=== PATIENT | male | born 1965 | race Caucasian/White ===

== ENCOUNTER 2016-09-07 20:01 | Emergency (ER) | payer MEDICARE, MEDICAID ==
[2016-09-07 22:06] LABS: BASO # 0.1 K/mm3 (0.0-0.2); BASO % 0.6 % (0.0-1.0); EOS # 0.2 K/mm3 (0.0-0.50); LARGE UNSTAINED CELL # 0.2 K/mm3 (0.0-0.4); LARGE UNSTAINED CELL % 1.3 % (0.0-4.0); LYMPH # 2.4 K/mm3 (1.5-4.5); LYMPH % 12.5 % (24.0-44.0); MEAN CORPUSCULAR HEMOGLOBIN 34.2 pg (27.0-33.0); MEAN CORPUSCULAR HGB CONC 33.5 g/dl (32.0-36.5); MONO # 1.3 K/mm3 (0.0-0.8); MONO % 7.6 % (0.0-5.0); NEUTROPHILS # 13.3 K/mm3 (1.8-7.7); PLATELET COUNT, AUTOMATED 325 k/mm3 (150-450); WHITE BLOOD COUNT 17.2 K/mm3 (4.0-10.0)
[2016-09-07 22:21] LABS: VENOUS BASE EXCESS 2.2 (-2.0-2.0); VENOUS O2 SATURATION 94.9 % (60.0-80.0); VENOUS PARTIAL PRESSURE CO2 43.3 mmHg (38.0-50.0); VENOUS PARTIAL PRESSURE O2 74.8 mmHg (30.0-50.0); VENOUS STANDARD HCO3 26.4 MEQ/L; VENOUS TOTAL CO2 28.5 MEQ/L (24.0-28.0)
[2016-09-07 22:30] LABS: ALBUMIN 3.3 GM/DL (3.2-5.2); ALBUMIN/GLOBULIN RATIO 0.75 (1.00-1.93); ALKALINE PHOSPHATASE 89 U/L (45-117); ALT/SGPT 22 U/L (12-78); AMYLASE 52 U/L (25-115); ANION GAP 9 MEQ/L (8-16); AST/SGOT 35 U/L (15-37); BILIRUBIN,DIRECT < 0.1 MG/DL (0.0-0.2); BILIRUBIN,TOTAL 0.5 MG/DL (0.2-1.0); BLOOD UREA NITROGEN 13 MG/DL (7-18); CALCIUM LEVEL 9.4 MG/DL (8.5-10.1); CARBON DIOXIDE LEVEL 30 MEQ/L (21-32); CHLORIDE LEVEL 100 MEQ/L (98-107); GLOMERULAR FILTRATION RATE 27.8 (>56); GLUCOSE, FASTING 272 MG/DL (70-105); POTASSIUM SERUM 3.5 MEQ/L (3.5-5.1); SODIUM LEVEL 139 MEQ/L (136-145); TOTAL PROTEIN 7.7 GM/DL (6.4-8.2)
--- NOTE | 2016-09-07 23:51 | REP ---
Clinical: Acute cough. Technique: PA and lateral. Comparison: None. Findings: Calcified nodule in the right upper lung zone. Thoracic stimulator in the epidural space. Mediastinum and cardiac silhouette without obvious acute process or cardiomegaly. Increased and coarsened interstitial markings emanating from the perihilar region. Differential diagnosis includes, but is not limited to chronic changes and acute bronchitis along with scattered basilar atelectasis. No effusion. No pneumothorax. Skeletal structures appear intact. Impression: Diffuse increased and coarsened interstitial changes. Differential diagnosis includes but is not limited to chronic changes as well as bronchitis with scattered basilar atelectasis. Signed by Refugio Faustin MD 09/07/2016 11:42 P
[2016-09-08 01:53] LABS: AMPHETAMINES LEVEL URINE NEGATIVE (NEGATIVE); BENZODIAZEPINES URINE NEGATIVE (NEGATIVE); COCAINE METABOLITE URINE NEGATIVE (NEGATIVE); CONTROL LINE INT CTR LINE PRESENT; METHADONE URINE NEGATIVE (NEGATIVE); OPIATES URINE NEGATIVE (NEGATIVE); TRICYCLIC ANTIDEPRESS URINE NEGATIVE (NEGATIVE)
--- NOTE | 2016-09-08 02:50 | REPUSA ---
CLINICAL HISTORY: Renal colic. TECHNIQUE: Multiple axial, sagittal and coronal CT images were obtained through the abdomen and pelvi s without administration of oral or IV contrast material. COMMENTS: The liver is of uniform attenuation without mass or defect. There is no intra or extrahepatic biliary ductal dilatation. The spleen is normal. The gallbladder is within normal limits. The pancreas is of normal contour and attenuation characteristics. There is no evidence of adrenal mass. The kidneys are normal in size, shape and configuration. No renal or ureteral calculi are identified. There is no hydroureter or hydronephrosis. There is no evidence for appendicitis. There is no bowel wall thickening. No evidence for small or la rge bowel obstruction. There is no evidence of abdominal ascites or lymphadenopathy. There is no evidence of intrinsic or extrinsic bladder mass. There is no pelvic ascites or lymphadeno augustina. Diffuse thickening of the wall of the bladder. Small sliding hiatal hernia. Images of the lung bases show no evidence of pleural or parenchymal mass. There are no pleural effusi ons. The bony structures are free of lytic or blastic lesions. Multilevel degenerative changes are seen in volving the thoracolumbar spine. Scattered calcifications are seen involving the aorta and major branches compatible with atherosclero sis. IMPRESSION: Diffuse thickening of the tanner the bladder. Underdistention versus mild cystitis. Uncomplicated colonic diverticulosis. Thank you for your kind referral of this patient.
[2016-09-08] MEDS ORDERED: LevoFLOXacin 250 MG TABLET As Ordered ONE (03:35)
--- NOTE | 2016-09-08 03:47 | EDDOCDS ---
Nurse's Notes [facility] Name: Colton Jolley Age: 50 yrs Sex: Male : 1965 Arrival Date: 09/07/2016 Time: 20:01 Bed 4 Private MD: Indio Payne Diagnosis: Cystitis, unspecified with hematuria Presentation: 09/07 20:05 Presenting complaint: EMS states: Per EMS pt hasn't felt well today before or after tm5 dialysis, sent here from Dialysis with complaints of general illness, aches & pains every where, BG FS before dialysis was 62 was given Dextrose & BG fingerstick per EMS is 177. Adult Sepsis Screening: The patient does not have new or worsening altered mentation. Patient's respiratory rate is less than 22. Systolic blood pressure is greater than 100. Patient has a qSOFA score of 0- Negative Sepsis Screen. Suicide/Homicide risk assessment- the patient denies having any suicidal and/or homicidal ideations and does not present with any other emotional, behavioral or mental health complaints. 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 Transition of care: patient was not received from another setting of care. Care prior to arrival: See EMS report. BG FS 177. 20:05 Acuity: JENNY Level 3 tm5 20:05 Method Of Arrival: Ambulance tm5 Triage Assessment: 20:18 General: Appears in no apparent distress, Behavior is appropriate for age, cooperative. tm5 Pain: Location: chronic all over pain per pt Pain currently is 9 out of 10 on a pain scale. Pt Declines HIV testing. The patient is triaged at the bedside. See Assessment in Nurses Notes section of ED record. Neurological: Level of Consciousness is awake, alert, Oriented to person, place, time. Cardiovascular: Rhythm is regular. Respiratory: Airway is patent Respiratory effort is even, unlabored, Respiratory pattern is regular, symmetrical, Breath sounds are clear bilaterally. GI: Abdomen is flat, non- distended Bowel sounds present X 4 quads. Abd is soft and non tender X 4 quads. : No deficits noted. Derm: Skin is pink, warm & dry. normal. Musculoskeletal: No deficits noted. Historical: - Allergies: EMLA; Erythromycin; - Home Meds: 1. Dexilant 60 mg oral CpDB 1 cap once daily 2. duloxetine 30 mg Oral cpDR 1 cap once daily 3. escitalopram oxalate 20 mg oral tab 1 tab once daily 4. gemfibrozil 600 mg Oral tab 1 tab 2 times per day 5. hydralazine 25 mg Oral tab 1 tab 2 times per day 6. Lantus 19 units nightly Sub-Q soln nightly 7. levetiracetam 500 mg oral tab 1 tab 2 times per day 8. Lipitor 40 mg Oral tab 1 tab once daily 9. pregabalin 300 mg Oral cap nightly 10. metoprolol succinate 50 mg Tb24 1 tab once daily 11. multivitamin Oral tab 12. Novolin 70/30 InnoLet per sliding scale Sub-Q inpn 13. tizanidine 12 mg nightly oral cap - PMHx: Hypertension; end stage renal disease; Diabetes - IDDM: controlled; Dialysis; COPD; chronic pain; - PSHx: spleenectomy; right leg fracture; - Social history: Smoking status: Patient states former smoker of tobacco. No barriers to communication noted, The patient speaks fluent Mexican. - Family history: Not pertinent. - : The pt / caregiver states he / she is not on anticoagulants. Home medication list is obtained from a discharge med list. - Exposure Risk Screening:: None identified. Screenin:20 Screening information is obtained from the patient. Fall risk: No risks identified. tm5 Assistance ADL's: requires no assistance with activities of daily living. Abuse/DV Screen: The patient / caregiver reports he/she is: not in a situation that causes fear, pain or injury. Nutritional screening: No deficits noted. Advance Directives: There is no active DNR order. home support is adequate. Assessment: 20:20 General: see triage assessment . tm5 20:57 Reassessment: Patient appears in no apparent distress at this time. Patient states tm5 symptoms have not improved. pt still awaiting MD for evaluation . 09/08 00:07 Reassessment: Patient appears in no apparent distress at this time. Patient states tm5 symptoms have not improved. pt refuses to be straight cath'd, pt has urinal at bedside since arrival & has been aware that Urine sample is needed, pt states " I'll urinate when I can", MD aware . 01:08 Reassessment: Patient appears in no apparent distress at this time. Patient states tm5 symptoms have not improved. pt asking why his pain hasn't been addressed by the MD, told pt MD is aware of his pain & this RN hasn't received any orders at this time for pain complaints, pt appears to be upset with this . General: pt standing up at bedside attempting to void in urinal at this time. 01:14 General: pt voided in urinal without any difficulties voiced . tm5 03:43 Reassessment: Patient appears in no apparent distress at this time. Patient states tm5 symptoms have improved. pt awakened for discharge home. Vital Signs: 09/07 20:14 BP 129 / 66; Pulse 83; Resp 20; Temp 96(TE); Pulse Ox 96% on R/A; Weight 90.72 kg (R); mello Height 5 ft. 7 in. (170.18 cm) (R); Pain 9/10; 20:27 BP 133 / 72 (auto/); tm5 20:27 Pulse 82 MON; Pulse Ox 94% ; tm5 20:42 BP 145 / 76 (auto/); tm5 20:42 Pulse 82 MON; Pulse Ox 95% ; tm5 20:57 BP 154 / 76 (auto/); tm5 20:57 Pulse 82 MON; Pulse Ox 91% ; tm5 21:12 BP 153 / 70 (auto/); tm5 21:12 Pulse 82 MON; Pulse Ox 90% on R/A; tm5 21:27 BP 151 / 79 (auto/); tm5 21:27 Pulse 78 MON; Pulse Ox 96% on R/A; tm5 09/08 00:06 BP 128 / 74; Pulse 87; Resp 18; Temp 98.0(O); Pulse Ox 98% on R/A; Pain 9/10; tm5 01:14 BP 117 / 79; Pulse 79; Resp 18; Pulse Ox 96% on R/A; Pain 9/10; tm5 03:43 BP 133 / 58; Pulse 74; Resp 18; Temp 97.9(O); Pulse Ox 100% on R/A; Pain 6/10; tm5 09/07 20:14 Body Mass Index 31.32 (90.72 kg, 170.18 cm) mello Vitals: 09/07 20:18 Log In Time N/A - ambulance arrival. tm5 ED Course: 20:02 Patient visited by Mary Alice, Heidy-Rima, Cattle Inspector. ml3 20:02 Patient moved to Waiting ml3 20:04 Indio Payne is Private Physician. ml3 20:05 Patient visited by Yarelis Hansen RN. tm5 20:05 Patient moved to 4 ml3 20:07 Triage Initiated tm5 20:11 Patient visited by Bruce Sullivan, SHELLEY. kb5 20:15 Patient visited by Shawnee Almanza PCA. mello 20:15 Pt greeted and oriented to ED. Patient advised of names of staff involved in care, mello location of call parekh, wait times and NPO status. Patient has correct armband on for positive identification. Placed in gown. Bed in low position. Call light in reach. Side rails up X2. stripping shovel oiler on. Pulse ox on. NIBP on. 20:16 Patient visited by Yarelis Hansen RN. tm5 20:20 Awaiting ED physician evaluation. tm5 20:20 The patient / caregiver is instructed regarding the plan of care and ED course. tm5 20:57 Yarelis Hansen RN is Primary Nurse. tm5 20:57 Patient visited by Yarelis Hansen RN. tm5 20:57 Awaiting ED physician evaluation. tm5 21:09 Patient visited by Yarelis Hansen RN. tm5 21:18 Harish Hameed DO is Attending Physician. mm11 21:18 Patient visited by Harish Hameed DO. mm11 21:24 Patient visited by Yarelis Hansen RN. tm5 21:24 ED physician to see patient. tm5 21:27 Patient visited by Harish Hameed DO. mm11 21:45 Inserted saline lock: 20 gauge in right forearm and blood collected. The patient tm5 tolerated the procedure well. 21:45 Labs/Blood culture drawn. tm5 21:47 Lactic Acid (Hairston tube on ice) Sent. tm5 21:47 Venous Blood Gas (large pea green tube on ice) Sent. tm5 21:47 -Blood Culture Sent. tm5 21:47 Amylase Sent. tm5 21:47 Basic Metabolic Profile Sent. tm5 21:47 CBC with Diff Sent. tm5 21:47 Cardiac Injury Profile Sent. tm5 21:47 Liver Profile Sent. tm5 21:47 Troponin Sent. tm5 21:50 Lipase Sent. tm5 21:51 Patient visited by Yarelis Hansen RN. tm5 22:10 Patient visited by Yarelis Hansen RN. tm5 23:20 Patient moved to Radiology bisi 23:26 Patient name changed from Colton\\S\\\\S\\Jolley\\S\\ to Colton\\S\\ \\S\\Jolley. EDMS 23:30 [facility] Payment Agreement was scanned into [employer] and attached to record. gjb 23:36 Patient moved to 4 bisi 23:39 Patient visited by Shawnee Almanza PCA. mello 09/08 00:03 Chest, 2 View (pa\\E\\lat) Returned. EDMS 00:06 -Influenza A&B Rapid Antigen - Nose Sent. tm5 00:14 Patient visited by Yarelis Hansen RN. tm5 00:49 Patient visited by Harish Hameed DO. mm11 00:51 Patient visited by Yarelis Hansen RN. tm5 00:51 ED physician to see patient. tm5 01:08 Patient visited by Yarelis Hansen RN. tm5 01:14 Patient visited by Yarelis Hansen RN. tm5 01:15 Urinalysis Sent. tm5 01:15 Urine Culture Sent. tm5 01:16 Patient visited by Yarelis Hansen RN. tm5 01:23 Drug Eval Toxicology ED Only Sent. tm5 01:51 Patient visited by Harish Hameed DO. mm11 01:54 Patient visited by Yarelis Hansen RN. tm5 01:54 Notified attending ED physician of BG FS 209, per MD no need for hourly fingersticks tm5 anymore at this time . 02:05 Patient visited by Yarelis Hansen RN. tm5 02:[address] tm5 03:01 CT ABD & PELVIS: No Contrast Returned. EDMS 03:04 Patient visited by Yarelis Hansen RN. tm5 03:27 Indio Payne is Referral Physician. mm11 03:34 Fingerstick Blood Sugar Sent. tm5 03:43 Discontinued lock intact, bleeding controlled, pressure dressing applied, No tm5 redness/swelling at site. No procedures done that require assistance. Administered Medications: 03:42 Drug: levofloxacin 250 mg [levofloxacin 250 mg tablet (1 tabs)] Route: PO; tm5 03:42 Follow up: Response: Pt left department before re-evaluation is appropriate tm5 Point of Care Testing: Blood Glucose: 09/07 21:43 Blood Glucose: 254 mg/dL; mlc 09/08 00:06 Blood Glucose: 227 mg/dL; tm5 01:54 Blood Glucose: 209 mg/dL; tm5 Ranges: Output: 01:14 Urine: 500.00ml (Voided); Total: 500.00ml. tm5 Order Results: Lab Order: Amylase; SPEC'M 09/07/16 21:43 Test: AMYLASE; Value: 52; Range: 25-115; Units: U/L; Status: F Lab Order: Basic Metabolic Profile; SPEC'M 09/07/16 21:43 Test: GLUCOSE, FASTING; Value: 272; Range: 70-105; Abnormal: Above high normal; Units: MG/DL; Status: F Test: BLOOD UREA NITROGEN; Value: 13; Range: 7-18; Units: MG/DL; Status: F Test: CREATININE FOR GFR; Value: 2.60; Range: 0.70-1.30; Abnormal: Above high normal; Units: MG/DL; Status: F Test: GLOMERULAR FILTRATION RATE; Value: 27.8; Range: >56; Abnormal: Below low normal; Status: F Test: SODIUM LEVEL; Value: 139; Range: 136-145; Units: MEQ/L; Status: F Test: POTASSIUM SERUM; Value: 3.5; Range: 3.5-5.1; Units: MEQ/L; Status: F Test: CHLORIDE LEVEL; Value: 100; Range: 98-107; Units: MEQ/L; Status: F Test: CARBON DIOXIDE LEVEL; Value: 30; Range: 21-32; Units: MEQ/L; Status: F Test: ANION GAP; Value: 9; Range: 8-16; Units: MEQ/L; Status: F Test: CALCIUM LEVEL; Value: 9.4; Range: 8.5-10.1; Units: MG/DL; Status: F Test Note: ; Units are mL/min/1.73 m2 Chronic Kidney Disease Staging per NKF: Stage I & II GFR >=60 Normal to Mildly Decreased Stage III GFR 30-59 Moderately Decreased Stage IV GFR 15-29 Severely Decreased Stage V GFR <15 Very Little GFR Left ESRD GFR <15 on FLOOR CARE TECHNICIAN Lab Order: CBC with Diff; SPEC'M 09/07/16 21:43 Test: WHITE BLOOD COUNT; Value: 17.2; Range: 4.0-10.0; Abnormal: Above high normal; Units: K/mm3; Status: F Test: RED BLOOD COUNT; Value: 4.04; Range: 4.30-6.10; Abnormal: Below low normal; Units: M/mm3; Status: F Test: HEMOGLOBIN; Value: 13.8; Range: 14.0-18.0; Abnormal: Below low normal; Units: g/dl; Status: F Test: HEMATOCRIT; Value: 41.2; Range: 42.0-52.0; Abnormal: Below low normal; Units: %; Status: F Test: MEAN CORPUSCULAR VOLUME; Value: 102.0; Range: 80.0-96.0; Abnormal: Above high normal; Units: fl; Status: F Test: MEAN CORPUSCULAR HEMOGLOBIN; Value: 34.2; Range: 27.0-33.0; Abnormal: Above high normal; Units: pg; Status: F Test: MEAN CORPUSCULAR HGB CONC; Value: 33.5; Range: 32.0-36.5; Units: g/dl; Status: F Test: RED CELL DISTRIBUTION WIDTH; Value: 15.0; Range: 11.5-14.5; Abnormal: Above high normal; Units: %; Status: F Test: PLATELET COUNT, AUTOMATED; Value: 325; Range: 150-450; Units: k/mm3; Status: F Test: NEUTROPHILS %; Value: 77.0; Range: 36.0-66.0; Abnormal: Above high normal; Units: %; Status: F Test: LYMPH %; Value: 12.5; Range: 24.0-44.0; Abnormal: Below low normal; Units: %; Status: F Test: MONO %; Value: 7.6; Range: 0.0-5.0; Abnormal: Above high normal; Units: %; Status: F Test: EOS %; Value: 1.0; Range: 0.0-3.0; Units: %; Status: F Test: BASO %; Value: 0.6; Range: 0.0-1.0; Units: %; Status: F Test: LARGE UNSTAINED CELL %; Value: 1.3; Range: 0.0-4.0; Units: %; Status: F Test: NEUTROPHILS #; Value: 13.3; Range: 1.8-7.7; Abnormal: Above high normal; Units: K/mm3; Status: F Test: LYMPH #; Value: 2.4; Range: 1.5-4.5; Units: K/mm3; Status: F Test: MONO #; Value: 1.3; Range: 0.0-0.8; Abnormal: Above high normal; Units: K/mm3; Status: F Test: EOS #; Value: 0.2; Range: 0.0-0.50; Units: K/mm3; Status: F Test: BASO #; Value: 0.1; Range: 0.0-0.2; Units: K/mm3; Status: F Test: LARGE UNSTAINED CELL #; Value: 0.2; Range: 0.0-0.4; Units: K/mm3; Status: F Lab Order: Cardiac Injury Profile; [facility]' 09/07/16 21:43 Test: CPK CREATINE PHOSPHOKINASE; Value: 123; Range: 39-308; Units: U/L; Status: F Test: CK-MB VALUE MASS; Value: 1.3; Range: 0.0-3.6; Units: NG/ML; Status: F Test: MB/CK RELATIVE INDEX; Value: 1.05; Range: < OR =4; Status: F Test Note: ; DIAGNOSIS CRITERIA MMB ng/ml Relative Index (RI) NON-AMI < or = 5 N/A HAIRSTON ZONE > 5 < or = 4 AMI > 5 > 4 Lab Order: Lipase; [facility] 09/07/16 21:43 Test: LIPASE; Value: 77; Range: 73-393; Units: U/L; Status: F Lab Order: Liver Profile; [facility] 09/07/16 21:43 Test: AST/SGOT; Value: 35; Range: 15-37; Units: U/L; Status: F Test: ALT/SGPT; Value: 22; Range: 12-78; Units: U/L; Status: F Test: ALKALINE PHOSPHATASE; Value: 89; Range: 45-117; Units: U/L; Status: F Test: BILIRUBIN,TOTAL; Value: 0.5; Range: 0.2-1.0; Units: MG/DL; Status: F Test: BILIRUBIN,DIRECT; Value: < 0.1; Range: 0.0-0.2; Units: MG/DL; Status: F Test: TOTAL PROTEIN; Value: 7.7; Range: 6.4-8.2; Units: GM/DL; Status: F Test: ALBUMIN; Value: 3.3; Range: 3.2-5.2; Units: GM/DL; Status: F Test: ALBUMIN/GLOBULIN RATIO; Value: 0.75; Range: 1.00-1.93; Abnormal: Below low normal; Status: F Lab Order: Troponin; SPEC'M 09/07/16 21:43 Test: TROPONIN I; Value: < 0.02; Range: < 0.10; Units: NG/ML; Status: F Test Note: ; Troponin I Reference Interval for [place] LOCI: 99th Percentile= 0.00-0.045 ng/ml Risk Stratification: <= 0.10 ng/ml Decreased Risk for Adverse Clinical Events. 0.10-1.50 ng/ml Increased Risk for Adverse Clinical Events. Evaluation of additional criterion and/or repeat testing in 2-6 hours is suggested to rule out myocardial damage. >= 1.50 ng/ml Indicative of Myocardial Injury. Lab Order: Urinalysis; SPEC'M 09/07/16 01:15 Test: APPEARANCE, URINE; Value: CLEAR; Range: CLEAR; Status: F Test: COLOR, URINE; Value: YELLOW; Range: YELLOW; Status: F Test: PH,URINE; Value: 5.0; Range: 5.0-9.0; Units: UNITS; Status: F Test: SPECIFIC GRAVITY URINE AUTO; Value: 1.010; Range: 1.002-1.035; Status: F Test: PROTEIN, URINE AUTO; Value: 2+; Range: NEGATIVE; Abnormal: Above high normal; Units: mg/dL; Status: F Test: GLUCOSE, URINE (UA) AUTO; Value: 1+; Range: NEGATIVE; Abnormal: Above high normal; Units: mg/dL; Status: F Test: KETONE, URINE AUTO; Value: NEGATIVE; Range: NEGATIVE; Units: mg/dL; Status: F Test: UROBILINOGEN, URINE AUTO; Value: 0.2; Range: 0.0-2.0; Units: mg/dL; Status: F Test: BILIRUBIN, URINE AUTO; Value: NEGATIVE; Range: NEGATIVE; Status: F Test: NITRITE, URINE AUTO; Value: NEGATIVE; Range: NEGATIVE; Status: F Test: LEUKOCYTE ESTERASE, URINE AUTO; Value: NEGATIVE; Range: NEGATIVE; Status: F Test: BLOOD, URINE BLOOD; Value: NEGATIVE; Range: NEGATIVE; Status: F Test: WBC, URINE AUTO; Value: 2; Range: 0-3; Units: /HPF; Status: F Test: RBC, URINE AUTO; Value: 27; Range: 0-3; Abnormal: Above high normal; Units: /HPF; Status: F Test: BACTERIA, URINE AUTO; Value: NEGATIVE; Range: NEGATIVE; Status: F Test: SQUAMOUS EPITHELIAL CELL UR AU; Value: 0; Range: 0-6; Units: /HPF; Status: F Test: HYALINE CAST, URINE AUTO; Value: 0; Range: 0-1; Units: /LPF; Status: F Lab Order: Venous Blood Gas (large pea green tube on ice); SPEC'M 09/07/16 21:43 Test: VENOUS PH; Value: 7.415; Range: 7.330-7.430; Units: UNITS; Status: F Test: VENOUS PARTIAL PRESSURE CO2; Value: 43.3; Range: 38.0-50.0; Units: mmHg; Status: F Test: VENOUS PARTIAL PRESSURE O2; Value: 74.8; Range: 30.0-50.0; Abnormal: Above high normal; Units: mmHg; Status: F Test: VENOUS TOTAL CO2; Value: 28.5; Range: 24.0-28.0; Abnormal: Above high normal; Units: MEQ/L; Status: F Test: VENOUS HCO3; Value: 27.1; Range: 23.0-27.0; Abnormal: Above high normal; Units: MEQ/L; Status: F Test: VENOUS BASE EXCESS; Value: 2.2; Range: -2.0-2.0; Abnormal: Above high normal; Status: F Test: VENOUS STANDARD HCO3; Value: 26.4; Units: MEQ/L; Status: F Test: VENOUS O2 SATURATION; Value: 94.9; Range: 60.0-80.0; Abnormal: Above high normal; Units: %; Status: F Lab Order: Lactic Acid (Hairston tube on ice); SPEC'M 09/07/16 21:43 Test: LACTIC ACID LEVEL, LACTATE; Value: 0.9; Range: 0.4-2.0; Units: MMOL/L; Status: F Lab Order: Fingerstick Blood Sugar; SPEC'M 09/07/16 21:42 Test: BEDSIDE GLUCOSE; Value: 254; Range: 70-105; Abnormal: Above high normal; Units: MG/DL; Status: F Test Note: ; RN Notified Dr Order not to Draw Lab Order: -Influenza A&B Rapid Antigen - Nose; SPEC'M 09/08/16 00:03 Test: INFLUENZA A RAPID SCR by ICA; Value: INFLUENZA A RESULTS NEGATIVE; Status: F Test: INFLUENZA A RAPID SCR by ICA; Value: Comments:; Status: F Test: INFLUENZA B RAPID SCR by ICA; Value: INFLUENZA B RESULTS NEGATIVE; Status: F Test Note: ; The Influenza test is a direct rapid immunoassay for the qualitative detection of Influenza viral antigen. Cell culture (Viral Culture) testing should be considered to confirm NEGATIVE results and to assist in detecting other viruses that can provide similar clinical symptoms. Please contact the lab within 24 hours ([phone]) if confirmatory testing is desired. Lab Order: Fingerstick Blood Sugar; SPEC'M 09/08/16 00:05 Test: BEDSIDE GLUCOSE; Value: 227; Range: 70-105; Abnormal: Above high normal; Units: MG/DL; Status: F Test Note: ; Doctor Notified Lab Order: Drug Eval Toxicology ED Only; SPEC'M 09/08/16 01:24 Test: AMPHETAMINES LEVEL URINE; Value: NEGATIVE; Range: NEGATIVE; Status: F Test: BARBITURATES URINE; Value: NEGATIVE; Range: NEGATIVE; Status: F Test: BENZODIAZEPINES URINE; Value: NEGATIVE; Range: NEGATIVE; Status: F Test: CANNABINOIDS URINE; Value: NEGATIVE; Range: NEGATIVE; Status: F Test: COCAINE METABOLITE URINE; Value: NEGATIVE; Range: NEGATIVE; Status: F Test: METHADONE URINE; Value: NEGATIVE; Range: NEGATIVE; Status: F Test: OPIATES URINE; Value: NEGATIVE; Range: NEGATIVE; Status: F Test: TRICYCLIC ANTIDEPRESS URINE; Value: NEGATIVE; Range: NEGATIVE; Status: F Test Note: ; ALL PRESUMPTIVE POSITIVE FINDINGS ARE UNCONFIRMED NORMAL VALUES THRESHOLD IN NG/ML AMPHETAMINES 1000 METHAMPHETAMINES 1000 BARBITURATES 300 BENZODIAZEPINES 300 CANNABINOIDS (THC) 50 COCAINE METABOLITE 300 METHADONE 300 OPIATES 300 PHENCYCLIDINE 25 TRICYCLIC ANTIDEPRESSANTS 1000 RESULTS ARE FOR MEDICAL PURPOSES ONLY. ALL URINE SPECIMENS WILL BE SAVED FOR 3 DAYS. IF CONFIRMATION OF A PRESUMPTIVE POSTIVE SCREEN RESULT IS DESIRED, CALL CHEMISTRY ([phone]) AND REQUEST URINE TO BE SENT TO REFERENCE LAB. FOR A LIST OF CLOSELY RELATED COMPOUNDS PLEASE CALL THE LAB. Radiology Order: Chest, 2 View (pa\\E\\lat) Test: Chest, 2 View (pa\\E\\lat) REASON FOR EXAMINATION: Cough; Clinical: Acute cough.; ; Technique: PA and lateral.; ; Comparison: None.; ; Findings:; Calcified nodule in the right upper lung zone. Thoracic stimulator in the; epidural space. Mediastinum and cardiac silhouette without obvious acute process; or cardiomegaly. Increased and coarsened interstitial markings emanating from; the perihilar region. Differential diagnosis includes, but is not limited to; chronic changes and acute bronchitis along with scattered basilar atelectasis.; No effusion. No pneumothorax. Skeletal structures appear intact.; ; Impression:; Diffuse increased and coarsened interstitial changes. Differential diagnosis; includes but is not limited to chronic changes as well as bronchitis with; scattered basilar atelectasis.; ; ; Signed by; Refugio Faustin MD 09/07/2016 11:42 P; Radiology Order: CT ABD & PELVIS: No Contrast Test: CT ABD & PELVIS: No Contrast REASON FOR EXAMINATION: Renal colic; ; CLINICAL HISTORY: Renal colic.; TECHNIQUE: Multiple axial, sagittal and coronal CT images were obtained through the abdomen and pelvi; s without administration of oral or IV contrast material.; COMMENTS:; The liver is of uniform attenuation without mass or defect. There is no intra or extrahepatic biliary; ductal dilatation. The spleen is normal. The gallbladder is within normal limits. The pancreas is of; normal contour and attenuation characteristics. There is no evidence of adrenal mass.; The kidneys are normal in size, shape and configuration. No renal or ureteral calculi are identified.; There is no hydroureter or hydronephrosis.; There is no evidence for appendicitis. There is no bowel wall thickening. No evidence for small or la; rge bowel obstruction. There is no evidence of abdominal ascites or lymphadenopathy.; There is no evidence of intrinsic or extrinsic bladder mass. There is no pelvic ascites or lymphadeno; augustina.; Diffuse thickening of the wall of the bladder. Small sliding hiatal hernia.; Images of the lung bases show no evidence of pleural or parenchymal mass. There are no pleural effusi; ons.; The bony structures are free of lytic or blastic lesions. Multilevel degenerative changes are seen in; volving the thoracolumbar spine.; Scattered calcifications are seen involving the aorta and major branches compatible with atherosclero; sis.; IMPRESSION:; Diffuse thickening of the tanner the bladder.; Underdistention versus mild cystitis.; Uncomplicated colonic diverticulosis.; Thank you for your kind referral of this patient.; ; Outcome: 03:27 Discharge ordered by Provider. mm11 03:43 Discharge Assessment: Patient awake, alert and oriented x 3. No cognitive and/or tm5 functional deficits noted. Patient verbalized understanding of disposition instructions. patient administered narcotics - no. The following High Risk Discharge criteria are identified: None. Discharged to home ambulatory. Condition: good Condition: stable. Discharge instructions given to patient, Instructed on discharge instructions, follow up and referral plans. medication usage, Demonstrated understanding of instructions, medications, Pt was receptive of discharge instructions/ teaching. Prescriptions given X 1. CT Study completed. Property :Personal belongings accompany Pt. 03:46 Patient left the ED. tm5 Signatures: Dispatcher [employer] EDMS Edmar Kruse Mary-Elizabeth, Cattle Inspector Unit ml3 Bruce Sullivan, DATA ENTRY TECHNICIAN DATA ENTRY TECHNICIAN kb5 Harish Hameed DO DO mm11 Shawnee Almanza, DATA ENTRY TECHNICIAN DATA ENTRY TECHNICIAN Marsha Jimenez,DONATO RN Yolanda Ramos Tonya, RN RN tm5 MTDD
--- NOTE | 2016-09-08 03:47 | EDDOCDS ---
Physician Documentation [facility] Name: Colton Jolley Age: 50 yrs Sex: Male : 1965 Arrival Date: 09/07/2016 Time: 20:01 Bed 4 Private MD: Indio Payne Disposition: 09/08/16 03:27 Discharged to Home/Self Care. Impression: Cystitis, unspecified with hematuria. - Condition is Stable. - Discharge Instructions: Urinary Tract Infection, Urinary Tract Infection, [id number]. - Prescriptions for Levaquin 250 mg Oral Tablet - take 1 tablet by ORAL route once daily for 10 days; 10 tablet. - Medication Reconciliation, Local Pharmacy Hours form. - Follow up: Indio Payne; When: 2 - 3 days; Reason: Continuance of care. - Problem is an acute exacerbation. - Symptoms have improved. Historical: - Allergies: EMLA; Erythromycin; - Home Meds: 1. Dexilant 60 mg oral CpDB 1 cap once daily 2. duloxetine 30 mg Oral cpDR 1 cap once daily 3. escitalopram oxalate 20 mg oral tab 1 tab once daily 4. gemfibrozil 600 mg Oral tab 1 tab 2 times per day 5. hydralazine 25 mg Oral tab 1 tab 2 times per day 6. Lantus 19 units nightly Sub-Q soln nightly 7. levetiracetam 500 mg oral tab 1 tab 2 times per day 8. Lipitor 40 mg Oral tab 1 tab once daily 9. pregabalin 300 mg Oral cap nightly 10. metoprolol succinate 50 mg Tb24 1 tab once daily 11. multivitamin Oral tab 12. Novolin 70/30 InnoLet per sliding scale Sub-Q inpn 13. tizanidine 12 mg nightly oral cap - PMHx: Hypertension; end stage renal disease; Diabetes - IDDM: controlled; Dialysis; COPD; chronic pain; - PSHx: spleenectomy; right leg fracture; - Social history: Smoking status: Patient states former smoker of tobacco. No barriers to communication noted, The patient speaks fluent Yoruba. - Family history: Not pertinent. - : The pt / caregiver states he / she is not on anticoagulants. Home medication list is obtained from a discharge med list. - Exposure Risk Screening:: None identified. Vital Signs: 01/16 20:14 BP 129 / 66; Pulse 83; Resp 20; Temp 96(TE); Pulse Ox 96% on R/A; Weight 90.72 kg / 200 mello lbs (R); Height 5 ft. 7 in. (170.18 cm) (R); Pain 9/10; 20:27 BP 133 / 72 (auto/); tm5 20:27 Pulse 82 MON; Pulse Ox 94% ; tm5 20:42 BP 145 / 76 (auto/); tm5 20:42 Pulse 82 MON; Pulse Ox 95% ; tm5 20:57 BP 154 / 76 (auto/); tm5 20:57 Pulse 82 MON; Pulse Ox 91% ; tm5 21:12 BP 153 / 70 (auto/); tm5 21:12 Pulse 82 MON; Pulse Ox 90% on R/A; tm5 21:27 BP 151 / 79 (auto/); tm5 21:27 Pulse 78 MON; Pulse Ox 96% on R/A; tm5 09/08 00:06 BP 128 / 74; Pulse 87; Resp 18; Temp 98.0(O); Pulse Ox 98% on R/A; Pain 9/10; tm5 01:14 BP 117 / 79; Pulse 79; Resp 18; Pulse Ox 96% on R/A; Pain 9/10; tm5 03:43 BP 133 / 58; Pulse 74; Resp 18; Temp 97.9(O); Pulse Ox 100% on R/A; Pain 6/10; tm5 09/07 20:14 Body Mass Index 31.32 (90.72 kg, 170.18 cm) mello MDM: 09/07 21:28 -Blood Culture (Adults Only), peripheral from different site, or from device/port/PICC mm11 etc. if present ordered. 21:28 IV Saline Lock ordered. mm11 21:28 Undress patient appropriately for examination ordered. mm11 21:28 Accucheck hourly ordered. mm11 21:29 Amylase Ordered. EDMS 21:29 Basic Metabolic Profile Ordered. EDMS 21:29 CBC with Diff Ordered. EDMS 21:29 Cardiac Injury Profile Ordered. EDMS 21:29 Lipase Ordered. EDMS 21:29 Liver Profile Ordered. EDMS 21:29 Troponin Ordered. EDMS 21:29 Urinalysis Ordered. EDMS 21:29 Venous Blood Gas (large pea green tube on ice) Ordered. EDMS 21:29 Lactic Acid ([place] tube on ice) Ordered. EDMS 21:29 -Blood Culture Ordered. EDMS 21:29 Urine Culture Ordered. EDMS 21:29 NOTHING BY MOUTH+DIET ordered. EDMS 21:48 -Blood Culture (Adults Only), peripheral from different site, or from device/port/PICC tm5 etc. if present complete. 22:31 Financial registration complete. gjb 22:33 Fingerstick Blood Sugar Ordered. EDMS 22:56 Basic Metabolic Profile Reviewed. mm11 22:56 CBC with Diff Reviewed. mm11 22:56 Liver Profile Reviewed. mm11 22:56 Venous Blood Gas (large pea green tube on ice) Reviewed. mm11 22:56 Fingerstick Blood Sugar Reviewed. mm11 22:56 Amylase Reviewed. mm11 22:56 Cardiac Injury Profile Reviewed. mm11 22:56 Lipase Reviewed. mm11 22:56 Troponin Reviewed. mm11 22:56 Lactic Acid ([place] tube on ice) Reviewed. mm11 23:00 Chest, 2 View (pa\E\lat) Ordered. EDMS 23:00 -Influenza A&B Rapid Antigen - Nose Ordered. EDMS 23:30 [facility] Payment Agreement was scanned into [employer] and attached to record. gjb 09/08 00:05 Chest, 2 View (pa\E\lat) Reviewed. mm11 00:13 Fingerstick Blood Sugar Ordered. EDMS 00:23 Fingerstick Blood Sugar Reviewed. mm11 00:35 -Influenza A&B Rapid Antigen - Nose Reviewed. mm11 01:21 Drug Eval Toxicology ED Only Ordered. EDMS 01:34 Urinalysis Reviewed. mm11 01:52 CT ABD & PELVIS: No Contrast Ordered. EDMS 01:55 Drug Eval Toxicology ED Only Reviewed. mm11 02:12 Fingerstick Blood Sugar Ordered. EDMS 03:23 CT ABD & PELVIS: No Contrast Reviewed. mm11 03:26 levofloxacin 250 mg PO once ordered. mm11 Point of Care Testing: Blood Glucose: 09/07 21:43 Blood Glucose: 254 mg/dL; mlc 09/08 00:06 Blood Glucose: 227 mg/dL; tm5 01:54 Blood Glucose: 209 mg/dL; tm5 Ranges: Administered Medications: 03:42 Drug: levofloxacin 250 mg [levofloxacin 250 mg tablet (1 tabs)] Route: PO; tm5 03:42 Follow up: Response: Pt left department before re-evaluation is appropriate tm5 Signatures: Dispatcher [employer] Harish Mondragon, DO mm11 Yolanda Castillo Tonya, RN RN tm5 The chart was reviewed and I authenticate all verbal orders and agree with the evaluation and treatment provided.Corrections: (The following items were deleted from the chart) 00:06 09/07 22:57 Straight cath ordered. mm11 tm5 Attachments: 23:30 [facility] Payment Agreement stephanie MTDD
--- NOTE | 2016-09-10 04:47 | EDDOCDS ---
Physician Documentation [facility] Name: Colton Jolley Age: 50 yrs Sex: Male : 1965 Arrival Date: 09/07/2016 Time: 20:01 Bed 4 Private MD: Indio Payne Disposition: 09/08/16 03:27 Discharged to Home/Self Care. Impression: Cystitis, unspecified with hematuria. - Condition is Stable. - Discharge Instructions: Urinary Tract Infection, Urinary Tract Infection, [id number]. - Prescriptions for Levaquin 250 mg Oral Tablet - take 1 tablet by ORAL route once daily for 10 days; 10 tablet. - Medication Reconciliation, Local Pharmacy Hours form. - Follow up: Indio Payne; When: 2 - 3 days; Reason: Continuance of care. - Problem is an acute exacerbation. - Symptoms have improved. Historical: - Allergies: EMLA; Erythromycin; - Home Meds: 1. Dexilant 60 mg oral CpDB 1 cap once daily 2. duloxetine 30 mg Oral cpDR 1 cap once daily 3. escitalopram oxalate 20 mg oral tab 1 tab once daily 4. gemfibrozil 600 mg Oral tab 1 tab 2 times per day 5. hydralazine 25 mg Oral tab 1 tab 2 times per day 6. Lantus 19 units nightly Sub-Q soln nightly 7. levetiracetam 500 mg oral tab 1 tab 2 times per day 8. Lipitor 40 mg Oral tab 1 tab once daily 9. pregabalin 300 mg Oral cap nightly 10. metoprolol succinate 50 mg Tb24 1 tab once daily 11. multivitamin Oral tab 12. Novolin 70/30 InnoLet per sliding scale Sub-Q inpn 13. tizanidine 12 mg nightly oral cap - PMHx: Hypertension; end stage renal disease; Diabetes - IDDM: controlled; Dialysis; COPD; chronic pain; - PSHx: spleenectomy; right leg fracture; - Social history: Smoking status: Patient states former smoker of tobacco. No barriers to communication noted, The patient speaks fluent Hungarian. - Family history: Not pertinent. - : The pt / caregiver states he / she is not on anticoagulants. Home medication list is obtained from a discharge med list. - Exposure Risk Screening:: None identified. Vital Signs: 01/16 20:14 BP 129 / 66; Pulse 83; Resp 20; Temp 96(TE); Pulse Ox 96% on R/A; Weight 90.72 kg / 200 mello lbs (R); Height 5 ft. 7 in. (170.18 cm) (R); Pain 9/10; 20:27 BP 133 / 72 (auto/); tm5 20:27 Pulse 82 MON; Pulse Ox 94% ; tm5 20:42 BP 145 / 76 (auto/); tm5 20:42 Pulse 82 MON; Pulse Ox 95% ; tm5 20:57 BP 154 / 76 (auto/); tm5 20:57 Pulse 82 MON; Pulse Ox 91% ; tm5 21:12 BP 153 / 70 (auto/); tm5 21:12 Pulse 82 MON; Pulse Ox 90% on R/A; tm5 21:27 BP 151 / 79 (auto/); tm5 21:27 Pulse 78 MON; Pulse Ox 96% on R/A; tm5 09/08 00:06 BP 128 / 74; Pulse 87; Resp 18; Temp 98.0(O); Pulse Ox 98% on R/A; Pain 9/10; tm5 01:14 BP 117 / 79; Pulse 79; Resp 18; Pulse Ox 96% on R/A; Pain 9/10; tm5 03:43 BP 133 / 58; Pulse 74; Resp 18; Temp 97.9(O); Pulse Ox 100% on R/A; Pain 6/10; tm5 09/07 20:14 Body Mass Index 31.32 (90.72 kg, 170.18 cm) mello MDM: 09/07 21:28 -Blood Culture (Adults Only), peripheral from different site, or from device/port/PICC mm11 etc. if present ordered. 21:28 IV Saline Lock ordered. mm11 21:28 Undress patient appropriately for examination ordered. mm11 21:28 Accucheck hourly ordered. mm11 21:29 Amylase Ordered. EDMS 21:29 Basic Metabolic Profile Ordered. EDMS 21:29 CBC with Diff Ordered. EDMS 21:29 Cardiac Injury Profile Ordered. EDMS 21:29 Lipase Ordered. EDMS 21:29 Liver Profile Ordered. EDMS 21:29 Troponin Ordered. EDMS 21:29 Urinalysis Ordered. EDMS 21:29 Venous Blood Gas (large pea green tube on ice) Ordered. EDMS 21:29 Lactic Acid ([place] tube on ice) Ordered. EDMS 21:29 -Blood Culture Ordered. EDMS 21:29 Urine Culture Ordered. EDMS 21:29 NOTHING BY MOUTH+DIET ordered. EDMS 21:48 -Blood Culture (Adults Only), peripheral from different site, or from device/port/PICC tm5 etc. if present complete. 22:31 Financial registration complete. gjb 22:33 Fingerstick Blood Sugar Ordered. EDMS 22:56 Basic Metabolic Profile Reviewed. mm11 22:56 CBC with Diff Reviewed. mm11 22:56 Liver Profile Reviewed. mm11 22:56 Venous Blood Gas (large pea green tube on ice) Reviewed. mm11 22:56 Fingerstick Blood Sugar Reviewed. mm11 22:56 Amylase Reviewed. mm11 22:56 Cardiac Injury Profile Reviewed. mm11 22:56 Lipase Reviewed. mm11 22:56 Troponin Reviewed. mm11 22:56 Lactic Acid ([place] tube on ice) Reviewed. mm11 23:00 Chest, 2 View (pa\E\lat) Ordered. EDMS 23:00 -Influenza A&B Rapid Antigen - Nose Ordered. EDMS 23:30 [facility] Payment Agreement was scanned into [employer] and attached to record. gjb 09/08 00:05 Chest, 2 View (pa\E\lat) Reviewed. mm11 00:13 Fingerstick Blood Sugar Ordered. EDMS 00:23 Fingerstick Blood Sugar Reviewed. mm11 00:35 -Influenza A&B Rapid Antigen - Nose Reviewed. mm11 01:21 Drug Eval Toxicology ED Only Ordered. EDMS 01:34 Urinalysis Reviewed. mm11 01:52 CT ABD & PELVIS: No Contrast Ordered. EDMS 01:55 Drug Eval Toxicology ED Only Reviewed. mm11 02:12 Fingerstick Blood Sugar Ordered. EDMS 03:23 CT ABD & PELVIS: No Contrast Reviewed. mm11 03:26 levofloxacin 250 mg PO once ordered. mm11 11:11 T-Sheet-- Draft Copy was scanned into [employer] and attached to record. gb 11:11 Other: DRUG UTILIZATION REPORT was scanned into [employer] and attached to record. gb 11:11 Radiology Report was scanned into [employer] and attached to record. gb Point of Care Testing: Blood Glucose: 09/07 21:43 Blood Glucose: 254 mg/dL; mlc 09/08 00:06 Blood Glucose: 227 mg/dL; tm5 01:54 Blood Glucose: 209 mg/dL; tm5 Ranges: Administered Medications: 03:42 Drug: levofloxacin 250 mg [levofloxacin 250 mg tablet (1 tabs)] Route: PO; tm5 03:42 Follow up: Response: Pt left department before re-evaluation is appropriate tm5 Signatures: Dispatcher [employer] EDKaycee Rivas, Reg Reg Harish Willis DO DO mm11 Yolanda Castillo b Yarelis Hansen RN RN tm5 The chart was reviewed and I authenticate all verbal orders and agree with the evaluation and treatment provided.Corrections: (The following items were deleted from the chart) 00:06 09/07 22:57 Straight cath ordered. mm11 tm5 Attachments: 23:30 [facility] Payment Agreement gjb 09/08 11:11 T-Sheet-- Draft Copy gb Chart Complete MTDD
--- NOTE | 2016-09-10 04:47 | EDDOCDS ---
Nurse's Notes [facility] Name: Colton Jolley Age: 50 yrs Sex: Male : 1965 Arrival Date: 09/07/2016 Time: 20:01 Bed 4 Private MD: Indio Payne Diagnosis: Cystitis, unspecified with hematuria Presentation: 09/07 20:05 Presenting complaint: EMS states: Per EMS pt hasn't felt well today before or after tm5 dialysis, sent here from Dialysis with complaints of general illness, aches & pains every where, BG FS before dialysis was 62 was given Dextrose & BG fingerstick per EMS is 177. Adult Sepsis Screening: The patient does not have new or worsening altered mentation. Patient's respiratory rate is less than 22. Systolic blood pressure is greater than 100. Patient has a qSOFA score of 0- Negative Sepsis Screen. Suicide/Homicide risk assessment- the patient denies having any suicidal and/or homicidal ideations and does not present with any other emotional, behavioral or mental health complaints. Status: Patient is not a human service worker or dependent. Transition of care: patient was not received from another setting of care. Care prior to arrival: See EMS report. BG FS 177. 20:05 Acuity: JENNY Level 3 tm5 20:05 Method Of Arrival: Ambulance tm5 Triage Assessment: 20:18 General: Appears in no apparent distress, Behavior is appropriate for age, cooperative. tm5 Pain: Location: chronic all over pain per pt Pain currently is 9 out of 10 on a pain scale. Pt Declines HIV testing. The patient is triaged at the bedside. See Assessment in Nurses Notes section of ED record. Neurological: Level of Consciousness is awake, alert, Oriented to person, place, time. Cardiovascular: Rhythm is regular. Respiratory: Airway is patent Respiratory effort is even, unlabored, Respiratory pattern is regular, symmetrical, Breath sounds are clear bilaterally. GI: Abdomen is flat, non- distended Bowel sounds present X 4 quads. Abd is soft and non tender X 4 quads. : No deficits noted. Derm: Skin is pink, warm & dry. normal. Musculoskeletal: No deficits noted. Historical: - Allergies: EMLA; Erythromycin; - Home Meds: 1. Dexilant 60 mg oral CpDB 1 cap once daily 2. duloxetine 30 mg Oral cpDR 1 cap once daily 3. escitalopram oxalate 20 mg oral tab 1 tab once daily 4. gemfibrozil 600 mg Oral tab 1 tab 2 times per day 5. hydralazine 25 mg Oral tab 1 tab 2 times per day 6. Lantus 19 units nightly Sub-Q soln nightly 7. levetiracetam 500 mg oral tab 1 tab 2 times per day 8. Lipitor 40 mg Oral tab 1 tab once daily 9. pregabalin 300 mg Oral cap nightly 10. metoprolol succinate 50 mg Tb24 1 tab once daily 11. multivitamin Oral tab 12. Novolin 70/30 InnoLet per sliding scale Sub-Q inpn 13. tizanidine 12 mg nightly oral cap - PMHx: Hypertension; end stage renal disease; Diabetes - IDDM: controlled; Dialysis; COPD; chronic pain; - PSHx: spleenectomy; right leg fracture; - Social history: Smoking status: Patient states former smoker of tobacco. No barriers to communication noted, The patient speaks fluent Sammarinese. - Family history: Not pertinent. - : The pt / caregiver states he / she is not on anticoagulants. Home medication list is obtained from a discharge med list. - Exposure Risk Screening:: None identified. Screenin:20 Screening information is obtained from the patient. Fall risk: No risks identified. tm5 Assistance ADL's: requires no assistance with activities of daily living. Abuse/DV Screen: The patient / caregiver reports he/she is: not in a situation that causes fear, pain or injury. Nutritional screening: No deficits noted. Advance Directives: There is no active DNR order. home support is adequate. Assessment: 20:20 General: see triage assessment . tm5 20:57 Reassessment: Patient appears in no apparent distress at this time. Patient states tm5 symptoms have not improved. pt still awaiting MD for evaluation . 09/08 00:07 Reassessment: Patient appears in no apparent distress at this time. Patient states tm5 symptoms have not improved. pt refuses to be straight cath'd, pt has urinal at bedside since arrival & has been aware that Urine sample is needed, pt states " I'll urinate when I can", MD aware . 01:08 Reassessment: Patient appears in no apparent distress at this time. Patient states tm5 symptoms have not improved. pt asking why his pain hasn't been addressed by the MD, told pt MD is aware of his pain & this RN hasn't received any orders at this time for pain complaints, pt appears to be upset with this . General: pt standing up at bedside attempting to void in urinal at this time. 01:14 General: pt voided in urinal without any difficulties voiced . tm5 03:43 Reassessment: Patient appears in no apparent distress at this time. Patient states tm5 symptoms have improved. pt awakened for discharge home. Vital Signs: 09/07 20:14 BP 129 / 66; Pulse 83; Resp 20; Temp 96(TE); Pulse Ox 96% on R/A; Weight 90.72 kg (R); mello Height 5 ft. 7 in. (170.18 cm) (R); Pain 9/10; 20:27 BP 133 / 72 (auto/); tm5 20:27 Pulse 82 MON; Pulse Ox 94% ; tm5 20:42 BP 145 / 76 (auto/); tm5 20:42 Pulse 82 MON; Pulse Ox 95% ; tm5 20:57 BP 154 / 76 (auto/); tm5 20:57 Pulse 82 MON; Pulse Ox 91% ; tm5 21:12 BP 153 / 70 (auto/); tm5 21:12 Pulse 82 MON; Pulse Ox 90% on R/A; tm5 21:27 BP 151 / 79 (auto/); tm5 21:27 Pulse 78 MON; Pulse Ox 96% on R/A; tm5 09/08 00:06 BP 128 / 74; Pulse 87; Resp 18; Temp 98.0(O); Pulse Ox 98% on R/A; Pain 9/10; tm5 01:14 BP 117 / 79; Pulse 79; Resp 18; Pulse Ox 96% on R/A; Pain 9/10; tm5 03:43 BP 133 / 58; Pulse 74; Resp 18; Temp 97.9(O); Pulse Ox 100% on R/A; Pain 6/10; tm5 09/07 20:14 Body Mass Index 31.32 (90.72 kg, 170.18 cm) mello Vitals: 09/07 20:18 Log In Time N/A - ambulance arrival. tm5 ED Course: 20:02 Patient visited by Mary Alice, Heidy-Rima, Marketing Communication Manager. ml3 20:02 Patient moved to Waiting ml3 20:04 Indio Payne is Private Physician. ml3 20:05 Patient visited by Yarelis Hansen RN. tm5 20:05 Patient moved to 4 ml3 20:07 Triage Initiated tm5 20:11 Patient visited by Bruce Sullivan, SHELLEY. kb5 20:15 Patient visited by Shawnee Almanza PCA. mello 20:15 Pt greeted and oriented to ED. Patient advised of names of staff involved in care, mello location of call parekh, wait times and NPO status. Patient has correct armband on for positive identification. Placed in gown. Bed in low position. Call light in reach. Side rails up X2. school bus monitor on. Pulse ox on. NIBP on. 20:16 Patient visited by Yarelis Hansen RN. tm5 20:20 Awaiting ED physician evaluation. tm5 20:20 The patient / caregiver is instructed regarding the plan of care and ED course. tm5 20:57 Yarelis Hansen RN is Primary Nurse. tm5 20:57 Patient visited by Yarelis Hansen RN. tm5 20:57 Awaiting ED physician evaluation. tm5 21:09 Patient visited by Yarelis Hansen RN. tm5 21:18 Harish Hameed DO is Attending Physician. mm11 21:18 Patient visited by Harish Hameed DO. mm11 21:24 Patient visited by Yarelis Hansen RN. tm5 21:24 ED physician to see patient. tm5 21:27 Patient visited by Harish Hameed DO. mm11 21:45 Inserted saline lock: 20 gauge in right forearm and blood collected. The patient tm5 tolerated the procedure well. 21:45 Labs/Blood culture drawn. tm5 21:47 Lactic Acid (Hairston tube on ice) Sent. tm5 21:47 Venous Blood Gas (large pea green tube on ice) Sent. tm5 21:47 -Blood Culture Sent. tm5 21:47 Amylase Sent. tm5 21:47 Basic Metabolic Profile Sent. tm5 21:47 CBC with Diff Sent. tm5 21:47 Cardiac Injury Profile Sent. tm5 21:47 Liver Profile Sent. tm5 21:47 Troponin Sent. tm5 21:50 Lipase Sent. tm5 21:51 Patient visited by Yarelis Hansen RN. tm5 22:10 Patient visited by Yarelis Hansen RN. tm5 23:20 Patient moved to Radiology bisi 23:26 Patient name changed from Colton\\S\\\\S\\Jolley\\S\\ to Colton\\S\\ \\S\\Jolley. EDMS 23:30 [facility] [place] was [place] into [employer] and attached to record. gjb 23:36 Patient moved to 4 bisi 23:39 Patient visited by Shawnee Almanza PCA. mello 09/08 00:03 Chest, 2 View (pa\\E\\lat) Returned. EDMS 00:06 -Influenza A&B Rapid Antigen - Nose Sent. tm5 00:14 Patient visited by Yarelis Hansen RN. tm5 00:49 Patient visited by Harish Hameed DO. mm11 00:51 Patient visited by Yarelis Hansen RN. tm5 00:51 ED physician to see patient. tm5 01:08 Patient visited by Yarelis Hansen RN. tm5 01:14 Patient visited by Yarelis Hansen RN. tm5 01:15 Urinalysis Sent. tm5 01:15 Urine Culture Sent. tm5 01:16 Patient visited by Yarelis Hansen RN. tm5 01:23 Drug Eval Toxicology ED Only Sent. tm5 01:51 Patient visited by Harish Hameed DO. mm11 01:54 Patient visited by Yarelis Hansen RN. tm5 01:54 Notified attending ED physician of BG FS 209, per MD no need for hourly fingersticks tm5 anymore at this time . 02:05 Patient visited by Yarelis Hansen RN. tm5 02:[address] tm5 03:01 CT ABD & PELVIS: No Contrast Returned. EDMS 03:04 Patient visited by Yarelis Hansen RN. tm5 03:27 Indio Payne is Referral Physician. mm11 03:34 Fingerstick Blood Sugar Sent. tm5 03:43 Discontinued lock intact, bleeding controlled, pressure dressing applied, No tm5 redness/swelling at site. No procedures done that require assistance. 06:57 Primary Nurse role handed off by Yarelis Hansen RN tm5 11:11 T-Sheet-- Draft Copy was scanned into [employer] and attached to record. gb 11:11 Other: DRUG UTILIZATION REPORT was scanned into [employer] and attached to record. gb 11:11 Radiology Report was scanned into [employer] and attached to record. gb Administered Medications: 03:42 Drug: levofloxacin 250 mg [levofloxacin 250 mg tablet (1 tabs)] Route: PO; tm5 03:42 Follow up: Response: Pt left department before re-evaluation is appropriate tm5 Point of Care Testing: Blood Glucose: 09/07 21:43 Blood Glucose: 254 mg/dL; mlc 09/08 00:06 Blood Glucose: 227 mg/dL; tm5 01:54 Blood Glucose: 209 mg/dL; tm5 Ranges: Output: 01:14 Urine: 500.00ml (Voided); Total: 500.00ml. tm5 Order Results: Lab Order: -Blood Culture; SPEC'M 09/07/16 21:43 Test: BLOOD CULTURE; Value: No growth after 24 hours . All specimens observed; Status: F Test: BLOOD CULTURE; Value: for 5 days. Results final at that time.; Status: F Test: BLOOD CULTURE; Value: No Growth after 48 hours. All Specimens observed; Status: F Test: BLOOD CULTURE; Value: for 7 days. Results final at that time.; Status: F Lab Order: Amylase; SPEC'M 09/07/16 21:43 Test: AMYLASE; Value: 52; Range: 25-115; Units: U/L; Status: F Lab Order: Basic Metabolic Profile; SPEC'M 09/07/16 21:43 Test: GLUCOSE, FASTING; Value: 272; Range: 70-105; Abnormal: Above high normal; Units: MG/DL; Status: F Test: BLOOD UREA NITROGEN; Value: 13; Range: 7-18; Units: MG/DL; Status: F Test: CREATININE FOR GFR; Value: 2.60; Range: 0.70-1.30; Abnormal: Above high normal; Units: MG/DL; Status: F Test: GLOMERULAR FILTRATION RATE; Value: 27.8; Range: >56; Abnormal: Below low normal; Status: F Test: SODIUM LEVEL; Value: 139; Range: 136-145; Units: MEQ/L; Status: F Test: POTASSIUM SERUM; Value: 3.5; Range: 3.5-5.1; Units: MEQ/L; Status: F Test: CHLORIDE LEVEL; Value: 100; Range: 98-107; Units: MEQ/L; Status: F Test: CARBON DIOXIDE LEVEL; Value: 30; Range: 21-32; Units: MEQ/L; Status: F Test: ANION GAP; Value: 9; Range: 8-16; Units: MEQ/L; Status: F Test: CALCIUM LEVEL; Value: 9.4; Range: 8.5-10.1; Units: MG/DL; Status: F Test Note: ; Units are mL/min/1.73 m2 Chronic Kidney Disease Staging per NKF: Stage I & II GFR >=60 Normal to Mildly Decreased Stage III GFR 30-59 Moderately Decreased Stage IV GFR 15-29 Severely Decreased Stage V GFR <15 Very Little GFR Left ESRD GFR <15 on COLLISION WORKER Lab Order: CBC with Diff; SPEC'M 09/07/16 21:43 Test: WHITE BLOOD COUNT; Value: 17.2; Range: 4.0-10.0; Abnormal: Above high normal; Units: K/mm3; Status: F Test: RED BLOOD COUNT; Value: 4.04; Range: 4.30-6.10; Abnormal: Below low normal; Units: M/mm3; Status: F Test: HEMOGLOBIN; Value: 13.8; Range: 14.0-18.0; Abnormal: Below low normal; Units: g/dl; Status: F Test: HEMATOCRIT; Value: 41.2; Range: 42.0-52.0; Abnormal: Below low normal; Units: %; Status: F Test: MEAN CORPUSCULAR VOLUME; Value: 102.0; Range: 80.0-96.0; Abnormal: Above high normal; Units: fl; Status: F Test: MEAN CORPUSCULAR HEMOGLOBIN; Value: 34.2; Range: 27.0-33.0; Abnormal: Above high normal; Units: pg; Status: F Test: MEAN CORPUSCULAR HGB CONC; Value: 33.5; Range: 32.0-36.5; Units: g/dl; Status: F Test: RED CELL DISTRIBUTION WIDTH; Value: 15.0; Range: 11.5-14.5; Abnormal: Above high normal; Units: %; Status: F Test: PLATELET COUNT, AUTOMATED; Value: 325; Range: 150-450; Units: k/mm3; Status: F Test: NEUTROPHILS %; Value: 77.0; Range: 36.0-66.0; Abnormal: Above high normal; Units: %; Status: F Test: LYMPH %; Value: 12.5; Range: 24.0-44.0; Abnormal: Below low normal; Units: %; Status: F Test: MONO %; Value: 7.6; Range: 0.0-5.0; Abnormal: Above high normal; Units: %; Status: F Test: EOS %; Value: 1.0; Range: 0.0-3.0; Units: %; Status: F Test: BASO %; Value: 0.6; Range: 0.0-1.0; Units: %; Status: F Test: LARGE UNSTAINED CELL %; Value: 1.3; Range: 0.0-4.0; Units: %; Status: F Test: NEUTROPHILS #; Value: 13.3; Range: 1.8-7.7; Abnormal: Above high normal; Units: K/mm3; Status: F Test: LYMPH #; Value: 2.4; Range: 1.5-4.5; Units: K/mm3; Status: F Test: MONO #; Value: 1.3; Range: 0.0-0.8; Abnormal: Above high normal; Units: K/mm3; Status: F Test: EOS #; Value: 0.2; Range: 0.0-0.50; Units: K/mm3; Status: F Test: BASO #; Value: 0.1; Range: 0.0-0.2; Units: K/mm3; Status: F Test: LARGE UNSTAINED CELL #; Value: 0.2; Range: 0.0-0.4; Units: K/mm3; Status: F Lab Order: Cardiac Injury Profile; SPEC'M 09/07/16 21:43 Test: CPK CREATINE PHOSPHOKINASE; Value: 123; Range: 39-308; Units: U/L; Status: F Test: CK-MB VALUE MASS; Value: 1.3; Range: 0.0-3.6; Units: NG/ML; Status: F Test: MB/CK RELATIVE INDEX; Value: 1.05; Range: < OR =4; Status: F Test Note: ; DIAGNOSIS CRITERIA MMB ng/ml Relative Index (RI) NON-AMI < or = 5 N/A HAIRSTON ZONE > 5 < or = 4 AMI > 5 > 4 Lab Order: Lipase; [facility] 09/07/16 21:43 Test: LIPASE; Value: 77; Range: 73-393; Units: U/L; Status: F Lab Order: Liver Profile; [facility] 09/07/16 21:43 Test: AST/SGOT; Value: 35; Range: 15-37; Units: U/L; Status: F Test: ALT/SGPT; Value: 22; Range: 12-78; Units: U/L; Status: F Test: ALKALINE PHOSPHATASE; Value: 89; Range: 45-117; Units: U/L; Status: F Test: BILIRUBIN,TOTAL; Value: 0.5; Range: 0.2-1.0; Units: MG/DL; Status: F Test: BILIRUBIN,DIRECT; Value: < 0.1; Range: 0.0-0.2; Units: MG/DL; Status: F Test: TOTAL PROTEIN; Value: 7.7; Range: 6.4-8.2; Units: GM/DL; Status: F Test: ALBUMIN; Value: 3.3; Range: 3.2-5.2; Units: GM/DL; Status: F Test: ALBUMIN/GLOBULIN RATIO; Value: 0.75; Range: 1.00-1.93; Abnormal: Below low normal; Status: F Lab Order: Troponin; [facility] 09/07/16 21:43 Test: TROPONIN I; Value: < 0.02; Range: < 0.10; Units: NG/ML; Status: F Test Note: ; Troponin I Reference Interval for [employer]ens [employer]lete[employer] LOCI: 99th Percentile= 0.00-0.045 ng/ml Risk Stratification: <= 0.10 ng/ml Decreased Risk for Adverse Clinical Events. 0.10-1.50 ng/ml Increased Risk for Adverse Clinical Events. Evaluation of additional criterion and/or repeat testing in 2-6 hours is suggested to rule out myocardial damage. >= 1.50 ng/ml Indicative of Myocardial Injury. Lab Order: Urinalysis; [facility] 09/07/16 01:15 Test: APPEARANCE, URINE; Value: CLEAR; Range: CLEAR; Status: F Test: COLOR, URINE; Value: YELLOW; Range: YELLOW; Status: F Test: PH,URINE; Value: 5.0; Range: 5.0-9.0; Units: UNITS; Status: F Test: SPECIFIC GRAVITY URINE AUTO; Value: 1.010; Range: 1.002-1.035; Status: F Test: PROTEIN, URINE AUTO; Value: 2+; Range: NEGATIVE; Abnormal: Above high normal; Units: mg/dL; Status: F Test: GLUCOSE, URINE (UA) AUTO; Value: 1+; Range: NEGATIVE; Abnormal: Above high normal; Units: mg/dL; Status: F Test: KETONE, URINE AUTO; Value: NEGATIVE; Range: NEGATIVE; Units: mg/dL; Status: F Test: UROBILINOGEN, URINE AUTO; Value: 0.2; Range: 0.0-2.0; Units: mg/dL; Status: F Test: BILIRUBIN, URINE AUTO; Value: NEGATIVE; Range: NEGATIVE; Status: F Test: NITRITE, URINE AUTO; Value: NEGATIVE; Range: NEGATIVE; Status: F Test: LEUKOCYTE ESTERASE, URINE AUTO; Value: NEGATIVE; Range: NEGATIVE; Status: F Test: BLOOD, URINE BLOOD; Value: NEGATIVE; Range: NEGATIVE; Status: F Test: WBC, URINE AUTO; Value: 2; Range: 0-3; Units: /HPF; Status: F Test: RBC, URINE AUTO; Value: 27; Range: 0-3; Abnormal: Above high normal; Units: /HPF; Status: F Test: BACTERIA, URINE AUTO; Value: NEGATIVE; Range: NEGATIVE; Status: F Test: SQUAMOUS EPITHELIAL CELL UR AU; Value: 0; Range: 0-6; Units: /HPF; Status: F Test: HYALINE CAST, URINE AUTO; Value: 0; Range: 0-1; Units: /LPF; Status: F Lab Order: Urine Culture; SPEC'M 09/07/16 01:15 Test: URINE CULTURE; Value: URINE CULTURE RESULT NO GROWTH; Status: F Lab Order: Venous Blood Gas (large pea green tube on ice); SPEC'M 09/07/16 21:43 Test: VENOUS PH; Value: 7.415; Range: 7.330-7.430; Units: UNITS; Status: F Test: VENOUS PARTIAL PRESSURE CO2; Value: 43.3; Range: 38.0-50.0; Units: mmHg; Status: F Test: VENOUS PARTIAL PRESSURE O2; Value: 74.8; Range: 30.0-50.0; Abnormal: Above high normal; Units: mmHg; Status: F Test: VENOUS TOTAL CO2; Value: 28.5; Range: 24.0-28.0; Abnormal: Above high normal; Units: MEQ/L; Status: F Test: VENOUS HCO3; Value: 27.1; Range: 23.0-27.0; Abnormal: Above high normal; Units: MEQ/L; Status: F Test: VENOUS BASE EXCESS; Value: 2.2; Range: -2.0-2.0; Abnormal: Above high normal; Status: F Test: VENOUS STANDARD HCO3; Value: 26.4; Units: MEQ/L; Status: F Test: VENOUS O2 SATURATION; Value: 94.9; Range: 60.0-80.0; Abnormal: Above high normal; Units: %; Status: F Lab Order: Lactic Acid (Hairston tube on ice); SPEC'M 09/07/16 21:43 Test: LACTIC ACID LEVEL, LACTATE; Value: 0.9; Range: 0.4-2.0; Units: MMOL/L; Status: F Lab Order: Fingerstick Blood Sugar; SPEC'M 09/07/16 21:42 Test: BEDSIDE GLUCOSE; Value: 254; Range: 70-105; Abnormal: Above high normal; Units: MG/DL; Status: F Test Note: ; RN Notified Dr Order not to Draw Lab Order: -Influenza A&B Rapid Antigen - Nose; SPEC'M 09/08/16 00:03 Test: INFLUENZA A RAPID SCR by ICA; Value: INFLUENZA A RESULTS NEGATIVE; Status: F Test: INFLUENZA A RAPID SCR by ICA; Value: Comments:; Status: F Test: INFLUENZA B RAPID SCR by ICA; Value: INFLUENZA B RESULTS NEGATIVE; Status: F Test Note: ; The Influenza test is a direct rapid immunoassay for the qualitative detection of Influenza viral antigen. Cell culture (Viral Culture) testing should be considered to confirm NEGATIVE results and to assist in detecting other viruses that can provide similar clinical symptoms. Please contact the lab within 24 hours ([phone]) if confirmatory testing is desired. Lab Order: Fingerstick Blood Sugar; SPEC'M 09/08/16 00:05 Test: BEDSIDE GLUCOSE; Value: 227; Range: 70-105; Abnormal: Above high normal; Units: MG/DL; Status: F Test Note: ; Doctor Notified Lab Order: Drug Eval Toxicology ED Only; SPEC'M 09/08/16 01:24 Test: AMPHETAMINES LEVEL URINE; Value: NEGATIVE; Range: NEGATIVE; Status: F Test: BARBITURATES URINE; Value: NEGATIVE; Range: NEGATIVE; Status: F Test: BENZODIAZEPINES URINE; Value: NEGATIVE; Range: NEGATIVE; Status: F Test: CANNABINOIDS URINE; Value: NEGATIVE; Range: NEGATIVE; Status: F Test: COCAINE METABOLITE URINE; Value: NEGATIVE; Range: NEGATIVE; Status: F Test: METHADONE URINE; Value: NEGATIVE; Range: NEGATIVE; Status: F Test: OPIATES URINE; Value: NEGATIVE; Range: NEGATIVE; Status: F Test: TRICYCLIC ANTIDEPRESS URINE; Value: NEGATIVE; Range: NEGATIVE; Status: F Test Note: ; ALL PRESUMPTIVE POSITIVE FINDINGS ARE UNCONFIRMED NORMAL VALUES THRESHOLD IN NG/ML AMPHETAMINES 1000 METHAMPHETAMINES 1000 BARBITURATES 300 BENZODIAZEPINES 300 CANNABINOIDS (THC) 50 COCAINE METABOLITE 300 METHADONE 300 OPIATES 300 PHENCYCLIDINE 25 TRICYCLIC ANTIDEPRESSANTS 1000 RESULTS ARE FOR MEDICAL PURPOSES ONLY. ALL URINE SPECIMENS WILL BE SAVED FOR 3 DAYS. IF CONFIRMATION OF A PRESUMPTIVE POSTIVE SCREEN RESULT IS DESIRED, CALL CHEMISTRY ([phone]) AND REQUEST URINE TO BE SENT TO REFERENCE LAB. FOR A LIST OF CLOSELY RELATED COMPOUNDS PLEASE CALL THE LAB. Radiology Order: Chest, 2 View (pa\\E\\lat) Test: Chest, 2 View (pa\\E\\lat) REASON FOR EXAMINATION: Cough; Clinical: Acute cough.; ; Technique: PA and lateral.; ; Comparison: None.; ; Findings:; Calcified nodule in the right upper lung zone. Thoracic stimulator in the; epidural space. Mediastinum and cardiac silhouette without obvious acute process; or cardiomegaly. Increased and coarsened interstitial markings emanating from; the perihilar region. Differential diagnosis includes, but is not limited to; chronic changes and acute bronchitis along with scattered basilar atelectasis.; No effusion. No pneumothorax. Skeletal structures appear intact.; ; Impression:; Diffuse increased and coarsened interstitial changes. Differential diagnosis; includes but is not limited to chronic changes as well as bronchitis with; scattered basilar atelectasis.; ; ; Signed by; Refugio Faustin MD 09/07/2016 11:42 P; Radiology Order: CT ABD & PELVIS: No Contrast Test: CT ABD & PELVIS: No Contrast REASON FOR EXAMINATION: Renal colic; ; CLINICAL HISTORY: Renal colic.; TECHNIQUE: Multiple axial, sagittal and coronal CT images were obtained through the abdomen and pelvi; s without administration of oral or IV contrast material.; COMMENTS:; The liver is of uniform attenuation without mass or defect. There is no intra or extrahepatic biliary; ductal dilatation. The spleen is normal. The gallbladder is within normal limits. The pancreas is of; normal contour and attenuation characteristics. There is no evidence of adrenal mass.; The kidneys are normal in size, shape and configuration. No renal or ureteral calculi are identified.; There is no hydroureter or hydronephrosis.; There is no evidence for appendicitis. There is no bowel wall thickening. No evidence for small or la; rge bowel obstruction. There is no evidence of abdominal ascites or lymphadenopathy.; There is no evidence of intrinsic or extrinsic bladder mass. There is no pelvic ascites or lymphadeno; augustina.; Diffuse thickening of the wall of the bladder. Small sliding hiatal hernia.; Images of the lung bases show no evidence of pleural or parenchymal mass. There are no pleural effusi; ons.; The bony structures are free of lytic or blastic lesions. Multilevel degenerative changes are seen in; volving the thoracolumbar spine.; Scattered calcifications are seen involving the aorta and major branches compatible with atherosclero; sis.; IMPRESSION:; Diffuse thickening of the tanner the bladder.; Underdistention versus mild cystitis.; Uncomplicated colonic diverticulosis.; Thank you for your kind referral of this patient.; ; Outcome: 03:27 Discharge ordered by Provider. mm11 03:43 Discharge Assessment: Patient awake, alert and oriented x 3. No cognitive and/or tm5 functional deficits noted. Patient verbalized understanding of disposition instructions. patient administered narcotics - no. The following High Risk Discharge criteria are identified: None. Discharged to home ambulatory. Condition: good Condition: stable. Discharge instructions given to patient, Instructed on discharge instructions, follow up and referral plans. medication usage, Demonstrated understanding of instructions, medications, Pt was receptive of discharge instructions/ teaching. Prescriptions given X 1. CT Study completed. Property :Personal belongings accompany Pt. 03:46 Patient left the ED. tm5 Signatures: Dispatcher [employer] EDMS Edmar Kruse bisi Kaycee Burleson, Reg Reg gb Mary Alice, Rama, Marketing Communication Manager Unit ml3 Bruce Sullivan, ARMORED SERVICE TECHNICIAN ARMORED SERVICE TECHNICIAN kb5 Harish Hameed, DO mm11 Shawnee Almanza, ARMORED SERVICE TECHNICIAN ARMORED SERVICE TECHNICIAN mello Marsha Candelaria,RN RN Yolanda Ramos Tonya,RN RN tm5 Chart Complete MULU
--- NOTE | 2016-09-10 04:47 | EDDOCDS ---
Physician Documentation [facility] Name: Colton Jolley Age: 50 yrs Sex: Male : 1965 Arrival Date: 09/07/2016 Time: 20:01 Bed 4 Private MD: Indio Payne Disposition: 09/08/16 03:27 Discharged to Home/Self Care. Impression: Cystitis, unspecified with hematuria. - Condition is Stable. - Discharge Instructions: Urinary Tract Infection, Urinary Tract Infection, Dzyi-hk-[id number]. - Prescriptions for Levaquin 250 mg Oral Tablet - take 1 tablet by ORAL route once daily for 10 days; 10 tablet. - Medication Reconciliation, Local Pharmacy Hours form. - Follow up: Indio Payne; When: 2 - 3 days; Reason: Continuance of care. - Problem is an acute exacerbation. - Symptoms have improved. Historical: - Allergies: EMLA; Erythromycin; - Home Meds: 1. Dexilant 60 mg oral CpDB 1 cap once daily 2. duloxetine 30 mg Oral cpDR 1 cap once daily 3. escitalopram oxalate 20 mg oral tab 1 tab once daily 4. gemfibrozil 600 mg Oral tab 1 tab 2 times per day 5. hydralazine 25 mg Oral tab 1 tab 2 times per day 6. Lantus 19 units nightly Sub-Q soln nightly 7. levetiracetam 500 mg oral tab 1 tab 2 times per day 8. Lipitor 40 mg Oral tab 1 tab once daily 9. pregabalin 300 mg Oral cap nightly 10. metoprolol succinate 50 mg Tb24 1 tab once daily 11. multivitamin Oral tab 12. Novolin 70/30 InnoLet per sliding scale Sub-Q inpn 13. tizanidine 12 mg nightly oral cap - PMHx: Hypertension; end stage renal disease; Diabetes - IDDM: controlled; Dialysis; COPD; chronic pain; - PSHx: spleenectomy; right leg fracture; - Social history: Smoking status: Patient states former smoker of tobacco. No barriers to communication noted, The patient speaks fluent Occitan. - Family history: Not pertinent. - : The pt / caregiver states he / she is not on anticoagulants. Home medication list is obtained from a discharge med list. - Exposure Risk Screening:: None identified. Vital Signs: 01/16 20:14 BP 129 / 66; Pulse 83; Resp 20; Temp 96(TE); Pulse Ox 96% on R/A; Weight 90.72 kg / 200 mello lbs (R); Height 5 ft. 7 in. (170.18 cm) (R); Pain 9/10; 20:27 BP 133 / 72 (auto/); tm5 20:27 Pulse 82 MON; Pulse Ox 94% ; tm5 20:42 BP 145 / 76 (auto/); tm5 20:42 Pulse 82 MON; Pulse Ox 95% ; tm5 20:57 BP 154 / 76 (auto/); tm5 20:57 Pulse 82 MON; Pulse Ox 91% ; tm5 21:12 BP 153 / 70 (auto/); tm5 21:12 Pulse 82 MON; Pulse Ox 90% on R/A; tm5 21:27 BP 151 / 79 (auto/); tm5 21:27 Pulse 78 MON; Pulse Ox 96% on R/A; tm5 09/08 00:06 BP 128 / 74; Pulse 87; Resp 18; Temp 98.0(O); Pulse Ox 98% on R/A; Pain 9/10; tm5 01:14 BP 117 / 79; Pulse 79; Resp 18; Pulse Ox 96% on R/A; Pain 9/10; tm5 03:43 BP 133 / 58; Pulse 74; Resp 18; Temp 97.9(O); Pulse Ox 100% on R/A; Pain 6/10; tm5 09/07 20:14 Body Mass Index 31.32 (90.72 kg, 170.18 cm) mello MDM: 09/07 21:28 -Blood Culture (Adults Only), peripheral from different site, or from device/port/PICC mm11 etc. if present ordered. 21:28 IV Saline Lock ordered. mm11 21:28 Undress patient appropriately for examination ordered. mm11 21:28 Accucheck hourly ordered. mm11 21:29 Amylase Ordered. EDMS 21:29 Basic Metabolic Profile Ordered. EDMS 21:29 CBC with Diff Ordered. EDMS 21:29 Cardiac Injury Profile Ordered. EDMS 21:29 Lipase Ordered. EDMS 21:29 Liver Profile Ordered. EDMS 21:29 Troponin Ordered. EDMS 21:29 Urinalysis Ordered. EDMS 21:29 Venous Blood Gas (large pea green tube on ice) Ordered. EDMS 21:29 Lactic Acid (Hairston tube on ice) Ordered. EDMS 21:29 -Blood Culture Ordered. EDMS 21:29 Urine Culture Ordered. EDMS 21:29 NOTHING BY MOUTH+DIET ordered. EDMS 21:48 -Blood Culture (Adults Only), peripheral from different site, or from device/port/PICC tm5 etc. if present complete. 22:31 Financial registration complete. gjb 22:33 Fingerstick Blood Sugar Ordered. EDMS 22:56 Basic Metabolic Profile Reviewed. mm11 22:56 CBC with Diff Reviewed. mm11 22:56 Liver Profile Reviewed. mm11 22:56 Venous Blood Gas (large pea green tube on ice) Reviewed. mm11 22:56 Fingerstick Blood Sugar Reviewed. mm11 22:56 Amylase Reviewed. mm11 22:56 Cardiac Injury Profile Reviewed. mm11 22:56 Lipase Reviewed. mm11 22:56 Troponin Reviewed. mm11 22:56 Lactic Acid (Hairston tube on ice) Reviewed. mm11 23:00 Chest, 2 View (pa\E\lat) Ordered. EDMS 23:00 -Influenza A&B Rapid Antigen - Nose Ordered. EDMS 23:30 [facility] Payment Agreement was scanned into [employer] and attached to record. gjb 09/08 00:05 Chest, 2 View (pa\E\lat) Reviewed. mm11 00:13 Fingerstick Blood Sugar Ordered. EDMS 00:23 Fingerstick Blood Sugar Reviewed. mm11 00:35 -Influenza A&B Rapid Antigen - Nose Reviewed. mm11 01:21 Drug Eval Toxicology ED Only Ordered. EDMS 01:34 Urinalysis Reviewed. mm11 01:52 CT ABD & PELVIS: No Contrast Ordered. EDMS 01:55 Drug Eval Toxicology ED Only Reviewed. mm11 02:12 Fingerstick Blood Sugar Ordered. EDMS 03:23 CT ABD & PELVIS: No Contrast Reviewed. mm11 03:26 levofloxacin 250 mg PO once ordered. mm11 11:11 T-Sheet-- Draft Copy was scanned into [employer] and attached to record. gb 11:11 Other: DRUG UTILIZATION REPORT was scanned into [employer] and attached to record. gb 11:11 Radiology Report was scanned into [employer] and attached to record. gb Point of Care Testing: Blood Glucose: 09/07 21:43 Blood Glucose: 254 mg/dL; mlc 09/08 00:06 Blood Glucose: 227 mg/dL; tm5 01:54 Blood Glucose: 209 mg/dL; tm5 Ranges: Administered Medications: 03:42 Drug: levofloxacin 250 mg [levofloxacin 250 mg tablet (1 tabs)] Route: PO; tm5 03:42 Follow up: Response: Pt left department before re-evaluation is appropriate tm5 Signatures: Dispatcher [employer] EDKaycee Rivas, Reg Reg Harish Willis DO DO mm11 Yolanda Castillo b Yarelis Hansen RN RN tm5 The chart was reviewed and I authenticate all verbal orders and agree with the evaluation and treatment provided.Corrections: (The following items were deleted from the chart) 00:06 09/07 22:57 Straight cath ordered. mm11 tm5 Attachments: 23:30 [facility] Payment Agreement gjb 09/08 11:11 T-Sheet-- Draft Copy gb Chart Complete MTDD
== END 2016-09-08 03:46 | disposition home or self-care (01) ==
LOC: M ED 20:01
DX: N30.01 Acute cystitis with hematuria (principal); N18.6 End stage renal disease; I12.0 Hypertensive chronic kidney disease with stage 5 chronic kidney disease or end stage renal disease; E10.22 Type 1 diabetes mellitus with diabetic chronic kidney disease; J44.9 Chronic obstructive pulmonary disease, unspecified; G89.29 Other chronic pain; Z99.2 Dependence on renal dialysis; Z90.89 Acquired absence of other organs; Z87.891 Personal history of nicotine dependence; Z79.4 Long term (current) use of insulin; Z79.899 Other long term (current) drug therapy; Z88.1 Allergy status to other antibiotic agents; Z88.8 Allergy status to other drugs, medicaments and biological substances

== ENCOUNTER → 2016-10-05 | Outpatient (CLI) | payer MEDICARE ==
--- NOTE | 2016-10-15 00:54 | ECWPNPC ---
PATIENT NAME: JUAREZ MURPHY : 1965 GENDER: MALE MRN: VISIT DATE: 10/05/2016 DISCHARGE DATE: 10/05/16 1251 VISIT LOCKED DATE TIME: PHYSICIAN: SHIV VELEZ RESOURCE: SHIV VELEZ REASON FOR APPOINTMENT 1. CHRONIC PAIN HISTORY OF PRESENT ILLNESS NEW PATIENT CONSULT: WHEN DID YOUR PAIN FIRST START? . BRIEFLY DESCRIBE HOW YOUR PAIN STARTED? . HOW DOES YOUR PAIN CHANGE WITH TIME? . DOES YOUR PAIN AWAKEN YOU FROM SLEEP? . HOW MANY HOURS OF SLEEP DO YOU NORMALLY GET? . ANY DIAGNOSTIC TESTING? . FACILITY WHERE TESTS WERE DONE? ____. PAIN TREATMENT TREATMENT YES CANCER HAVE YOU EVER HAD ANY TYPE OF CANCER?NO NO. PAIN SCREENING: PATIENT HAS A COMPLAINT OF ACUTE OR CHRONIC PAIN YES FALL RISK SCREENING: SCREENING :NO FALLS IN THE PAST YEAR MURPHY INVENTORY: QUESTIONNAIRE ASSESSEDYES SCORE VALUE CALCULATED YES SCORE: 7/63 DENIES HOMICIDAL OR SUICIDAL IDEATION. TODAY'S VISIT: NOTES: REFERRED BY NEW PROVIDER, ENEIDA SANTANA POT FILLER FOR CHRONIC LOW BACK PAIN. HAS IMPLANT IN BACK WITH A MID THORACIC PADDLE LEAD. IS ON LYRICA AND TIZANDINE - LYRICA IS HELPFUL BUT NOT SURE ABOUT TIZANIDINE. RATES PAIN LEVEL TODAY 7/10. REPORTS THAT HIS DORSAL COLUMN STIMULATOR IS CURRENTLY TURNED OFF HE NEVER FOUND ANY GOOD RELIEF WITH IT. HE NOTES THAT HIS PAIN IS CENTERED ACROSS THE LOW BACK RADIATES TO THE HIPS. NOTE PAIN IN THE KNEES BILATERALLY. OBVIOUSLY FOLLOWED [facility] FOR HIS PAIN MANAGEMENT. DESCRIBES HIS PAIN CONSTANT AND ACHING. REPORTS HE HAS HAD ALL TYPES OF INJECTIONS MANY MEDICATIONS AND HAS BEEN TO PHYSICAL THERAPY ON MULTIPLE OCCASIONS.. CURRENT MEDICATIONS TAKING ATORVASTATIN CALCIUM 40 MG TABLET 1 TABLET ORALLY ONCE A DAY TAKING DEXILANT 60 MG CAPSULE DELAYED RELEASE 1 CAPSULE ORALLY ONCE A DAY TAKING DULOXETINE HCL 30 MG CAPSULE DELAYED RELEASE PARTICLES 1 CAPSULE ORALLY TWICE A DAY TAKING ESCITALOPRAM OXALATE 20 MG TABLET 0.5 TABLET ORALLY ONCE A DAY TAKING GEMFIBROZIL 600 MG TABLET 1 TABLET ORALLY TWICE A DAY TAKING HYDRALAZINE HCL 25 MG TABLET 1 TABLET ORALLY TWICE A DAY TAKING LEVETIRACETAM 500 MG TABLET ORALLY TAKING LYRICA 300 MG CAPSULE 1 CAPSULE ORALLY TWICE A DAY TAKING METOPROLOL SUCCINATE ER 25 MG TABLET EXTENDED RELEASE 24 HOUR 1 TABLET ORALLY ONCE A DAY TAKING TIZANIDINE HCL 4 MG TABLET 1 TABLET NEEDED ORALLY THREE TIMES A DAY TAKING MULTIVITAMIN ADULT - TABLET ORALLY TAKING NOVOLOG FLEXPEN 100 UNIT/ML SOLUTION PEN-INJECTOR SUBCUTANEOUS TAKING LANTUS SOLOSTAR 100 UNIT/ML SOLUTION PEN-INJECTOR 17 UNITS SUBCUTANEOUS BEFORE BEDTIME MEDICATION LIST REVIEWED AND RECONCILED WITH THE PATIENT PAST MEDICAL HISTORY DIABETES DIABETIC NEUROPATHY END STAGE RENAL DISEASE, ON DIALYSIS LUMBAGO HYPERCHOLESTEROLEMIA PT IS LEGALLY BLIND ALLERGIES ERYTHROMYCIN: UNKNOWN: ALLERGY IV DYE: KIDNEY FAILURE: CONTRAINDICATION SURGICAL HISTORY SPLENECTOMY 1989 TONSILECTOMY, ONE TONSIL 2014 LEFT LEG FRACTURE 2014 LEFT ARM FISTULA FOR DIALYSIS 2013 DORSAL COLUMN STIMULATOR 2016 FAMILY HISTORY FATHER: ALIVE MOTHER: , DIAGNOSED WITH CANCER 2 BROTHER(S) , 2 SISTER(S) . 1 SON(S) , 3 DAUGHTER(S) - HEALTHY. ONE BROTHER , HEART ATTACK. SOCIAL HISTORY GENERAL: PAIN CLINIC PFS, CLERGY, PUBLIC HEALTH REFERRALS PFS REFERRAL NEEDED?NO CLERGY REFERRAL NEEDED?NO PUBLIC HEALTH REFERRAL NEEDED?NO WAS THE PROVIDER NOTIFIED OF ANY PERTINENT INFO?YES PSYCHOLOGICAL HX TREATMENTYES HOW OFTEN AND HOW MUCH? DEPRESSION, 2014 TREATED INPATIENT AT [facility] 3 DAYS ALCOHOL OR DRUG TREATMENTNO PATIENT: ____. ADVANCED DIRECTIVES HEALTH CARE PROXY?YES NAME OF HCP SISTER WINTER CONTACT # FOR HCP [phone] IF YES, DO YOU HAVE A COPY WITH YOU?NO POWER OF FIRST BEATER?NO SCREENING/ASSESSMENT TOOL NUTRITION ASSESSEDYES ARE YOU ON ANY SPECIAL DIET?NO ANY SIGNIFICANT CHANGES RELATED TO EATING, WEIGHT GAIN/LOSS, OR BOWEL HABITS?NO IF YES, IS YOUR PRIMARY CARE PROVIDER AWARE OF THIS?NO SPECIAL NEEDS LEVEL OF CARE? SELF , GLASSES: NO , CONTACTS: NO , HEARING AIDS: NO , DENTURES: NO , WALKER: NO , CANE: NO , WHEELCHAIR: NO , REFERRALS NEEDED: NO . TOBACCO USE ARE YOU A:FORMER SMOKER 2 1/2 PPD X 25 YEARS, QUIT 1012 HOW LONG HAS IT BEEN SINCE YOU LAST SMOKED?1-5 YEARS CAFFEINE CAFFEINE USE?YES HOW OFTEN AND HOW MUCH? TEA 2/DAY RECREATIONAL DRUG USE DRUG USE?NO HOSPITALIZATION/MAJOR DIAGNOSTIC PROCEDURE PNEUMONIA 2017 REVIEW OF SYSTEMS CONSTITUTIONAL: ANY CHANGE IN YOUR MEDICAL CONDITION? NO . CHILLS NO . FEVER NO . INFECTION: DO YOU HAVE NEW INFECTIONS? NO . DO YOU HAVE HISTORY OF MRSA? NO . MUSCULOSKELETAL: ANY NEW PATTERNS OF PAIN OR NUMBNESS? YES PT REPORTS PAIN/NUMBNESS ELBOWS-HANDS WHICH IS NEW OVER LAST 6 MONTHS. . SYTEMIC LUPUS NO . GASTROENTEROLOGY: ANY NEW CHANGE IN BOWEL CONTROL? NO . BARRETTS ESOPHAGUS NO . CIRRHOSIS NO . HEPATITIS NO . LIVER FAILURE NO . ACID REFLUX NO - CONTROLLED WTH MEDS . UNEXPLAINED WEIGHT LOSS NO . GENITOURINARY: ANY NEW CHANGE IN BLADDER CONTROL? NO . IS THERE A CHANCE YOU COULD BE ? NO . HEMATOLOGY/LYMPH: DO YOU TAKE ANY BLOOD THINNERS? (FOR EXAMPLE- COUMADIN, PLAVIX, AGGRENOX, PLATEL, PRADAXA, OR XARELTO) NO . WHEN WAS YOUR LAST DOSE? DATE: TIME: . LOW PLATELET COUNT NO . SICKLE CELL DISEASE NO . VON WILLIEBRANDS NO . FACTOR V LEIDEN NO . THALLASEMIA NO . ANEMIA NO . EASY BRUISING NO . NEUROLOGY: HAVE YOU FALLEN IN THE PAST 6 MONTHS? NO . ANY NEW EXTREMITY NUMBNESS OR WEAKNESS? NO . HEAD INJURY NO . DEMENTIA NO . CEREBRAL PALSY NO . MULTIPLE SCLEROSIS NO . DIZZINESS NO . HEADACHE NO . STROKES WAS TOLD AT [facility] AFTER EP OF LOC - HIT HEAD, WAS TOLD HE'D HAD A STROKE.&NBSP;. VERTIGO &NBSP;&NBSP; NO&NBSP;. CARDIOLOGY: DO YOU HAVE A PACEMAKER OR DEFIBRILLATOR? NO . ANGINA NO . HEART ATTACK NO . HEART SURGERY NO . CONGESTIVE HEART FAILURE/FLUID OVERLOAD NO . CHEST PAIN NO . HIGH BLOOD PRESSURE NO . IRREGULAR HEART BEAT NO . RESPIRATORY: HAVE YOU BEEN SICK IN THE PAST WEEK? NO . FEVER NO . FLU LIKE SYMPTOMS? NO . CPAP NO - HAS BEEN TESTED BUT NO SLEEP APNEA FOUND . BYPAP NO . ASTHMA NO . EMPHYSEMA NO . CHRONIC LUNG DISEASES NO . SHORTNESS OF BREATH ON EXERTION NO . DO YOU USE ANY TYPE OF TOBACCO (SMOKE, SMOKELESS, CHEW)? NO . COUGH NO . SNORING NO . INTEGUMENTARY: DO YOU HAVE ANY RASHES OR OPEN SORES? NO . ALLERGIC/IMMUNO: ARE YOU ALLERGIC TO SHELLFISH OR IV DYE? YES IV DYE CONTRAINDICATED R/T KIDNEY FAILURE . ANY NEW ALLERGIES? NO . PSYCHIATRIC: DO YOU HAVE THOUGHTS OF HURTING YOURSELF OR SOMEONE ELSE? NO . ARE YOU ABUSED, NEGLECTED, OR IN AN UNSAFE ENVIRONMENT? NO . ENDOCRINOLOGY: ARE YOU DIABETIC? YES . THYROID DISORDER NO . OTHER: DO YOU NEED ANY PRESCRIPTIONS? NO . IF YES, PLEASE LIST: ____ . ANY NEW PROBLEMS WITH YOUR MEDICATIONS? NO . WHEN DID YOU LAST EAT? ____ . WHEN DID YOU LAST DRINK? ____ . WHAT DID YOU LAST DRINK? ____ . NAME OF PERSON DRIVING YOU HOME? ____ . DO YOU HAVE ANY OTHER QUESTIONS OR CONCERNS NO . PSYCHOLOGY: SLEEP DISTURBANCES VERY FATIGUED - SLEEPS ALL THE TIME, CAN'T STAY ASLEEP. TIRED ALL THE TIME. . UROLOGY: DIFFICULTY URINATING IN FREQUENT URINATION WITH RENAL FAILURE. NOT ON TRANSPLANT LIST. . REVIEWED BY: PROVIDER: . VITAL SIGNS WT 215.4 LBS, HT 67 IN, BMI 33.73 INDEX, BP 165/80 MM HG, HR 62 /MIN, RR 16 /MIN, TEMP 95.7 F, OXYGEN SAT % 99%, SAFE IN ENV? (Y/N) YES, NA INITIALS NH 11:22, REVIEWED BY: DAYNE. EXAMINATION GENERAL EXAMINATION: GENERAL APPEARANCE:COLOR PALE, BRONZED. PSYCHALERT , ORIENTED X 3 , AFFECT FLAT, FAIR EYE CONTACT. GOOD HISTORIAN. HEENT:NORMOCEPHALIC, NO LYMPHADENOPATHY NO THYROMEGALY.. LUNGS:CLEAR TO AUSCULTATION BILATERALLY, NO WHEEZES RALES OR RHONCHI.. HEART:NORMAL S1S2, NO MURMURS, CLICK OR RUBS, HEART RATE REGULAR, NO.CAROTID BRUIT. PALPABLE FISTULA BRUIT NOTED LEFT UPPER EXTREMITY.. MUSCULOSKELETAL:SLOW TO STAND. POINT TENDERNESS OVER LUMBAR PARAVERTEBRAL MUSCLES AND ACROSS THE SACRUM. TRIGGER POINTS:, ELICITED WITH PALPATION OVER CERVICAL SPINOUS PROCESSES AND ACROSS THE TRAPEZIUS MUSCLES BILATERALLY. RESTRICTION OF ROM IS NOTED. POINT TENDERNESS NOTED BILATERALLY OVER THE ACROMIOCLAVICULAR JOINTS. MUSCLE STRENGTH 5 MINUS OVER 5 IN THE BILATERAL UPPER AND LOWER EXTREMITIES. NO PAIN WITH STRAIGHT LEG RAISE NOTED. ABLE TO FLEX TO 30 IS UNABLE TO EXTEND THE SPINE.. NEUROLOGIC EXAM:STOCKING GLOVE SENSORY DEFICEIT FROM TOES TO MID THIGH, AND FINGERS TO FOREARM BILATERALLY. DTR'S 2+ BUE, LLE, 3+ RLE. TENDER OVER ALL JOINTS. GAIT IS STEPPING. POSITIVE ROMBERG.. ASSESSMENTS DIABETIC PERIPHERAL NEUROPATHY - E11.42 (PRIMARY) LUMBAGO WITH SCIATICA, LEFT SIDE - M54.42 OTHER CHRONIC PAIN - G89.29 TREATMENT DIABETIC PERIPHERAL NEUROPATHY LAB: ERYTHROCYTE SEDIMENTATION RATE LAB: LUPUS TYPE ANTICOAGULANT SCREE LAB: LYME DISEASE SCRN WITH CONFIRM LAB: URIC ACID LAB: ANDRES TITER & PATTERN LUMBAR FACET THERAPEUTICWALKERSHIV 10/05/2016 12:33:10 PM > BILATERAL WALKERSHIV 10/05/2016 12:33:10 PM > BILATERAL WALKERSHIV 10/05/2016 12:33:22 PM > THERAPEUTIC NOTES: MIRIAM REPORTS THAT HIS DORSAL COLUMN STIMULATOR HAS NOT BEEN EFFECTIVE AND HE WAS NOT ABLE TO GET GOOD PROGRAMMING. IT IS CURRENTLY TURNED OFF. I DID DISCUSS WITH HIM THAT I WOULD BE THE [place] [employer] REFRACTORY TECHNICIAN PARTICULARLY TRACY VELAZCO TO AT LEAST LET THEM BE AWARE OF THE SITUATION AND TO SEE IF THERE IS ANYTHING THAT WE COULD DO TO IMPROVE THIS LEVEL OF BACK PAIN. PATIENT CURRENTLY NOTES THAT HIS LYRICA IS QUITE EFFECTIVE. [facility] I STOP WAS REVIEWED. HE IS DUE FOR REFILL OF THIS MEDICATION IN ABOUT 1 WEEK. I DO NOTE THE DR. VAZQUEZ HIS ALSO ON CONTINUED IT. DOES HAVE SIGNIFICANT JOINT PAIN AND WE WILL LOOK TO EXPLORE THIS A LITTLE BIT FURTHER. , FALLS CARE PLAN: 1. RECOMMEND REMOVING ALL THROW RUGS. 2. RECOMMEND NIGHT LIGHTS 3. RECOMMEND WEARING RUBBER SOLED SHOES AND TO NOT GO BAREFOOT. 4.. ADVISED TO CHANGE POSITION SLOWLY FROM SUPINE TO STANDING TO AVOID DIZZINESS. 5. ADVISED TO USE ASSISTIVE DEVICE SUCH CANE OR WALKER 6. USE [employer] OR KEEP PORTABLE PHONE READILY AVAILABLE. PREVENTIVE MEDICINE PAIN CLINIC TEACHING: PROCEDURE TEACHING FACET INJECTION PRINTED HANDOUTS REVIEWED WITH PATIENT. PROCEDURE CODES FA211 ESTABILISHED PATIENT [facility] CHARGE D8288 BP SCR PRFRM RCMDD DEFIND SCR INTVL G8730 PAIN ASSESS POS TOOL F/U PLAN DOC 3016F PT SCRND UNHLTHY OH USE 1124F ACP DISCUSS-NO DSCNMKR DOCD 1036F TOBACCO NON-USER 0518F FALL PLAN OF CARE DOCD G8427 DOC MEDS VERIFIED W/PT OR RE G8420 BMI<30 AND >=22 CALC & DOCU 3288F FALL RISK ASSESSMENT DOCD DISPOSITION & COMMUNICATION FOLLOW UP WILL CALL TO SCHEDULE INJECTIONS (REASON: NEED VALENTÍN - ANY IMAGING STUDIES OF SPINE FROM ALVERTO ROMERO, REPORTS FROM DR KAEL MAURICE) ELECTRONICALLY SIGNED BY VIVEK CALDERON ON 10/14/2016 AT 04:55 PM EST DISCLAIMER : THIS IS A VISIT SUMMARY EXTRACTED FROM THE [employer] FUTURE VISION II CHART. IT IS NOT A COPY OF THE [employer] FUTURE VISION II PROGRESS NOTE. NANCIED
== END ==
LOC: M PAIN 11:20
PROVIDERS: ATTEND Nurse Practitioner Family
DX: G89.29 Other chronic pain (principal); M54.42 Lumbago with sciatica, left side; E11.42 Type 2 diabetes mellitus with diabetic polyneuropathy; N18.6 End stage renal disease; E78.00 Pure hypercholesterolemia, unspecified; H54.8 Legal blindness, as defined in USA; Z88.1 Allergy status to other antibiotic agents; F32.9 Major depressive disorder, single episode, unspecified; Z91.041 Radiographic dye allergy status; Z79.4 Long term (current) use of insulin; Z79.899 Other long term (current) drug therapy; Z87.891 Personal history of nicotine dependence; Z96.9 Presence of functional implant, unspecified

== ENCOUNTER → 2016-11-25 | Outpatient (CLI) | payer MEDICARE, MEDICAID ==
[~2016-11-25] MED LIST: BUPIVACAINE HCL 0.25% 30 ML VIAL As Ordered ONE; ISOVUE-M 300 61% 15ML VIAL (Q9967) As Ordered ONE; LIDOCAINE 1% SDV INJ 30 ML VIAL As Ordered ONE; TRIAMCINOLONE ACETONIDE SUSP 40 MG/ML VIAL (J3301) As Ordered ONE
--- NOTE | 2016-11-25 10:52 | REP ---
PARTIAL LUMBAR SPINE SERIES: Two views. HISTORY: Bilateral lumbar facet block for pain. 37 seconds of fluoroscopy time is reported. FINDINGS: A sequence of two fluoroscopically obtained last image hold spot images of the lumbar spine document various needle positions for lumbar facet injection procedure. Signed by Ron Baptiste MD 11/25/2016 08:56 P
--- NOTE | 2016-11-29 23:53 | ECWPNPC ---
PATIENT NAME: JUAREZ MURPHY : 1965 GENDER: MALE VISIT DATE: 11/25/2016 DISCHARGE DATE: 11/25/16 1028 VISIT LOCKED DATE TIME: PHYSICIAN: ABAD SKELTON RESOURCE: ABAD SKELTON REASON FOR APPOINTMENT 1. LUMBAR FACET THERAPEUTIC HISTORY OF PRESENT ILLNESS HISTORY OF PRESENT ILLNESS: PAIN THE PATIENT DESCRIBES THE PAIN... FALL RISK SCREENING: SCREENING :NO FALLS IN THE PAST YEAR CURRENT MEDICATIONS TAKING ATORVASTATIN CALCIUM 40 MG TABLET 1 TABLET ORALLY ONCE A DAY, NOTES: 11/25/16 TAKING DEXILANT 60 MG CAPSULE DELAYED RELEASE 1 CAPSULE ORALLY ONCE A DAY, NOTES: 11/25/16 TAKING DULOXETINE HCL 30 MG CAPSULE DELAYED RELEASE PARTICLES 1 CAPSULE ORALLY TWICE A DAY, NOTES: 11/25/16 TAKING ESCITALOPRAM OXALATE 20 MG TABLET 0.5 TABLET ORALLY ONCE A DAY, NOTES: 11/25/16 TAKING GEMFIBROZIL 600 MG TABLET 1 TABLET ORALLY TWICE A DAY, NOTES: 11/25/16 TAKING LEVETIRACETAM 500 MG TABLET ORALLY , NOTES: 10/25/16 TAKING LYRICA 300 MG CAPSULE 1 CAPSULE ORALLY TWICE A DAY, NOTES: 10/24/16 TAKING METOPROLOL SUCCINATE ER 25 MG TABLET EXTENDED RELEASE 24 HOUR 1 TABLET ORALLY ONCE A DAY, NOTES: 11/25/16 TAKING TIZANIDINE HCL 4 MG TABLET 1 TABLET NEEDED ORALLY THREE TIMES A DAY, NOTES: 11/24/16 TAKING MULTIVITAMIN ADULT - TABLET ORALLY , STOP DATE 11/24/2016, NOTES: 11/25/16 TAKING NOVOLOG FLEXPEN 100 UNIT/ML SOLUTION PEN-INJECTOR SUBCUTANEOUS , NOTES: 11/24/16@1699 TAKING LANTUS SOLOSTAR 100 UNIT/ML SOLUTION PEN-INJECTOR 17 UNITS SUBCUTANEOUS BEFORE BEDTIME, NOTES: 11/24/16 TAKING RENVELA 800 MG TABLET 1 TABLET WITH MEALS ORALLY THREE TIMES A DAY, NOTES: 11/24/16@1699 TAKING ASPIR-81 81 MG TABLET DELAYED RELEASE 1 TABLET ORALLY ONCE A DAY, NOTES: 11/25/16 DISCONTINUED HYDRALAZINE HCL 25 MG TABLET 1 TABLET ORALLY TWICE A DAY MEDICATION LIST REVIEWED AND RECONCILED WITH THE PATIENT PAST MEDICAL HISTORY DIABETES DIABETIC NEUROPATHY END STAGE RENAL DISEASE, ON DIALYSIS LUMBAGO HYPERCHOLESTEROLEMIA PT IS LEGALLY BLIND ALLERGIES ERYTHROMYCIN: UNKNOWN: ALLERGY IV DYE: KIDNEY FAILURE: CONTRAINDICATION SOCIAL HISTORY GENERAL: PAIN CLINIC PFS, CLERGY, PUBLIC HEALTH REFERRALS CLERGY REFERRAL NEEDED?NO WAS THE PROVIDER NOTIFIED OF ANY PERTINENT INFO?NO PFS REFERRAL NEEDED?NO PUBLIC HEALTH REFERRAL NEEDED?NO PATIENT: ____. REVIEW OF SYSTEMS CONSTITUTIONAL: ANY CHANGE IN YOUR MEDICAL CONDITION? NO . CHILLS NO . FEVER NO . INFECTION: DO YOU HAVE NEW INFECTIONS? NO . DO YOU HAVE HISTORY OF MRSA? NO . MUSCULOSKELETAL: ANY NEW PATTERNS OF PAIN OR NUMBNESS? NO . GASTROENTEROLOGY: ANY NEW CHANGE IN BOWEL CONTROL? NO . GENITOURINARY: ANY NEW CHANGE IN BLADDER CONTROL? NO . IS THERE A CHANCE YOU COULD BE ? NO . HEMATOLOGY/LYMPH: DO YOU TAKE ANY BLOOD THINNERS? (FOR EXAMPLE- COUMADIN, PLAVIX, AGGRENOX, PLATEL, PRADAXA, OR XARELTO) NO . WHEN WAS YOUR LAST DOSE? DATE: TIME: . NEUROLOGY: HAVE YOU FALLEN IN THE PAST 6 MONTHS? NO . ANY NEW EXTREMITY NUMBNESS OR WEAKNESS? NO . CARDIOLOGY: DO YOU HAVE A PACEMAKER OR DEFIBRILLATOR? NO . RESPIRATORY: HAVE YOU BEEN SICK IN THE PAST WEEK? NO . FEVER NO . FLU LIKE SYMPTOMS? NO . COUGH NO . INTEGUMENTARY: DO YOU HAVE ANY RASHES OR OPEN SORES? NO . ALLERGIC/IMMUNO: ARE YOU ALLERGIC TO SHELLFISH OR IV DYE? NO . ANY NEW ALLERGIES? NO . PSYCHIATRIC: DO YOU HAVE THOUGHTS OF HURTING YOURSELF OR SOMEONE ELSE? NO . ARE YOU ABUSED, NEGLECTED, OR IN AN UNSAFE ENVIRONMENT? NO . ENDOCRINOLOGY: ARE YOU DIABETIC? YES . OTHER: DO YOU NEED ANY PRESCRIPTIONS? NO . IF YES, PLEASE LIST: ____ . ANY NEW PROBLEMS WITH YOUR MEDICATIONS? NO . WHEN DID YOU LAST EAT? _11/25/16@0700 . WHEN DID YOU LAST DRINK? TEA, NEPRO . NAME OF PERSON DRIVING YOU HOME? ____TAXI . DO YOU HAVE ANY OTHER QUESTIONS OR CONCERNS NO . REVIEWED BY: PROVIDER: . VITAL SIGNS WT 210 LBS, HT 67 IN, BMI 32.89 INDEX, BP 147/65 MM HG, HR 64 /MIN, RR 16 /MIN, TEMP 97.4 F, OXYGEN SAT % 97%, NA INITIALS SC08:[id number], REVIEWED BY: VD. ASSESSMENTS SPONDYLOSIS WITHOUT MYELOPATHY OR RADICULOPATHY, LUMBAR REGION - M47.816 (PRIMARY) SPONDYLOSIS WITHOUT MYELOPATHY OR RADICULOPATHY, LUMBOSACRAL REGION - M47.817 PROCEDURES PN LUMBAR FACET BLOCK THERAPEUTIC PRE PROCEDURE DIAGNOSIS : LUMBAR SPONDYLOSIS, LUMBOSACRAL SPONDYLOSIS POST PROCEDURE DIAGNOSIS : LUMBAR SPONDYLOSIS, LUMBOSACRAL SPONDYLOSIS PROCEDURE BILATERAL L4-L5 AND BILATERAL L5-S1 FACET THERAPEUTIC BLOCK SURGEON DR. ABAD SKELTON MANAGER APPLE NONE ANESTHESIA LOCAL PRE PROCEDURE NOTE THE PATIENT HAS A HISTORY OF CHRONIC LOW BACK PAIN. I EVALUATE THE PATIENT AND REVIEWED THE CHART, PATIENT HAS HISTORY OF RENAL FAILURE AND IS CURRENTLY ON DIALYSIS, DISCUSSED WITH THE PATIENT THAT PROCEDURE WILL BE DONE WITHOUT DYE. I WENT OVER THE RISKS, ALTERNATIVES, AND BENEFITS ASSOCIATED WITH THIS PROCEDURE. THE PATIENT WOULD LIKE TO PROCEED AND GIVE CONSENT TO PERFORMED THE PROCEDURE WITHOUT DYE. THE PATIENT DENIES UNEXPLAINABLE WEIGHT LOSS, FEVER, CHILLS, OR NEW CHANGES IN URINARY OR BOWEL CONTROL DESCRIPTION OF PROCEDURE THE PATIENT WAS BROUGHT TO THE PROCEDURE ROOM AND PLACED IN THE PRONE POSITION. THE LUMBOSACRAL AREA WAS CLEANED WITH CHLORAPREP SOLUTION AND DRAPED ASEPTICALLY. THE PROCEDURE WAS DONE UNDER STERILE CONDITIONS. I CHECKED LATERALITY AND THE LEVEL WHERE THE PROCEDURE WAS GOING TO BE PERFORMED WITH THE PATIENT AND THE SUPPORTING STAFF AT THE MOMENT OF THE TIME OUT IN THE PROCEDURE ROOM. UNDER FLUOROSCOPIC GUIDANCE, THE TARGET POINT WAS SELECTED AT THE RIGHT AND LEFT L4-L5 AND RIGHT AND LEFT L5-S1 FACET JOINT. TARGET POINT WAS SELECTED AFTER LATERAL ROTATION AND TILT OF THE MAGNIFIER OF THE C-ARM. LIDOCAINE 0.5% WAS USED TO NUMB THE SKIN AND THE SUBCUTANEOUS TISSUE BELOW IT. SPINAL NEEDLES, 22-GAUGE, WERE ADVANCED UNDER FLUOROSCOPIC GUIDANCE AND FOLLOWING PATIENT FEEDBACK UNTIL THE TARGETS WERE TOUCHED. THE POSITION OF THE NEEDLES WAS VERIFIED WITH AP AND LATERAL VIEWS. A SOLUTION OF 1.9 ML OF BUPIVACAINE 0.125% OF KENALOG 10 MG WAS INJECTED AT EACH SITE. THERE WAS NO EVIDENCE OF BLOOD, PARESTHESIA OR CEREBROSPINAL FLUID DURING THE PROCEDURE. THE PATIENT WAS SENT TO THE RECOVERY ROOM. THE PATIENT WAS MOVING THE EXTREMITIES AND DOING WELL. THERE WAS NO COMPLICATION DURING THE PROCEDURE. FLUOROSCOPY TIME WAS 37 SECONDS POST PROCEDURE NOTE THE PATIENT WILL BE SEEN IN A FOLLOW UP IN THE NEXT FEW WEEKS. INSTRUCTIONS WERE GIVEN, QUESTIONS WERE ANSWERED, AND THE PATIENT EXPRESSED UNDERSTANDING AND AGREES WITH THE PLAN. I, OPHELIA HENSLEY, DOCUMENTED THE ABOVE INFORMATION ACTING A SCRIBE FOR DR. SKELTON. I HAVE REVIEWED THE ABOVE DOCUMENT, WRITTEN BY OPHELIA HENSLEY SCRIBE AND I VERIFY THAT IT IS ACCURATE. DIAGNOSTIC IMAGING [facility] FACET BLOCK (PAIN)[id number] PROCEDURE CODES 05831 INJ PARAVERT F JNT L/S 1 LEV 59268 INJ PARAVERT F JNT L/S 2 LEV 6045F RADXPS IN END [id number] PXD DISPOSITION & COMMUNICATION FOLLOW UP 3 WEEKS ELECTRONICALLY SIGNED BY ABAD SKELTON MD ON 11/29/2016 AT 08:47 PM EDT DISCLAIMER : THIS IS A VISIT SUMMARY EXTRACTED FROM THE [facility] CHART. IT IS NOT A COPY OF THE [facility] PROGRESS NOTE. MTDD
== END ==
LOC: M PAIN 09:00
PROVIDERS: ATTEND Anesthesiology
DX: G89.29 Other chronic pain (principal); M47.816 Spondylosis without myelopathy or radiculopathy, lumbar region; M47.817 Spondylosis without myelopathy or radiculopathy, lumbosacral region; E11.9 Type 2 diabetes mellitus without complications; N18.9 Chronic kidney disease, unspecified; E78.00 Pure hypercholesterolemia, unspecified; H54.8 Legal blindness, as defined in USA; Z88.1 Allergy status to other antibiotic agents; Z91.041 Radiographic dye allergy status; Z79.4 Long term (current) use of insulin; Z79.82 Long term (current) use of aspirin; Z79.899 Other long term (current) drug therapy; Z99.2 Dependence on renal dialysis
CPT/HCPCS: 64493; 64494; J3301; Q9967

== ENCOUNTER 2016-12-18 11:07 | Emergency (ER) | payer MEDICARE, MEDICAID ==
[~2016-12-18] VITALS: Ht 170.2 cm; Wt 95.3 kg
[2016-12-18] MEDS ORDERED: LYRI300C PO (11:15)
[2016-12-18] MEDS ORDERED: METO-207 PO (11:22)
[2016-12-18] MEDS ORDERED: DULO30CA PO (11:22)
[2016-12-18] MEDS ORDERED: LANTINJ4 SC ×2 (11:22)
[2016-12-18] MEDS ORDERED: DAILTAB65 PO (11:22)
[2016-12-18] MEDS ORDERED: DEXI60CA PO (11:22)
[2016-12-18] MEDS ORDERED: LIPI80TA PO (11:22)
[2016-12-18] MEDS ORDERED: INSUH10VL SC (11:22)
[2016-12-18] MEDS ORDERED: TIZA4CAP3 PO (11:22)
[2016-12-18] MEDS ORDERED: KEPP500T6 PO (11:22)
[2016-12-18] MEDS ORDERED: HYDR25TA PO (11:22)
[2016-12-18] MEDS ORDERED: LEXA1TAB2 PO (11:22)
[2016-12-18] MEDS ORDERED: NS 500 ML IV ONE (12:00)
[2016-12-18 12:13] LABS: ALBUMIN 3.5 GM/DL (3.2-5.2); ALBUMIN/GLOBULIN RATIO 0.74 (1.00-1.93); BILIRUBIN,DIRECT 0.1 MG/DL (0.0-0.2); BILIRUBIN,TOTAL 0.5 MG/DL (0.2-1.0); CALCIUM LEVEL 10.2 MG/DL (8.5-10.1); CREATININE FOR GFR 6.65 MG/DL (0.70-1.30); GLOMERULAR FILTRATION RATE 9.4 (>56); POTASSIUM SERUM 4.1 MEQ/L (3.5-5.1); TOTAL PROTEIN 8.2 GM/DL (6.4-8.2)
[2016-12-18 12:14] LABS: BASO % 0.5 % (0.0-1.0); EOS # 0.2 K/mm3 (0.0-0.50); EOS % 1.4 % (0.0-3.0); LARGE UNSTAINED CELL # 0.3 K/mm3 (0.0-0.4); LYMPH # 2.5 K/mm3 (1.5-4.5); MEAN CORPUSCULAR HEMOGLOBIN 34.7 pg (27.0-33.0); MEAN CORPUSCULAR HGB CONC 33.8 g/dl (32.0-36.5); MEAN CORPUSCULAR VOLUME 102.5 fl (80.0-96.0); MONO # 0.7 K/mm3 (0.0-0.8); MONO % 6.7 % (0.0-5.0); NEUTROPHILS # 7.1 K/mm3 (1.8-7.7); NEUTROPHILS % 65.4 % (36.0-66.0); PLATELET COUNT, AUTOMATED 376 k/mm3 (150-450); RED CELL DISTRIBUTION WIDTH 14.2 % (11.5-14.5); WHITE BLOOD COUNT 10.8 K/mm3 (4.0-10.0)
[2016-12-18] MEDS ORDERED: MORPHINE 4 MG/ML 1ML SYRINGE IV ONE (12:15)
[2016-12-18] MEDS ORDERED: ONDANSETRON 4MG/2ML VIAL (J2405) IV ONE (12:15)
[2016-12-18] MEDS ORDERED: GASTROGRAFIN SOLUTION 30ML (Q9963) PO ONE ×2 (12:20→12:50)
--- NOTE | 2016-12-18 12:54 | REP ---
CHEST, TWO VIEWS: HISTORY: Chest pain. COMPARISON: 09/07/2016 An increase in interstitial markings is present in the lungs, consistent with chronic interstitial fibrosis, unchanged compared to the previous study. A calcified granuloma is present in the right upper lobe. The heart is normal in size. The pulmonary vasculature is normal in appearance. A dorsal column stimulator is present in the mid thoracic spine. IMPRESSION: Chronic interstitial fibrosis. Signed by Alfredo Anderson MD 12/18/2016 01:09 P
--- NOTE | 2016-12-18 15:53 | REP ---
CT ABDOMEN AND PELVIS WITHOUT CONTRAST: CT abdomen and pelvis performed with oral contrast, but without IV contrast administration. Comparison 09/08/2016. Dependent atelectatic changes are seen in the lung bases bilaterally. Liver, gallbladder, adrenals, pancreas, and kidneys are grossly unremarkable. There are vascular calcifications in both renal flower. No spleen is seen. There are moderate atherosclerotic calcifications of the abdominal aorta without aneurysm. There is no adenopathy. There is no free air or free fluid. There is no bowel wall thickening. There is no evidence of appendicitis. I see no pelvic mass. The urinary bladder is mildly distended and grossly unremarkable. IMPRESSION: No acute abnormalities detected. Signed by Misael Hairston MD 12/18/2016 04:44 P
[2016-12-18 16:33] VITALS: BP 174/78
--- NOTE | 2016-12-19 08:44 | ECGEPIP ---
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
== END 2016-12-18 16:35 | disposition home or self-care (01) ==
LOC: M ED 12:37
DX: R19.7 Diarrhea, unspecified (principal); E11.9 Type 2 diabetes mellitus without complications; G89.29 Other chronic pain; N18.6 End stage renal disease; Z99.2 Dependence on renal dialysis
CPT/HCPCS: 36415; 71020; 74176; 80048; 80076; 82550; 82553; 83605; 83690; 84484; 85025; 93005; 93041; 96374; 96375; 99284; J2405; Q9963

== ENCOUNTER → 2017-03-17 | Outpatient (CLI) | payer MEDICARE, MEDICAID ==
[~2017-03-17] MED LIST changes: +ASPI1TAB PO; -BUPIVACAINE HCL 0.25% 30 ML VIAL As Ordered ONE; +DAILTAB65 PO; +DEXI60CA2 PO; +DULO30CA PO; +GEMF600T PO; +HEPARIN 1,000 UNITS/ML 10ML VIAL (FOR RADIOLOGY& DIALYSIS ONLY) As Ordered ONE; +HYDR25TA PO; +INSUH10VL SC; +INSULANT SC; +ISOVUE-300 61% 50ML VIAL (Q9967) As Ordered ONE; -ISOVUE-M 300 61% 15ML VIAL (Q9967) As Ordered ONE; +KEPP1TAB PO; +LANTINJ4 SC; +LEXA1TAB2 PO; -LIDOCAINE 1% SDV INJ 30 ML VIAL As Ordered ONE; +LIPI80TA PO; +LYRI300C PO; +METO1TAB7 PO; +MIDAZOLAM INJ 2 MG/2 ML VIAL (J2250) As Ordered ONE; +MULT1TAB10 PO; +RENV2TAB PO; +SENE8.6T3 PO; +TIZA4CAP3 PO; -TRIAMCINOLONE ACETONIDE SUSP 40 MG/ML VIAL (J3301) As Ordered ONE; +fentaNYL 100 MCG/2 ML INJECTION (J3010) As Ordered ONE
--- NOTE | 2017-03-18 09:31 | REP ---
IMAGES OF RIGHT UPPER EXTREMITY DURING FISTULOGRAM: Multiple images are performed during fistulogram of the right upper extremity. Vascular structures are seen in the region of the right elbow and upper arm. 1.2 minutes fluoroscopy time utilized for the procedure. Signed by Misael Hairston MD 03/18/2017 05:54 P
--- NOTE | 2017-04-02 10:59 | REPKIM ---
DATE OF PROCEDURE: 03/17/2017 PREOPERATIVE DIAGNOSES: End-stage renal disease. Dysfunction left brachiocephalic arteriovenous fistula, left hand pain and swelling. POSTOPERATIVE DIAGNOSES: End-stage renal disease. Dysfunction left brachiocephalic arteriovenous fistula, left hand pain and swelling. PROCEDURE: Left brachiocephalic arteriovenous fistulogram, selective left brachial artery catheter placement angiogram and runoff. ATTENDING SURGEON: Nancy Velásquez MD HAND MICA PLATE LAYER: ANESTHESIA: Local with 1 mL of 2% lidocaine. FLUORO TIME: 1.2 minutes. CONTRAST: 15 mL HEPARIN: None. COMPLICATIONS: None. DRAINS: None. SPECIMENS: None. IMPLANTS: None. INDICATION: Patient is a 51-year-old male with end-stage renal disease who dialyzes through a left brachiocephalic arteriovenous fistula. The patient has had pain and swelling in his left hand and will undergo a fistulogram with brachial artery angiogram to rule out steal. Risks, benefits, and alternative treatment options were discussed with the patient. Alternative treatment options included, but were not limited to, no intervention. Risks included, but were not limited to, infection, bleeding, loss of arteriovenous access, possible need for open surgical intervention, cerebrovascular accident, myocardial infarction, pulmonary embolus, deep venous thrombosis (DVT), loss of limb, loss of life, and poor outcome. Patient understands, accepts these risks, and consents to proceed. DESCRIPTION OF PROCEDURE: Patient was taken to the angiography suite, placed supine on the angiography room table and the left upper extremity was prepped and draped in the standard surgical fashion. The arteriovenous fistula was cannulated directed toward the arteriovenous anastomosis with a micropuncture needle after anesthetizing the overlying skin with 1% lidocaine. The micropuncture wire was advanced through the micropuncture needle, which was upsized to a micropuncture sheath. A ReferMeson wire was advanced through the micropuncture sheath which was used to up size to a Audie catheter which was advanced into the brachial artery in a retrograde fashion. A selective brachial artery angiogram with runoff was then performed. This showed dual outflow of the fistula through both the cephalic vein and into the deeper venous system of the upper arm as well as multiple collaterals draining into the forearm and deeper venous system of the forearm. Catheter was removed and manual compression applied to deep puncture site for hemostasis. Dressings were then applied. The patient tolerated the procedure well. All instruments, sponge and needle counts were correct at the end of the case. There were no complications. Dr. Velásquez was present for and directed the entire case. Patient was transferred to the holding area and subsequently discharged in stable condition. RADIOLOGIC SUPERVISION INTERPRETATION: The brachial artery was widely patent to the anastomosis of the cephalic vein and there was dual outflow in the upper arm through the cephalic and basilic veins into the central venous system which was widely patent. There was also a large amount of filling of the collaterals in the forearm which were coursing into the deeper venous system of the forearm. CONCLUSION: The patient underwent a fistulogram showing a large amount of outflow through a dual system in the upper arm as well as collaterals into the forearm creating venous hypertension resulting in swelling and pain in the left hand. The fistula was widely patent with no central venous stenosis noted.
== END | disposition home or self-care (01) ==
LOC: M RADPRO 12:59 → M IRPRO 12:59
PROVIDERS: ATTEND Surgery Vascular Surgery
DX: T82.898A Other specified complication of vascular prosthetic devices, implants and grafts, initial encounter (principal); T82.848A Pain due to vascular prosthetic devices, implants and grafts, initial encounter; N18.6 End stage renal disease
CPT/HCPCS: 36901; C1769; C1887; C1894; Q9967

== ENCOUNTER 2017-07-05 21:59 | Emergency (ER) | payer MEDICARE, MEDICAID ==
[~2017-07-05] VITALS: Ht 170.2 cm; Wt 95.5 kg
[~2017-07-05 21:59] MED LIST changes: -HEPARIN 1,000 UNITS/ML 10ML VIAL (FOR RADIOLOGY& DIALYSIS ONLY) As Ordered ONE; -ISOVUE-300 61% 50ML VIAL (Q9967) As Ordered ONE; -MIDAZOLAM INJ 2 MG/2 ML VIAL (J2250) As Ordered ONE; -fentaNYL 100 MCG/2 ML INJECTION (J3010) As Ordered ONE
[2017-07-05 23:04] LABS: MEAN CORPUSCULAR HGB CONC 33.4 g/dl (32.0-36.5); MEAN CORPUSCULAR VOLUME 107.6 fl (80.0-96.0); PLATELET COUNT, AUTOMATED 450 10^3/uL (150-450); WHITE BLOOD COUNT 6.9 10^3/uL (4.0-10.0)
[2017-07-05 23:29] LABS: ALBUMIN 3.4 GM/DL (3.2-5.2); ALBUMIN/GLOBULIN RATIO 0.89 (1.00-1.93); ALKALINE PHOSPHATASE 137 U/L (45-117); ALT/SGPT 25 U/L (12-78); ANION GAP 8 MEQ/L (8-16); AST/SGOT 27 U/L (7-37); BILIRUBIN,DIRECT < 0.1 MG/DL (0.0-0.2); BILIRUBIN,TOTAL 0.3 MG/DL (0.2-1.0); BLOOD UREA NITROGEN 40 MG/DL (7-18); CALCIUM LEVEL 8.8 MG/DL (8.5-10.1); CARBON DIOXIDE LEVEL 25 MEQ/L (21-32); CHLORIDE LEVEL 105 MEQ/L (98-107); GLOMERULAR FILTRATION RATE 5.7 (>56); GLUCOSE, FASTING 99 MG/DL (70-105); POTASSIUM SERUM 4.9 MEQ/L (3.5-5.1); SODIUM LEVEL 138 MEQ/L (136-145); TOTAL PROTEIN 7.2 GM/DL (6.4-8.2)
[2017-07-06] VITALS: BP 189/85
--- NOTE | 2017-07-06 09:56 | REP ---
Clinical: Epigastric and abdominal pain. Technique: Supine view of the chest with supine and cross-table lateral views of the abdomen and pelvis. Findings: Frontal view of the chest demonstrates no acute cardiopulmonary process or obvious free air to suspect pneumoperitoneum. Stable cardiomegaly is again appreciated. Stimulator device overlies the mid thoracic vertebral bodies. Supine and cross-table lateral views of the abdomen and pelvis demonstrate nonspecific bowel gas pattern without obstruction or perforation. No organomegaly. No abnormal calcifications. Skeletal structures normal for age. Impression: Nonspecific bowel gas pattern. Signed by Refugio Faustin MD 07/06/2017 09:48 A
== END 2017-07-06 00:01 | disposition home or self-care (01) ==
LOC: M ED 21:59 → EDBD 21:59 → M ED 07-06 00:01
DX: R53.81 Other malaise (principal); E11.9 Type 2 diabetes mellitus without complications; I10 Essential (primary) hypertension

== ENCOUNTER 2017-07-08 06:49 | Inpatient (IN) | payer MEDICARE, MEDICAID ==
[~2017-07-08] VITALS: Ht 170.2 cm; Wt 97.4 kg
[2017-07-08 07:51] LABS: BASO # 0.1 10^3/uL (0.0-0.2); BASO % 1.6 % (0.0-1.0); EOS # 0.3 10^3/uL (0.0-0.50); EOS % 3.4 % (0.0-3.0); IMMATURE GRANULOCYTE % 0.1 % (0-0); LYMPH # 3.2 10^3/uL (1.5-4.5); MEAN CORPUSCULAR HEMOGLOBIN 35.5 pg (27.0-33.0); MEAN CORPUSCULAR HGB CONC 32.9 g/dl (32.0-36.5); MEAN CORPUSCULAR VOLUME 107.7 fl (80.0-96.0); MONO # 0.9 10^3/uL (0.0-0.8); MONO % 12.5 % (0.0-5.0); NEUTROPHILS % 40.4 % (36.0-66.0); PLATELET COUNT, AUTOMATED 497 10^3/uL (150-450); RED CELL DISTRIBUTION WIDTH 14.5 % (11.5-14.5); WHITE BLOOD COUNT 7.5 10^3/uL (4.0-10.0)
[2017-07-08 08:19] LABS: INR 0.89
[2017-07-08] MEDS ORDERED: METO1TAB32 PO (08:19)
[2017-07-08] MEDS ORDERED: NOVO70VL SC (08:19)
[2017-07-08] MEDS ORDERED: VITMTA PO (08:19)
[2017-07-08 08:25] LABS: ALBUMIN 3.6 GM/DL (3.2-5.2); ALBUMIN/GLOBULIN RATIO 0.82 (1.00-1.93); ALKALINE PHOSPHATASE 126 U/L (45-117); ALT/SGPT 23 U/L (12-78); AMYLASE 73 U/L (25-115); ANION GAP 11 MEQ/L (8-16); AST/SGOT 35 U/L (7-37); BILIRUBIN,DIRECT < 0.1 MG/DL (0.0-0.2); BILIRUBIN,TOTAL 0.3 MG/DL (0.2-1.0); BLOOD UREA NITROGEN 28 MG/DL (7-18); CALCIUM LEVEL 9.4 MG/DL (8.5-10.1); CARBON DIOXIDE LEVEL 26 MEQ/L (21-32); CHLORIDE LEVEL 102 MEQ/L (98-107); CREATININE FOR GFR 9.17 MG/DL (0.70-1.30); GLOMERULAR FILTRATION RATE 6.5 (>56); GLUCOSE, FASTING 60 MG/DL (70-105); POTASSIUM SERUM 4.2 MEQ/L (3.5-5.1); SODIUM LEVEL 139 MEQ/L (136-145)
[2017-07-08] MEDS ORDERED: levETIRAcetam 250MG TABLET (KEPPRA) PO ONE (09:00)
[2017-07-08] MEDS: PREGABALIN 100 MG CAP (LYRICA) PO SCH (09:00)
[2017-07-08] MEDS: (RENVELA) SEVELAMER **CARBONate** 800 MG TAB PO SCH (09:00)
[2017-07-08] MEDS: METOPROLOL SUCC *XL* 25MG TAB (TopROL *XL*) PO SCH (09:00)
[2017-07-08] MEDS ORDERED: METOPROLOL SUCC *XL* 25MG TAB (TopROL *XL*) PO ONE (09:00)
[2017-07-08] MEDS ORDERED: ISOVUE-370 76% 100ML VIAL (Q9967) As Ordered ONE (09:10)
[2017-07-08] MEDS ORDERED: PREGABALIN 100 MG CAP (LYRICA) PO ONE (09:15)
--- NOTE | 2017-07-08 10:35 | REP ---
CT ABDOMEN AND PELVIS WITH IV CONTRAST: TECHNIQUE: Axial contrast enhanced images from the lung bases to the pubic symphysis using 100 mL Isovue 370 intravenous contrast material with multiplanar reformations. Comparison CT without contrast 12/18/2016. Visualized lung bases demonstrate minor fibroatelectatic change. Liver demonstrates no abnormality. Gallbladder is contracted. Spleen is not visualized. Adrenals, pancreas, and kidneys are unremarkable. There is no hydronephrosis. There is no abdominal aortic aneurysm with moderate atherosclerotic calcification of the abdominal aorta. No adenopathy, free air or free fluid is seen. No bowel wall thickening is seen. There is no evidence of appendicitis. No pelvic mass is seen. Urinary bladder is not well distended and not well evaluated. IMPRESSION: No acute abnormalities as discussed in detail above. Signed by Misael Hairston MD 07/08/2017 04:53 P
[2017-07-08] MEDS ORDERED: PERCOCET 5MG/325MG TAB PO PRN (11:00)
[2017-07-08] MEDS ORDERED: ACETAMINOPHEN TAB 650MG DOSE (2X325MG) PO PRN (11:00)
[2017-07-08] MEDS ORDERED: ONDANSETRON 4MG/2ML VIAL (J2405) IV PRN (11:00)
[2017-07-08] MEDS ORDERED: MORPHINE 2 MG/ML 1ML SYRINGE IV PRN (11:00)
[2017-07-08 11:45] LABS: BASO # 0.1 10^3/uL (0.0-0.2); BASO % 1.2 % (0.0-1.0); EOS # 0.2 10^3/uL (0.0-0.50); EOS % 2.8 % (0.0-3.0); IMMATURE GRANULOCYTE % 0.1 % (0-0); LYMPH # 2.7 10^3/uL (1.5-4.5); LYMPH % 39.3 % (24.0-44.0); MEAN CORPUSCULAR HEMOGLOBIN 36.2 pg (27.0-33.0); MEAN CORPUSCULAR HGB CONC 33.6 g/dl (32.0-36.5); MEAN CORPUSCULAR VOLUME 107.7 fl (80.0-96.0); MONO # 0.7 10^3/uL (0.0-0.8); MONO % 10.6 % (0.0-5.0); NEUTROPHILS # 3.1 10^3/uL (1.8-7.7); PLATELET COUNT, AUTOMATED 430 10^3/uL (150-450); RED CELL DISTRIBUTION WIDTH 14.2 % (11.5-14.5); WHITE BLOOD COUNT 6.8 10^3/uL (4.0-10.0)
[2017-07-08 12:00] VITALS: BP 162/70
[2017-07-08] MEDS ORDERED: SENNA 8.6 MG TAB (SENOKOT) PO PRN (12:00)
[2017-07-08 12:30] LABS: ALBUMIN 3.1 GM/DL (3.2-5.2); ALBUMIN/GLOBULIN RATIO 0.86 (1.00-1.93); BILIRUBIN,TOTAL 0.4 MG/DL (0.2-1.0); CALCIUM LEVEL 8.5 MG/DL (8.5-10.1); CREATININE FOR GFR 9.34 MG/DL (0.70-1.30); GLOMERULAR FILTRATION RATE 6.3 (>56); MAGNESIUM LEVEL 2.7 MG/DL (1.8-2.4); POTASSIUM SERUM 4.9 MEQ/L (3.5-5.1); TOTAL PROTEIN 6.7 GM/DL (6.4-8.2)
[2017-07-08] MEDS ORDERED: LOPERAMIDE 2 MG CAP PO ONE (12:30)
[2017-07-08] MEDS ORDERED: LOPERAMIDE 2 MG CAP PO PRN (12:30)
[2017-07-08] MEDS: ESCITALOPRAM OXALATE 10 MG TAB (LEXAPRO) PO SCH (12:36)
[2017-07-08] MEDS: MULTIVITAMINS/MINERALS THERAP 1 TAB PO SCH (12:36)
[2017-07-08] MEDS: ATORVASTATIN 20 MG TAB PO SCH (12:36)
[2017-07-08] MEDS: ASPIRIN 81 MG ENTERIC TAB PO SCH (12:36)
[2017-07-08] MEDS: DULoxetine 30 MG CAP (CYMBALTA) PO SCH (12:36)
[2017-07-08] MEDS ORDERED: BUDESONIDE EC 3 MG CAP (ENTOCORT EC) PO ONE (13:00)
[2017-07-08 13:18] LABS: VITAMIN B12 LEVEL 543 PG/ML (247-911)
[2017-07-08 14:00] VITALS: BP 167/76
[2017-07-08] MEDS: HEPARIN SOD (PORCINE) 5000 UNITS/ML VIAL SC SCH ×2 (14:00→22:00)
--- NOTE | 2017-07-08 14:01 | HPE ---
DATE OF ADMISSION: 07/08/2017 HARVEST SUPERVISOR: Indio Payne MD MANGLE TENDER: Ian Garcia MD CHIEF COMPLAINT: Diarrhea. HISTORY OF PRESENT ILLNESS: This is a 51-year-old male with a history of end stage renal disease on maintenance hemodialysis, hypertension, diabetes, reflux disease, chronic constipation, gastritis, anxiety, diabetic retinopathy and gastroparesis, had a recent colonoscopy June 2017 with diverticulosis, internal hemorrhoids, pathology 06/23/2017 showing tubular adenoma, status post polypectomy, who presented to the emergency room with a two year history of chronic diarrhea worsened in the past two weeks with no fever, chills, abdominal pain, occurs when the patient is moving his bowels. He describes the diarrhea only after he eats. He describes the diarrhea as watery, nonbloody, non-mucusy. He denies any nausea or vomiting. Denies any constipation. He has not taken any medications to slow down the diarrhea at home. He has not been compliant with the high fiber diet at home. He has had no weight loss. Appetite has been normal. Patient has not been on any antibiotics recently. Gastrointestinal (GI) panel in the emergency room was negative for C. Difficile. The hospitalist service was called to admit due to complaints of lightheadedness and dizziness. Patient denies any chest pain, pressure, tightness, or shortness of breath. He also complains of difficulty findings words, but no upper or lower extremity weakness, paresthesias, facial asymmetry, dysarthria, changes in vision. PAST MEDICAL HISTORY: End stage renal disease on maintenance hemodialysis. Constipation. Reflux. Hypertension. Hypercholesterolemia. Chronic obstructive pulmonary disease (COPD). Neurologic disorder. Gastritis. Anxiety. Type 2 diabetes for 40 years. PAST SURGICAL HISTORY: Left brachiocephalic arteriovenous (AV) fistula. Colonoscopy 06/2017, Dr. Garcia. Tonsillectomy with adenoidectomy. Splenectomy. TENS unit implant mid back. FAMILY HISTORY: Brother with hypertension. Currently disabled. Awaiting kidney, pancreatic transplant. ALLERGIES: 1. ERYTHROMYCIN. HOME MEDICATIONS: - Dexilant 60 mg daily - metoprolol 25 mg daily - duloxetine 30 mg daily - atorvastatin 80 mg daily - escitalopram oxylate 20 mg daily - gemfibrozil 600 mg twice a day - tizanidine 4 mg at bedtime - Lyrica 300 mg daily - levetiracetam 500 mg twice a day - Renvela 800 mg daily - aspirin 81 mg daily - NovoLog sliding scale - Senexon SOCIAL HISTORY: Denies any tobacco, alcohol, or recreational drug use. Currently disabled. REVIEW OF SYSTEMS: As per history of present illness. 12 point system otherwise negative. PHYSICAL EXAMINATION: VITAL SIGNS: Temperature 96.7, pulse 64, respiratory rate 18, blood pressure 161/70, 99% on room air. Generally awake, alert and oriented times three, answering questions appropriately. Patient is slow to speak but appropriate. No respiratory distress. No cyanosis. No icterus or jaundice. No jugular venous distention (JVD) or thyromegaly. Moist mucous membranes. Lungs are clear to auscultation. No wheezing, rales or rhonchi. Heart S1, S2. Sinus rhythm. No murmurs, rubs or gallops. Abdomen is obese, soft, slightly tender epigastric area. No rebound or guarding. Positive bowel sounds times four quadrants. Extremities patient has left AV arm fistula scarring, bruit noted. Extremities positive edema, trace. White count 6.8, hemoglobin 9.8, hematocrit 29, platelet count 430, sodium 138, potassium 4.9, chloride 100, bicarb 12, BUN 29, creatinine 9.34, glucose of 127. Microbiology: GI panel 06/[address] abdomen and pelvis normal. No acute abnormalities. ASSESSMENT/PLAN: This is a 51-year-old male with a history of end stage renal disease on maintenance hemodialysis with left AV fistula, diabetes, hypertension, hyperlipidemia, obesity, body mass index (BMI) of 33.6, neurologic disorder, gastritis, anxiety, reflux, hypertension, hypercholesterolemia, type 2 diabetes, and chronic obstructive pulmonary disease (COPD) with gastroparesis and diabetic retinopathy who presents to the emergency room with a two year history of on and off diarrhea worsening in the past two weeks with complaints of lightheadedness and dizziness, more than 10 bowel movements at home. Current issues are: 1. Diarrhea. Check orthostatic vital signs. If positive, gentle hydration. C. difficile is negative. CT abdomen and pelvis is negative. Rule out celiac sprue and microscopic colitis. GI consult with Dr. Garcia. Check celiac panel. No empiric steroids for now. Await recommendations from knife edger. 2. End stage renal disease on maintenance hemodialysis with left AV arm fistula. Defer to nephrology for hemodialysis needs. 3. Type 2 diabetes. Consistent carbohydrate diet may be resumed. Insulin sliding scale with coverage. Check hemoglobin A1c. Patient still complains of nausea or vomiting despite history of gastroparesis. Monitor patient's glucose and check hemoglobin A1c. Continue Levemir 10 units subcu twice a day with holding parameters. 4. Reflux disease. No current complaints. 5. Hypertension. Resume home medications. Metoprolol 25 mg daily. 6. Hyperlipidemia. Continue Lipitor 80 mg daily. Continue on lipid and Lipitor. 7. Chronic back pain. Continue on Lyrica. 8. Depression. Continue on Lexapro. 9. Deep vein thrombosis (DVT) prophylaxis with subcu heparin.
--- NOTE | 2017-07-08 15:33 | ECGEPIP ---
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
[2017-07-08] MEDS: HumaLOG INSULIN (NovoLOG) PER UNIT SC SCH ×2 (17:30→20:55)
[2017-07-08] MEDS ORDERED: GLUCAGON FOR INJ 1 MG VIAL (J1610) SC PRN (18:30)
[2017-07-08] MEDS ORDERED: DEXTROSE 50% 50 ML SYRINGE IV PRN (18:30)
[2017-07-08] MEDS ORDERED: GLUCOSE 4 GM CHEW TABLET PO PRN (18:30)
[2017-07-08] MEDS: GEMFIBROZIL 600 MG TAB PO SCH (20:53)
[2017-07-08] MEDS: tiZANidine 4 MG TAB PO SCH (20:54)
[2017-07-08] MEDS: levETIRAcetam 250MG TABLET (KEPPRA) PO SCH (20:54)
[2017-07-08] MEDS: LEVEMIR (INSULIN DETEMIR) 1 UNITS/0.01ML SC SCH (20:54)
[2017-07-08 22:00] VITALS: BP 118/58
[2017-07-08 22:30] VITALS: BP 121/60
[2017-07-08 22:35] VITALS: BP 125/60
[2017-07-08 22:40] VITALS: BP 133/7
[2017-07-09] VITALS (8 sets, daily range): BP systolic 109–156; BP diastolic 54–79
[2017-07-09] MEDS: HEPARIN SOD (PORCINE) 5000 UNITS/ML VIAL SC SCH ×3 (06:00→21:39)
[2017-07-09 06:45] LABS: ALBUMIN 2.9 GM/DL (3.2-5.2); ALBUMIN/GLOBULIN RATIO 0.71 (1.00-1.93); ALKALINE PHOSPHATASE 111 U/L (45-117); ALT/SGPT 19 U/L (12-78); AMYLASE 59 U/L (25-115); ANION GAP 11 MEQ/L (8-16); AST/SGOT 21 U/L (7-37); BILIRUBIN,DIRECT < 0.1 MG/DL (0.0-0.2); BILIRUBIN,TOTAL 0.3 MG/DL (0.2-1.0); BLOOD UREA NITROGEN 23 MG/DL (7-18); CARBON DIOXIDE LEVEL 26 MEQ/L (21-32); CHLORIDE LEVEL 100 MEQ/L (98-107); CREATININE FOR GFR 6.56 MG/DL (0.70-1.30); GLOMERULAR FILTRATION RATE 9.5 (>56); GLUCOSE, FASTING 241 MG/DL (70-105); POTASSIUM SERUM 4.4 MEQ/L (3.5-5.1); SODIUM LEVEL 137 MEQ/L (136-145)
--- NOTE | 2017-07-09 07:24 | CR ---
DATE OF CONSULTATION: 07/08/2017 REQUESTING PHYSICIAN: Dr. Queta Matt. REASON FOR CONSULTATION: Management of end-stage renal disease on hemodialysis. CHIEF COMPLAINT: Lightheadedness and dizziness associated with worsening of the patient's chronic diarrhea. HISTORY OF PRESENT ILLNESS: Mr. Colton Jolley is a 51-year-old male with a past medical history of end-stage renal disease on hemodialysis, history of longstanding type 2 diabetes with diabetic retinopathy causing legal blindness, also history of hypertension, diabetic gastroparesis, gastritis, reflux, chronic obstructive pulmonary disease (COPD), and anxiety. The patient notes a two to three-year history of recurrent watery diarrhea with several bowel movements a day which are typically brought on after he eats anything. The patient states he has become used to having watery diarrhea and can usually manage it. However, in the past two weeks, he complains of progressive onset of lightheadedness and dizziness and presyncopal symptoms after he eats something. This is followed shortly thereafter by recurrent watery bowel movements. He denies any accompanying abdominal pain, fevers or chills. He denies any episodes of nausea or vomiting. Despite his recurrent frequent diarrhea, he denies weight loss. In fact, on dialysis he was noted to gain weight. He has not seen his primary care physician in more than a year and has not seen a tooling supervisor in about two years. He denies any prior history of Clostridium (C.) difficile and denies any recent antibiotic use. REVIEW OF SYSTEMS: CONSTITUTIONAL: The patient complains of lightheadedness, dizziness and presyncopal symptoms after he eats something, but he denies syncope or loss of consciousness. EYES: The patient states he is legally blind from diabetic retinopathy. EARS, NOSE AND THROAT: The patient denies any hearing loss or sore throat. CARDIOVASCULAR: The patient denies any chest pain or palpitations. RESPIRATORY: The patient denies shortness of breath or cough. GASTROINTESTINAL: Recurrent watery diarrhea, chronic for the past two years with recent exacerbation as per history of present illness (HPI). He denies any nausea or vomiting. GENITOURINARY: He is oligoanuric. SKIN: He denies any rashes. NEUROLOGIC: He complains of lightheadedness, dizziness. He denies seizures or syncope. PSYCHIATRIC: He notes anxiety. Remainder of review of systems is negative. PAST MEDICAL HISTORY: 1. End-stage renal disease on maintenance hemodialysis via left upper extremity fistula, Wednesday, , and Wednesday maintenance schedule. 2. Diabetic gastroparesis. 3. Diabetic retinopathy. 4. Diabetic nephropathy causing end-stage renal disease. 5. Hypertension. 6. Dyslipidemia. 7. COPD. 8. Anxiety. 9. Neuropathy. PAST SURGICAL HISTORY: 1. Left upper extremity fistula. 2. Colonoscopy done within the past two weeks with diverticulosis, internal hemorrhoids, and polypectomy with tubular adenoma. 3. History of splenectomy. 4. Tonsillectomy with adenoidectomy. FAMILY HISTORY: The patient denies end-stage renal disease in family members. SOCIAL HISTORY: The patient lives at home with his 16-year-old daughter. Currently disabled. Denies any current tobacco, alcohol or drug use. HOME MEDICATIONS: - NovoLog sliding scale - aspirin 81 mg by mouth daily - metoprolol 25 mg daily - Dexilant 60 mg by mouth daily - duloxetine 30 mg by mouth daily - atorvastatin 80 mg by mouth daily - citalopram 20 mg by mouth daily - gemfibrozil 600 mg by mouth twice a day - tizanidine 4 mg at bedtime - Lyrica 300 mg daily - Keppra 500 mg twice a day - Renvela 800 mg with meals OBJECTIVE: VITAL SIGNS: Temperature 96.7, pulse 64, respiratory rate 18, blood pressure systolic 133-162, diastolic in the 70s. Saturating 99% on room air. INTAKE AND OUTPUT: Hemodialysis today removed 3 kg ultrafiltration (UF). PHYSICAL EXAMINATION: GENERAL: The patient is seen at the bedside in the emergency room lying on the stretcher in no acute distress, comfortable. HEAD/NECK: No icteric sclerae. His tongue is moist. Ears and nose are unremarkable. Neck is supple. There is no jugular venous distention (JVD). CARDIAC: S1, S2. Regular rate. 2+ radial pulse. The lower extremities have trace edema. LUNGS: Clear to auscultation. He is comfortable on room air in no respiratory distress. ABDOMEN: Soft, obese, nontender to palpation. There are bowel sounds present in all four quadrants. EXTREMITIES: Left upper extremity fistula with thrill and bruit. NEUROLOGIC: The patient is at his baseline mentation, oriented times four. Conversational. PSYCHIATRIC: He appears chronically depressed. LABORATORY DATA: Sodium 138, potassium 4.9, bicarbonate 26, BUN 29, glucose 127, lactic 1.0, calcium corrected 9.3, magnesium 2.7. LFTs normal. Lipase 190, amylase 73. TSH 2.0. INR 0.8. Hemoglobin 9.8. Platelets 430. White count 6.8. Glucose 314. MICROBIOLOGY: GI tract PCR negative 07/08. IMAGING: CT abdomen and pelvis 07/08 with intravenous (IV) contrast: No liver abnormality. Adrenals, pancreas, kidneys are unremarkable. No hydronephrosis. No bowel wall thickening. INPATIENT MEDICATIONS: - aspirin 81 mg by mouth daily - atorvastatin 80 mg by mouth daily - budesonide 9 mg by mouth daily - duloxetine 30 mg by mouth daily - Lexapro 20 mg by mouth daily - gemfibrozil 600 mg by mouth twice a day - heparin subcutaneous 5000 units every eight - insulin - Keppra 500 mg by mouth twice a day - loperamide as needed for diarrhea - metoprolol 25 mg by mouth daily - morphine as needed - Zofran as needed - Percocet as needed - Lyrica 300 mg by mouth daily - Renvela 800 mg by mouth with meals - tizanidine 4 mg by mouth at bedtime PROBLEMS: 1. Chronic diarrhea, recently worsened and associated with dizziness and lightheadedness. Gastrointestinal (GI) panel noted negative and that also included Clostridium (C.) difficile. CT abdomen and pelvis as well without any acute finding. He was given Loperamide Rx as outpatient but I'm not sure if he took it or not. The patient does have a history of gastroparesis but denies any nausea or vomiting at present. He did have a recent colonoscopy as part of transplant evaluation workup, and I suggest gastroenterology (GI) evaluation of his chronic diarrhea. 2. End-stage renal disease on maintenance hemodialysis via left upper extremity fistula. The patient continues on his maintenance hemodialysis regimen Wednesday, , Wednesday. Surprisingly, despite his recurrent episodes of watery diarrhea, he has been noted to have ongoing weight gain on dialysis. His estimated dry weight has been increasing. Dialysis today removed 3 kg ultrafiltration. 3. Longstanding insulin-dependent diabetes. A1c is pending. The patient's sugars are noted to be in the 300s currently. He has a history of neuropathy and gastroparesis along with diabetic retinopathy. 4. Hypertension. Blood pressure acceptable at this time. I agree with checking orthostatics. He does not seem hypovolemic at this time. Thank you for involving me in the care of this patient. I will be happy to follow the patient along with you. MULU
[2017-07-09 07:48] LABS: BASO # 0.1 10^3/uL (0.0-0.2); BASO % 2.6 % (0.0-1.0); EOS # 0.2 10^3/uL (0.0-0.50); EOS % 3.7 % (0.0-3.0); IMMATURE GRANULOCYTE % 0.2 % (0-0); LYMPH # 2.5 10^3/uL (1.5-4.5); LYMPH % 45.5 % (24.0-44.0); MEAN CORPUSCULAR HGB CONC 32.9 g/dl (32.0-36.5); MEAN CORPUSCULAR VOLUME 106.4 fl (80.0-96.0); MONO # 0.7 10^3/uL (0.0-0.8); PLATELET COUNT, AUTOMATED 464 10^3/uL (150-450); RED CELL DISTRIBUTION WIDTH 14.6 % (11.5-14.5); WHITE BLOOD COUNT 5.4 10^3/uL (4.0-10.0)
[2017-07-09] MEDS: METOPROLOL SUCC *XL* 25MG TAB (TopROL *XL*) PO SCH (08:51)
[2017-07-09] MEDS: ATORVASTATIN 20 MG TAB PO SCH (08:51)
[2017-07-09] MEDS: MULTIVITAMINS/MINERALS THERAP 1 TAB PO SCH (08:51)
[2017-07-09] MEDS: ASPIRIN 81 MG ENTERIC TAB PO SCH (08:52)
[2017-07-09] MEDS: BUDESONIDE EC 3 MG CAP (ENTOCORT EC) PO SCH (08:52)
[2017-07-09] MEDS: DULoxetine 30 MG CAP (CYMBALTA) PO SCH (08:52)
[2017-07-09] MEDS: GEMFIBROZIL 600 MG TAB PO SCH ×2 (08:52→21:40)
[2017-07-09] MEDS: levETIRAcetam 250MG TABLET (KEPPRA) PO SCH ×2 (08:52→21:39)
[2017-07-09] MEDS: PREGABALIN 100 MG CAP (LYRICA) PO SCH (08:52)
[2017-07-09] MEDS: (RENVELA) SEVELAMER **CARBONate** 800 MG TAB PO SCH (08:52)
[2017-07-09] MEDS: ESCITALOPRAM OXALATE 10 MG TAB (LEXAPRO) PO SCH (08:52)
[2017-07-09] MEDS: LEVEMIR (INSULIN DETEMIR) 1 UNITS/0.01ML SC SCH ×2 (08:53→21:00)
[2017-07-09] MEDS: HumaLOG INSULIN (NovoLOG) PER UNIT SC SCH ×4 (08:53→21:00)
[2017-07-09] MEDS ORDERED: BUDE3CAP PO (09:23)
[2017-07-09] MEDS ORDERED: LOPE2CA PO (09:23)
[2017-07-09 09:44] LABS: ERYTHROCYTE SEDIMENTATION RATE 65 mm/hr (0-20)
--- NOTE | 2017-07-09 11:51 | DSES ---
DATE OF ADMISSION: 07/08/2017 DATE OF DISCHARGE: RN OR LVN: Dr. Payne PRIMARY DISCHARGE DIAGNOSES: 1. Diarrhea, negative Clostridium (C) difficile. 2. Chronic kidney disease, on hemodialysis. 3. Anemia of chronic disease. 4. Hypertension. 5. Hypercholesterolemia. 6. Chronic obstructive pulmonary disease (COPD). 7. Neurologic disorder. 8. Gastritis. 9. Anxiety. 10. Type 2 diabetes. 11. Probable microscopic colitis. DISCHARGE MEDICATIONS: - budesonide 9 mg by mouth every morning - loperamide 2 mg as needed - aspirin 81 daily - atorvastatin 80 daily - Dexilant 60 daily - Cymbalta 30 daily - Lexapro 20 daily - gemfibrozil 600 twice a day - NovoLog insulin sliding scale before food, nightly - Lantus 10 twice a day - Keppra 500 twice a day - metoprolol 25 daily - multivitamin one tab daily - pregabalin 300 daily - Senokot two tabs daily as needed - sevelamer, Renvela 800 daily - tizanidine 4 mg daily DISCHARGE INSTRUCTIONS: Hold metoprolol for low blood pressure and hold Senokot for diarrhea. Outpatient followup with Dr. Payne for dialysis needs. Outpatient followup with Dr. Garcia regarding chronic diarrhea. HOSPITAL COURSE: This is a 51-year-old male presented to the emergency room with 2-year complaint of diarrhea, worsened in the past 2 weeks, complained of dizziness and lightheadedness. Patient has not had fever, abdominal pain. No constipation. Describes diarrhea is watery, nonbloody, six to seven times during the day. Previous colonoscopy was negative, 06/2017. Patient is being evaluated for a kidney/pancreas transplant and had a colonoscopy done, which was essentially unremarkable. Patient was admitted for further evaluation. Gastrointestinal (GI) panel was negative. CT abdomen/pelvis showed no inflammation. Two sets of blood cultures were negative. He is afebrile. CBC, metabolic panel were essentially unremarkable aside from chronic renal failure. Patient was seen by Dr. Payne, nephrology, for dialysis needs. Dr. Garcia was consulted by telephone with workup celiac spur being sent, trial of budesonide for possible microscopic colitis. Patient is stable for discharge and outpatient followup with Dr. Garcia. For chronic diarrhea, he was given loperamide after C. difficile was found to be negative, with no repeat episodes of diarrhea in the hospital. He was told to hold his Senokot as outpatient for persistent diarrhea. LABS ON DISCHARGE: White count 5.4, hemoglobin 11, hematocrit 33, platelet count 464. Sodium 137, potassium 4.4, chloride 100, bicarbonate 26, BUN 23, creatinine 6.56, glucose 241, A1c of 7. MICROBIOLOGY: GI panel negative. Two sets of blood cultures negative. CT abdomen and pelvis: No acute intra-abdominal abnormality. TIME SPENT ON DISCHARGE: 30 minutes.
--- NOTE | 2017-07-09 14:39 | IPN ---
DATE OF SERVICE: 07/09/2017 SUBJECTIVE: The patient is seen this morning at the bedside. He states that since he has been admitted he has not had anymore diarrheal episodes with use of loperamide and he was also started on a trial of budesonide. Physical therapy saw him this morning at the bedside and the patient reportedly could only ambulate about 15 steps before his knees were buckling and he was assisted back into bed. The patient notes he tends to spend most of his time in bed even when at home and admits to chronic depression. I had a discussion with him regarding his CAT scan which did not show acute findings and his negative GI panel. He tolerated dialysis yesterday with 3 kg ultrafiltration. REVIEW OF SYSTEMS: Positive for depression. Spends most of his days in bed. Positive for improvement in diarrhea for the past 24 hours. States he was able to take breakfast and lunch without having any diarrheal episode. Remainder of review of systems is as per history of present illness. VITAL SIGNS: Temperature 96.9, pulse 53-61, respiratory rate 16, blood pressure 109-133 systolic, diastolic 60s. Saturating 96% on room air. PHYSICAL EXAMINATION: Patient is seen lying in bed, appears depressed, in no distress. HEAD/NECK: He can count fingers from about 2 feet away, otherwise complains of legal blindness. Sclera are anicteric. The oral mucosa is moist. The neck is supple. CARDIAC: S1, S2. 2+ radial pulse. LUNGS: Clear to auscultation bilaterally. DICTATION CUT OFF AT THIS POINT
--- NOTE | 2017-07-09 14:57 | IPN ---
DATE: 07/09/2017 SUBJECTIVE: The patient is seen this morning at the bedside. He states that since he has been admitted he has not had anymore diarrheal episodes with use of loperamide and he was also started on a trial of budesonide. Physical therapy saw him this morning at the bedside and the patient reportedly could only ambulate about 15 steps before his knees were buckling and he was assisted back into bed. The patient notes he tends to spend most of his time in bed even when at home and admits to chronic depression. I had a discussion with him regarding his CAT scan which did not show acute findings and his negative GI panel. He tolerated dialysis yesterday with 3 kg ultrafiltration. REVIEW OF SYSTEMS: Positive for depression. Spends most of his days in bed. Positive for improvement in diarrhea for the past 24 hours. States he was able to take breakfast and lunch without having any diarrheal episode. Remainder of review of systems is as per history of present illness. VITAL SIGNS: Temperature 96.9, pulse 53-61, respiratory rate 16, blood pressure 109-133 systolic, diastolic 60s. Saturating 96% on room air. PHYSICAL EXAMINATION: Patient is seen lying in bed, appears depressed, in no distress. HEAD/NECK: He can count fingers from about 2 feet away, otherwise complains of legal blindness. Sclera are anicteric. The oral mucosa is moist. The neck is supple. CARDIAC: S1, S2. 2+ radial pulse. LUNGS: Clear to auscultation bilaterally. ABDOMEN: Soft, obese, nontender. Positive bowel sounds in all four quadrants. EXTREMITIES: Left upper extremity fistula with thrill and bruit. Lower extremities with trace edema. NEUROLOGIC: The patient is slow to respond but appropriate. PSYCHIATRIC: He appears depressed. Skin: no rashes, normal turgor and temp LABORATORIES: White count 5.4, hemoglobin 11, platelets 464, sodium 137, potassium 4.4, bicarb 26, hemoglobin A1c 7%, glucose 241, calcium 9.0, lipase 174, amylase 59, celiac sprue workup pending. H. pylori pending. Microbiology: GI PCR panel 07/08 negative. Blood cultures 07/08 negative times two sets. IMAGING: CT scan abdomen and pelvic 07/08 without any acute abnormalities. INPATIENT MEDICATIONS: The patient is noted to be started on budesonide 9 mg by mouth daily. His other medications are unchanged from prior. PROBLEMS: 1. Worsening of chronic diarrhea associated with complaint of weakness and lightheadedness. The patient states he has not had anymore diarrheal episodes since starting loperamide and budesonide. He was previously prescribed loperamide as an outpatient but I am not sure if he was taking it or not. The patient is going to followup with Dr. Garcia as an outpatient and he is started on trial of Entocort at this time, celiac sprue workup pending. 2. Endstage renal disease on maintenance hemodialysis via left upper extremity fistula. The patient continues on his maintenance schedule without issue and tolerated his treatment yesterday. 3. Longstanding diabetes. Hemoglobin A1c shows fairly good control of 7%. He does have a history of diabetic retinopathy and gastroparesis. 4. Hypertension. Blood pressures are stable at this time without documented hypotensive episode. 5. Depression. The patient admits to feeling chronically depressed and hopeless, which I think also complicates his care. States he spends most of his time at home in bed and takes little pleasure in daily activities. He continues on Cymbalta. He has not seen a primary care provider in more than a year, but he has an appointment to establish with a new primary care provider towards the end of this month. MULU
[2017-07-09] MEDS: tiZANidine 4 MG TAB PO SCH (21:39)
[2017-07-10] MEDS: HEPARIN SOD (PORCINE) 5000 UNITS/ML VIAL SC SCH ×4 (06:00→21:35)
[2017-07-10] MEDS: MULTIVITAMINS/MINERALS THERAP 1 TAB PO SCH (06:38)
[2017-07-10] MEDS: ASPIRIN 81 MG ENTERIC TAB PO SCH (06:39)
[2017-07-10] MEDS: levETIRAcetam 250MG TABLET (KEPPRA) PO SCH ×2 (06:39→21:31)
[2017-07-10] MEDS: BUDESONIDE EC 3 MG CAP (ENTOCORT EC) PO SCH (06:39)
[2017-07-10] MEDS: ATORVASTATIN 20 MG TAB PO SCH (06:40)
[2017-07-10] MEDS: GEMFIBROZIL 600 MG TAB PO SCH ×2 (06:40→21:31)
[2017-07-10] MEDS: (RENVELA) SEVELAMER **CARBONate** 800 MG TAB PO SCH (06:40)
[2017-07-10] MEDS: DULoxetine 30 MG CAP (CYMBALTA) PO SCH (06:41)
[2017-07-10] MEDS: PREGABALIN 100 MG CAP (LYRICA) PO SCH (06:42)
[2017-07-10] MEDS: ESCITALOPRAM OXALATE 10 MG TAB (LEXAPRO) PO SCH (06:42)
[2017-07-10] MEDS: METOPROLOL SUCC *XL* 25MG TAB (TopROL *XL*) PO SCH (06:42)
[2017-07-10] MEDS: HumaLOG INSULIN (NovoLOG) PER UNIT SC SCH ×4 (07:30→21:03)
[2017-07-10] MEDS ORDERED: ESCITALOPRAM OXALATE 10 MG TAB (LEXAPRO) PO SCH (09:00)
[2017-07-10] MEDS ORDERED: DULoxetine 20 MG CAP (CYMBALTA) PO SCH (09:00)
[2017-07-10] MEDS: LEVEMIR (INSULIN DETEMIR) 1 UNITS/0.01ML SC SCH ×2 (10:16→21:31)
[2017-07-10] MEDS ORDERED: HEPARIN 1,000 UNITS/ML 10ML VIAL (FOR RADIOLOGY& DIALYSIS ONLY) IV ONE (10:30)
[2017-07-10 11:30] VITALS: BP 180/84
[2017-07-10 12:00] VITALS: BP 186/84
[2017-07-10 12:47] LABS: ABG BASE EXCESS -0.7 (-2.0-2.0); ABG HCO3 25.3 MEQ/L (22.0-26.0); ABG PARTIAL PRESSURE CO2 47.8 mmHg (35.0-45.0); ABG PARTIAL PRESSURE O2 98.1 mmHg (75.0-100.0); ABG STANDARD HCO3 23.9 MEQ/L (22.0-26.0); ABG TOTAL CO2 26.8 MEQ/L (22.0-29.0); ABG pH (ARTERIAL) 7.342 UNITS (7.350-7.450)
[2017-07-10] MEDS ORDERED: HumaLOG INSULIN (NovoLOG) PER UNIT SC STA (12:49)
[2017-07-10 13:21] LABS: CALCIUM LEVEL 8.4 MG/DL (8.5-10.1); CREATININE FOR GFR 9.51 MG/DL (0.70-1.30); GLOMERULAR FILTRATION RATE 6.2 (>56); POTASSIUM SERUM 4.8 MEQ/L (3.5-5.1)
--- NOTE | 2017-07-10 14:56 | REP ---
CT BRAIN WITHOUT IV CONTRAST: CT brain is performed without IV contrast. There is very mild atrophy. There is no midline shift or mass effect. Hairston-white differentiation is well maintained. There is no acute hemorrhage. There is no extra-axial fluid collection. There are mild vascular calcifications in the carotid siphons. IMPRESSION: No acute intracranial hemorrhage or other acute finding. Very mild atrophy with vascular calcifications noted in the carotid siphons bilaterally. Signed by Misael Hairston MD 07/10/2017 11:57 A
--- NOTE | 2017-07-10 14:56 | REP ---
BILATERAL KNEE SERIES: Five views of the bilateral knees performed. No fracture or dislocation is seen bilaterally. On the right there is an intramedullary melvin in the tibia fixed by screws. I do not see a significant joint effusion bilaterally. Joint spaces are unremarkable. IMPRESSION: No fracture or dislocation. Signed by Misael Hairston MD 07/10/2017 11:56 A
--- NOTE | 2017-07-10 14:58 | IPN ---
DATE: 07/10/2017 Patient had complaint of no bowel movement since admission despite complaints of diarrhea on admission, which was perfuse at home. He then took Senokot and had six bowel movements this morning. GI panel has been negative. The patient has a very flat affect and slow to respond. He has been increasingly depressed. He complains of word finding difficulties and has had lower extremity weakness. No other issues per nursing. He did not pass a home safety evaluation yesterday, but has no other active medical issues. Vitals: Temperature 98.1, pulse 55, respiratory rate 16, blood pressure 146/80, 94% on room air. Generally, patient has a flat affect, slow to respond. No facial asymmetry. Tongue is midline. No dysarthria. Lungs are clear to auscultation. No wheezes, rales, or rhonchi. Heart: S1, S2, sinus bradycardia. Abdomen: Obese, soft, nontender, nondistended. Extremities: Chronic lower extremity edema. LABORATORY DATA: White count 5.4, hemoglobin 11, hematocrit 33, platelet count of 464. Sodium 137, potassium 4.4, chloride 100, bicarbonate 26, BUN 23, creatinine 6.5, glucose 241, A1/c of 7, troponin less than 0.02. GI panel negative. X-ray of the knees and CT of the head still pending. ASSESSMENT/PLAN: This is a 51-year-old male who presented to the emergency room with complaint of diarrhea, worsening the past 2 weeks, complained of dizziness and lightheadedness. No fever or abdominal pain. Describes the diarrhea as watery and non-bloody, six to seven times daily with negative colonoscopy as an outpatient, awaiting kidney and pancreas transplant. During this admission, CT of the abdomen and pelvis were negative. GI panel was negative. The patient's celiac panel has been sent and started on Entocort for possible microscopic or collagenous colitis. The patient has had no diarrhea since admission and was getting nervous and took Senokot. He has now had six bowel movements since the Senokot. No fever or chills. The patient failed a home safety evaluation and therefore remains in the hospital until physical therapy (PT) clears him for discharge home. CURRENT ISSUES: 1. Deconditioning. The patient complains of bilateral lower extremity weakness , as well as word findings difficulties. We will obtain CT of the head, likely to be a CVA, however. Knees are very painful, therefore we will check x-ray of the knees to rule out effusion. No effusion on examination. Await physical therapy (PT) clearance prior to discharge home. 2. Diarrhea, resolved. Currently being treated for possible microscopic collagenous colitis on Entocort. GI panel has been sent. Outpatient followup with Dr. Garcia in the office once the patient is cleared for discharge home. 3. End stage renal disease. On maintenance hemodialysis Wednesday, and Wednesday. Appreciate Dr. Payne's management of the patient's issues. Awaiting kidney and pancreatic transplant as an outpatient. 4. Type 2 diabetes. A1/c is 7. Continue with home detemir and insulin sliding scale. 5. Chronic depression with worsening symptoms. Increase Lexapro and Cymbalta by 10 mg and titrate accordingly as an outpatient. 6. Hyperlipidemia. On Lipitor. 7. Hypertension. On metoprolol 25 mg daily. 8. Chronic pain. On Lyrica. DISPOSITION: Unable to be discharged as he has not passed a home safety evaluation. Addendum: RN called re: lethargy and less responsive and Uncontrolled DM2 with glucose >400. 1)AMS is Most likely medication-induced. check ammonia and ABG. discontinue sedatives, hypnotics, pain meds. Check CT Head due to complaints of word finding difficulties. Supportive care. narcan if needed 2)Uncontrolled DM2. check bmp and lispro. MTDD
--- NOTE | 2017-07-10 15:49 | IPN ---
DATE: 07/10/2017 SUBJECTIVE: The patient was seen and examined at the bedside this morning during morning rounds and during hemodialysis procedure. The patient denies any active complaints. REVIEW OF SYSTEMS: The patient denies any fevers, chills, rigors, headache, nausea, vomiting, chest pain, shortness of breath. She does report weakness and inability to walk. The rest of the review of systems is negative. OBJECTIVE: VITAL SIGNS: Temperature is 98.1 degrees Fahrenheit. Blood pressure is 156/88, pulse is 76, respiratory rate of 16, saturating 94% on room air. Intake and output: Urine output recorded is only 150 mL yesterday. Weight on the bed scale is not available. GENERAL: The patient is awake, alert and oriented times three. Lying in bed. No apparent distress. HEAD/NECK EXAM: Extraocular muscles intact. Pupils are equal, round and reactive to light. The patient is legally blind. CARDIOVASCULAR: S1, S2. Irregular rate. No murmur, rub or gallop. RESPIRATORY: Chest is clear to auscultation bilaterally. Bilateral equal air entry. No rales or rhonchi. ABDOMEN: Soft, obese. Positive bowel sounds. Nontender. No organomegaly. MUSCULOSKELETAL: No clubbing or cyanosis. The patient has a left arm fistula with no issues. CENTRAL NERVOUS SYSTEM (SHAPER MACHINE HAND): No focal neurological deficits. The patient does have legal blindness. Otherwise, power 5/5 in all extremities. PSYCHIATRIC: The patient has a depressed mood and he is sleepy. LABORATORY REVIEW: CBC showed a WBC 5.4, hemoglobin is 11, platelets 464. BMP showed sodium 134, potassium 4.8, bicarbonate 27, BUN 48, creatinine is 9.5, calcium 8.4. IMAGING: CAT scan of the head done today morning showed no acute intracranial hemorrhage or other findings. CURRENT INPATIENT MEDICATIONS: The patient's medications were all reviewed by me. His Cymbalta and Lexapro were stopped this morning. Oxycodone and Lyrica are also on hold. ASSESSMENT: 51-year-old male with a past medical history of end-stage renal disease on hemodialysis, hypertension, depression, admitted at this time because of worsening diarrhea, weakness. PLAN: 1. End stage renal disease on hemodialysis. The patient is being dialyzed according to his regular schedule. The patient is hyperglycemic. I will lower the ultrafiltration goal for probable removal of 1 liter of fluid as tolerated. 2. Uncontrolled diabetes mellitus. The patient has a glucose level of 520. Beta hydroxybutyrate level is also high. The patient was given a stat dose of insulin 20 units today. Ultrafiltration goal is lowered.Volume status is within the acceptable range. 3. Hypertension. Blood pressure is stable. Continue current dose of metoprolol 25 mg by mouth daily. 4. Depression. The patient is chronically depressed. He reports legal blindness as well. He does not take interest in daily activities. The patient was very sleepy and drowsy this morning, so primary team has held [employer] [facility] [employer] at this time. The patient should not be on two selective serotonin reuptake inhibitors (SSRIs) at the same time. DISCHARGE PLANNING: The patient is not cleared by physical therapy (PT) for discharge home. Otherwise, the patient is cleared from nephrology standpoint to be discharged home. MULU
[2017-07-10 22:00] VITALS: BP 138/65
[2017-07-11] MEDS ORDERED: HumaLOG INSULIN (NovoLOG) PER UNIT SC ONE (05:30)
[2017-07-11] MEDS: HEPARIN SOD (PORCINE) 5000 UNITS/ML VIAL SC SCH (05:31)
[2017-07-11 06:00] VITALS: BP 125/68
[2017-07-11] MEDS ORDERED: LEVEMIR (INSULIN DETEMIR) 1 UNITS/0.01ML SC ONE (07:00)
[2017-07-11 08:21] VITALS: BP 125/68
[2017-07-11] MEDS: levETIRAcetam 250MG TABLET (KEPPRA) PO SCH (08:21)
[2017-07-11] MEDS: METOPROLOL SUCC *XL* 25MG TAB (TopROL *XL*) PO SCH (08:21)
[2017-07-11] MEDS: ATORVASTATIN 20 MG TAB PO SCH (08:21)
[2017-07-11] MEDS: BUDESONIDE EC 3 MG CAP (ENTOCORT EC) PO SCH (08:21)
[2017-07-11] MEDS: MULTIVITAMINS/MINERALS THERAP 1 TAB PO SCH (08:21)
[2017-07-11] MEDS: ASPIRIN 81 MG ENTERIC TAB PO SCH (08:22)
[2017-07-11] MEDS: GEMFIBROZIL 600 MG TAB PO SCH (08:22)
[2017-07-11] MEDS: (RENVELA) SEVELAMER **CARBONate** 800 MG TAB PO SCH (08:22)
[2017-07-11] MEDS: HumaLOG INSULIN (NovoLOG) PER UNIT SC SCH (08:23)
[2017-07-11 08:24] LABS: ABG BASE EXCESS 4.3 (-2.0-2.0); ABG HCO3 29.9 MEQ/L (22.0-26.0); ABG PARTIAL PRESSURE CO2 49.3 mmHg (35.0-45.0); ABG PARTIAL PRESSURE O2 78.6 mmHg (75.0-100.0); ABG STANDARD HCO3 28.2 MEQ/L (22.0-26.0); ABG TOTAL CO2 31.4 MEQ/L (22.0-29.0)
[2017-07-11 10:35] LABS: BASO # 0.1 10^3/uL (0.0-0.2); BASO % 1.6 % (0.0-1.0); EOS # 0.2 10^3/uL (0.0-0.50); EOS % 2.5 % (0.0-3.0); IMMATURE GRANULOCYTE % 0.3 % (0-0); LYMPH # 2.4 10^3/uL (1.5-4.5); LYMPH % 37.3 % (24.0-44.0); MEAN CORPUSCULAR HEMOGLOBIN 35.8 pg (27.0-33.0); MEAN CORPUSCULAR HGB CONC 33.1 g/dl (32.0-36.5); MEAN CORPUSCULAR VOLUME 107.9 fl (80.0-96.0); MONO # 0.8 10^3/uL (0.0-0.8); MONO % 12.1 % (0.0-5.0); NEUTROPHILS # 2.9 10^3/uL (1.8-7.7); NEUTROPHILS % 46.2 % (36.0-66.0); PLATELET COUNT, AUTOMATED 431 10^3/uL (150-450); RED CELL DISTRIBUTION WIDTH 15.5 % (11.5-14.5); WHITE BLOOD COUNT 6.3 10^3/uL (4.0-10.0)
[2017-07-11 11:01] LABS: CREATININE FOR GFR 7.29 MG/DL (0.70-1.30); GLOMERULAR FILTRATION RATE 8.4 (>56); POTASSIUM SERUM 4.6 MEQ/L (3.5-5.1)
--- NOTE | 2017-07-11 17:25 | IPN ---
DATE: 07/11/2017 SUBJECTIVE: Yesterday the patient had altered mental status with increased lethargy. Arterial blood gas, ammonia level, and CT of the head were all negative. Mostly likely medication induced from Cymbalta, Lexapro, and with discontinuation of these medications, the patient improved. He was also hypoglycemic and became hyperglycemic; on 07/10 at 1656 with 31 blood sugar with increase in glucose to 520 yesterday at 1248. OBJECTIVE: VITAL SIGNS: Temperature 97.7, pulse 64, respiratory rate 20, blood pressure 125/68, 92% on room air. GENERAL: Currently slow to respond, but awake, alert, and oriented to person, place and time, answering questions appropriately. No facial asymmetry. No uses of respiratory accessory muscles. LUNGS: Diminished but clear to auscultation. No wheezes, rales, or rhonchi. HEART: S1, S2. Sinus rhythm. ABDOMEN: Obese, soft, nontender, nondistended. EXTREMITIES: No pitting edema. LABORATORY DATA: Pending. Arterial blood gas has been reviewed. Microbiology has been reviewed. ASSESSMENT AND PLAN: This is a 51-year-old male, history of diabetes, hypertension, end-stage renal disease on maintenance hemodialysis, awaiting kidney and pancreas transplants, had been having diarrhea for the past two years, worse in the past two weeks, prompting him to present to the emergency room due to complaints of lightheadedness and dizziness. The patient was treated for possible microscopic colitis after having a negative gastrointestinal (GI) panel for Clostridium (C.) difficile. CT abdomen and pelvis is normal. The patient complains of worsening depression. His Cymbalta and Lexapro were increased with resultant altered mental status. He also had episode of hypoglycemia with glucose of 31, improved with glucose supplement. IMPRESSION: 1. Acute encephalopathy secondary to hypoglycemia, medication induced with Lexapro and Cymbalta. Lexapro, Cymbalta, and Percocet have been discontinued. The patient's mentation is back to normal. Glucose level is improved with glucose supplementation. 2. Diarrhea, resolved. The patient is being treated for microscopic colitis with budesonide. Outpatient followup with Dr. Garcia. Rule out malabsorption and celiac sprue. 3. End-stage renal disease on maintenance hemodialysis. Maintenance needs per nephrology, whose help is greatly appreciated. He is awaiting renal and pancreatic transplant. 4. Type two diabetes uncontrolled with episodes of hypoglycemia, glucose of 37, and hyperglycemia, most likely due to gastroparesis. Therefore, will continue with continued monitoring, consistent carbohydrate diet, and adjusting accordingly. 5. Deconditioning. The patient has not passed a home safety evaluation. Therefore, will await physical therapy (PT) clearance prior to discharge home. 6. Chronic depression, worsening symptoms. Celexa and Lexapro have been recently increased with resultant confusion; therefore, will resume normal dose in the morning if stable today. 7. Hyperlipidemia. On Lipitor. 8. Hypertension. On metoprolol 25 with holding parameters. 9. Chronic pain. Lyrica has been discontinued due to lethargy and obtundation yesterday. May resume in the morning.
--- NOTE | 2017-07-11 21:14 | IPN ---
DATE: 07/11/2017 SUBJECTIVE: The patient was seen and examined at the bedside today morning. He was much more awake. He was actually standing at the bedside, and patient told me that he is to be discharged today. He was dialyzed yesterday. He tolerated the hemodialysis procedure well. REVIEW OF SYSTEMS: The patient denies any fevers, chills, rigors, chest pain, shortness of breath. He does report alternate episodes of constipation and diarrhea. Rest of review of systems is negative. OBJECTIVE: VITAL SIGNS: Temperature is 97.7 degrees Fahrenheit, blood pressure is 125/68, pulse is 57, respiratory rate of 20, saturating 93% on room air. INTAKE AND OUTPUT: Urine output is not recorded. Ultrafiltration with hemodialysis was 1100 mL yesterday. Bed scale weight is not available. PHYSICAL EXAMINATION: GENERAL: The patient is awake, alert, and oriented times three, sitting in the bed, no apparent distress. HEAD/NECK: Extraocular muscles intact. Pupils equal, round, and reactive to light. Neck is supple. There is no jugular venous distention (JVD). CARDIOVASCULAR: S1, S2. Irregular rate. No murmur, rub, or gallop. RESPIRATORY: Chest is clear to auscultation bilaterally. Bilateral equal air entry. No rales or rhonchi. ABDOMEN: Soft, obese. Positive bowel sounds. Nontender. No organomegaly. MUSCULOSKELETAL: No clubbing or cyanosis. The patient has a left arm fistula with positive thrill and bruit. CENTRAL NERVOUS SYSTEM ([place]ARD[place]): No focal neurological deficit except from legal blindness. Otherwise power is 5/5 in all extremities. PSYCHIATRIC: Normal mood and affect at this time. LABORATORY DATA: CBC showed a WBC of 6.3, hemoglobin 10.8, platelets are 431. BMP showed sodium 139, potassium four, chloride 102, bicarbonate 29, BUN 31, creatinine 7.2, glucose 203, calcium nine. CURRENT INPATIENT MEDICATIONS: The patient's medications were all reviewed by me. The patient was given insulin Levemir 15 units subcutaneous today morning. There is no other change in the medications today as compared with yesterday. ASSESSMENT: A 51-year-old male with past medical history of end-stage renal disease on hemodialysis, hypertension, depression, admitted this time because of worsening diarrhea and weakness. PLAN: 1. End-stage renal disease on hemodialysis: The patient was dialyzed yesterday. No urgent need of hemodialysis today. Next hemodialysis session will be as outpatient. 2. Hypertension: Blood pressure is acceptable. Continue current dose of metoprolol 25 mg daily. 3. Diabetes mellitus: Patient was hyperglycemic yesterday. He was given rapid-acting insulin yesterday. Levemir does has been increased by primary team. Glucose levels are within the acceptable range at this time. 4. Depression: The patient was on Lexapro and Cymbalta, which were stopped yesterday. He has to be on one selective serotonin reuptake inhibitor (SSRI) as outpatient. 5. Discharge planning: It is okay to discharge the patient from nephrology standpoint. He will be seen during the hemodialysis session as outpatient now.
== END 2017-07-11 13:44 | disposition home or self-care (01) | DRG 391 ==
LOC: M ED 06:49 → M ED INP 10:56 → M MSPAV 12:17
PROVIDERS: ADMIT General Practice; ATTEND General Practice
PROC: 5A1D70Z Performance of Urinary Filtration, Intermittent, Less than 6 Hours Per Day (ICD-10-PCS; principal; 2017-07-08)
DX: R19.7 Diarrhea, unspecified (principal); N18.6 End stage renal disease; G93.40 Encephalopathy, unspecified; I12.0 Hypertensive chronic kidney disease with stage 5 chronic kidney disease or end stage renal disease; K29.70 Gastritis, unspecified, without bleeding; K52.839 Microscopic colitis, unspecified; E78.00 Pure hypercholesterolemia, unspecified; J44.9 Chronic obstructive pulmonary disease, unspecified; F41.9 Anxiety disorder, unspecified; Z79.899 Other long term (current) drug therapy; Z79.82 Long term (current) use of aspirin; E11.319 Type 2 diabetes mellitus with unspecified diabetic retinopathy without macular edema; E11.43 Type 2 diabetes mellitus with diabetic autonomic (poly)neuropathy; K21.9 Gastro-esophageal reflux disease without esophagitis; E78.5 Hyperlipidemia, unspecified; F32.9 Major depressive disorder, single episode, unspecified; E11.649 Type 2 diabetes mellitus with hypoglycemia without coma

== ENCOUNTER → 2017-08-27 | Outpatient (CLI) | payer MEDICARE, MEDICAID ==
[~2017-08-27] MED LIST changes: -ASPI1TAB PO; -DAILTAB65 PO; -DEXI60CA2 PO; -DULO30CA PO; -GEMF600T PO; +HEPARIN 1,000 UNITS/ML 10ML VIAL (FOR RADIOLOGY& DIALYSIS ONLY) As Ordered; -HYDR25TA PO; -INSUH10VL SC; -INSULANT SC; +ISOVUE-300 61% 50ML VIAL (Q9967) As Ordered; -KEPP1TAB PO; -LANTINJ4 SC; -LEXA1TAB2 PO; -LIPI80TA PO; -LYRI300C PO; -METO1TAB7 PO; +MIDAZOLAM INJ 2 MG/2 ML VIAL (J2250) As Ordered; -MULT1TAB10 PO; -RENV2TAB PO; -SENE8.6T3 PO; -TIZA4CAP3 PO; +fentaNYL 100 MCG/2 ML INJECTION (J3010) As Ordered
== END | disposition home or self-care (01) ==
LOC: M IRPRO 11:03
DX: T82.898A Other specified complication of vascular prosthetic devices, implants and grafts, initial encounter (principal); N18.6 End stage renal disease
CPT/HCPCS: 36901

== ENCOUNTER 2017-09-17 11:52 | Day surgery (SDC) | payer MEDICARE, MEDICAID ==
[2017-09-17] MEDS ORDERED: LR 1,000 ML IV (12:00)
[2017-09-17] MEDS ORDERED: D5W/0.2% SODIUM CHLORIDE 1,000 ML IV (12:30)
[2017-09-17 12:37] LABS: BEDSIDE GLUCOSE 155 MG/DL (70-105)
[2017-09-17] MEDS ORDERED: fentaNYL 100 MCG/2 ML INJECTION (J3010) As Ordered (13:26)
[2017-09-17] MEDS ORDERED: MIDAZOLAM INJ 2 MG/2 ML VIAL (J2250) As Ordered (13:26)
[2017-09-17] MEDS ORDERED: LIDOCAINE 2% INJ 100 MG/5 ML SDV (FOR ANES.) As Ordered (13:26)
[2017-09-17] MEDS ORDERED: PROPOFOL 200 MG/20 ML VIAL As Ordered ×2 (13:26→14:44)
[2017-09-17] MEDS: HEPARIN SOD (PORCINE) 5000 UNITS/ML VIAL As Ordered (14:43)
[2017-09-17] MEDS: LIDOCAINE 1% SDV INJ 30 ML VIAL As Ordered (14:44)
[2017-09-17] MEDS: BUPIVACAINE HCL 0.5% 30 ML VIAL As Ordered (14:44)
[2017-09-17 15:46] LABS: BEDSIDE GLUCOSE 179 MG/DL (70-105)
== END 2017-09-17 17:01 | disposition home or self-care (01) ==
LOC: M SDC 11:52
DX: T82.590A Other mechanical complication of surgically created arteriovenous fistula, initial encounter (principal); N18.6 End stage renal disease; I12.0 Hypertensive chronic kidney disease with stage 5 chronic kidney disease or end stage renal disease; E78.00 Pure hypercholesterolemia, unspecified; E10.319 Type 1 diabetes mellitus with unspecified diabetic retinopathy without macular edema; E10.21 Type 1 diabetes mellitus with diabetic nephropathy; E10.22 Type 1 diabetes mellitus with diabetic chronic kidney disease; F41.9 Anxiety disorder, unspecified; F32.9 Major depressive disorder, single episode, unspecified; K59.00 Constipation, unspecified; K21.9 Gastro-esophageal reflux disease without esophagitis; R06.02 Shortness of breath; Z88.1 Allergy status to other antibiotic agents; Z79.899 Other long term (current) drug therapy; Z79.82 Long term (current) use of aspirin; Z79.4 Long term (current) use of insulin; Z87.891 Personal history of nicotine dependence; X58.XXXA Exposure to other specified factors, initial encounter; Y93.89 Activity, other specified; Y92.89 Other specified places as the place of occurrence of the external cause; Y99.8 Other external cause status
CPT/HCPCS: 36832

== ENCOUNTER 2017-10-23 06:46 | Inpatient (IN) | payer MEDICARE, MEDICAID ==
[2017-10-23] MEDS ORDERED: METOCLOPRAMIDE INJ 10MG/2ML VIAL (J2765) As Ordered (07:34)
[2017-10-23] MEDS: METOCLOPRAMIDE INJ 10MG/2ML VIAL (J2765) IV (07:39)
[2017-10-23] MEDS: ONDANSETRON 4MG/2ML VIAL (J2405) IV (07:39)
[2017-10-23 07:46] LABS: BASO # 0.1 10^3/uL (0.0-0.2); BASO % 1.3 % (0.0-1.0); EOS # 0.2 10^3/uL (0.0-0.50); EOS % 2.8 % (0.0-3.0); HEMATOCRIT 35.1 % (42.0-52.0); HEMOGLOBIN 11.8 g/dl (14.0-18.0); IMMATURE GRANULOCYTE % 0.3 % (0-3.0); LYMPH # 2.1 10^3/uL (1.5-4.5); LYMPH % 26.5 % (24.0-44.0); MEAN CORPUSCULAR HEMOGLOBIN 35.3 pg (27.0-33.0); MEAN CORPUSCULAR HGB CONC 33.6 g/dl (32.0-36.5); MEAN CORPUSCULAR VOLUME 105.1 fl (80.0-96.0); MONO # 0.7 10^3/uL (0.0-0.8); MONO % 8.6 % (0.0-5.0); NEUTROPHILS # 4.9 10^3/uL (1.8-7.7); NEUTROPHILS % 60.5 % (36.0-66.0); PLATELET COUNT, AUTOMATED 302 10^3/uL (150-450); RED BLOOD COUNT 3.34 10^6/uL (4.30-6.10); RED CELL DISTRIBUTION WIDTH 13.8 % (11.5-14.5)
[2017-10-23] MEDS ORDERED: GASTROGRAFIN SOLUTION 30ML (Q9963) As Ordered (07:47)
[2017-10-23 07:52] LABS: LACTIC ACID SEPSIS PROTOCOL 1.1 MMOL/L (0.4-2.0)
[2017-10-23] MEDS: GASTROGRAFIN SOLUTION 30ML (Q9963) PO ×2 (08:00→08:30)
[2017-10-23] MEDS ORDERED: GASTROGRAFIN SOLUTION 30ML (Q9963) PO (08:00)
[2017-10-23 08:04] LABS: ALBUMIN 3.7 GM/DL (3.2-5.2); ALBUMIN/GLOBULIN RATIO 1.09 (1.00-1.93); ALKALINE PHOSPHATASE 143 U/L (45-117); ALT/SGPT 21 U/L (12-78); ANION GAP 10 MEQ/L (8-16); AST/SGOT 22 U/L (7-37); BILIRUBIN,DIRECT 0.1 MG/DL (0.0-0.2); BILIRUBIN,TOTAL 0.5 MG/DL (0.2-1.0); BLOOD UREA NITROGEN 37 MG/DL (7-18); CALCIUM LEVEL 8.7 MG/DL (8.5-10.1); CARBON DIOXIDE LEVEL 26 MEQ/L (21-32); CHLORIDE LEVEL 104 MEQ/L (98-107); GLOMERULAR FILTRATION RATE 6.1 (>56); GLUCOSE, FASTING 93 MG/DL (70-100); LIPASE 88 U/L (73-393); POTASSIUM SERUM 4.5 MEQ/L (3.5-5.1); SODIUM LEVEL 140 MEQ/L (136-145); TOTAL PROTEIN 7.1 GM/DL (6.4-8.2)
[2017-10-23 08:19] LABS: CREATININE FOR GFR 9.59 MG/DL (0.70-1.30)
[2017-10-23] MEDS ORDERED: (RENVELA) SEVELAMER **CARBONate** 800 MG TAB PO (09:00)
[2017-10-23] MEDS ORDERED: ISOVUE-370 76% 100ML VIAL (Q9967) As Ordered (09:22)
[2017-10-23] MEDS ORDERED: ONDANSETRON 4MG/2ML VIAL (J2405) IV (11:45)
[2017-10-23] MEDS ORDERED: ACETAMINOPHEN TAB 650MG DOSE (2X325MG) PO (11:45)
[2017-10-23] MEDS ORDERED: FLUTICASONE PROP 0.05% NASAL SPRAY 16 GM (FLONASE) (11:45)
[2017-10-23] MEDS: METOPROLOL SUCC *XL* 25MG TAB (TopROL *XL*) PO (12:56)
[2017-10-23] MEDS: ESCITALOPRAM OXALATE 10 MG TAB (LEXAPRO) PO (12:57)
[2017-10-23] MEDS: DULoxetine 30 MG CAP (CYMBALTA) PO (12:57)
[2017-10-23] MEDS: PANTOPRAZOLE 40MG TAB (PROTONIX) PO (12:57)
[2017-10-23] MEDS: levETIRAcetam 250MG TABLET (KEPPRA) PO ×2 (12:57→20:44)
[2017-10-23] MEDS: MULTIVITAMINS/MINERALS THERAP 1 TAB PO (12:57)
[2017-10-23] MEDS: VITAMIN D 1,000 INTERNATIONAL UNITS TABLET PO (12:57)
[2017-10-23] MEDS: ATORVASTATIN 20 MG TAB PO (12:57)
[2017-10-23] MEDS: ASPIRIN 81 MG ENTERIC TAB PO (12:57)
[2017-10-23] MEDS: LEVEMIR (INSULIN DETEMIR) 1 UNITS/0.01ML SC ×2 (12:58→20:45)
[2017-10-23] MEDS: PREGABALIN 100 MG CAP (LYRICA) PO ×2 (12:58→20:44)
[2017-10-23 13:08] LABS: BEDSIDE GLUCOSE 99 MG/DL (70-105)
[2017-10-23] MEDS: HEPARIN SOD (PORCINE) 5000 UNITS/ML VIAL SC ×2 (13:33→20:31)
[2017-10-23] MEDS ORDERED: GLUCOSE 4 GM CHEW TABLET PO (15:30)
[2017-10-23] MEDS ORDERED: DEXTROSE 50% 50 ML SYRINGE IV (15:30)
[2017-10-23] MEDS ORDERED: GLUCAGON FOR INJ 1 MG VIAL (J1610) SC (15:30)
[2017-10-23] MEDS: MIRALAX *UNIT DOSE* 17GM PACKET PO ×2 (20:30→20:44)
[2017-10-23] MEDS: HumaLOG INSULIN (NovoLOG) PER UNIT SC ×2 (20:30→20:44)
[2017-10-23] MEDS: tiZANidine 4 MG TAB PO (20:51)
[2017-10-23 20:54] LABS: BEDSIDE GLUCOSE 80 MG/DL (70-105)
[2017-10-24] MEDS: HEPARIN SOD (PORCINE) 5000 UNITS/ML VIAL SC ×2 (05:32→13:07)
[2017-10-24 06:20] LABS: HEMATOCRIT 37.3 % (42.0-52.0); HEMOGLOBIN 12.4 g/dl (14.0-18.0); MEAN CORPUSCULAR HEMOGLOBIN 34.8 pg (27.0-33.0); MEAN CORPUSCULAR HGB CONC 33.2 g/dl (32.0-36.5); MEAN CORPUSCULAR VOLUME 104.8 fl (80.0-96.0); PLATELET COUNT, AUTOMATED 295 10^3/uL (150-450); RED BLOOD COUNT 3.56 10^6/uL (4.30-6.10); RED CELL DISTRIBUTION WIDTH 14.1 % (11.5-14.5); WHITE BLOOD COUNT 6.8 10^3/uL (4.0-10.0)
[2017-10-24 06:54] LABS: BEDSIDE GLUCOSE 159 MG/DL (70-105)
[2017-10-24] MEDS: HumaLOG INSULIN (NovoLOG) PER UNIT SC ×2 (08:04→13:04)
[2017-10-24] MEDS: LEVEMIR (INSULIN DETEMIR) 1 UNITS/0.01ML SC (08:04)
[2017-10-24] MEDS: ATORVASTATIN 20 MG TAB PO (08:05)
[2017-10-24] MEDS: ESCITALOPRAM OXALATE 10 MG TAB (LEXAPRO) PO (08:05)
[2017-10-24] MEDS: MULTIVITAMINS/MINERALS THERAP 1 TAB PO (08:05)
[2017-10-24] MEDS: DULoxetine 30 MG CAP (CYMBALTA) PO (08:05)
[2017-10-24] MEDS: VITAMIN D 1,000 INTERNATIONAL UNITS TABLET PO (08:05)
[2017-10-24] MEDS: PANTOPRAZOLE 40MG TAB (PROTONIX) PO (08:05)
[2017-10-24] MEDS: levETIRAcetam 250MG TABLET (KEPPRA) PO (08:05)
[2017-10-24] MEDS: MIRALAX *UNIT DOSE* 17GM PACKET PO (08:06)
[2017-10-24] MEDS: METOPROLOL SUCC *XL* 25MG TAB (TopROL *XL*) PO (08:06)
[2017-10-24] MEDS: ASPIRIN 81 MG ENTERIC TAB PO (08:06)
[2017-10-24 08:10] LABS: ALBUMIN/GLOBULIN RATIO 0.86 (1.00-1.93); ALKALINE PHOSPHATASE 108 U/L (45-117); ALT/SGPT 19 U/L (12-78); ANION GAP 8 MEQ/L (8-16); AST/SGOT 18 U/L (7-37); BILIRUBIN,TOTAL 0.4 MG/DL (0.2-1.0); BLOOD UREA NITROGEN 18 MG/DL (7-18); CALCIUM LEVEL 8.2 MG/DL (8.5-10.1); CARBON DIOXIDE LEVEL 28 MEQ/L (21-32); CHLORIDE LEVEL 101 MEQ/L (98-107); CREATININE FOR GFR 6.47 MG/DL (0.70-1.30); GLOMERULAR FILTRATION RATE 9.7 (>56); GLUCOSE, FASTING 174 MG/DL (70-100); MAGNESIUM LEVEL 2.4 MG/DL (1.8-2.4); POTASSIUM SERUM 4.6 MEQ/L (3.5-5.1); SODIUM LEVEL 137 MEQ/L (136-145); TOTAL PROTEIN 6.5 GM/DL (6.4-8.2)
[2017-10-24 11:41] LABS: BEDSIDE GLUCOSE 138 MG/DL (70-105)
[2017-10-27 10:15] LABS: LEVETIRACETAM (KEPPRA) 21.6 ug/mL (10.0-40.0)
== END 2017-10-24 14:10 | disposition home or self-care (01) | DRG 391 ==
LOC: M ED 06:46 → M ED INP 11:34 → M PCU 14:32
PROVIDERS: Internal Medicine
PROC: 5A1D70Z Performance of Urinary Filtration, Intermittent, Less than 6 Hours Per Day (ICD-10-PCS; principal; 2017-10-23)
DX: A08.8 Other specified intestinal infections (principal); N18.6 End stage renal disease; I12.0 Hypertensive chronic kidney disease with stage 5 chronic kidney disease or end stage renal disease; R19.7 Diarrhea, unspecified; K59.00 Constipation, unspecified; E11.9 Type 2 diabetes mellitus without complications; F32.9 Major depressive disorder, single episode, unspecified; G40.909 Epilepsy, unspecified, not intractable, without status epilepticus; Z79.82 Long term (current) use of aspirin; Z79.899 Other long term (current) drug therapy; Z79.4 Long term (current) use of insulin; F41.9 Anxiety disorder, unspecified; J44.9 Chronic obstructive pulmonary disease, unspecified; K21.9 Gastro-esophageal reflux disease without esophagitis; E78.00 Pure hypercholesterolemia, unspecified; Z88.1 Allergy status to other antibiotic agents; E78.5 Hyperlipidemia, unspecified; M54.5 Low back pain; R11.2 Nausea with vomiting, unspecified

== ENCOUNTER 2017-11-20 06:34 | Emergency (ER) | payer MEDICARE, MEDICAID ==
[2017-11-20 08:38] LABS: INFLUENZA A AMPLIFICATION NEGATIVE (NEGATIVE); INFLUENZA B AMPLIFICATION NEGATIVE (NEGATIVE)
== END 2017-11-20 09:02 | disposition home or self-care (01) ==
LOC: M ED 06:34
DX: R55 Syncope and collapse (principal); R05 Cough; N18.6 End stage renal disease; E11.9 Type 2 diabetes mellitus without complications; I25.10 Atherosclerotic heart disease of native coronary artery without angina pectoris; I50.9 Heart failure, unspecified; I13.2 Hypertensive heart and chronic kidney disease with heart failure and with stage 5 chronic kidney disease, or end stage renal disease; J44.9 Chronic obstructive pulmonary disease, unspecified; E78.9 Disorder of lipoprotein metabolism, unspecified; F17.200 Nicotine dependence, unspecified, uncomplicated; Z79.899 Other long term (current) drug therapy; Z79.4 Long term (current) use of insulin; Z79.82 Long term (current) use of aspirin; Z88.1 Allergy status to other antibiotic agents; Z98.890 Other specified postprocedural states
CPT/HCPCS: 71045

== ENCOUNTER → 2017-12-27 | Outpatient (CLI) | payer MEDICARE, MEDICAID ==
[~2017-12-27] MED LIST changes: -HEPARIN 1,000 UNITS/ML 10ML VIAL (FOR RADIOLOGY& DIALYSIS ONLY) As Ordered
== END ==
LOC: M IRPRO 09:17
DX: T82.898A Other specified complication of vascular prosthetic devices, implants and grafts, initial encounter (principal); N18.6 End stage renal disease
CPT/HCPCS: 36901

== ENCOUNTER 2018-01-24 07:48 | Day surgery (SDC) | payer MEDICARE, MEDICAID ==
[2018-01-24 08:39] LABS: BEDSIDE GLUCOSE 192 MG/DL (70-105)
[2018-01-24 08:44] LABS: POTASSIUM SERUM 4.6 MEQ/L (3.5-5.1)
[2018-01-24] MEDS ORDERED: MIDAZOLAM INJ 2 MG/2 ML VIAL (J2250) As Ordered (09:45)
[2018-01-24] MEDS ORDERED: fentaNYL 100 MCG/2 ML INJECTION (J3010) As Ordered (09:45)
[2018-01-24] MEDS ORDERED: PROPOFOL 200 MG/20 ML VIAL As Ordered ×2 (09:46→11:18)
[2018-01-24] MEDS: LIDOCAINE 1% MDV 20ML VIAL As Ordered (10:30)
[2018-01-24] MEDS: BUPIVACAINE HCL 0.5% 10 ML VIAL As Ordered (10:30)
[2018-01-24] MEDS: HEPARIN SOD (PORCINE) 5000 UNITS/ML VIAL As Ordered (10:30)
[2018-01-24] MEDS ORDERED: ePHEDrine SULFATE 25 MG/5 ML(5MG/ML) SYRINGE As Ordered (10:43)
[2018-01-24] MEDS ORDERED: THROMBIN SOLN 20,000 UNITS KIT As Ordered (11:17)
[2018-01-24] MEDS ORDERED: PERCOCET 5MG/325MG TAB As Ordered (13:36)
[2018-01-24] MEDS ORDERED: PERCOCET 5MG/325MG TAB PO (13:45)
== END 2018-01-24 13:55 | disposition home or self-care (01) ==
LOC: M SDC 07:48
DX: M79.642 Pain in left hand (principal); R22.32 Localized swelling, mass and lump, left upper limb; T82.858A Stenosis of other vascular prosthetic devices, implants and grafts, initial encounter; E11.22 Type 2 diabetes mellitus with diabetic chronic kidney disease; N18.6 End stage renal disease; I10 Essential (primary) hypertension; E10.9 Type 1 diabetes mellitus without complications; Z79.4 Long term (current) use of insulin; K21.9 Gastro-esophageal reflux disease without esophagitis; Z88.1 Allergy status to other antibiotic agents; Z79.899 Other long term (current) drug therapy; Z79.82 Long term (current) use of aspirin
CPT/HCPCS: 36830

== ENCOUNTER → 2018-02-02 | Outpatient (CLI) | payer MEDICARE, MEDICAID | END | disposition home or self-care (01) | LOC: M IRPRO 08:53 | DX: T82.590A Other mechanical complication of surgically created arteriovenous fistula, initial encounter (principal); N18.6 End stage renal disease | CPT/HCPCS: 36901 ==

== ENCOUNTER → 2018-02-09 | Outpatient (CLI) | payer MEDICARE, MEDICAID | LOC: M RAD 18:04 | DX: Z76.82 Awaiting organ transplant status (principal) | CPT/HCPCS: 71250 ==

== ENCOUNTER 2018-02-19 11:13 | Emergency (ER) | payer MEDICARE, MEDICAID ==
[2018-02-20 14:22] LABS: BEDSIDE GLUCOSE 109 MG/DL (70-105)
== END 2018-02-19 15:46 | disposition home or self-care (01) ==
LOC: M ED 11:13
DX: M54.12 Radiculopathy, cervical region (principal); E11.9 Type 2 diabetes mellitus without complications; I10 Essential (primary) hypertension; G89.29 Other chronic pain; Z87.891 Personal history of nicotine dependence; Z79.4 Long term (current) use of insulin; Z79.899 Other long term (current) drug therapy; Z88.1 Allergy status to other antibiotic agents
CPT/HCPCS: 93971

== ENCOUNTER → 2018-03-14 | Outpatient (CLI) | payer MEDICARE, MEDICAID | END | disposition home or self-care (01) | LOC: M IRPRO 08:10 | DX: T82.590A Other mechanical complication of surgically created arteriovenous fistula, initial encounter (principal); N18.6 End stage renal disease | CPT/HCPCS: 36901 ==

== ENCOUNTER 2018-05-23 23:16 | Inpatient (IN) | payer MEDICARE, MEDICAID ==
[2018-05-23 23:56] LABS: BEDSIDE GLUCOSE 52 MG/DL (70-105)
[2018-05-23] MEDS ORDERED: DEXTROSE 50% 50 ML SYRINGE As Ordered (23:56)
[2018-05-24] MEDS: DEXTROSE 50% 50 ML SYRINGE IV (00:19)
[2018-05-24 00:35] LABS: BASO # 0.1 10^3/uL (0.0-0.2); BASO % 1.4 % (0.0-1.0); EOS # 0.3 10^3/uL (0.0-0.50); EOS % 3.3 % (0.0-3.0); HEMATOCRIT 36.7 % (42.0-52.0); HEMOGLOBIN 13.2 g/dl (13.5-17.5); IMMATURE GRANULOCYTE % 0.5 % (0-3.0); LYMPH % 34.8 % (24.0-44.0); MEAN CORPUSCULAR VOLUME 105.8 fl (80.0-96.0); MONO % 11.7 % (0.0-5.0); NEUTROPHILS # 4.2 10^3/uL (1.8-7.7); NEUTROPHILS % 48.3 % (36.0-66.0); PLATELET COUNT, AUTOMATED 344 10^3/uL (150-450); RED BLOOD COUNT 3.47 10^6/uL (4.30-6.10); RED CELL DISTRIBUTION WIDTH 13.7 % (11.5-14.5); WHITE BLOOD COUNT 8.7 10^3/uL (4.0-10.0)
[2018-05-24 01:01] LABS: ALBUMIN 3.5 GM/DL (3.2-5.2); ALBUMIN/GLOBULIN RATIO 0.83 (1.00-1.93); ALKALINE PHOSPHATASE 162 U/L (45-117); ALT/SGPT 26 U/L (12-78); ANION GAP 14 MEQ/L (8-16); AST/SGOT 30 U/L (7-37); BILIRUBIN,DIRECT 0.1 MG/DL (0.0-0.2); BILIRUBIN,TOTAL 0.8 MG/DL (0.2-1.0); BLOOD UREA NITROGEN 47 MG/DL (7-18); CARBON DIOXIDE LEVEL 25 MEQ/L (21-32); CHLORIDE LEVEL 99 MEQ/L (98-107); CPK CREATINE PHOSPHOKINASE 124 U/L (39-308); GLUCOSE, FASTING 76 MG/DL (70-100); LIPASE 135 U/L (73-393); MB/CK RELATIVE INDEX 1.53 (< OR =4); POTASSIUM SERUM 4.9 MEQ/L (3.5-5.1); SODIUM LEVEL 138 MEQ/L (136-145); TOTAL PROTEIN 7.7 GM/DL (6.4-8.2); TROPONIN I < 0.02 NG/ML (< 0.10)
[2018-05-24 01:09] LABS: BEDSIDE GLUCOSE 112 MG/DL (70-105)
[2018-05-24 01:48] LABS: BEDSIDE GLUCOSE 103 MG/DL (70-105)
[2018-05-24 01:53] LABS: ABG O2 SATURATION 96.6 % (95.0-99.0); ABG PARTIAL PRESSURE CO2 40.1 mmHg (35.0-45.0); ABG PARTIAL PRESSURE O2 110.1 mmHg (75.0-100.0); ABG STANDARD HCO3 22.8 MEQ/L (22.0-26.0); ABG TOTAL CO2 24.3 MEQ/L (22.0-29.0); ABG pH (ARTERIAL) 7.377 UNITS (7.350-7.450)
[2018-05-24] MEDS ORDERED: ISOVUE-370 76% 100ML VIAL (Q9967) As Ordered (02:07)
[2018-05-24] MEDS: NS 500 ML IV (02:36)
[2018-05-24 04:10] LABS: BEDSIDE GLUCOSE 94 MG/DL (70-105)
[2018-05-24] MEDS: cefTRIAXone SOD 1 GM in D5W MINI-BAG PLUS 50 ML IV (04:41)
[2018-05-24 05:09] LABS: BEDSIDE GLUCOSE 121 MG/DL (70-105)
[2018-05-24] MEDS ORDERED: ACETAMINOPHEN TAB 650MG DOSE (2X325MG) PO (05:30)
[2018-05-24] MEDS ORDERED: MORPHINE 4 MG/ML 1ML VIAL/SYRINGE (J2270) IV (05:30)
[2018-05-24] MEDS ORDERED: GLUCOSE 4 GM CHEW TABLET PO (05:45)
[2018-05-24] MEDS ORDERED: DEXTROSE 50% 50 ML SYRINGE IV (05:45)
[2018-05-24] MEDS ORDERED: GLUCAGON FOR INJ 1 MG VIAL (J1610) SC (05:45)
[2018-05-24] MEDS ORDERED: ONDANSETRON 4 MG ORAL DISINTEGRATING TAB (Q0162 PER 1MG) PO (05:45)
[2018-05-24] MEDS: HEPARIN SOD (PORCINE) 5000 UNITS/ML VIAL SC ×3 (05:56→21:05)
[2018-05-24] MEDS ORDERED: IPRATROPIUM 0.5MG/ALBUTEROL 2.5MG INH SOL UD 3ML (DUONEB)(J7620) NEB (06:00)
[2018-05-24 06:01] LABS: MAGNESIUM LEVEL 3.4 MG/DL (1.8-2.4); PHOSPHORUS LEVEL 2.3 MG/DL (2.5-4.9)
[2018-05-24 06:23] LABS: BEDSIDE GLUCOSE 148 MG/DL (70-105)
[2018-05-24] MEDS: HumaLOG INSULIN (NovoLOG) PER UNIT SC ×4 (07:30→20:29)
[2018-05-24] MEDS: LevoFLOXacin IV 500 MG in APPROPRIATE DILUENT 1 EA IV (07:41)
[2018-05-24 07:45] LABS: BEDSIDE GLUCOSE 97 MG/DL (70-105)
[2018-05-24 08:22] LABS: AMMONIA 37 uMOL/L (<32)
[2018-05-24 09:47] LABS: FOLATE 13.4 NG/ML (>5.4)
[2018-05-24] MEDS: ATORVASTATIN 20 MG TAB PO (14:12)
[2018-05-24] MEDS: levETIRAcetam 250MG TABLET (KEPPRA) PO ×2 (14:12→20:30)
[2018-05-24] MEDS: DOCUSATE SODIUM 100 MG CAP PO ×2 (14:13→20:31)
[2018-05-24] MEDS: ASPIRIN 81 MG ENTERIC TAB PO (14:13)
[2018-05-24] MEDS: ESCITALOPRAM OXALATE 10 MG TAB (LEXAPRO) PO (14:13)
[2018-05-24] MEDS: METOPROLOL SUCC *XL* 25MG TAB (TopROL *XL*) PO (14:13)
[2018-05-24] MEDS: DULoxetine 30 MG CAP (CYMBALTA) PO ×2 (14:13→20:30)
[2018-05-24] MEDS: MULTIVITAMINS/MINERALS THERAP 1 TAB PO (14:13)
[2018-05-24] MEDS: HEPARIN 1,000 UNITS/ML 10ML VIAL (FOR RADIOLOGY& DIALYSIS ONLY) IV (14:23)
[2018-05-24 17:19] LABS: BEDSIDE GLUCOSE 434 MG/DL (70-105)
[2018-05-24] MEDS: (RENVELA) SEVELAMER **CARBONate** 800 MG TAB PO ×2 (17:20→17:54)
[2018-05-24] MEDS: LEVEMIR (INSULIN DETEMIR) 1 UNITS/0.01ML SC ×2 (17:30→17:41)
[2018-05-24] MEDS: ONDANSETRON 4MG/2ML VIAL (J2405) IV (17:48)
[2018-05-24 18:39] LABS: BEDSIDE GLUCOSE 446 MG/DL (70-105)
[2018-05-24 20:00] LABS: BEDSIDE GLUCOSE 383 MG/DL (70-105)
[2018-05-24] MEDS: VITAMIN D 1,000 INTERNATIONAL UNITS TABLET PO (20:30)
[2018-05-24] MEDS: amLODIPine 5 MG TAB PO (20:30)
[2018-05-24] MEDS: PREGABALIN 100 MG CAP (LYRICA) PO (20:31)
[2018-05-25] MEDS: HEPARIN SOD (PORCINE) 5000 UNITS/ML VIAL SC ×3 (05:03→20:28)
[2018-05-25 05:09] LABS: BASO # 0.1 10^3/uL (0.0-0.2); BASO % 1.8 % (0.0-1.0); EOS # 0.3 10^3/uL (0.0-0.50); EOS % 4.1 % (0.0-3.0); HEMATOCRIT 37.6 % (42.0-52.0); HEMOGLOBIN 12.5 g/dl (13.5-17.5); IMMATURE GRANULOCYTE % 0.1 % (0-3.0); LYMPH # 3.2 10^3/uL (1.5-4.5); LYMPH % 47.4 % (24.0-44.0); MEAN CORPUSCULAR HGB CONC 33.2 g/dl (32.0-36.5); MEAN CORPUSCULAR VOLUME 105.3 fl (80.0-96.0); MONO % 14.3 % (0.0-5.0); NEUTROPHILS # 2.2 10^3/uL (1.8-7.7); NEUTROPHILS % 32.3 % (36.0-66.0); PLATELET COUNT, AUTOMATED 354 10^3/uL (150-450); RED BLOOD COUNT 3.57 10^6/uL (4.30-6.10); RED CELL DISTRIBUTION WIDTH 13.6 % (11.5-14.5); WHITE BLOOD COUNT 6.8 10^3/uL (4.0-10.0)
[2018-05-25 05:58] LABS: ANION GAP 9 MEQ/L (8-16); BLOOD UREA NITROGEN 34 MG/DL (7-18); CARBON DIOXIDE LEVEL 30 MEQ/L (21-32); CHLORIDE LEVEL 102 MEQ/L (98-107); CREATININE FOR GFR 7.66 MG/DL (0.70-1.30); FERRITIN 714 NG/ML (26-388); GLOMERULAR FILTRATION RATE 7.9 (>56); GLUCOSE, FASTING 94 MG/DL (70-100); IRON (FE) 69 UG/DL (65-175); PERCENT SATURATION 35.4 % (19.7-50.0); POTASSIUM SERUM 4.9 MEQ/L (3.5-5.1); SODIUM LEVEL 141 MEQ/L (136-145); THYROID STIMULATING HORMONE 0.739 uIU/ML (0.358-3.740); TOTAL IRON BINDING CAPACITY 195 UG/DL (250-450)
[2018-05-25] MEDS: HumaLOG INSULIN (NovoLOG) PER UNIT SC ×4 (07:30→20:27)
[2018-05-25] MEDS: LEVEMIR (INSULIN DETEMIR) 1 UNITS/0.01ML SC ×2 (08:46→20:27)
[2018-05-25] MEDS: METOPROLOL SUCC *XL* 25MG TAB (TopROL *XL*) PO (08:47)
[2018-05-25] MEDS: DULoxetine 30 MG CAP (CYMBALTA) PO ×2 (08:47→20:23)
[2018-05-25] MEDS: ASPIRIN 81 MG ENTERIC TAB PO (08:47)
[2018-05-25] MEDS: levETIRAcetam 250MG TABLET (KEPPRA) PO ×2 (08:47→20:23)
[2018-05-25] MEDS: DOCUSATE SODIUM 100 MG CAP PO ×2 (08:47→20:23)
[2018-05-25] MEDS: MULTIVITAMINS/MINERALS THERAP 1 TAB PO (08:47)
[2018-05-25] MEDS: ESCITALOPRAM OXALATE 10 MG TAB (LEXAPRO) PO (08:48)
[2018-05-25] MEDS: ATORVASTATIN 20 MG TAB PO (08:48)
[2018-05-25 11:39] LABS: BEDSIDE GLUCOSE 378 MG/DL (70-105)
[2018-05-25 16:43] LABS: BEDSIDE GLUCOSE 288 MG/DL (70-105)
[2018-05-25] MEDS: (RENVELA) SEVELAMER **CARBONate** 800 MG TAB PO (17:29)
[2018-05-25 20:02] LABS: BEDSIDE GLUCOSE 83 MG/DL (70-105)
[2018-05-25] MEDS: RAMELTEON 8 MG TAB (ROZEREM) PO (20:22)
[2018-05-25] MEDS: PREGABALIN 100 MG CAP (LYRICA) PO (20:23)
[2018-05-25] MEDS: VITAMIN D 1,000 INTERNATIONAL UNITS TABLET PO (20:24)
[2018-05-25] MEDS: amLODIPine 5 MG TAB PO (20:24)
[2018-05-26 05:47] LABS: BEDSIDE GLUCOSE 92 MG/DL (70-105)
[2018-05-26] MEDS: LevoFLOXacin IV 250 MG in APPROPRIATE DILUENT 1 EA IV (07:05)
[2018-05-26] MEDS: HEPARIN SOD (PORCINE) 5000 UNITS/ML VIAL SC ×4 (07:05→21:20)
[2018-05-26 07:21] LABS: BASO # 0.1 10^3/uL (0.0-0.2); BASO % 1.4 % (0.0-1.0); EOS # 0.3 10^3/uL (0.0-0.50); EOS % 4.1 % (0.0-3.0); HEMATOCRIT 34.4 % (42.0-52.0); HEMOGLOBIN 11.5 g/dl (13.5-17.5); IMMATURE GRANULOCYTE % 0.1 % (0-3.0); LYMPH # 3.8 10^3/uL (1.5-4.5); LYMPH % 46.6 % (24.0-44.0); MEAN CORPUSCULAR HEMOGLOBIN 35.5 pg (27.0-33.0); MEAN CORPUSCULAR HGB CONC 33.4 g/dl (32.0-36.5); MEAN CORPUSCULAR VOLUME 106.2 fl (80.0-96.0); MONO % 11.9 % (0.0-5.0); NEUTROPHILS # 2.9 10^3/uL (1.8-7.7); NEUTROPHILS % 35.9 % (36.0-66.0); PLATELET COUNT, AUTOMATED 337 10^3/uL (150-450); RED BLOOD COUNT 3.24 10^6/uL (4.30-6.10); RED CELL DISTRIBUTION WIDTH 13.9 % (11.5-14.5); WHITE BLOOD COUNT 8.1 10^3/uL (4.0-10.0)
[2018-05-26] MEDS: HumaLOG INSULIN (NovoLOG) PER UNIT SC ×4 (07:30→21:00)
[2018-05-26 07:53] LABS: ANION GAP 10 MEQ/L (8-16); BLOOD UREA NITROGEN 53 MG/DL (7-18); CALCIUM LEVEL 8.7 MG/DL (8.5-10.1); CARBON DIOXIDE LEVEL 27 MEQ/L (21-32); CHLORIDE LEVEL 101 MEQ/L (98-107); GLOMERULAR FILTRATION RATE 5.3 (>56); GLUCOSE, FASTING 90 MG/DL (70-100); PHOSPHORUS LEVEL 4.8 MG/DL (2.5-4.9); POTASSIUM SERUM 4.7 MEQ/L (3.5-5.1); SODIUM LEVEL 138 MEQ/L (136-145)
[2018-05-26] MEDS: LEVEMIR (INSULIN DETEMIR) 1 UNITS/0.01ML SC ×2 (08:36→21:20)
[2018-05-26] MEDS: HEPARIN 1,000 UNITS/ML 10ML VIAL (FOR RADIOLOGY& DIALYSIS ONLY) XX (11:39)
[2018-05-26] MEDS: HEPARIN 1,000 UNITS/ML 10ML VIAL (FOR RADIOLOGY& DIALYSIS ONLY) IV (11:39)
[2018-05-26] MEDS: ATORVASTATIN 20 MG TAB PO (13:36)
[2018-05-26] MEDS: levETIRAcetam 250MG TABLET (KEPPRA) PO ×2 (13:36→21:21)
[2018-05-26] MEDS: DULoxetine 30 MG CAP (CYMBALTA) PO ×2 (13:37→21:20)
[2018-05-26] MEDS: ESCITALOPRAM OXALATE 10 MG TAB (LEXAPRO) PO (13:37)
[2018-05-26] MEDS: ASPIRIN 81 MG ENTERIC TAB PO (13:37)
[2018-05-26] MEDS: METOPROLOL SUCC *XL* 25MG TAB (TopROL *XL*) PO (13:41)
[2018-05-26] MEDS: MULTIVITAMINS/MINERALS THERAP 1 TAB PO (13:41)
[2018-05-26] MEDS: DOCUSATE SODIUM 100 MG CAP PO ×2 (13:42→21:00)
[2018-05-26 13:50] LABS: BEDSIDE GLUCOSE 206 MG/DL (70-105)
[2018-05-26 16:55] LABS: BEDSIDE GLUCOSE 360 MG/DL (70-105)
[2018-05-26] MEDS: (RENVELA) SEVELAMER **CARBONate** 800 MG TAB PO (17:12)
[2018-05-26] MEDS: RAMELTEON 8 MG TAB (ROZEREM) PO (21:20)
[2018-05-26] MEDS: VITAMIN D 1,000 INTERNATIONAL UNITS TABLET PO (21:21)
[2018-05-26] MEDS: PREGABALIN 100 MG CAP (LYRICA) PO (21:21)
[2018-05-26] MEDS: amLODIPine 5 MG TAB PO (21:22)
[2018-05-26 21:59] LABS: BEDSIDE GLUCOSE 283 MG/DL (70-105)
[2018-05-27] MEDS: HEPARIN SOD (PORCINE) 5000 UNITS/ML VIAL SC (05:49)
[2018-05-27 07:24] LABS: BASO # 0.1 10^3/uL (0.0-0.2); BASO % 1.9 % (0.0-1.0); EOS # 0.3 10^3/uL (0.0-0.50); EOS % 4.1 % (0.0-3.0); HEMATOCRIT 37.6 % (42.0-52.0); HEMOGLOBIN 12.5 g/dl (13.5-17.5); IMMATURE GRANULOCYTE % 0.2 % (0-3.0); LYMPH % 47.5 % (24.0-44.0); MEAN CORPUSCULAR HEMOGLOBIN 35.7 pg (27.0-33.0); MEAN CORPUSCULAR HGB CONC 33.2 g/dl (32.0-36.5); MEAN CORPUSCULAR VOLUME 107.4 fl (80.0-96.0); MONO # 0.9 10^3/uL (0.0-0.8); MONO % 14.5 % (0.0-5.0); NEUTROPHILS % 31.8 % (36.0-66.0); PLATELET COUNT, AUTOMATED 344 10^3/uL (150-450); RED CELL DISTRIBUTION WIDTH 14.4 % (11.5-14.5); WHITE BLOOD COUNT 6.3 10^3/uL (4.0-10.0)
[2018-05-27 08:07] LABS: ANION GAP 10 MEQ/L (8-16); BLOOD UREA NITROGEN 36 MG/DL (7-18); CALCIUM LEVEL 9.2 MG/DL (8.5-10.1); CARBON DIOXIDE LEVEL 27 MEQ/L (21-32); CHLORIDE LEVEL 101 MEQ/L (98-107); CREATININE FOR GFR 7.96 MG/DL (0.70-1.30); GLOMERULAR FILTRATION RATE 7.6 (>56); GLUCOSE, FASTING 180 MG/DL (70-100); POTASSIUM SERUM 4.7 MEQ/L (3.5-5.1); SODIUM LEVEL 138 MEQ/L (136-145)
[2018-05-27] MEDS: ATORVASTATIN 20 MG TAB PO (08:07)
[2018-05-27] MEDS: LEVEMIR (INSULIN DETEMIR) 1 UNITS/0.01ML SC (08:07)
[2018-05-27] MEDS: ESCITALOPRAM OXALATE 10 MG TAB (LEXAPRO) PO (08:07)
[2018-05-27] MEDS: levETIRAcetam 250MG TABLET (KEPPRA) PO (08:07)
[2018-05-27] MEDS: DULoxetine 30 MG CAP (CYMBALTA) PO (08:08)
[2018-05-27] MEDS: DOCUSATE SODIUM 100 MG CAP PO (08:08)
[2018-05-27] MEDS: ASPIRIN 81 MG ENTERIC TAB PO (08:08)
[2018-05-27] MEDS: MULTIVITAMINS/MINERALS THERAP 1 TAB PO (08:10)
[2018-05-27] MEDS: METOPROLOL SUCC *XL* 25MG TAB (TopROL *XL*) PO (08:10)
[2018-05-27] MEDS: HumaLOG INSULIN (NovoLOG) PER UNIT SC ×2 (09:30→12:43)
[2018-05-27 11:45] LABS: BEDSIDE GLUCOSE 348 MG/DL (70-105)
[2018-05-27] MEDS ORDERED: PREGABALIN 75 MG CAP(LYRICA) PO (21:00)
== END 2018-05-27 12:56 | disposition home or self-care (01) | DRG 70 ==
LOC: M ED 23:16 → M MS4PR 05-25 12:27 → M MS5PR 05-26 18:04 → M ED INP 05-24 05:24 → M ICU 05-24 07:39
PROVIDERS: Internal Medicine
PROC: 5A1D70Z Performance of Urinary Filtration, Intermittent, Less than 6 Hours Per Day (ICD-10-PCS; principal; 2018-05-26)
DX: G93.41 Metabolic encephalopathy (principal); N18.6 End stage renal disease; J18.9 Pneumonia, unspecified organism; I12.0 Hypertensive chronic kidney disease with stage 5 chronic kidney disease or end stage renal disease; E11.649 Type 2 diabetes mellitus with hypoglycemia without coma; G40.909 Epilepsy, unspecified, not intractable, without status epilepticus; J44.9 Chronic obstructive pulmonary disease, unspecified; Z79.899 Other long term (current) drug therapy; Z79.4 Long term (current) use of insulin; Z88.1 Allergy status to other antibiotic agents; Z87.891 Personal history of nicotine dependence; M54.5 Low back pain; I95.9 Hypotension, unspecified; F32.9 Major depressive disorder, single episode, unspecified; E78.5 Hyperlipidemia, unspecified

== ENCOUNTER → 2018-06-17 | Outpatient (CLI) | payer MEDICARE, MEDICAID ==
[~2018-06-17] MED LIST changes: +LIDOCAINE 2% MDV 20 ML VIAL As Ordered; -MIDAZOLAM INJ 2 MG/2 ML VIAL (J2250) As Ordered; -fentaNYL 100 MCG/2 ML INJECTION (J3010) As Ordered
== END | disposition home or self-care (01) ==
LOC: M IRPRO 08:09
DX: T82.590A Other mechanical complication of surgically created arteriovenous fistula, initial encounter (principal); N18.6 End stage renal disease; Z99.2 Dependence on renal dialysis
CPT/HCPCS: 36901

== ENCOUNTER → 2018-09-12 | Outpatient (CLI) | payer MEDICARE, MEDICAID ==
[~2018-09-12] MED LIST changes: +AMIT8CAP4 PO; +AMLO5TAB6 PO; +ASPI1TAB PO; +BUDE3CAP PO; +DAILTAB65 PO; +DEXI60CA2 PO; +DULO1CAP3 PO; +DULO30CA PO; +ESCI20TA PO; +FLUTISP; +GEMF600T5 PO; +HYDR25TA PO; +INSUH10VL SC; +INSULANT SC; -ISOVUE-300 61% 50ML VIAL (Q9967) As Ordered; +KEPP1TAB PO; +LANTINJ4 SC; +LEVA250T13 PO; +LEVE1INJ5 SC; +LEXA1TAB2 PO; -LIDOCAINE 2% MDV 20 ML VIAL As Ordered; +LIPI80TA PO; +LOPE2CA PO; +LYRI300C PO; +LYRI75CA PO; +METO1TAB32 PO; +METO1TAB7 PO; +MULT1TAB10 PO; +NOVO70VL SC; +ONDA4TAB6 PO; +REGUPOW PO; +RENV2TAB PO; +SENE8.6T3 PO; +TIZA4CAP PO; +TYLE500T78 PO; +VITA-121 PO; +VITA100066 PO; +VITA200028 PO; +VITMTA PO; +ZANTTAB PO
--- NOTE | 2018-09-12 18:51 | REP ---
Scrotal sonography: History: Testicular pain. Findings: High-resolution bilateral scrotal sonography demonstrates a mild heterogeneity in testicular parenchyma. No intratesticular mass lesion is seen. Testicular Doppler flow is preserved. Resistive indices are slightly high at 0.8 bilaterally. Epididymi are normal and symmetric. No hydrocele is seen. The right testis measures 3.8 x 2.1 x 3.0 cm. Left testicular dimensions are 3.8 x 2.2 x 2.6 cm. Impression: No intratesticular mass seen. No evidence of torsion. No significant morphologic abnormality. Electronically Signed by Ron Baptiste MD 09/12/2018 06:58 P
== END ==
LOC: M RAD 16:55
PROVIDERS: ATTEND Physician Assistant
DX: N50.819 Testicular pain, unspecified (principal)

== ENCOUNTER 2018-09-23 05:46 | Day surgery (SDC) | payer MEDICARE, MEDICAID ==
[~2018-09-23] VITALS: Ht 167.6 cm; Wt 96.7 kg
[2018-09-23] MEDS ORDERED: LR 1,000 ML IV ONE (06:00)
[2018-09-23] MEDS ORDERED: NS 1,000 ML IV SCH (06:30)
[2018-09-23] MEDS ORDERED: BUPIVACAINE/EPIN 0.25% 30 ML VIAL As Ordered ONE (07:13)
[2018-09-23] MEDS ORDERED: GLYCOPYRROLATE INJ 0.2 MG/ML 2 ML VIAL As Ordered ONE (07:14)
[2018-09-23] MEDS ORDERED: dexameTHASONE 4 MG/ML 1ML VIAL (J1100) As Ordered ONE (07:14)
[2018-09-23] MEDS ORDERED: PROPOFOL 200 MG/20 ML VIAL As Ordered ONE (07:14)
[2018-09-23] MEDS ORDERED: LIDOCAINE 2% INJ 100 MG/5 ML SDV (FOR ANES.) As Ordered ONE (07:14)
[2018-09-23] MEDS ORDERED: ROCURONIUM BROMIDE 50 MG/5 ML VIAL As Ordered ONE (07:14)
[2018-09-23] MEDS ORDERED: ONDANSETRON 4MG/2ML VIAL (J2405) As Ordered ONE (07:14)
[2018-09-23] MEDS ORDERED: LIDOCAINE 2% JELLY 30 ML As Ordered ONE (07:15)
[2018-09-23] MEDS ORDERED: MIDAZOLAM INJ 2 MG/2 ML VIAL (J2250) As Ordered ONE (07:15)
[2018-09-23] MEDS ORDERED: fentaNYL 100 MCG/2 ML INJECTION (J3010) As Ordered ONE ×2 (07:16→08:37)
[2018-09-23] MEDS ORDERED: NEOSTIGMINE 10 MG/10 ML VIAL (J2710) As Ordered ONE (07:20)
[2018-09-23] MEDS ORDERED: PERCOCET 5MG/325MG TAB As Ordered ONE (08:37)
[2018-09-23] MEDS: fentaNYL 100 MCG/2 ML INJECTION (J3010) IV PRN ×4 (08:40→08:55)
[2018-09-23] MEDS: PERCOCET 5MG/325MG TAB PO PRN ×2 (08:40→09:10)
[2018-09-23] MEDS ORDERED: NORCO, ANEXSIA 5/325MG TABLET (HYDROcodone/ACETAMINOPHEN) PO PRN (08:45)
[2018-09-23] MEDS ORDERED: LR 1,000 ML IV SCH (08:45)
[2018-09-23] MEDS ORDERED: ONDANSETRON 4MG/2ML VIAL (J2405) IV PRN (08:45)
--- NOTE | 2018-09-23 09:31 | RO ---
DATE OF PROCEDURE: 09/23/2018 PREOPERATIVE DIAGNOSIS: Symptomatic cholelithiasis. POSTOPERATIVE DIAGNOSIS: Symptomatic cholelithiasis. PROCEDURE: Laparoscopic cholecystectomy. SURGEON: Dr. Misael Orellana [employer] SP[employer] SCREEN PRINTING: None. ANESTHESIA: General. ESTIMATED BLOOD LOSS: 5. COMPLICATIONS: None. INDICATIONS FOR PROCEDURE: The patient is a 52-year-old male who presents with right upper quadrant pain and found to have symptomatic cholelithiasis. Recommendation is to proceed laparoscopic possible open cholecystectomy. Risks and benefits of the procedure not limited to, but including bleeding, infection, hernia formation, damage to surrounding structures, need for further surgery were discussed in detail with the patient, informed was obtained and the procedure was planned. DESCRIPTION OF PROCEDURE: The patient brought back to operating room six. After sufficient sedation the abdomen was sterilely prepped and draped. Next a time out was done to confirm proper patient and proper procedure. Following that, a 5 mm incision was made in the left upper quadrant and Veress needle was inserted and the abdomen was inflated to 15 mmHg. Next the Veress needle was removed and a 5 mm OptiVu port was used to gain access to the abdomen in the left upper quadrant because of his previous exploratory laparotomy incision. Upon entering the abdomen, there were loops of small bowel adhered along the midline incision. There was a free space superior to the umbilicus in the midline where I was able to place another 5 mm port. The camera was then moved to that position. There were adhesions in the midline extending over to the right side. I was able to get the two 5 mm ports in the right upper quadrant and then from there was able to reach over and take down some of the adhesions to free up enough space to place the subxiphoid 11 mm port. Once all ports were in place, the gallbladder was elevated up towards the right shoulder. Using a combination of blunt and sharp dissection, peritoneal and omental adhesions were gently taken down from the gallbladder body. The cystic duct and cystic artery were carefully dissected free. They were both doubly clipped and cut. The gallbladder was then removed from gallbladder fossa using electrocautery. Once the gallbladder was removed, it was taken out from the subxiphoid port site in a 10 mm EndoCatch bag. The right upper quadrant was examined to confirm hemostasis. The abdomen was then desufflated. Skin incisions were closed #4-0 Vicryl subcuticular sutures. The abdomen was cleaned and dried. Steri-Strips, 4x4 and tape were applied, thus ending the procedure.
[2018-09-23 10:42] VITALS: BP 180/75
== END 2018-09-23 11:27 | disposition home or self-care (01) ==
LOC: M SDC 05:46
PROVIDERS: ATTEND Surgery
DX: K80.18 Calculus of gallbladder with other cholecystitis without obstruction (principal); I10 Essential (primary) hypertension; E11.9 Type 2 diabetes mellitus without complications; E78.5 Hyperlipidemia, unspecified; K21.9 Gastro-esophageal reflux disease without esophagitis; F41.9 Anxiety disorder, unspecified; F32.9 Major depressive disorder, single episode, unspecified; F17.210 Nicotine dependence, cigarettes, uncomplicated; Z86.73 Personal history of transient ischemic attack (TIA), and cerebral infarction without residual deficits; Z79.82 Long term (current) use of aspirin; Z79.4 Long term (current) use of insulin; Z79.899 Other long term (current) drug therapy
CPT/HCPCS: 36415; 47562; 84132; 88304; J1100; J2250; J2405; J2710; J3010

== ENCOUNTER 2018-10-03 15:19 | Observation (INO) | payer MEDICARE, MEDICAID ==
[~2018-10-03] VITALS: Ht 167.6 cm; Wt 100.5 kg
--- NOTE | 2018-10-03 16:34 | REP ---
CT Head without contrast HISTORY: Altered mental status COMPARISON: 05/24/2018 There is no intraparenchymal hemorrhage, acute infarct, mass or midline shift. The ventricular system and cortical sulci are dilated consistent with minimal volume loss. There is no extra cerebral collection. There is no fracture. Mucosal thickening is present in the left ethmoid sinus. IMPRESSION: Minimal volume loss. Electronically Signed by Alfredo Anderson MD 10/03/2018 04:26 P
[2018-10-03 16:44] LABS: BASO # 0.1 10^3/uL (0.0-0.2); BASO % 0.6 % (0.0-1.0); EOS # 0.1 10^3/uL (0.0-0.50); EOS % 0.9 % (0.0-3.0); HEMATOCRIT 30.8 % (42.0-52.0); HEMOGLOBIN 10.3 g/dl (13.5-17.5); LYMPH # 1.8 10^3/uL (1.5-4.5); LYMPH % 14.3 % (24.0-44.0); MEAN CORPUSCULAR HEMOGLOBIN 36.4 pg (27.0-33.0); MEAN CORPUSCULAR HGB CONC 33.4 g/dl (32.0-36.5); MEAN CORPUSCULAR VOLUME 108.8 fl (80.0-96.0); MONO # 1.4 10^3/uL (0.0-0.8); MONO % 11.4 % (0.0-5.0); NEUTROPHILS # 9.1 10^3/uL (1.8-7.7); NEUTROPHILS % 72.5 % (36.0-66.0); PLATELET COUNT, AUTOMATED 214 10^3/uL (150-450); RED BLOOD COUNT 2.83 10^6/uL (4.30-6.10); WHITE BLOOD COUNT 12.6 10^3/uL (4.0-10.0)
--- NOTE | 2018-10-03 16:46 | REP ---
Portable chest, 04:25 p.m., single AP view, the patient upright: Comparison is 05/24/2018. The interstitial markings are diffusely coarsened, increased from the prior study, compatible with interstitial infiltrates. There are no pleural effusions. Cardiac size is enlarged, unchanged. Impression: Chronic cardiomegaly. Diffuse interstitial coarsening, increased, compatible with interstitial infiltrates. Electronically Signed by Misael Monahan MD 10/03/2018 04:38 P
[2018-10-03 17:05] LABS: INFLUENZA A AMPLIFICATION NEGATIVE (NEGATIVE); INFLUENZA B AMPLIFICATION NEGATIVE (NEGATIVE)
[2018-10-03 17:30] LABS: ACETAMINOPHEN LEVEL 5.7 UG/ML (10.0-30.0); ALBUMIN 2.7 GM/DL (3.2-5.2); ALT/SGPT 31 U/L (12-78); BILIRUBIN,DIRECT 0.1 MG/DL (0.0-0.2); BILIRUBIN,TOTAL 0.6 MG/DL (0.2-1.0); BLOOD UREA NITROGEN 63 MG/DL (7-18); CALCIUM LEVEL 7.6 MG/DL (8.5-10.1); CARBON DIOXIDE LEVEL 22 MEQ/L (21-32); CHLORIDE LEVEL 104 MEQ/L (98-107); CK-MB VALUE MASS < 1.0 NG/ML (<3.6); CPK CREATINE PHOSPHOKINASE 76 U/L (39-308); ETHYL ALCOHOL (ETHANOL) 0.004 % (0.000-0.010); GLUCOSE, FASTING 184 MG/DL (70-100); MB/CK RELATIVE INDEX 1.32 (< OR =4); NT-PRO BNP 8360 PG/ML (<125); POTASSIUM SERUM 6.8 MEQ/L (3.5-5.1); SALICYLATE LEVEL 2.2 MG/DL (5.0-30.0); SODIUM LEVEL 136 MEQ/L (136-145); THYROID STIMULATING HORMONE 0.602 uIU/ML (0.358-3.740); TOTAL PROTEIN 5.9 GM/DL (6.4-8.2); TROPONIN I < 0.02 NG/ML (< 0.10)
[2018-10-03] MEDS ORDERED: ONDANSETRON 4 MG TAB (S0181) PO PRN (18:00)
[2018-10-03] MEDS ORDERED: ACETAMINOPHEN TAB 650MG DOSE (2X325MG) PO PRN (18:00)
--- NOTE | 2018-10-03 18:08 | HPEPDOC ---
[facility] Medical History & Physical Date of Admission Oct 03, 2018 History and Physical CHIEF COMPLAINT: [SOB ] HISTORY OF PRESENT ILLNESS: This is a 52 yo male with multiple pmhx who presented to the ed for sob because he missed his HD on Wednesday and was to go today but came to the ED instead because of his sob. When I saw him, he was getting HD and was somnolent//sleeping?, and was not willing to give much hx, as per HD nurse this is how he behaves when he goes to HD, but he denied fever, chills, chest pain or any other symptoms. REVIEW OF SYSTEMS: All 14 points ROS is negative except what's stated in HPI PHYSICAL EXAMINATION: GEN: no acute distress, sleepy, limited physical exam HEENT : no lymphadenopathy, PERRLA , no oropharyngeal erythema or exudates CVS: Normal S1/s2, no murmurs, rubs or gallops, lower extremity trace edema RESP: anterior exam - Lungs are clear to auscultation bilaterally, no crackles, wheezes or rhonchi Abd: soft, nontender, nondistended, + BS MSK: could not assess , patient did not follow commands or move extremities (voluntarily) Integumentary: no rash or bruises Neuro: unable to assess psych: normal mood, good judgement and cooperative PAST MEDICAL HISTORY: End stage renal disease on maintenance hemodialysis. Constipation. Reflux. Hypertension. Hypercholesterolemia. Chronic obstructive pulmonary disease (COPD). Neurologic disorder. Gastritis. Anxiety. Type 2 diabetes for 40 years. PAST SURGICAL HISTORY: Left brachiocephalic arteriovenous (AV) fistula. Colonoscopy 06/2017, Dr. Garcia. Tonsillectomy with adenoidectomy. Splenectomy. TENS unit implant mid back. FAMILY HISTORY: Brother with hypertension. Currently disabled. Awaiting kidney, pancreatic transplant. ALLERGIES: 1. ERYTHROMYCIN. Labs - reviewed images - Ekg - wnl Assessment and Plan missed HD with increased volume and sob and hyperkalemia - presently getting HD - f/u repeat labs after HD (in AM is ok) - c/w home meds -med rec not updated by nurse in the computer as yet , so I cannot do my part - pls f/u dvt ppx full code, from home, Vital Signs Vital Signs Date Time Temp Pulse Resp B/P (MAP) Pulse Ox O2 Delivery O2 Flow Rate FiO2 10/03/18 18:06 99.1 62 22 121/57 (78) 97 Room Air 10/03/18 17:00 1.0 Laboratory Data Labs 24H Laboratory Tests 2 10/03/18 15:59: Bedside Glucose (Misc Panel) 191H 10/03/18 16:25: Immature Granulocyte % (Auto) 0.3, White Blood Count 12.6H, Red Blood Count 2.83L, Hemoglobin 10.3L, Hematocrit 30.8L, Mean Corpuscular Volume 108.8H, Mean Corpuscular Hemoglobin 36.4H, Mean Corpuscular Hemoglobin Concent 33.4, Red Cell Distribution Width 13.9, Platelet Count 214, Neutrophils (%) (Auto) 72.5H, L ymphocytes (%) (Auto) 14.3L, Monocytes (%) (Auto) 11.4H, Eosinophils (%) (Auto) 0.9, Basophils (%) (Auto) 0.6, Neutrophils # (Auto) 9.1H, Lymphocytes # (Auto) 1.8, Monocytes # (Auto) 1.4H, Eosinophils # (Auto) 0.1, Basophils # (Auto) 0.1, Nucleated Red Blood Cells % (auto) 0.0, Anion Gap 10, Glomerular Filtration Rate 4.0L, Calcium Level 7.6L, Aspartate Amino Transf (AST/SGOT) 27, Alanine Aminotra nsferase (ALT/SGPT) 31, Alkaline Phosphatase 112, Total Bilirubin 0.6, Direct Bilirubin 0.1, Ammonia 20, Total Creatine Kinase 76, Creatine Kinase MB < 1.0, Creatine Kinase MB Relative Index 1.32, Troponin I < 0.02, GS-Ims-C-Type Natriuretic Peptide 8360H, Total Protein 5.9L, Albumin 2.7L, Albumin/Globulin Ratio 0.84L, Thyroid Stimulating Hormone (TSH) 0.602, Salicylates Level 2.2L, Acetaminophen Level 5.7L, Ethyl Alcohol Level 0.004, Influenza Type A (RT-PCR) NEGATIVE, Influenza Type B (RT-PCR) NEGATIVE, Respiratory Syncytial Virus (RT- PCR NEGATIVE CBC/BMP Laboratory Tests 10/03/18 16:25 Red Blood Count 2.83 L, Mean Corpuscular Volume 108.8 H, Mean Corpuscular Hemoglobin 36.4 H, Mean Corpuscular Hemoglobin Concent 33.4, Red Cell Distribution Width 13.9, Neutrophils (%) (Auto) 72.5 H, Lymphocytes (%) (Auto) 14.3 L, Monocytes (%) (Auto) 11.4 H, Eosinophils (%) (Auto) 0.9, Basophils (%) (Auto) 0.6, Neutrophils # (Auto) 9.1 H, Lymphocytes # (Auto) 1.8, Monocytes # (A uto) 1.4 H, Eosinophils # (Auto) 0.1, Basophils # (Auto) 0.1 Home Medications Scheduled (Dexilant) 60 Mg Cap, 60 MG PO DAILY Amlodipine Besylate (Amlodipine Besylate) 5 Mg Tab, 5 MG PO QHS Aspirin (Aspirin 81) 81 Mg Tab, 81 MG PO DAILY Atorvastatin Calcium (Lipitor) 80 Mg Tab, 80 MG PO DAILY Cholecalciferol (Vitamin D) 1,000 Unit Tab, 1,000 UNIT PO QHS Escitalopram Oxalate (Escitalopram Oxalate) 20 Mg Tab, 20 MG PO DAILY Insulin Aspart (Novolog) 100 U/Ml Inj, 1 DOSE SC ACHS PER SLIDING SCALE Insulin Detemir (Levemir Flextouch) 100 Unit/Ml Inj, 12 UNIT SC QAM Insulin Detemir (Levemir Flextouch) 100 Unit/Ml Inj, 14 UNIT SC QHS Levetiracetam (Keppra) 500 Mg Tab, 500 MG PO BID Lubiprostone (Amitiza) 8 Mcg Cap, 8 MCG PO BID Metoprolol Succinate (Metoprolol Succinate ER) 25 Mg Tab, 25 MG PO DAILY Multivitamins *[facility] STOCKED* (Thera M Plus *[facility] STOCKED*) 1 Tab Tab, 1 TAB PO DAILY Ranitidine Hcl (Zantac 150 Maximum Streng) 150 Mg Tab, 1 TAB PO QAM Sevelamer Carbonate (Renvela) 800 Mg Tab, 1,600 MG PO QPM TAKES AT DINNERTIME Scheduled PRN Acetaminophen (Tylenol Extra Strength) 500 Mg Tab, 1,000 MG PO Q6H PRN for PAIN Ondansetron (Ondansetron Odt) 4 Mg Tab, 4 MG PO Q4H PRN for NAUSEA Allergies Coded Allergies: Erythromycin (Verified Allergy, Unknown, 01/24/18) LISETH AVITIA MD Oct 03, 2018 18:08
[2018-10-03] MEDS ORDERED: DEXI30CA2 PO (18:44)
[2018-10-03] MEDS ORDERED: ACE65ERTAB PO (18:44)
[2018-10-03] MEDS ORDERED: ISOS60TA2 PO (18:44)
[2018-10-03] MEDS ORDERED: DULO1CAP3 PO (18:44)
[2018-10-03] MEDS ORDERED: GLUCAGON FOR INJ 1 MG VIAL (J1610) SC PRN (18:45)
[2018-10-03] MEDS ORDERED: GLUCOSE 4 GM CHEW TABLET PO PRN (18:45)
[2018-10-03] MEDS ORDERED: DEXTROSE 50% 50 ML SYRINGE IV PRN (18:45)
[2018-10-03 21:05] VITALS: BP 137/64
[2018-10-03] MEDS: HEPARIN SOD (PORCINE) 5000 UNITS/ML VIAL SC SCH (21:18)
[2018-10-04] MEDS: HEPARIN SOD (PORCINE) 5000 UNITS/ML VIAL SC SCH (05:41)
[2018-10-04 06:00] VITALS: BP 158/67
[2018-10-04 07:00] LABS: BASO # 0.1 10^3/uL (0.0-0.2); EOS # 0.4 10^3/uL (0.0-0.50); EOS % 3.1 % (0.0-3.0); HEMATOCRIT 31.7 % (42.0-52.0); HEMOGLOBIN 10.9 g/dl (13.5-17.5); LYMPH # 2.4 10^3/uL (1.5-4.5); LYMPH % 19.3 % (24.0-44.0); MEAN CORPUSCULAR HEMOGLOBIN 36.5 pg (27.0-33.0); MEAN CORPUSCULAR HGB CONC 34.4 g/dl (32.0-36.5); MONO # 1.7 10^3/uL (0.0-0.8); MONO % 13.6 % (0.0-5.0); NEUTROPHILS # 7.7 10^3/uL (1.8-7.7); NEUTROPHILS % 62.7 % (36.0-66.0); PLATELET COUNT, AUTOMATED 228 10^3/uL (150-450); RED BLOOD COUNT 2.99 10^6/uL (4.30-6.10); WHITE BLOOD COUNT 12.2 10^3/uL (4.0-10.0)
[2018-10-04 07:29] LABS: CALCIUM LEVEL 8.6 MG/DL (8.5-10.1); CREATININE FOR GFR 10.2 MG/DL (0.70-1.30); GLOMERULAR FILTRATION RATE 5.7 (>56); MAGNESIUM LEVEL 2.6 MG/DL (1.8-2.4); PHOSPHORUS LEVEL 4.4 MG/DL (2.5-4.9); POTASSIUM SERUM 4.6 MEQ/L (3.5-5.1)
[2018-10-04] MEDS: HumaLOG INSULIN (NovoLOG) PER UNIT SC SCH ×2 (07:30→12:00)
[2018-10-04] MEDS ORDERED: SENOKOT S TAB PO SCH (09:00)
[2018-10-04] MEDS ORDERED: HEPARIN 1,000 UNITS/ML 10ML VIAL (FOR RADIOLOGY& DIALYSIS ONLY) IV ONE (11:30)
--- NOTE | 2018-10-04 14:07 | DS.PDOC ---
Discharge Summary General Date of Admission Oct 03, 2018 at 18:00 Date of Discharge 10/04/2018 Discharge Summary PROCEDURES PERFORMED DURING STAY: [None]. ADMITTING DIAGNOSES / DISCHARGE DIAGNOSES: Hyperkalemia - likely 2/2 missed HD Acute hypoxic respiratory failure - likely 2/2 acute fluid overload - 2/2 missed HD; requiring supplemental oxygen ESRD on HD (TTS) HTN DLP DM2 COPD Anxiety Gastritis GERD DVT prophylaxis COMPLICATIONS/CHIEF COMPLAINT: Missed HD HISTORY OF PRESENT ILLNESS / HOSPITAL COURSE: Patient is a 52-year-old male with a PMHx of ESRD on HD (TTS), HTN, DLP, DM2, COPD, Anxiety, Gastritis and GERD who presented to the ER after he missed his Wednesday HD session. Patient received urgent HD on admission (10/03) after he was found to have hyperkalemia and shortness of breath. In the emergency room, patient was found to have a potassium of 6.8. Chest x-ray revealed diffuse interstitial coarsening increased compatible with interstitial infiltrates. This morning patient was scheduled to have his regular hemodialysis, however he refused and left AGAINST MEDICAL ADVICE. Patient was advised about the risks of leaving including worsening of his medical condition disability and . Despite knowing the risks, patient wanted to leave AGAINST MEDICAL ADVICE. DISCHARGE MEDICATIONS: Please see below. ALLERGIES: Please see below. PHYSICAL EXAMINATION ON DISCHARGE: VITAL SIGNS: Please see below. Vitals (See below) General: Lying in bed, no acute distress, comfortable, Awake but pretends to sleep - can answer questions appropriately HEENT: NC, AT CVS: RRR, +S1S2 Lungs: Fair air entry b/l, -w/r/r Abdomen: Soft, ND, NT Extremities: - Edema, - Calf tenderness LABORATORY DATA: Please see below. ACTIVITY: [As tolerated]. DISCHARGE PLAN: Left AMA Patient was advised of the risks / benefits of leaving against medication advise; included but not limited to; worsening of medical condition, disability and Understood the risks and left regardless Advised to follow up with Dr. Payne / Dr. Farr as an outpatient DISPOSITION: Home - Against Medical Advice. DISCHARGE CONDITION: [Stable]. TIME SPENT ON DISCHARGE: Greater than [35] minutes. Vital Signs/I&Os Vital Signs Date Time Temp Pulse Resp B/P (MAP) Pulse Ox O2 Delivery O2 Flow Rate FiO2 10/04/18 06:00 98.9 73 19 158/67 (97) 95 10/03/18 18:06 Room Air 10/03/18 17:00 1.0 I&O- Last 24 Hours up to 6 AM 10/04/18 06:00 Intake Total 0 ml Output Total 2500 ml Balance -2500 ml Laboratory Data Labs 24H Laboratory Tests 2 10/03/18 15:59: Bedside Glucose (Misc Panel) 191H 10/03/18 16:25: Immature Granulocyte % (Auto) 0.3, White Blood Count 12.6H, Red Blood Count 2.83L, Hemoglobin 10.3L, Hematocrit 30.8L, Mean Corpuscular Volume 108.8H, Mean Corpuscular Hemoglobin 36.4H, Mean Corpuscular Hemoglobin Concent 33.4, Red Cell Distribution Width 13.9, Platelet Count 214, Neutrophils (%) (Auto) 72.5H, Lymphocytes (%) (Auto) 14.3L, Monocytes (%) (Auto) 11.4H, Eosinophils (%) (Auto) 0.9, Basophils (%) (Auto) 0.6, Neutrophils # (Auto) 9.1H, Lymphocytes # (Auto) 1.8, Monocytes # (Auto) 1.4H, Eosinophils # (Auto) 0.1, Basophils # (Auto) 0.1, Nucleated Red Blood Cells % (auto) 0.0, Anion Gap 10, Glomerular Filtration Rate 4.0L, Calcium Level 7.6L, Aspartate Amino Transf (AST/SGOT) 27, Alanine Amino transferase (ALT/SGPT) 31, Alkaline Phosphatase 112, Total Bilirubin 0.6, Direct Bilirubin 0.1, Ammonia 20, Total Creatine Kinase 76, Creatine Kinase MB < 1.0, Creatine Kinase MB Relative Index 1.32, Troponin I < 0.02, HT-Vrj-G-Type Natriuretic Peptide 8360H, Total Protein 5.9L, Albumin 2.7L, Albumin/Globulin Ratio 0.84L, Thyroid Stimulating Hormone (TSH) 0.602, Salicylates Level 2.2L, Acetaminophen Level 5.7L, Ethyl Alcohol Level 0.004, Influenza Type A (RT-PCR) NEGATIVE, Influenza Type B (RT-PCR) NEGATIVE, Respiratory Syncytial Virus (RT- PCR NEGATIVE 10/04/18 06:28: Immature Granulocyte % (Auto) 0.3, White Blood Count 12.2H, Red Blood Count 2.99L, Hemoglobin 10.9L, Hematocrit 31.7L, Mean Corpuscular Volume 106.0H, Mean Corpuscular Hemoglobin 36.5H, Mean Corpuscular Hemoglobin Concent 34.4, Red Cell Distribution Width 14.1, Platelet Count 228, Neutrophils (%) (Auto) 62.7, Lymphocytes (%) (Auto) 19.3L, Monocytes (%) (Auto) 13.6H, Eosinophils (%) (Auto) 3.1H, Basophils (%) (Auto) 1.0, Neutrophils # (Auto) 7.7, Lymphocytes # (Auto) 2.4, Monocytes # (Auto) 1.7H, Eosinophils # (Auto) 0.4, Basophils # (Auto) 0.1, Nucleated Red Blood Cells % (auto) 0.0, Anion Gap 8, Glomerular Filtration Rate 5.7L, Calcium Level 8.6, Blood Urea Nitrogen 35H, Creatinine 10.20*H, Sodium Level 140, Potassium Level 4.6#, Chloride Level 102, Carbon Dioxide Level 30, Phosphorus Level 4.4, Magnesium Level 2.6H CBC/BMP Laboratory Tests 10/03/18 16:25 Red Blood Count 2.83 L, Mean Corpuscular Volume 108.8 H, Mean Corpuscular Hemoglobin 36.4 H, Mean Corpuscular Hemoglobin Concent 33.4, Red Cell Distribution Width 13.9, Neutrophils (%) (Auto) 72.5 H, Lymphocytes (%) (Auto) 14.3 L, Monocytes (%) (Auto) 11.4 H, Eosinophils (%) (Auto) 0.9, Basophils (%) (Auto) 0.6, Neutrophils # (Auto) 9.1 H, Lymphocytes # (Auto) 1.8, Monocytes # (Auto) 1.4 H, Eosinophils # (Auto) 0.1, Basophils # (Auto) 0.1 10/04/18 06:28 Red Blood Count 2.99 L, Mean Corpuscular Volume 106.0 H, Mean Corpuscular Hemoglobin 36.5 H, Mean Corpuscular Hemoglobin Concent 34.4, Red Cell Distribution Width 14.1, Neutrophils (%) (Auto) 62.7, Lymphocytes (%) (Auto) 19.3 L, Monocytes (%) (Auto) 13.6 H, Eosinophils (%) (Auto) 3.1 H, Basophils (%) (Auto) 1.0, Neutrophils # (Auto) 7.7, Lymphocytes # (Auto) 2.4, Monocytes # (Auto) 1.7 H, Eosinophils # (Auto) 0.4, Basophils # (Auto) 0.1, Calcium Level 8.6 FSBS Laboratory Tests Test 10/03/18 15:59 Range/Units Bedside Glucose (Misc Panel) 191 70-105 MG/DL Discharge Medications Scheduled (Dexilant) 30 Mg Cap, 30 MG PO DAILY, (Reported) Amlodipine Besylate (Amlodipine Besylate) 5 Mg Tab, 5 MG PO QHS, (Reported) Aspirin (Aspirin 81) 81 Mg Tab, 81 MG PO DAILY, (Reported) Atorvastatin Calcium (Lipitor) 80 Mg Tab, 80 MG PO DAILY, (Reported) Cholecalciferol (Vitamin D) 1,000 Unit Tab, 1,000 UNIT PO QHS, (Reported) Duloxetine Hcl (Duloxetine HCl) 60 Mg Cap, 60 MG PO DAILY, (Reported) Escitalopram Oxalate (Escitalopram Oxalate) 20 Mg Tab, 20 MG PO DAILY, (Rep orted) Insulin Aspart (Novolog) 100 U/Ml Inj, 1 DOSE SC ACHS, (Reported) PER SLIDING SCALE Insulin Detemir (Levemir Flextouch) 100 Unit/Ml Inj, 12 UNIT SC QAM, (Reported) Insulin Detemir (Levemir Flextouch) 100 Unit/Ml Inj, 14 UNIT SC QHS, (Reported) Isosorbide Mononitrate (Isosorbide Mononitrate ER) 60 Mg Tab, 60 MG PO DAILY, (Reported) Levetiracetam (Keppra) 500 Mg Tab, 500 MG PO BID, (Reported) Lubiprostone (Amitiza) 8 Mcg Cap, 8 MCG PO BID, (Reported) Metoprolol Succinate (Metoprolol Succinate ER) 25 Mg Tab, 25 MG PO DAILY, (Reported) Multivitamins *[facility] STOCKED* (Thera M Plus *[facility] STOCKED*) 1 Tab Tab, 1 TAB PO DAILY, (Reported) Ranitidine Hcl (Zantac 150 Maximum Streng) 150 Mg Tab, 1 TAB PO DAILY, (Reported) Sevelamer Carbonate (Renvela) 800 Mg Tab, 800 MG PO BID, (Reported) LUNCH AND DINNER Scheduled PRN Acetaminophen (Acetaminophen ER) 650 Mg Tab, 650 MG PO Q6-8HP PRN for PAIN, (Reported) TAKE 1 TO 2 TABS Q6-8H - MDD 4 TABS Ondansetron (Ondansetron Odt) 4 Mg Tab, 4 MG PO Q4H PRN for NAUSEA, (Reported) Allergies Coded Allergies: Erythromycin (Verified Allergy, Unknown, 01/24/18) MISTY PATRICK MD Oct 04, 2018 14:07
--- NOTE | 2018-10-04 18:53 | ECGEPIP ---
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
--- NOTE | 2018-10-05 16:35 | CR ---
DATE OF CONSULTATION: 10/04/2018 REQUESTING PHYSICIAN: Dr. Niyah Chamberlain REASON FOR CONSULTATION: Hyperkalemia and missed dialysis in this patient with end-stage renal disease. HISTORY OF PRESENT ILLNESS: Colton Jolley is a 52-year-old male with a past medical history of end-stage renal disease, on hemodialysis on a Wednesday, , Wednesday schedule. Also a history of ht, dyslipidemia, chronic obstructive pulmonary disease (COPD), anxiety, insulin-dependent diabetes, and other comorbid conditions mentioned below. Patient presented to the emergency room on Wednesday after he missed his outpatient hemodialysis treatment on Wednesday and came in with complaint of shortness of breath. Laboratory studies revealed severe hyperkalemia with potassium of 6.8, and chest x-ray demonstrated interstitial infiltrates. The patient was emergently dialyzed on Wednesday evening for 2-1/2 hours with 2500 mL of fluid removed. I saw Colton this morning at the bedside and again in the afternoon in the hemodialysis unit. He refused to enter into conversation and gave me only brief replies of yes or no to simple inquiries and stated time and again that he wanted to leave and go home. Patient refused to disclose to me the reason as to why he missed his dialysis treatment on Wednesday. I do see that he had a recent cholecystectomy in early September. He denies any postoperative complaints. PAST MEDICAL HISTORY: 1. End-stage renal disease, on hemodialysis. 2. Hypertension. 3. Insulin-dependent diabetes. 4. Dyslipidemia. 5. COPD. 6. Anxiety. 7. Gastritis. 8. Gastroesophageal reflux disease (GERD). PAST SURGICAL HISTORY: 1. Fistula creation, left brachiocephalic. 2. Colonoscopy. 3. Tonsillectomy with adenoidectomy. 4. Splenectomy. 5. TENS unit implant. 6. Cholecystectomy. ALLERGIES: ERYTHROMYCIN. FAMILY HISTORY: Brother with hypertension. SOCIAL HISTORY: Patient refuses to disclose. Prior records state that the patient is a smoker. HOME MEDICATIONS: Reviewed. REVIEW OF SYSTEMS: Unable to obtain at length due to patient's refusal to provide further history; however, he denies shortness of breath, denies chest pain, denies abdominal pain, denies postoperative complaints since his cholecystectomy. VITAL SIGNS: Temperature 98.6, pulse 69, respiratory rate 18, blood pressure 137/64, saturating 93-87% on room air. Intake yesterday was not recorded. Dialysis yesterday removed 2500 mL. GENERAL: Patient is seen at the bedside, drowsy. Keeps his eyes closed throughout my exam. Refuses to make eye contact, but he is oriented times three. He cooperates somewhat with physical exam. Tongue is moist. Neck is supple. Jugular veins are elevated. HEART: Sounds are regular, S1, S2. There is trace edema in the legs. There is facial puffiness. LUNGS: Clear to auscultation. ABDOMEN: Soft and nontender. I see some dressings at site of recent laparoscopic cholecystectomy. There are bowel sounds present. The left upper extremity fistula has thrill and bruit. SKIN: Shows no rashes. PSYCHIATRIC: Patient has a flat affect and appears depressed and withdrawn. LABORATORY DATA: Potassium 6.8, repeat potassium 4.6, sodium 140, bicarbonate 30, glucose 191, magnesium 2.6. Hemoglobin 10.9. Chest x-ray: Interstitial infiltrates. No pleural effusions. INPATIENT MEDICATIONS: Reviewed by myself. - Tylenol as needed - Senokot one tablet by mouth daily - heparin 5000 units subcutaneous every 8 - insulin sliding scale - Zofran as needed PROBLEMS: 1. End-stage renal disease, on hemodialysis on Wednesday, , Wednesday schedule in this patient who missed hemodialysis and presented with fluid overload and hyperkalemia. He was emergently dialyzed yesterday evening for 2-1/2 hours with 2.5 liters of fluid removed with a 1.0 mEq potassium bath. He subsequently had improvement in his electrolytes, is normokalemic this morning. He is no longer requiring supplemental oxygen. I advised the patient that he should have another hemodialysis treatment this afternoon for further fluid removal and to bring him back to his usual maintenance schedule of Wednesday, , Wednesday; however, the patient refused to have dialysis and insists that he would want to go home. He is advised to followup with the outpatient hemodialysis center and to adhere to his maintenance schedule. I did try to speak with him at length to see why he missed Wednesday's treatment; however, the patient refused to engage me in any meaningful conversation. 2. Hyperkalemia due to missed hemodialysis. He was dialyzed emergently. He is normokalemic today. He has been counseling previously regarding risks of missing dialysis and also risk of dietary indiscretions. He refuses inpatient hemodialysis today. He insists on leaving the hospital. He is advised to followup with the outpatient dialysis unit. 3. Shortness of breath. It is secondary to fluid overload. There were interstitial infiltrates on chest x-ray. He had 2.5 liters removed with dialysis yesterday, which was an emergent treatment. There is still hypervolemia on exam; however, patient is refusing further in-hospital dialysis at this time.
== END 2018-10-04 13:06 | disposition left against medical advice (07) ==
LOC: M ED 15:19 → EDSEX 15:19 → EDBD 15:19 → M ED INP 18:00 → INTOOBSV 18:00 → M MSPAV 21:15
PROVIDERS: ADMIT Internal Medicine; ATTEND Internal Medicine
DX: E87.5 Hyperkalemia (principal); Z53.21 Procedure and treatment not carried out due to patient leaving prior to being seen by health care provider; J96.20 Acute and chronic respiratory failure, unspecified whether with hypoxia or hypercapnia; I12.0 Hypertensive chronic kidney disease with stage 5 chronic kidney disease or end stage renal disease; E11.9 Type 2 diabetes mellitus without complications; N18.6 End stage renal disease; F41.9 Anxiety disorder, unspecified; F32.9 Major depressive disorder, single episode, unspecified; J44.9 Chronic obstructive pulmonary disease, unspecified; K21.9 Gastro-esophageal reflux disease without esophagitis; Z79.01 Long term (current) use of anticoagulants; Z79.899 Other long term (current) drug therapy; K29.70 Gastritis, unspecified, without bleeding; K59.00 Constipation, unspecified; Z79.82 Long term (current) use of aspirin; Z79.4 Long term (current) use of insulin; Z88.1 Allergy status to other antibiotic agents; E78.00 Pure hypercholesterolemia, unspecified
CPT/HCPCS: 36415; 70450; 71045; 80048; 80076; 82140; 82550; 82553; 83735; 83880; 84100; 84443; 84484; 85025; 87631; 93005; 93041; 94760; 99285; G0257; G0378; G0480

== ENCOUNTER → 2018-10-05 | Outpatient (CLI) | payer MEDICARE, MEDICAID ==
[~2018-10-05] MED LIST changes: +ACE65ERTAB PO; +ATOR40TA75 PO; +BACL10TA2 PO; +CYMB60CA3 PO; +DEXI30CA2 PO; +ISOS60TA2 PO; +ISOVUE-300 61% 50ML VIAL (Q9967) As Ordered ONE; +LIDOCAINE 2% MDV 20 ML VIAL As Ordered ONE
--- NOTE | 2018-10-19 12:01 | REPIR ---
DATE OF PROCEDURE: 10/05/2018 ATTENDING SURGEON: Dr. Nancy Velásquez FIREARMS EXPERT: Gurpreet Justin and Heidy Monzon. PREOPERATIVE DIAGNOSES: End-stage renal disease, dysfunctional left brachiocephalic arteriovenous fistula. POSTOPERATIVE DIAGNOSES: End-stage renal disease, dysfunctional left brachiocephalic arteriovenous fistula. PROCEDURE: Left brachiocephalic arteriovenous fistulogram, retrograde left brachial artery angiogram. INDICATION: Patient is a 52-year-old male with end-stage renal disease who dialyzes through a left brachiocephalic arteriovenous fistula which has had difficulty with cannulation and has previously undergone surgical revision. Patient will now undergo a fistulogram with possible angioplasty stent and/or atherectomy. Risks, benefits, and alternative options were discussed with the patient. ANESTHESIA: Local with 2 mL of 2% lidocaine. FLUOROSCOPY TIME: 0.1 minutes. CONTRAST: 2 mL. HEPARIN: None. COMPLICATIONS: None. DRAINS: None. SPECIMENS: None. IMPLANTS: None. PROCEDURE: Patient was taken to the angiography suite, placed supine on the angiography room table, and the left upper extremity was prepped and draped in a standard surgical fashion. The arteriovenous fistula was cannulated with a micropuncture needle after anesthetizing the overlying skin with 2% lidocaine. The micropuncture wire was advanced through the micropuncture needle, which was upsized to a micropuncture sheath. A fistulogram and retrograde left brachial artery angiogram were performed showing no intervention was required. The sheath was removed, and manual compression applied at the puncture site for hemostasis. Dressings were then applied. Patient tolerated the procedure well. All instrument, sponge, needle counts were correct at the end the case. There were no complications. Dr. Velásquez was present for and directed the entire case. Patient was transferred to the holding area and subsequently discharged in stable condition. The left brachiocephalic arteriovenous fistula is stable for continued use for hemodialysis access.
== END | disposition home or self-care (01) ==
LOC: M IRPRO 09:32
PROVIDERS: ATTEND Surgery Vascular Surgery
DX: T82.590A Other mechanical complication of surgically created arteriovenous fistula, initial encounter (principal); N18.6 End stage renal disease; Z99.2 Dependence on renal dialysis
CPT/HCPCS: 36901; C1894; Q9967

== ENCOUNTER 2018-10-21 16:36 | Inpatient (IN) | payer MEDICARE, MEDICAID ==
[~2018-10-21] VITALS: Ht 167.6 cm; Wt 97.1 kg
[~2018-10-21 16:36] MED LIST changes: -ATOR40TA75 PO; -BACL10TA2 PO; -CYMB60CA3 PO; -ISOVUE-300 61% 50ML VIAL (Q9967) As Ordered ONE; -LIDOCAINE 2% MDV 20 ML VIAL As Ordered ONE
[2018-10-21] MEDS ORDERED: ATOR40TA75 PO (16:57)
--- NOTE | 2018-10-21 17:19 | REP ---
Clinical: Altered mental status. Comparison: 10/03/2018. Findings: Mediastinum and cardiac silhouette are stable. Chronic interstitial changes are appreciated. Interstitial edema as well as the right basilar atelectasis cannot be excluded. No effusion. No pneumothorax. Skeletal structures intact. Impression: Cardiomegaly and chronic changes. Cannot exclude interstitial edema or trace atelectasis. Electronically Signed by Refugio Faustin MD 10/21/2018 05:10 P
--- NOTE | 2018-10-21 17:22 | REP ---
Clinical: Altered mental status . Comparison: 10/03/2018 . Findings: The ventricles, sulci, and cisterns are normal in position and appearance. Hairston-white differentiation is maintained. No acute intracranial hemorrhage, mass/mass effect, pathology or trauma/injury. No evidence for acute infarction. No extra-axial fluid collection. Calvarium is intact. Partial opacification of the ethmoid air cells noted. Impression: No evidence for acute intracranial pathology or trauma/injury. Electronically Signed by Refugio Faustin MD 10/21/2018 05:14 P
[2018-10-21 17:41] LABS: VENOUS BASE EXCESS -0.4 (-2.0-2.0); VENOUS HCO3 26.1 MEQ/L (23.0-27.0); VENOUS PARTIAL PRESSURE CO2 49.9 mmHg (38.0-50.0); VENOUS PARTIAL PRESSURE O2 58.8 mmHg (30.0-50.0); VENOUS PH 7.336 UNITS (7.330-7.430); VENOUS TOTAL CO2 27.6 MEQ/L (24.0-28.0)
[2018-10-21 17:45] LABS: BASO # 0.1 10^3/uL (0.0-0.2); EOS # 0.2 10^3/uL (0.0-0.50); EOS % 1.6 % (0.0-3.0); HEMATOCRIT 38.2 % (42.0-52.0); HEMOGLOBIN 12.6 g/dl (13.5-17.5); LYMPH # 3.1 10^3/uL (1.5-4.5); LYMPH % 25.1 % (24.0-44.0); MEAN CORPUSCULAR HEMOGLOBIN 35.8 pg (27.0-33.0); MEAN CORPUSCULAR VOLUME 108.5 fl (80.0-96.0); MONO # 1.3 10^3/uL (0.0-0.8); MONO % 10.3 % (0.0-5.0); NEUTROPHILS # 7.6 10^3/uL (1.8-7.7); NEUTROPHILS % 61.6 % (36.0-66.0); PLATELET COUNT, AUTOMATED 368 10^3/uL (150-450); RED BLOOD COUNT 3.52 10^6/uL (4.30-6.10); WHITE BLOOD COUNT 12.3 10^3/uL (4.0-10.0)
--- NOTE | 2018-10-21 17:55 | REP ---
Clinical: Abdominal pain. Technique: Axial noncontrast images from the lung bases to the pubic symphysis. Coronal and sagittal re-formations obtained. Comparison: 05/24/2018. Findings: Liver, atrophic pancreas, bilateral adrenal glands and atrophic kidneys are relatively normal / stable and without obvious acute process. The patient appears to be status post splenectomy and cholecystectomy. The enteric system is without obstruction or acute inflammatory process. Pelvis demonstrates normal bladder and age appropriate prostate/seminal vesicles. No ascites. No free air. No adenopathy. Atherosclerotic changes to the aorta and vasculature without aneurysm. Musculoskeletal structures demonstrate age-related changes. Lung bases demonstrate chronic changes with trace right basilar atelectasis. Impression: 1. Chronic-appearing changes. No obvious acute abdominopelvic pathology appreciated. 2. Trace right basilar atelectasis. Electronically Signed by Refugio Faustin MD 10/21/2018 05:46 P
--- NOTE | 2018-10-21 17:58 | REP ---
Clinical: Altered mental status. Pain. Technique: Axial noncontrast images from the thoracic inlet to the upper abdomen with coronal and sagittal re-formations. Comparison: 05/24/2018. Findings: Cardiomegaly and pulmonary vascular congestion with interstitial edema is suggested a long with mild right basilar atelectasis. No focal consolidation with air bronchogram. No effusion. No pneumothorax. Calcified granuloma in the right upper lobe remains stable. Mediastinal and hilar lymph nodes are similar to prior examination and likely chronic including partially calcified lymph nodes. Atherosclerotic changes to the thoracic aorta and coronary arteries noted without aortic aneurysm. No pericardial effusion. Musculoskeletal structures demonstrate age-related changes. Impression: 1. Findings consistent with cardiomegaly and pulmonary vascular congestion/interstitial edema including mild right basilar atelectasis. 2. Prior granulomatous disease. Electronically Signed by Refugio Faustin MD 10/21/2018 05:49 P
[2018-10-21 18:20] LABS: ACETAMINOPHEN LEVEL < 2.0 UG/ML (10.0-30.0); ALBUMIN 3.3 GM/DL (3.2-5.2); ALT/SGPT 24 U/L (12-78); BILIRUBIN,DIRECT 0.1 MG/DL (0.0-0.2); BILIRUBIN,TOTAL 0.5 MG/DL (0.2-1.0); BLOOD UREA NITROGEN 55 MG/DL (7-18); CALCIUM LEVEL 8.7 MG/DL (8.5-10.1); CARBON DIOXIDE LEVEL 25 MEQ/L (21-32); CHLORIDE LEVEL 101 MEQ/L (98-107); CK-MB VALUE MASS < 1.0 NG/ML (<3.6); CPK CREATINE PHOSPHOKINASE 67 U/L (39-308); ETHYL ALCOHOL (ETHANOL) 0.004 % (0.000-0.010); GLOMERULAR FILTRATION RATE 4.4 (>56); GLUCOSE, FASTING 140 MG/DL (70-100); MB/CK RELATIVE INDEX 1.49 (< OR =4); POTASSIUM SERUM 5.4 MEQ/L (3.5-5.1); SALICYLATE LEVEL 2.8 MG/DL (5.0-30.0); SODIUM LEVEL 139 MEQ/L (136-145); TOTAL PROTEIN 7.1 GM/DL (6.4-8.2); TROPONIN I < 0.02 NG/ML (< 0.10)
[2018-10-21] MEDS ORDERED: levETIRAcetam INJection 500 MG in D5W MINI-BAG PLUS 100 ML IV ONE (19:45)
[2018-10-21] MEDS ORDERED: ISOVUE-370 76% 100ML VIAL (Q9967) As Ordered ONE (21:43)
[2018-10-21] MEDS ORDERED: GLUCAGON FOR INJ 1 MG VIAL (J1610) SC PRN (21:45)
[2018-10-21] MEDS ORDERED: SOD POLYSTYRENE SULFONATE SUSP 30 GM/120 ML ENEMA PR ONE (21:45)
[2018-10-21] MEDS ORDERED: GLUCOSE 4 GM CHEW TABLET PO PRN (21:45)
[2018-10-21] MEDS ORDERED: DEXTROSE 50% 50 ML SYRINGE IV PRN (21:45)
[2018-10-21] MEDS ORDERED: CYMB60CA3 PO (21:46)
[2018-10-21] MEDS ORDERED: LYRI300C PO (21:46)
[2018-10-21] MEDS ORDERED: BACL10TA2 PO (21:46)
[2018-10-21] MEDS ORDERED: IPRATROPIUM 0.5MG/ALBUTEROL 2.5MG INH SOL UD 3ML (DUONEB)(J7620) NEB PRN (22:00)
[2018-10-21] MEDS ORDERED: hydrALAZINE INJ 20 MG/ML VIAL IV PRN (22:00)
[2018-10-21 22:14] LABS: ERYTHROCYTE SEDIMENTATION RATE 58 mm/hr (0-20)
[2018-10-21] MEDS: HEPARIN SOD (PORCINE) 5000 UNITS/ML VIAL SC SCH (23:06)
[2018-10-21] MEDS: PANTOPRAZOLE 40MG INJ (PROTONIX) (C9113) IV SCH (23:08)
--- NOTE | 2018-10-21 23:09 | REPVR ---
EXAM: CT Angiography Head With Contrast EXAM DATE/TIME: 10/21/2018 10:38 PM CLINICAL HISTORY: 52 years old, male; Signs and symptoms; Cognitive deficit; Altered mental status TECHNIQUE: Axial computed tomographic angiography images of the head with intravenous contrast using CT angiography protocol. All CT scans at this facility use at least one of these dose optimization techniques: automated exposure control; mA and/or kV adjustment per patient size (includes targeted exams where dose is matched to clinical indication); or iterative reconstruction. Coronal and sagittal reformatted images were created and reviewed. MIP and 3D reconstructed images were created and reviewed. CONTRAST: Contrast Material: 100 ml of ISOVUE 370; Contrast Route: IV COMPARISON: CT Head without contrast 10/21/2018 4:49 PM FINDINGS: Right internal carotid artery: Atherosclerotic calcification of the right carotid siphon. No occlusion or significant stenosis. No aneurysm. Right anterior cerebral artery: Unremarkable. No occlusion or significant stenosis. No aneurysm. Right middle cerebral artery: Unremarkable. No occlusion or significant stenosis. No aneurysm. Right posterior cerebral artery: Unremarkable. No occlusion or significant stenosis. No aneurysm. Right vertebral artery: Unremarkable. No occlusion or significant stenosis. No aneurysm. Left internal carotid artery: Atherosclerotic calcification of the left carotid siphon. No occlusion or significant stenosis. No aneurysm. Left anterior cerebral artery: Unremarkable. No occlusion or significant stenosis. No aneurysm. Left middle cerebral artery: Unremarkable. No occlusion or significant stenosis. No aneurysm. Left posterior cerebral artery: Unremarkable. No occlusion or significant stenosis. No aneurysm. Left vertebral artery: Unremarkable. No occlusion or significant stenosis. No aneurysm. Basilar artery: Unremarkable. No occlusion or significant stenosis. No aneurysm. Sinuses: Patchy ethmoid sinus disease. Mild mucosal thickening in the maxillary sinuses. Mastoid air cells: Mild mastoid effusions bilaterally. IMPRESSION: No large vessel arterial occlusion. Electronically signed by: Marcio Naqvi On 10/21/2018 23:08:40 PM
--- NOTE | 2018-10-21 23:12 | REPVR ---
EXAM: CT Angiography Neck With Contrast EXAM DATE/TIME: 10/21/2018 10:38 PM CLINICAL HISTORY: 52 years old, male; Signs and symptoms; Cognitive deficit; Altered mental status TECHNIQUE: Axial computed tomographic angiography images of the neck with intravenous contrast using CT angiography protocol. All CT scans at this facility use at least one of these dose optimization techniques: automated exposure control; mA and/or kV adjustment per patient size (includes targeted exams where dose is matched to clinical indication); or iterative reconstruction. Coronal and sagittal reformatted images were created and reviewed. MIP and 3D reconstructed images were created and reviewed. CONTRAST: Contrast Material: 100 ml of ISOVUE 370; Contrast Route: IV COMPARISON: No relevant prior studies available. FINDINGS: Limitations: Examination is limited by motion artifact. VASCULATURE: Right common carotid artery: Evaluation of the proximal right common carotid artery is limited by dense venous contrast. No occlusion or significant stenosis otherwise. Right internal carotid artery: Moderate atherosclerotic calcification at the origin of the right internal carotid artery. Less than 50% focal stenosis in the origin of the right ICA. Right external carotid artery: Normal. No occlusion or significant stenosis. Right vertebral artery: Normal. No significant stenosis. No dissection or occlusion. Left common carotid artery: Normal. No significant stenosis. No dissection or occlusion. Left internal carotid artery: Moderate atherosclerotic calcification at the origin of the left internal carotid artery. Less than 50% focal stenosis in the origin of left ICA. Left external carotid artery: Normal. No occlusion or significant stenosis. Left vertebral artery: Normal. No significant stenosis. No dissection or occlusion. Aorta: Mild atherosclerotic disease of aorta. NECK: Bones/joints: Mild degenerative spine. No acute fracture. Soft tissues: Normal. No significant soft tissue swelling. Tonsilloliths bilaterally. Lungs: Calcified granuloma in the right upper lobe of the lung. Dental: Patient is edentulous. IMPRESSION: Less than 50% focal stenoses in the origins of the right and left ICA. COMMENT: Reference per NASCET criteria for degree of stenosis: Mild: less than 50% stenosis. Moderate: 50-69% stenosis. Severe: 70-94% stenosis. Near occlusion: 95-99% stenosis. Electronically signed by: Marcio Naqvi On 10/21/2018 23:12:13 PM
[2018-10-22] VITALS (12 sets, daily range): BP systolic 93–179; BP diastolic 44–81; O2SAT 96–99
[2018-10-22] MEDS: HumaLOG INSULIN (NovoLOG) PER UNIT SC SCH ×4 (00:12→17:37)
[2018-10-22 00:33] LABS: C REACTIVE PROTEIN QUANTITATIV 0.96 MG/DL (0.00-0.30)
[2018-10-22] MEDS: HEPARIN SOD (PORCINE) 5000 UNITS/ML VIAL SC SCH ×4 (06:08→23:45)
[2018-10-22 07:39] LABS: HEMATOCRIT 38.3 % (42.0-52.0); HEMOGLOBIN 12.6 g/dl (13.5-17.5); MEAN CORPUSCULAR HEMOGLOBIN 36.3 pg (27.0-33.0); MEAN CORPUSCULAR HGB CONC 32.9 g/dl (32.0-36.5); MEAN CORPUSCULAR VOLUME 110.4 fl (80.0-96.0); PLATELET COUNT, AUTOMATED 368 10^3/uL (150-450); RED BLOOD COUNT 3.47 10^6/uL (4.30-6.10)
[2018-10-22 08:10] LABS: CALCIUM LEVEL 8.6 MG/DL (8.5-10.1); CREATININE FOR GFR 13.9 MG/DL (0.70-1.30)
[2018-10-22] MEDS: hydrALAZINE INJ 20 MG/ML VIAL IV SCH ×3 (10:00→22:00)
[2018-10-22] MEDS ORDERED: HEPARIN 1,000 UNITS/ML 10ML VIAL (FOR RADIOLOGY& DIALYSIS ONLY) IV ONE (11:15)
--- NOTE | 2018-10-22 13:08 | CR ---
DATE OF CONSULTATION: 10/22/2018 REQUESTING PHYSICIAN: Dr. Braxton in the emergency room. CONSULTING PHYSICIAN: Dr. Farr REASON FOR CONSULTATION: Management of end stag renal disease and hemodialysis. CHIEF COMPLAINT: Altered mental status and missing dialysis. HISTORY OF PRESENT ILLNESS: Note: History was obtained from patient's chart and from the medical team. The patient was on unable to provide any reliable history to me. Mr. Colton Jolley is a 52-year-old male with past medical history of end stage renal disease on hemodialysis, chronically noncompliant with hemodialysis, and history of seizure disorder. He was found semi-responsive at home, very sleepy and drowsy. He missed hemodialysis sessions. He was brought to the emergency room yesterday. He was found to have elevated blood pressures with systolic blood pressure of 194, very drowsy and arousable on loud vocal commands only. He got art scans done on arrival and sepsis work up was also done. The patient was admitted under the hospitalist service last night with metabolic encephalopathy. Nephrology service was called for further help in the management of end stage renal disease and arrangement of hemodialysis. I saw and evaluated the patient today morning. I had already arranged his hemodialysis today morning because he missed dialysis and he was hyperkalemic on the labs. The patient was being dialyzed when I saw him. He awakes and answers very few questions. His blood pressures are still high. PAST MEDICAL HISTORY: 1. End stage renal disease on hemodialysis every Wednesday, , Wednesday. 2. History of chronic obstructive pulmonary disease (COPD). 3. Diabetes mellitus type 2. 4. Seizure disorder. 5. Back pain. 6. History of metabolic encephalopathy in the past as well. PAST SURGICAL HISTORY: 1. History of AV fistula placement. 2. History of neurotransmitter placement in the back because of back pain. ALLERGIES: - ERYTHROMYCIN FAMILY HISTORY: No significant family history of end stage renal disease requiring hemodialysis. SOCIAL HISTORY: The patient lives at home. He is an active smoker and he is denying use of any illicit drugs at this point. REVIEW OF SYSTEMS: The patient is very sleepy and drowsy. He is unable to provide any reliable review of systems to me. PHYSICAL EXAMINATION: General: Patient is very drowsy, laying in bed. Opens eyes to loud vocal commands. Vital Signs: Temperature 98 degrees Fahrenheit. Blood pressure 178/81. Pulse 82. Respiratory rate 18. Saturating 96% on room air. Head and Neck Exam: Pupils are equally round and reactive to light. Mucous membranes are moist. Neck is supple. There is no jugular venous distention (JVD). Cardiovascular: S1 and S2, regular rate. No edema of the bilateral lower extremities. Respiratory: Chest is clear to auscultation bilaterally. Bilateral equal air entry. No rales or rhonchi. Abdomen: Soft. Obese. Positive bowel sounds. He grimaces to deep palpation. Genitourinary: No hernia was noted. Bladder is not palpable. Musculoskeletal: No clubbing or cyanosis. Pulses are 2+. Central Nervous System (SCOREKEEPER): The patient is very sleepy and drowsy. However, no focal deficits were appreciated. He moves all extremities on painful stimuli. LAB REVIEW: CBC showed a WBC of 12, hemoglobin 12.6 and platelets of 368. VBG done yesterday shows a pH of 7.33, pCO2 of 49, pO2 of 58. BMP today morning showed sodium 136, potassium 6, chloride 98, bicarbonate 20, BUN 61, creatinine 13.9, lactic acid 1, glucose 294, troponin less than 0.02. TSH 0.84. Toxicology showed negative alcohol, negative salicylates and Tylenol. Microbiology: Blood cultures are negative. IMAGING: Patient got a CAT scan of the abdomen and pelvis, CT angiogram of the neck, CT of the chest, CT of the head, and all of these imaging did not show any active pathology. CURRENT INPATIENT MEDICATIONS: - Keppra 500 mg IV every 12 hours - heparin subcutaneous - hydralazine 10 mg IV every 6 hours - Protonix 40 mg IV daily - Kayexalate enema 30 grams one dose ASSESSMENT: 52-year-old male with past medical history of end stage renal disease on hemodialysis, history of seizure disorder, diabetes mellitus type 2, admitted at this time with metabolic encephalopathy, missed hemodialysis and hyperkalemia. PLAN: 1. End stage renal disease on hemodialysis. Patient's regular dialysis days are Wednesday, , Wednesday. He missed hemodialysis on . He is being dialyzed today according to his regular schedule. I will try to remove at least 1.5 to 2 kg of fluid as tolerated by his blood pressure. 2. Hyperkalemia. The patient already got Kayexalate. He is being dialyzed today and potassium level is expected to improve with dialysis. 3. Metabolic acidosis. It is secondary to acute renal failure. Bicarbonate level is expected to improve after hemodialysis. 4. Metabolic encephalopathy. It is multifactorial secondary to missed hemodialysis, history of seizure disorder and use of Cymbalta, baclofen, escitalopram and Keppra along with Lyrica at home. All of these medications can cause drowsiness and sleepiness. Antipsychotic medications are on hold at this point. 5. History of seizure disorder. Okay to continue the home dose of Keppra 500 mg IV every 12 hours. 6. Anemia and end stage renal disease. Hemoglobin is 12.6, which is optimal. No need of Aranesp administration at this point. Thank you for involving me in the care of this patient. I shall be happy to follow the patient along with you tomorrow morning.
[2018-10-22] MEDS: levETIRAcetam INJection 500 MG in D5W 100 ML IV SCH ×2 (15:58→21:33)
[2018-10-22] MEDS ORDERED: LORazepam 2 MG/ML VIAL (J2060) IM ONE (17:50)
[2018-10-22] MEDS ORDERED: HALOPERIDOL 5 MG/ML VIAL (J1630) As Ordered ONE ×2 (17:51→18:07)
[2018-10-22] MEDS ORDERED: LORazepam 2 MG/ML VIAL (J2060) As Ordered ONE ×2 (17:52→17:56)
[2018-10-22] MEDS ORDERED: LORazepam 2 MG/ML VIAL (J2060) IV ONE (17:55)
[2018-10-22] MEDS ORDERED: HALOPERIDOL 5 MG/ML VIAL (J1630) IM PRN (17:55)
[2018-10-22] MEDS ORDERED: HALOPERIDOL 5 MG/ML VIAL (J1630) IM ONE (17:55)
[2018-10-22] MEDS ORDERED: LORazepam 2 MG/ML VIAL (J2060) IM STA (17:55)
[2018-10-22] MEDS ORDERED: diphenhydrAMINE INJ 50MG/ML VIAL (J1200) As Ordered ONE (17:58)
[2018-10-22] MEDS ORDERED: diphenhydrAMINE INJ 50MG/ML VIAL (J1200) IV ONE (18:00)
[2018-10-22] MEDS ORDERED: diphenhydrAMINE INJ 50MG/ML VIAL (J1200) IV STA (18:00)
[2018-10-22] MEDS ORDERED: LORazepam 2 MG/ML VIAL (J2060) IV STA (18:05)
[2018-10-22] MEDS ORDERED: HALOPERIDOL 5 MG/ML VIAL (J1630) IV ONE (18:10)
--- NOTE | 2018-10-22 18:27 | ECGEPIP ---
Stationary ECG Study [facility] - ED Test Date: 2018-10-21 Pat Name: JUAREZ MURPHY Department: Room: - Gender: M Geriatric Physical Therapist: : [id number] Requested By: Roxy Osborne Order Number: [id number] Reading MD: Julio Cesar Bass Measurements Intervals [place] Rate: 67 P: 59 FL: 149 QRS: 21 QRSD: 90 T: 47 QT: 406 QTc: 429 Interpretive Statements SINUS RHYTHM NONSPECIFIC ST T WAVE CHANGES CW 10/03/18 SIMILAR Electronically Signed On 10-22-2018 18:27:13 EST by Julio Cesar Bass
[2018-10-22] MEDS ORDERED: ONDANSETRON 4MG/2ML VIAL (J2405) IV PRN (21:30)
[2018-10-22] MEDS: PANTOPRAZOLE 40MG INJ (PROTONIX) (C9113) IV SCH (21:33)
[2018-10-22 23:29] LABS: HEMATOCRIT 35.5 % (42.0-52.0); HEMOGLOBIN 11.2 g/dl (13.5-17.5)
[2018-10-23] VITALS (25 sets, daily range): BP systolic 82–130; BP diastolic 45–60; O2SAT 96–97
[2018-10-23] MEDS: HumaLOG INSULIN (NovoLOG) PER UNIT SC SCH
[2018-10-23] MEDS ORDERED: HumaLOG INSULIN (NovoLOG) PER UNIT SC ONE (01:15)
[2018-10-23 03:18] LABS: HEMATOCRIT 38.1 % (42.0-52.0); HEMOGLOBIN 11.7 g/dl (13.5-17.5); MEAN CORPUSCULAR HEMOGLOBIN 36.4 pg (27.0-33.0); MEAN CORPUSCULAR HGB CONC 30.7 g/dl (32.0-36.5); PLATELET COUNT, AUTOMATED 345 10^3/uL (150-450); RED BLOOD COUNT 3.21 10^6/uL (4.30-6.10); WHITE BLOOD COUNT 18.8 10^3/uL (4.0-10.0)
[2018-10-23 03:34] LABS: MEAN CORPUSCULAR VOLUME 118.7 fl (80.0-96.0)
[2018-10-23 03:47] LABS: C REACTIVE PROTEIN QUANTITATIV 2.63 MG/DL (0.00-0.30); CALCIUM LEVEL 7.8 MG/DL (8.5-10.1); CREATININE FOR GFR 9.42 MG/DL (0.70-1.30); GLOMERULAR FILTRATION RATE 6.3 (>56); POTASSIUM SERUM 6.1 MEQ/L (3.5-5.1)
[2018-10-23] MEDS: hydrALAZINE INJ 20 MG/ML VIAL IV SCH ×2 (04:00→10:00)
[2018-10-23] MEDS ORDERED: NS 1,000 ML IV SCH (04:07)
[2018-10-23] MEDS ORDERED: D5W 1,000 ML IV SCH (04:07)
[2018-10-23] MEDS ORDERED: SOD POLYSTYRENE SULFONATE SUSP 30 GM/120 ML ENEMA PR ONE (04:15)
[2018-10-23] MEDS ORDERED: SODIUM BICARBONATE 8.4% INJ 50 ML SYRINGE IV SCH (04:30)
[2018-10-23 05:06] LABS: VENOUS BASE EXCESS -16.7 (-2.0-2.0); VENOUS O2 SATURATION 97.5 % (60.0-80.0); VENOUS PARTIAL PRESSURE CO2 17.8 mmHg (38.0-50.0); VENOUS PARTIAL PRESSURE O2 132.4 mmHg (30.0-50.0); VENOUS PH 7.271 UNITS (7.330-7.430); VENOUS STANDARD HCO3 11.8 MEQ/L; VENOUS TOTAL CO2 8.6 MEQ/L (24.0-28.0)
[2018-10-23] MEDS ORDERED: PROPOFOL 1,000 MG/100 ML VIAL As Ordered ONE (05:07)
[2018-10-23] MEDS ORDERED: PROPOFOL 200 MG/20 ML VIAL IV ONE (05:30)
[2018-10-23 05:41] LABS: APPEARANCE, CSF CLEAR (CLEAR); COLOR, CSF COLORLESS (COLORLESS); CSF TUBE# CELL CNT TUBE 1
[2018-10-23] MEDS: INSULIN HUMAN REGULAR 100 UNITS in NS 99 ML IV SCH ×2 (05:43→16:00)
[2018-10-23] MEDS ORDERED: PROPOFOL 1,000 MG/100 ML VIAL IV ONE (05:45)
[2018-10-23 05:54] LABS: ACETONE/KETONE > 46.00 MG/DL (<2.81); BEDSIDE GLUCOSE CONFIRMATION 721 MG/DL (LESS THAN 200); BLOOD UREA NITROGEN 51 MG/DL (7-18); CALCIUM LEVEL 7.2 MG/DL (8.5-10.1); CARBON DIOXIDE LEVEL 11 MEQ/L (21-32); CHLORIDE LEVEL 87 MEQ/L (98-107); CREATININE FOR GFR 9.76 MG/DL (0.70-1.30); GLUCOSE, FASTING 721 MG/DL (70-100); POTASSIUM SERUM 5.1 MEQ/L (3.5-5.1); SODIUM LEVEL 132 MEQ/L (136-145)
[2018-10-23 05:57] LABS: CSF TUBE# GLU TUBE 2; CSF TUBE# TP TUBE 2; GLUCOSE CSF 422 MG/DL (40-75); TOTAL PROTEIN,CSF 62 MG/DL (15-45)
[2018-10-23 06:29] LABS: OSMOLALITY SERUM 350 MOSM/KG (275-295)
[2018-10-23] MEDS ORDERED: VANCOMYCIN HCL 1,000 MG, VIAL MATE ADAPTER 1 EACH in D5W 250 ML IV SCH ×2 (07:30→09:00)
[2018-10-23] MEDS ORDERED: VANCOMYCIN HCL 1,000 MG, VIAL MATE ADAPTER 1 EACH in D5W 250 ML IV ONE (08:00)
[2018-10-23] MEDS: INSULIN IV RATE CHANGE DOCUMENTATION ML/HR XX SCH ×3 (08:02→15:06)
[2018-10-23] MEDS ORDERED: cefTRIAXone SOD 2 GM in D5W MINI-BAG PLUS 50 ML IV SCH (09:00)
[2018-10-23] MEDS ORDERED: PANTOPRAZOLE 40MG INJ (PROTONIX) (C9113) IV SCH (09:00)
[2018-10-23 09:02] LABS: PHOSPHORUS LEVEL 3.8 MG/DL (2.5-4.9)
[2018-10-23 09:55] LABS: CALCIUM LEVEL 7.5 MG/DL (8.5-10.1); CREATININE FOR GFR 9.92 MG/DL (0.70-1.30); GLOMERULAR FILTRATION RATE 5.9 (>56); POTASSIUM SERUM 4.4 MEQ/L (3.5-5.1)
[2018-10-23] MEDS: levETIRAcetam INJection 500 MG in D5W 100 ML IV SCH (10:15)
[2018-10-23] MEDS ORDERED: levETIRAcetam INJection 500 MG in D5W MINI-BAG PLUS 100 ML IV SCH ×2 (10:35→21:00)
[2018-10-23 10:47] LABS: ACETONE/KETONE > 46.00 MG/DL (<2.81)
[2018-10-23 10:48] LABS: HEMATOCRIT 32.2 % (42.0-52.0); HEMOGLOBIN 10.7 g/dl (13.5-17.5)
[2018-10-23] MEDS ORDERED: VANCOMYCIN HCL 750 MG, VIAL MATE ADAPTER 1 EACH in D5W 250 ML IV ONE (12:00)
[2018-10-23 12:12] LABS: TROPONIN I 82.5 NG/ML (< 0.10)
[2018-10-23 12:41] LABS: ACETONE/KETONE 32.31 MG/DL (<2.81); MAGNESIUM LEVEL 2.9 MG/DL (1.8-2.4); PHOSPHORUS LEVEL 3.2 MG/DL (2.5-4.9)
--- NOTE | 2018-10-23 12:55 | IPN ---
DATE OF SERVICE: 10/22/2018 SUBJECTIVE: The patient is examined during his dialysis session. He continues to be of altered mentation and minimally conversant. Per staff, he normally is alert and oriented times three and able to have full conversations. He continues to stare off into the distance and no improvement from how he was from admission. PHYSICAL EXAMINATION: Vitals: Temperature 97, pulse 76, respirations 18, blood pressure 167/69, pulse oximetry 96% on room air. General: Resting comfortably in bed, in no acute distress. He is disoriented and lethargic, in and out of sleep, and confused and altered mentation. HEENT: Normocephalic, atraumatic. Extraocular muscles intact. Neck supple. Cardiac: Regular rate and rhythm. No appreciable gallops or clicks. Lungs: Poor respiratory effort and compliance on physical exam given his altered mentation. Overall lungs sound clear with equal breath sounds bilaterally. Abdomen: Soft. Nontender. Nondistended. Positive bowel sounds. Extremities: 2+ radial pulses bilaterally. No peripheral edema. Neurologic: Lethargic and of altered mentation. Not able to converse, verbalize or answer any questions. Not able to follow any commands. However, he does withdraw to pain and seems to be perk up to sternal rub. LABS: WBC 12, hemoglobin/hematocrit (H/H) 12.6/38.3, platelets 368. Sodium 136, potassium 6, BUN/creatinine 61/13.9. Blood cultures negative at 24 hours. IMAGING: Overall is negative for any neuro abnormalities. IMPRESSION AND PLAN: 1. Acute metabolic encephalopathy, likely multifactorial secondary to his missed dialysis session. Per the family, he also recently started baclofen last Wednesday and then afterwards slept continuously until causing him to miss his dialysis session. He is normally in dialysis Wednesday, , Wednesday. Due to his recent missed sessions, nephrology has been consulted. Appreciate Dr. Farr's input. The patient will be dialyzed today. We will monitor for any mentation improvement. His altered mentation may also be secondary to his hypertensive urgency initially on admission, however, blood pressures are now better controlled, but he continues to be altered. Of note, his imaging on admission did not show any acute neuro deficits and ammonia level normal. He may be altered given his uremia. Unlikely infectious given that he is afebrile and blood cultures are negative thus far and his CRP is 0.96. Will continue monitoring. His myriad of home drugs may also be contributing. Currently all his home medications are on hold. He is on aspiration and fall precautions. He will likely require elimination of many of his psychotropic medications on discharge, which include his Lyrica, escitalopram, Cymbalta, baclofen. 2. Pulmonary vascular congestion with cardiomegaly noted on CT on admission. The patient does not show signs of volume overload and lungs are clear. We will obtain an echocardiogram to further assess this. We do not have any previous echos on file. 3. Hyperkalemia. Potassium was 6 on admission with a creatinine of 13.9. He is end stage renal disease and a hemodialysis patient. He was given a dose of Kayexalate and his potassium is expected to improve after his dialysis session today. 4. Hypertensive urgency. His home medications are currently on hold given his altered mentation and nothing by mouth status. He has been started on IV hydralazine. Continue monitoring and adjust regimen as needed. 5. End stage renal disease. The patient is on dialysis normally Wednesday, , Wednesday. Missed recent sessions. Nephrology is following and appreciate input. 6. Gastroesophageal reflux disease. Home medications converted to IV Protonix. 7. Hypercholesterolemia, chronic obstructive pulmonary disease, gastritis, anxiety, and insulin dependent diabetes mellitus. For all of these, medications are on hold given his nothing by mouth status and unable to tolerate by mouth intake. 8. Seizure disorder. He continues on Keppra and electroencephalogram (EEG) was ordered on admission and currently pending. He is on neuro checks every 4 hours and seizure precautions. 9. Deep vein thrombosis (DVT) prophylaxis. Heparin subcutaneous. DISPOSITION: Pending clinical improvement, not at baseline mentation. My faculty preceptor for this patient encounter was physically present during the encounter and was fully available. All aspects of the patient interview, examination, medical decision making process, and medical care plan development were reviewed and approved by the faculty preceptor. The faculty preceptor is aware and concurs with the plan as stated in the body of this note and will attest to such by his/her co-signature. MULU
[2018-10-23 13:08] LABS: CALCIUM LEVEL 7.1 MG/DL (8.5-10.1); CREATININE FOR GFR 10.6 MG/DL (0.70-1.30); GLOMERULAR FILTRATION RATE 5.5 (>56); POTASSIUM SERUM 4.5 MEQ/L (3.5-5.1)
[2018-10-23] MEDS ORDERED: HEPARIN DRIP 25,000 UNITS in APPROPRIATE DILUENT 1 EA IV SCH (13:35)
[2018-10-23] MEDS ORDERED: HEPARIN SOD (PORCINE) 5000 UNITS/ML VIAL IV PRN (13:45)
[2018-10-23] MEDS ORDERED: KCL 20MEQ in NS 1000ML 1,000 ML IV SCH (13:45)
--- NOTE | 2018-10-23 14:52 | HPE ---
DATE OF ADMISSION: 10/21/2018 CHIEF COMPLAINT: Confused. Altered. HISTORY OF PRESENT ILLNESS: The patient is a 52-year-old male. He has significant past medical history of end-stage renal disease (ESRD) on dialysis Wednesday, , Wednesday schedule. He is legally blind, hypertension, hyperlipidemia, chronic obstructive pulmonary disease (COPD), seizure disorder, gastritis, anxiety and diabetes. He presents to the emergency room accompanied by his who is at bedside. Story is that the patient went to sleep on Wednesday, slept all the way through Wednesday, woke up confused, moaning, unable to speak. He is lethargic. Does not respond to commands. He withdraws all four extremities to pain. Sensation definitely appears to be intact to noxious stimuli. He responds to sternal rub. His eyes are open. His vital signs are stable. The patient does not appear to be having seizures. Significant other at bedside, is not aware of what his seizures are like. He is arousable, but aphasic at this point. He does not appear toxic, hemodynamically stable. Does not appear to be any acute infectious process going on. Notably in patient's history, he is noted for noncompliance. He missed dialysis on as his significant other states he was asleep. He has not had a seizure in years. He no longer makes urine. The family at bedside denies any history of substance abuse. The only thing notable in his history, he was started on Baclofen on Wednesday. This is possibly secondary to Baclofen even at normal doses. I believe the patient had two doses and missed dialysis. This is potentially a reason for his altered mental status, metabolic encephalopathy. He is unable to get an MRI. Though there are no focal deficits he does have a neurostimulator in the back for chronic back pain. PAST MEDICAL HISTORY: See HPI. PAST SURGICAL HISTORY: AV fistula. Tonsillectomy. Splenectomy. TENS unit in the back. Nerve stimulator in the back for chronic back pain. ALLERGIES: No known drug allergies. HOME MEDICATIONS: - Tylenol - amlodipine - aspirin - Lipitor - baclofen - vitamin D - Cymbalta - Lexapro - insulin sliding scale - Imdur - Keppra - Toprol - multivitamin - Zofran - Lyrica - Ranitidine - Dexilant - Detemir - Lubiprostone - sevelamer SOCIAL HISTORY: The at bedside. Says he is a former smoker. No alcohol or illicit drug use. He also has a history of COPD. REVIEW OF SYSTEMS: Unable to complete due to underlying mentation. FAMILY HISTORY: Noncontributory. VITAL SIGNS ON ADMISSION: Temperature 98.2, pulse in the 60s. Blood pressure 170s/70, saturating at 95% on room air. PHYSICAL EXAMINATION: He is lethargic. He is arousable to noxious stimuli. Withdraws all four extremities. Does not appear in distress. Head appears normocephalic, atraumatic. Neck appears to be supple, but he does have a history of chronic neck pain. Lungs: Good air entry in anterior chest. No crackles. No wheezing. Cardiovascular: Regular rate and rhythm. The abdomen is soft. Extremities: No pitting edema. Neurological exam: He withdraws all four extremities to pain. LABS AND IMAGING COMPLETED IN THE ER: White count of 12, hemoglobin and hematocrit of 12/38, platelet count of 368. Chemistry shows a potassium of 5.4, BUN and creatinine of 55/12, lactate within normal limits. Salicylate, Tylenol and alcohol level unremarkable. Blood glucose 138. Imaging: CT of the abdomen and pelvis. Chronic appearing changes. No obvious acute pathology. CT of the chest. Cardiomegaly. Pulmonary vascular congestion. Chest x-ray. Cardiomegaly. Head CT. No evidence of acute intracranial pathology. ASSESSMENT AND PLAN: Metabolic encephalopathy. Possibly secondary to recently started Baclofen, which should be removed from his system when he gets dialyzed in the a.m. nephrology has been consulted. There have been case reports for small doses of Baclofen have led to altered consciousness in patient's on dialysis, particularly patients with missed hemodialysis versus less likely CVA. Patient cannot have an MRI because of the nerve stimulator in the back. Will order CT angio of the head and neck once IV access is obtained. Less likely versus infectious. Will send erythrocyte sedimentation rate, CRP procalcitonin. The patient does not appear toxic versus less likely uremic encephalopathy with a BUN of 55 and one missed dose of dialysis, but he will be dialyzed in the morning versus less likely seizure with postictal. He now withdraws, reacts to noxious stimuli. Will get an EEG. Will send a procalcitonin level. Loaded with Keppra in the ED. Will continue the Keppra 500 twice a day. Will keep him nothing by mouth (npo). Will cover insulin sliding scale. THE REST OF HIS MEDICAL CONDITIONS: COPD. DuoNebs as needed. Oxygen as needed. Hypertension. Will hold oral medications as the patient is nothing by mouth (npo). Hydralazine as needed. Diabetes with neuropathy. Insulin sliding scale. Will hold Lyrica. Chronic back pain. Will hold Baclofen. The patient was recently discontinued of tizanidine. Hyperlipidemia. Lipitor held. Hypertension. Norvasc, Imdur, metoprolol held. Hydralazine as needed. GERD. I will place him on IV proton pump inhibitor (PPI).
[2018-10-23] MEDS ORDERED: **VANCO AFTER HD** MISC XX SCH (16:00)
[2018-10-23 18:17] LABS: ACETONE/KETONE 4.87 MG/DL (<2.81); CALCIUM LEVEL 7.3 MG/DL (8.5-10.1); CREATININE FOR GFR 11.2 MG/DL (0.70-1.30); GLOMERULAR FILTRATION RATE 5.1 (>56); MAGNESIUM LEVEL 2.8 MG/DL (1.8-2.4); PHOSPHORUS LEVEL 3.4 MG/DL (2.5-4.9); POTASSIUM SERUM 4.4 MEQ/L (3.5-5.1)
--- NOTE | 2018-10-23 19:49 | DSES ---
DATE OF ADMISSION: 10/21/2018 DATE OF DISCHARGE/TRANSFER: 10/23/2018 ACCEPTING FACILITY: [facility]. PRIMARY CARE PROVIDER: Tina Pang CONSULTANTS: 1. Cardiology. 2. Nephrology. DISCHARGE DIAGNOSES: 1. Acute myocardial infarction (LA). 2. Diabetic ketoacidosis (DKA). 3. Acute metabolic encephalopathy 4. End-stage renal disease on dialysis. 5. Type 1 diabetes. 6. Seizure disorder. 7. Chronic back pain status post stimulator placement. 8. History of chronic obstructive pulmonary disease (COPD). 9. Anxiety. HOSPITALIZATION COURSE: The patient is a 52-year-old gentleman who presented to [facility] on 10/21/2018 for prolonged mental status changes. Since admission, patient is not oriented, not able to provide any information. Information was obtained from the patient's significant other. Patient had hemodialysis on 10/18/2018. Patient also started taking a new medication (baclofen) for his back pain. Since that night, patient has become more lethargic. Patient has been sleeping for more than 1-2 days. Due to altered mental status and confusion, patient was brought to [facility] for further evaluation. Patient had a stimulator, therefore patient had CT of the brain for mental status changes. Patient also had noncontrast CT for the lungs and abdomen, result came back negative. Nephrology was consulted for dialysis. Patient had hemodialysis on 10/22/2018. In the afternoon, patient developed acute delirium and was a danger to himself and staff. Sedative medication was given to the patient. Later, patient was found to be in DKA. Patient was transferred to intensive care unit (ICU), insulin drip initiated. Patient also had a lumbar puncture performed. Later, workup demonstrated patient had significant elevated troponin with ST changes and cardiology was consulted. Due to acute LA, other facilities were contacted for emergent transfer. Per recommendation, patient was also started on heparin drip. Anticipate patient will be transferred to [facility] for acute LA. On day of transfer, patient will be on IV fluids, IV heparin drip, and IV insulin drip. Discussed with on-call cardiology. Patient had abnormal findings on previous cardiac catheterization. Patient may need CABG per cardiology. Most recent vital signs demonstrate temperature 98.5, pulse 83, respirations 20, blood pressure 102/53, pulse oximetry 94% with 2 liters oxygen. PHYSICAL EXAMINATION: GENERAL: Patient is not awake and alert. HEENT: Normocephalic, atraumatic. Extraocular motors grossly intact. CARDIOVASCULAR: Positive S1, S2, regular rate. LUNGS: Clear to auscultation bilaterally. ABDOMEN: Soft, nontender, bowel sounds present. EXTREMITIES: No significant edema appreciated. Most recent laboratory data showed WBC 18.8, hemoglobin 11.7, hematocrit 38.1, platelet count 345, sodium 134, potassium 4.5, chloride 92, carbon dioxide 24, BUN 62, creatinine 10.6, GFR 5.5, fasting glucose 555, calcium 7.1, phosphorous 3.2, magnesium 2.9, troponin I is 82.5. CSF fluid analysis demonstrate colorless fluid, 9 WBCs, less than 2 RBCs, glucose 422, total protein 62. Microbiology: Blood cultures preliminarily show no growth after 24 hours times two sets. Cerebral gram stain shows no organism. IMAGING: CT of the head without contrast shows no evidence of acute intracranial pathology or trauma/injury. Chest x-ray shows cardiomegaly and chronic changes. Cannot exclude interstitial edema or trace atelectasis. CT of the chest without contrast shows cardiomegaly and pulmonary vascular congestion/interstitial edema including mild right basilar atelectasis. Prior granulomatous disease. CT of the abdomen and pelvis without contrast demonstrates chronic appearing changes. No obvious acute abdominal pelvic pathology appreciated. Trace right basilar atelectasis. CT angiogram of the neck demonstrates less than 50% focal stenosis in the origin of the right and the left internal carotid artery (ICA). CT angiogram of the head demonstrates no large vessel arterial occlusion. DISCHARGE INSTRUCTIONS: Transfer patient to [facility] for acute LA. Patient may need cardiac catheterization and possible CABG. Continue IV fluid, IV heparin drip and IV insulin during the transfer. DISCHARGE CONDITION: Guarded. DISCHARGE TIME: Including coordinating all the care is greater than 30 minutes. [facility]
--- NOTE | 2018-10-23 21:35 | ECGEPIP ---
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
--- NOTE | 2018-10-23 21:38 | ECGEPIP ---
Stationary ECG Study [facility] Test Date: 2018-10-23 Pat Name: JUAREZ MURPHY Department: Room: [place] [address] Gender: M Materials Intern: FREDDIE : 1965 Requested By: WALT DOLL Order Number: [id number] Reading MD: Kanu León Measurements Intervals [place] Rate: 80 P: 60 HI: 139 QRS: 19 QRSD: 93 T: 90 QT: 395 QTc: 458 Interpretive Statements SINUS RHYTHM POSSIBLE LEFT ATRIAL ENLARGEMENT MODERATE ST DEPRESSION PRIOR TRACING ON THE SAME DAY AT 4:28:31 A.M., ANTEROLATERAL ST-T ABNORMALITY HAS IMPROVED SIGNIFICANTLY Electronically Signed On 10-23-2018 21:37:47 EST by Kanu León
--- NOTE | 2018-10-24 06:33 | ECHO ---
DATE OF PROCEDURE: 10/22/2018 DATE OF : 1965 AGE: 52 REFERRING PROVIDER: Dr. Phyllis London. PATIENT LOCATION: Room 3207. REASON FOR ECHOCARDIOGRAM: Cardiomegaly. 2D MEASUREMENTS: IVS: 0.8 cm LV: 4.7 cm LVPW: 0.8 cm LA: 3.7 cm Aorta: 2.8 cm IVC: 2.0 cm DOPPLER MEASUREMENTS: Peak velocity across the aortic valve: 1.9 m/s Peak velocity across the LVOT: m/s Peak gradient across the aortic valve: 15 mmHg Mean gradient across the aortic valve: 7 mmHg Mitral E: 1.2 Mitral A: 1.0 Ratio 1.2 Maximum tricuspid valve velocity: 2.1 m/s 2D COMMENTS: 1. Normal left ventricular size, wall thickness and normal global left ventricular systolic function. The estimated left ventricular systolic ejection fraction is 60% to 65%. 2. Normal left atrium. Normal right atrium and right ventricle. 3. The atrial septum appeared to be normal without evidence of defect or shunt. 4. Trace pericardial effusion noted, no evidence of cardiac tamponade. 5. Mildly calcified aortic valve with normal leaflet excursion. Mildly calcified mitral annulus with normal anterior mitral valve leaflet motion. Normal tricuspid valve. The pulmonic valve and proximal pulmonary artery branches also appear to be normal. 6. The inferior vena cava was mildly enlarged, central venous pressure might be elevated. DOPPLER: It detects mild mitral regurgitation and trace tricuspid regurgitation. The calculated pulmonary artery systolic pressure was normal. Abnormal relaxation pattern was noted across the mitral valve annulus consistent with grade 2 left ventricular diastolic dysfunction. IMPRESSION: 1. Normal global left ventricular systolic function. There are some features of left ventricular diastolic dysfunction, grade 2. 2. Aortic valve sclerosis with trivial aortic stenosis but no aortic regurgitation. 3. Mitral annulus calcification with mild mitral regurgitation. 4. Trace tricuspid regurgitation with a normal calculated pulmonary artery systolic pressure. 5. Trace pericardial effusion was noted, no evidence of cardiac tamponade.
--- NOTE | 2018-10-24 09:58 | CR ---
DATE OF CONSULTATION: 10/22/2018 AGE: 52. REFERRING PROVIDER: Dr. Luz Maria Cabezas REASON FOR THE CONSULTATION: Myocardial infarction. PRIMARY AIRPLANE PATROLLER: Dr. Grady SOFT TILE SETTER: Dr. Payne HISTORY OF PRESENT ILLNESS: This is a 52-year-old male with a history of coronary artery disease, hypertension, hyperlipidemia, and diabetes mellitus, as well as end stage renal disease, came to the hospital on 10/21/2018 with altered mental status. The patient had missed his hemodialysis that day. This was attempted yesterday, but he did not complete it because of low blood pressure. He had multiple imaging studies done in view of his altered mental status and they were benign. He also had a lumbar puncture done, benign. He was found to be in diabetic ketoacidosis and transferred to intensive care unit (ICU) for further management. During the workup for his diabetic ketoacidosis, he was found to have abnormal serum troponin, consistent with a non ST elevation myocardial infarction. He also had developed significant electrocardiogram (EKG) changes. Cardiology consult was called. I saw Mr. Colton Jolley in the intensive care unit (ICU). He was sedated and the information was taken from the nursing staff, as well as his hospitalist and the chart. He was started on IV heparin and the immediate plan is to transfer him to a higher level of care where he can have a cardiac catheterization to assess his coronary anatomy. PAST SURGICAL HISTORY: Positive for: 1. Splenectomy. 2. Tonsillectomy. 3. Vocal cord polypectomy. 4. Left arm fistula. 5. Dorsal column stimulator for arthritis. PHYSICAL EXAMINATION: The patient did open his eyes upon talking to him but he was not interacting. His pupils are equal and reactive to light. His blood pressure when I saw him was 100/51 with a pulse of 79, respirations 20, and his maximum temperature is 98.5 degrees Fahrenheit with an oxygen saturation of 95% on 2 liters nasal cannula. He was in a negative fluid balance on 10/22/2018 of about 1 liter. HEAD: Atraumatic. NECK: I could not appreciate any jugular venous distention (JVD) or carotid bruits. LUNGS: No wheezing but upper rhonchi. HEART: Revealed regular heart sounds without gallops. Point of maximum impulse (PMI) is not displaced. There is no rub. I could not appreciate any murmurs. ABDOMEN: Soft. EXTREMITIES: No pedal edema. NEUROLOGIC: Not done. Echocardiogram from yesterday revealed a normal global left ventricular systolic function. There was trace pericardial effusion in limited views. Electrocardiogram (EKG) on admission was basically normal, done on 10/21/[address] specific [address]-T abnormality was noted. EKG done on 10/23/2018 at 4:29:31 revealed normal sinus rhythm with ST depression from V2 to V6, as well as lead I and AVL. Heart rate was 99 beats per minute. Repeat EKG done on 10/23/2018 at 10:44:27 revealed significant improvement in the ST abnormalities in the upper lateral leads, but still present in leads I and AVL. First serum troponin was less 0.02 with a total CK of 67 and second set of serum troponin, on 10/21/2018, was less than 0.02. Today on 10/23/2018, first set of serum troponin was 2.63 and second set of serum troponin was . Total CPK increased from 444 earlier this morning to 1695. IMPRESSION: 1. Non ST elevation myocardial infarction in this 52-year-old male with a history of significant previous coronary artery disease and normal left ventricular ejection fraction by cardiac catheterization in May 2018, hypertension, hyperlipidemia, diabetes mellitus, end stage renal disease, for which he has been on hemodialysis three times a week. The patient is now in diabetic ketoacidosis and this is being treated. The immediate plan is to transfer him to a higher level of care, he will need a repeat cardiac catheterization to assess his coronary anatomy and he most likely will need coronary artery bypass graft (CABG). The case was discussed with his hospitalist and he was started on IV heparin. At this present time, he is drowsy and barely responsive and has been nothing by mouth. It was a pleasure to participate in the care of Mr. Colton Jolley for his underlying cardiac condition. The case also was discussed with the patient's family, his daughter and his .
[2018-10-24 10:48] LABS: PROLACTIN 10.2 NG/ML (2.1-17.7)
--- NOTE | 2018-10-24 14:08 | IPN ---
DATE OF SERVICE: 10/23/2018 SUBJECTIVE: The patient is seen and examined this morning at bedside in the intensive care unit. His family is present. He continued to be significant altered. He is nonverbal at present. Family reports he has also not spoken to them. He is not following any commands. He opens his eyes, but does not reliably track nor focus. His blood pressures have been significantly soft overnight, systolic ranging from 80s to 110s. He continues on IV fluid and insulin drip. His anion gap is improving. His troponin came back markedly elevated at 82 and he is for urgent transfer for cardiac intervention. He had a lumbar puncture overnight with Propofol. VITAL SIGNS: Temperature 98.5, pulse 83, respiratory rate 20, blood pressure 102/53, saturating 94-98% on 2 liter nasal cannula. Dialysis yesterday removed 1 liter. Weight in the bed scale is not recorded. PHYSICAL EXAMINATION: GENERAL: The patient is seen in bed in the intensive care unit. He opens his eyes, but teressa not focus. He does not reliably track. He is lethargic. Does not follow any commands. Is not cooperative with the physical examination and does not speak. HEENT: His pupils are reactive to light. NECK: Supple. CARDIAC: S1, S2, no tachycardia. No peripheral edema. LUNGS: Poor respiratory effort and somewhat shallow respirations. No tachypnea nor accessory muscle use. No crackle or rale. There is symmetric air entry. ABDOMEN: Soft, does not grimace to palpation. There are bowel sounds. EXTREMITIES: Negative for edema or cyanosis. The upper extremity fistula is patent. SKIN: Normal turgor and temperature. LABORATORY DATA: Sodium 136, potassium 4.4, bicarbonate 27, glucose 428, troponin 82, hemoglobin 11.7. Microbiology - Blood cultures with no growth for 48 hours times two sets. INPATIENT MEDICATIONS: Reviewed by myself. Patient was started on a heparin drip and normal saline with KCl at 120 mL a hour. He continues on an insulin drip. Continues on ceftriaxone and vancomycin. Remainder of medications are unchanged from prior. PROBLEMS: 1. End-stage renal disease on hemodialysis normally on Wednesday, , and Wednesday schedule. He missed 's hemodialysis treatment. He was urgently dialyzed on Wednesday for hyperkalemia and altered mental status. He is now having acute myocardial infarction (MA), troponin is at 82. No hemodialysis today. He is for transfer to higher level of care. His electrolytes are improved. His potassium is normalized. His anion gap is closing. His diabetic ketoacidosis (DKA) is improving. 2. Acute myocardial infarction (MA) and corresponding relative hypotension. Systolic overnight was at 80s to 100. Patient is now on a heparin drip and he is pending urgent transfer for cardiac intervention. I am told he has a history of recent abnormal cardiac catheterization as well. Differ to primary team/cardiology. 3. Anion gap metabolic acidosis, diabetic ketoacidosis (DKA) improving on a insulin drip. His bicarbonate has improved nicely. His anion gap is closing. He is receiving gentle IV fluids. His sugars still remains greater than 400. 4. Altered mental status. He had an lumbar puncture (LP) done overnight, he did receive some Propofol with it. He is also having acute myocardial infarction (MA). There was a prior concern of polypharmacy, his neuropathics have been held. His blood cultures are negative thus far. His CSF culture is pending. DISPOSITION: Patient is pending urgent transfer.
== END 2018-10-23 17:04 | disposition short-term general hospital (02) | DRG 70 ==
LOC: M ED 16:36 → EDBD 16:36 → M ED INP 21:16 → M PCU 10-22 13:15 → M ICU 10-23 04:35
PROVIDERS: ADMIT Internal Medicine; ATTEND Internal Medicine
PROC: 5A1D70Z Performance of Urinary Filtration, Intermittent, Less than 6 Hours Per Day (ICD-10-PCS; principal; 2018-10-22)
DX: G93.41 Metabolic encephalopathy (principal); N18.6 End stage renal disease; I21.9 Acute myocardial infarction, unspecified; E10.10 Type 1 diabetes mellitus with ketoacidosis without coma; F41.9 Anxiety disorder, unspecified; J44.9 Chronic obstructive pulmonary disease, unspecified; G40.909 Epilepsy, unspecified, not intractable, without status epilepticus; M54.5 Low back pain; Z79.899 Other long term (current) drug therapy; Z79.4 Long term (current) use of insulin; Z79.82 Long term (current) use of aspirin; Z87.891 Personal history of nicotine dependence; E10.40 Type 1 diabetes mellitus with diabetic neuropathy, unspecified; E78.5 Hyperlipidemia, unspecified; Z88.1 Allergy status to other antibiotic agents; D63.1 Anemia in chronic kidney disease; E87.5 Hyperkalemia; I16.0 Hypertensive urgency; K21.9 Gastro-esophageal reflux disease without esophagitis; Z90.81 Acquired absence of spleen

== ENCOUNTER 2018-12-07 11:14 | Outpatient (RCR) | payer MEDICARE, MEDICAID ==
--- NOTE | 2018-11-28 11:07 | CARECAPL ---
Assessment Account #s: Initial Assessment General Diagnoses: NSTEMI Date of event: Oct 23, 2018 Physician: Indio Payne MD Allergies: Coded Allergies: MS - Erythromycin (Verified Allergy, Unknown, 01/24/18) Date Entered Program: Nov 28, 2018 Risk strat for cardiac event: Low Exercise Date: Nov 28, 2018 Assessment: Initial Assessment Exercise Prescription Plan TO EDUCATE AND BUILD ENDURANCE THROUGH A MONITORED EXERCISE PROGRAM Modalities initiated: Cardio-Strider (WILL ADD), Nustep (METS=1.8/RPE=2), Arm Aerometer (METS=1.8/RPE=3), Dumbells (WILL ADD), Recumbent Bike (METS=3/RPE=3) Frequency: 3 Duration (Minutes) 30-60 minutes total exercise a day. 10-12 work intervals in minutes. 5 MIN PRN rest intervals in minutes. Functional Capacity Goal Sustained Metabolic Equivalent of a task (MET) goal of 3.0-3.5 for 15-20 minutes. Intensity: 3-Moderate Progression (METS) Increase by: 0.5 METS every: 5 sessions TOLERATED Angina with ex: No Target Heart Rate +35-40 BASED ON BETA PORTER THERAPY Resistance Training: Yes Weight (pounds): 1 Reps: 8-12 Hypertension: Yes Hypertension controlled with: Medication Resting 154/69 Peak Exercise BP 142/62 Medications Scheduled (Dexilant), 30 MG PO DAILY, (Reported) Amlodipine Besylate (Amlodipine Besylate), 5 MG PO QHS, (Reported) Aspirin (Aspirin 81), 81 MG PO DAILY, (Reported) Atorvastatin Calcium (Lipitor), 80 MG PO DAILY, (Reported) Cholecalciferol (Vitamin D), 1,000 UNIT PO DAILY, (Reported) Duloxetine Hcl (Cymbalta), 60 MG PO QHS, (Reported) Escitalopram Oxalate (Escitalopram Oxalate), 20 MG PO DAILY, (Reported) Insulin Aspart (Novolog), 1 DOSE SC ACHS, (Reported) Insulin Detemir (Levemir Flextouch), 12 UNIT SC QAM, (Reported) Insulin Detemir (Levemir Flextouch), 14 UNIT SC QHS, (Reported) Isosorbide Mononitrate (Isosorbide Mononitrate ER), 60 MG PO DAILY, (Reported) Levetiracetam (Keppra), 500 MG PO BID, (Reported) Lubiprostone (Amitiza), 8 MCG PO BID, (Reported) Metoprolol Succinate (Metoprolol Succinate ER), 25 MG PO DAILY, (Reported) Multivitamins *SMC STOCKED* (Thera M Plus *[facility]C STOCKED*), 1 TAB PO DAILY, (Reported) Pregabalin (Lyrica), 300 MG PO QHS, (Reported) Ranitidine Hcl (Zantac 150 Maximum Streng), 1 TAB PO DAILY, (Reported) Sevelamer Carbonate (Renvela), 1,600 MG PO QPM, (Reported) Scheduled PRN Acetaminophen (Acetaminophen ER), 650 MG PO Q6H PRN for PAIN, (Reported) Ondansetron (Ondansetron Odt), 4 MG PO Q4H PRN for NAUSEA, (Reported) Discontinued Medications Baclofen (Baclofen), 10 MG PO QHS, (Reported) Discontinued Reason: Pt states not taking Current BP 122/60 Med Change: No Intervention Education: Self pulse, Ex safety, S/S to report, Low NA diet, BP medication, RPE Scale, Equipment orientation, warm up/cool down, Understand BP, Physical Active Target Goals Individual exercise Rx (1) BP 140/90 or 130/80 if DM or CKD (1) Aerobic active 30+min 5 days per week (1) Nutrition Date: Nov 28, 2018 Assessment: Initial Assessment Lipid- med/supplement ATORVASTATIN Med Change: No Diabetes Diabetes: Yes Fasting Blood Sugar: 98 Diabetes medication NOVOLOG/LEVEMIR Monitor Blood Sugar at home: Yes Medication Change: No Weight Management Weight (lbs): 205.4 Height (inches): 67 Waist Circumference (Inches): 44 BMI: 32.2 Special Diet: low salt, low-fat Vitamin/Supplements: Multivitamin Alcohol: none Diet Access Tool: Rate your plate Score: 48 Current Weight (pounds): 205.4 Intervention Special Education Tutor Consult: No Nurse/patient discussion: Yes Dietary Goals MAKE HEART HEALTHY CHOICES Diet Class: No Education S&S hypo/hyper glycemia, Relate Diabetes in CAD, Eating Healthy Target goal LDL-C<100 if triglycerides are >200 Non-HDL-C should be <130 (1) LDL-C<70 for high risk patients (4) HbA1c<7% (1) BMI<25 Waist cir<40in M/<35in F (1) Education Date: Nov 28, 2018 Assessment: Initial Assessment Learning Barriers: ready Knowledge Test Score: 1 Family Support: Yes Tobacco use: Yes (VAPS) Quit: <6 months Tobacco Use Smokeless tobacco: No Intervention Referral to smoking cessation: No Individual education and couns: Yes Tobacco Adjunct: No Education class schedule given: No Attended education classes: No Education: tobacco triggers, CAD, Risk factors, med compliance, cardiac A&P, Angina S/S, Sexuality Target Goals Complete cessation of tobacco use (1). Psychosocial Date: Nov 28, 2018 Assessment: Initial Assessment Psych Test (Initial/Discharge) Tool Used: CESD (TAKES CYMBALTA) Score: 41 Intervention Physician Consult: No Physician Referral: No Psychotropic medication CYMBALTA Med Change: No Stress Management Class: No Uses Stress Management Skills: Yes Education Education: Coping Techniques, S/S depression, Relaxation Techniques Target Goal Assess presence or absence of depression using a valid screening tool (1). Maximize coping skills (2). Positive support system (2). Patient/Program Goal Preventative Medication: Yes Aspirin, Yes Beta blockade, Yes Statin/OTR lipid Lowering Fall Risk Assess: Yes Assisstive Device: cane Provider Assessment Session Number: 1 Provider Assessment: Proceed with rehab Ian Storm RN Nov 28, 2018 11:07
[~2018-12-07 11:14] MED LIST changes: -ASPI1TAB PO; +ASPI81TA26 PO; +ATOR40TA75 PO; +BACL10TA2 PO; +CYMB60CA3 PO; -DULO30CA PO; +DULO30CA9 PO
--- NOTE | 2018-12-15 10:25 | CARECAPL ---
Assessment Account #s: Re-Assessment II (DISCHARGE) General Diagnoses: NSTEMI Date of event: Oct 23, 2018 Physician: FITZ VAZQUEZ MD @ Allergies: Coded Allergies: MS - Erythromycin (Verified Allergy, Unknown, 01/24/18) Date Entered Program: Nov 28, 2018 Risk strat for cardiac event: Low Exercise Date: Dec 15, 2018 Assessment: Followup/Discharge Exercise Prescription Plan TO EDUCATE AND BUILD ENDURANCE THROUGH MONITORED EXERCISE Modalities initiated: Nustep (METS=2.1/RPE=2), Arm Aerometer (METS=3.1/RPE=3), Dumbells (1#/RPE=3), Recumbent Bike (METS=2.9/METS=3) Frequency: 3 Duration (Minutes) 30-60 minutes total exercise a day. 10-15 work intervals in minutes. 5 MIN PRN rest intervals in minutes. Functional Capacity Goal Sustained Metabolic Equivalent of a task (MET) goal of 3.0-3.5 for 15-20 minutes. Intensity: 3-Moderate Progression (METS) Increase by: 0.5 METS every: 5 sessions Angina with ex: No Target Heart Rate +35-40 BASED ON BETA PORTER THERAPY Resistance Training: Yes Weight (pounds): 1 Reps: 12-15 Hypertension: Yes Hypertension controlled with: Medication Resting 130/70 Peak Exercise BP 132/70 Medications Scheduled Amlodipine Besylate (Amlodipine Besylate), 5 MG PO QHS, (Reported) Aspirin (Aspirin EC), 81 MG PO DAILY, (Reported) Atorvastatin Calcium (Lipitor), 80 MG PO DAILY, (Reported) Cholecalciferol (Vitamin D3) (Vitamin D3), 1,000 UNIT PO DAILY, (Reported) Dexlansoprazole (Dexilant), 30 MG PO DAILY, (Reported) Duloxetine Hcl (Cymbalta), 60 MG PO QHS, (Reported) Escitalopram Oxalate (Escitalopram Oxalate), 20 MG PO DAILY, (Reported) Insulin Detemir (Levemir Flextouch), 12 UNIT SC QAM, (Reported) Insulin Detemir (Levemir Flextouch), 14 UNIT SC QHS, (Reported) Insulin Human Lispro (Novolog), 1 DOSE SC ACHS, (Reported) Isosorbide Mononitrate (Isosorbide Mononitrate ER), 60 MG PO DAILY, (Reported) Levetiracetam (Keppra), 500 MG PO BID, (Reported) Lubiprostone (Amitiza), 8 MCG PO BID, (Reported) Metoprolol Succinate (Metoprolol Succinate), 25 MG PO DAILY, (Reported) Multivitamins (Thera M Plus Tablet), 1 TAB PO DAILY, (Reported) Pregabalin (Lyrica), 300 MG PO QHS, (Reported) Ranitidine Hcl (Zantac), 1 TAB PO DAILY, (Reported) Sevelamer Carbonate (Renvela), 1,600 MG PO QPM, (Reported) Scheduled PRN Acetaminophen (Acetaminophen ER), 650 MG PO Q6H PRN for PAIN, (Reported) Ondansetron (Ondansetron Odt), 4 MG PO Q4H PRN for NAUSEA, (Reported) Current BP 110/60 Med Change: No Intervention Resistance Training: Yes Education: Self pulse, Ex safety, S/S to report, Low NA diet, BP medication, RPE Scale, Equipment orientation, warm up/cool down, Understand BP, Physical Active Education Goals Met: No (PT ATTENDED ONLY 3 SESSIONS) Target Goals Individual exercise Rx (1) BP 140/90 or 130/80 if DM or CKD (1) Aerobic active 30+min 5 days per week (1) Nutrition Date: Dec 15, 2018 Assessment: Followup/Discharge Lipid- med/supplement ATORVASTATIN Med Change: No Diabetes Diabetes: Yes Monitor Blood Sugar at home: Yes Medication Change: No Weight Management Weight (lbs): 204.8 Special Diet: low salt, low-fat Vitamin/Supplements: Multivitamin Alcohol: none Current Weight (pounds): 204.8 Intervention Engine 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 Consult: No Nurse/patient discussion: Yes Dietary Goals TO MAKE HEART HEALTHY CHOICES Diet Class: No Referral to Diabetes education: No Referral to lipid clinic: No Referral to weight mangement p: No Education S&S hypo/hyper glycemia, Relate Diabetes in CAD, Eating Healthy Education Goals Met: No (PATIENT ATTENDED ONLY 3 SESSIONS) Target goal LDL-C<100 if triglycerides are >200 Non-HDL-C should be <130 (1) LDL-C<70 for high risk patients (4) HbA1c<7% (1) BMI<25 Waist cir<40in M/<35in F (1) Education Date: Dec 15, 2018 Assessment: Followup/Discharge Family Support: Yes Tobacco use: No (VAPS) Tobacco Use Smokeless tobacco: No Intervention Referral to smoking cessation: No Individual education and couns: No Tobacco Adjunct: No Education class schedule given: No Attended education classes: No Education: tobacco triggers, CAD, Risk factors, med compliance, cardiac A&P, Angina S/S, Sexuality Education Goals Met: No (PATIENT ATTENDED ONLY 3 SESSIONS) Target Goals Complete cessation of tobacco use (1). Psychosocial Date: Dec 15, 2018 Assessment: Followup/Discharge Intervention Physician Consult: No Physician Referral: No Med Change: No Stress Management Class: No Uses Stress Management Skills: Yes Education Education: Coping Techniques, S/S depression, Relaxation Techniques Education Goals Met: No Target Goal Assess presence or absence of depression using a valid screening tool (1). Maximize coping skills (2). Positive support system (2). Patient/Program Goal Preventative Medication: Yes Aspirin, Yes Beta blockade, Yes Statin/OTR lipid Lowering Fall Risk Assess: Yes Assisstive Device: cane Provider Assessment Session Number: 3 Ian Storm RN Dec 15, 2018 10:25
== END 2018-12-20 ==
LOC: M CR 11:14
PROVIDERS: ATTEND Internal Medicine Nephrology
DX: I21.4 Non-ST elevation (NSTEMI) myocardial infarction (principal)

== ENCOUNTER 2019-03-24 07:00 | Day surgery (SDC) | payer MEDICARE, MEDICAID ==
[~2019-03-24] VITALS: Ht 167.6 cm; Wt 92.0 kg
[~2019-03-24 07:00] MED LIST changes: -DULO1CAP3 PO; +DULO1CAP6 PO; +LIDOCAINE 1% MDV 20ML VIAL SQ PRN; +LR 1,000 ML IV ONE; +SERT-141 PO; +VELT1POW PO; +ZANT150T40 PO; -ZANTTAB PO
[2019-03-24] MEDS ORDERED: PROPOFOL 200 MG/20 ML VIAL As Ordered ONE (08:02)
[2019-03-24] MEDS ORDERED: LIDOCAINE 2% INJ 100 MG/5 ML SDV (FOR ANES.) As Ordered ONE (08:02)
[2019-03-24] MEDS ORDERED: fentaNYL 100 MCG/2 ML INJECTION (J3010) As Ordered ONE (08:03)
[2019-03-24] MEDS ORDERED: LIDOCAINE 1% SDV INJ 30 ML VIAL As Ordered ONE (08:03)
[2019-03-24] MEDS ORDERED: BUPIVACAINE HCL 0.5% 30 ML VIAL As Ordered ONE (08:03)
[2019-03-24] MEDS ORDERED: MIDAZOLAM INJ 2 MG/2 ML VIAL (J2250) As Ordered ONE (08:03)
[2019-03-24] MEDS ORDERED: HEPARIN SOD (PORCINE) 5000 UNITS/ML VIAL As Ordered ONE (08:03)
[2019-03-24] MEDS ORDERED: BUPIVACAINE HCL 0.5% 10 ML VIAL As Ordered ONE (08:35)
[2019-03-24] MEDS ORDERED: LIDOCAINE 2% MDV 20 ML VIAL As Ordered ONE (08:35)
[2019-03-24] MEDS ORDERED: HEPARIN 1,000 UNITS/ML 10ML VIAL (FOR RADIOLOGY& DIALYSIS ONLY) As Ordered ONE (08:35)
[2019-03-24] MEDS ORDERED: LIDOCAINE 1% MDV 20ML VIAL As Ordered ONE (10:13)
[2019-03-24] MEDS ORDERED: PERCOCET 5MG/325MG TAB As Ordered ONE (10:34)
[2019-03-24] MEDS: PERCOCET 5MG/325MG TAB PO PRN ×2 (10:40→11:10)
[2019-03-24] MEDS ORDERED: ONDANSETRON 4MG/2ML VIAL (J2405) IV PRN (10:45)
[2019-03-24] MEDS ORDERED: fentaNYL 100 MCG/2 ML INJECTION (J3010) IV PRN (10:45)
[2019-03-24 11:05] VITALS: BP 140/77
--- NOTE | 2019-04-04 12:09 | ROOPDOC ---
[facility] Report Of Operation Report of Operation DATE OF PROCEDURE: 03/24/2019 PREPROCEDURE DIAGNOSES: End-stage renal disease requiring access for renal replacement therapy and dysfunctional left brachiocephalic autogenous arteri ovenous fistula. POSTPROCEDURE DIAGNOSES: End-stage renal disease requiring access for renal replacement therapy and dysfunctional left brachiocephalic autogenous arteriovenous fistula. PROCEDURE: Ultrasound guided right internal jugular vein cannulation. Fluoroscopic guided right internal jugular vein 19 cm tip to cuff tunneled central venous catheter insertion. ATTENDING SURGEON: DR. Nancy Velásquez M.D. HYDROLOGICAL TECHNICAL OFFICER: Herbret Rea INDICATION:Patient is an 53-year-old male who has renal failure who requires access for renal replacement therapy. 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 Patient will require access for renal replacement therapy via hemodialysis until his fistula is healed after undergoing revision. Patient will undergo ultrasound and fluoroscopic guided placement of a right internal jugular vein tunneled central venous catheter. The procedure was described and explained to the patient in detail including drawing of pictures demonstrating the procedure and anatomy. Risks, benefits and alternative treatment options were discussed with the patient. Alternative treatment options included but were not limited to no intervention. Benefits included but were not limited to access for hemodialysis until permanent access for renal replacement therapy is created. Risks included, but were not limited to infection, bleeding, pneumothorax, hemot horax, cannulation site deep venous thrombosis, possible need for open surgical intervention, allergic reaction or complication from prepping and draping materials, possible need for transfusion of blood products, anesthetic complications, cerebrovascular accident, myocardial infarction, pulmonary embolus, deep venous thrombosis, loss of limb, loss of life, poor satisfaction and poor outcome. Risks of not performing the procedure included but were not limited to inability to obtain renal replacement therapy via hemodialysis and . The patient's questions were answered. The patient voices understanding of these risks, benefits and alternative treatment options. The patient voices acceptance of the risks associated with the procedure and agrees to proceed with an ultrasound and fluoroscopic guided right internal jugular vein tunneled central venous catheter insertion. There were no promises or guarantees made to the patient regarding the outcome or results of the procedure. ANESTHESIA: Local with 20 mL of 2% lidocaine mixed with 0.5% Marcaine. EBL: 5 ml. IVF: 50 ml. FLUORO TIME: 0.1 minutes. CONTRAST: None. COMPLICATIONS: None. DRAINS: None. SPECIMENS: None. IMPLANTS: Right internal jugular vein tunneled central venous catheter with use of a 19 cm tip to cuff [place] hemodialysis catheter. DESCRIPTION OF PROCEDURE: Patient was taken to the angiography suite, placed supine on the angiography room table and then prepped and draped in a standard surgical fashion. A timeout was conducted by myself and the team members in the room confirming the correct patient, procedure and laterality. Ultrasound guidance was used to cannulate the right internal jugular vein using a micropuncture needle after anesthetizing the overlying skin and subcutaneous tissue with 2% lidocaine mixed with 0.5% Marcaine. The cannulation of the right internal jugular vein was performed with real-time concurrent visualization of the entry of the micropuncture needle into the right internal jugular vein with a hardcopy image preserved. The ultrasound showed the right internal jugular vein to be widely patent, easily compressible and free of thrombus. The micropuncture wire was advanced through the micropuncture needle which was upsized to a micropuncture sheath. An Amplatz wire was advanced through the micropuncture sheath which was then used to sequentially dilate the right internal jugular vein under fluoroscopic guidance. An introducer sheath was then placed over the Amplatz wire and the wire was removed. The catheter was tunneled through a puncture wound in the right chest after anesthetizing the overlying skin and subcutaneous tissue with 2% lidocaine mixed with 0.5% Marcaine and brought out through a puncture wound at the right internal jugular vein entry site. The catheter was then advanced through the introducer sheath which had been positioned under fluoroscopic guidance. The catheter was positioned under fluoroscopic guidance with the tip in the superior vena cava right atrial junction. Both ports of the catheter were aspirated, noted to aspirate easily and then flushed with heparinized saline. The catheter was secured to the right anterior chest wall using #2-0 Prolene suture after anesthetizing the overlying skin and subcutaneous tissue with 2% lidocaine mixed with 0.5% Marcaine. The puncture wound in the right neck was closed using #4-0 Monocryl in inverted interrupted fashion. Steri-Strips and dressings were applied. The patient tolerated the procedure well. All instrument, sponge and needle counts were correct at the end of the case. There were no complications. Dr. Velásquez was present for and directed the entire case. Patient was transferred to the recovery area and subsequently to the recovery room in stable condition. The tunneled central venous catheter is stable for use for hemodialysis access. RADIOLOGIC SUPERVISION AND INTERPRETATION: The initial ultrasound showed the right internal jugular vein to be easily compressible, widely patent and free of thrombus. Ultrasound was used to guide cannulation of the right internal jugular vein with real-time concurrent visualization of the entry of the needle into the right internal jugular vein with a hardcopy image preserved. Fluoroscopic guidance was then used to sequentially dilate the right internal jugular vein, place an introducer sheath and position the catheter with the tip in the superior vena cava/right atrial junction. Final fluoroscopic image showed the catheter to be in good position and good alignment with no pneumo- or hemothorax noted with the tip in the superior vena cava/right atrial junction. The tunneled central venous catheter is stable for use for hemodialysis access. Leon Velásquez MD Apr 04, 2019 12:09
== END 2019-03-24 09:16 | disposition home or self-care (01) ==
LOC: M SDC 07:00
PROVIDERS: ATTEND Surgery Vascular Surgery
DX: N18.6 End stage renal disease (principal)

== ENCOUNTER 2019-03-24 23:39 | Emergency (ER) | payer MEDICARE, MEDICAID ==
[~2019-03-24] VITALS: Ht 177.8 cm; Wt 96.7 kg
[~2019-03-24 23:39] MED LIST changes: -LIDOCAINE 1% MDV 20ML VIAL SQ PRN; -LR 1,000 ML IV ONE
[2019-03-25] MEDS ORDERED: NS 1,000 ML IV ONE
[2019-03-25 00:27] LABS: BASO # 0.1 10^3/uL (0.0-0.2); BASO % 1.5 % (0.0-1.0); EOS # 0.4 10^3/uL (0.0-0.50); EOS % 4.4 % (0.0-3.0); HEMATOCRIT 35.7 % (42.0-52.0); HEMOGLOBIN 12.2 g/dl (13.5-17.5); LYMPH # 2.1 10^3/uL (1.5-4.5); LYMPH % 23.2 % (24.0-44.0); MEAN CORPUSCULAR HEMOGLOBIN 36.6 pg (27.0-33.0); MEAN CORPUSCULAR HGB CONC 34.2 g/dl (32.0-36.5); MEAN CORPUSCULAR VOLUME 107.2 fl (80.0-96.0); MONO # 1.2 10^3/uL (0.0-0.8); MONO % 12.8 % (0.0-5.0); NEUTROPHILS # 5.3 10^3/uL (1.8-7.7); NEUTROPHILS % 57.8 % (36.0-66.0); PLATELET COUNT, AUTOMATED 210 10^3/uL (150-450); RED BLOOD COUNT 3.33 10^6/uL (4.30-6.10); WHITE BLOOD COUNT 9.2 10^3/uL (4.0-10.0)
[2019-03-25 00:34] LABS: ABG BASE EXCESS 2.4 (-2.0-2.0); ABG HCO3 28.4 MEQ/L (22.0-26.0); ABG O2 SATURATION 96.3 % (95.0-99.0); ABG PARTIAL PRESSURE O2 91.8 mmHg (75.0-100.0); ABG STANDARD HCO3 26.6 MEQ/L (22.0-26.0); ABG TOTAL CO2 29.9 MEQ/L (22.0-29.0); ABG pH (ARTERIAL) 7.372 UNITS (7.350-7.450)
[2019-03-25 00:57] LABS: OSMOLALITY SERUM 304 MOSM/KG (275-295)
--- NOTE | 2019-03-25 01:01 | REPVR ---
EXAM: CT Head Without Contrast EXAM DATE/TIME: 03/25/2019 12:07 AM CLINICAL HISTORY: 53 years old, male; Altered mental status/memory loss TECHNIQUE: Imaging protocol: Computed tomography images of the head without contrast. Radiation optimization: All CT scans at this facility use at least one of these dose optimization techniques: automated exposure control; mA and/or kV adjustment per patient size (includes targeted exams where dose is matched to clinical indication); or iterative reconstruction. COMPARISON: CT Head without contrast 10/21/2018 4:49 PM FINDINGS: Brain: Normal. No hemorrhage. Unremarkable white matter. No mass effect. Ventricles: Normal. No ventriculomegaly. Bones/joints: Unremarkable. No acute fracture. Sinuses: Left ethmoid and inferior frontal sinus mucosal thickening. Mastoid air cells: Visualized mastoid air cells are well aerated. No mastoid effusion. Soft tissues: Unremarkable. IMPRESSION: 1. There has been little change from 10/21/2018. No acute interval intracranial process is identified. 2. Left ethmoid and inferior frontal sinus disease. Electronically signed by: Won Pearce On 03/25/2019 01:00:38 AM
[2019-03-25 01:25] LABS: ACETAMINOPHEN LEVEL < 2.0 UG/ML (10.0-30.0); ALBUMIN 3.2 GM/DL (3.2-5.2); ALT/SGPT 23 U/L (12-78); BILIRUBIN,DIRECT < 0.1 MG/DL (0.0-0.2); BILIRUBIN,TOTAL 0.5 MG/DL (0.2-1.0); BLOOD UREA NITROGEN 33 MG/DL (7-18); CALCIUM LEVEL 8.5 MG/DL (8.5-10.1); CARBON DIOXIDE LEVEL 30 MEQ/L (21-32); CHLORIDE LEVEL 103 MEQ/L (98-107); CK-MB VALUE MASS 1.8 NG/ML (<3.6); CPK CREATINE PHOSPHOKINASE 141 U/L (39-308); CREATININE FOR GFR 8.63 MG/DL (0.70-1.30); ETHYL ALCOHOL (ETHANOL) < 0.003 % (0.000-0.010); GLOMERULAR FILTRATION RATE 6.9 (>56); GLUCOSE, FASTING 109 MG/DL (70-100); MB/CK RELATIVE INDEX 1.28 (< OR =4); POTASSIUM SERUM 4.5 MEQ/L (3.5-5.1); SALICYLATE LEVEL < 1.7 MG/DL (5.0-30.0); SODIUM LEVEL 141 MEQ/L (136-145); TOTAL PROTEIN 6.4 GM/DL (6.4-8.2); TROPONIN I 0.19 NG/ML (< 0.10)
[2019-03-25 04:01] LABS: CK-MB VALUE MASS 1.8 NG/ML (<3.6); MB/CK RELATIVE INDEX 1.48 (< OR =4); TROPONIN I 0.15 NG/ML (< 0.10)
--- NOTE | 2019-03-25 04:19 | ECGEPIP ---
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
[2019-03-25] MEDS ORDERED: PERCOCET 5MG/325MG TAB PO ONE (05:15)
[2019-03-25 06:15] VITALS: BP 155/92
[2019-03-25] MEDS ORDERED: OXYCODONE/APAP 5MG/325MG(BULK FOR ED) 1 TABLET PO ONE (06:15)
--- NOTE | 2019-03-25 07:41 | REP ---
Clinical: Altered mental status. Comparison: 10/21/2018. Findings: Mediastinum and cardiac silhouette are stable with cardiomegaly again appreciated. Lung call demonstrate chronic interstitial changes and bilateral infrahilar fibroatelectatic changes similar to prior examination. Double-lumen central venous catheter with tip in the SVC/right atrium. Epidural stimulator overlies mid thoracic spine. Skeletal structures intact. Impression: Chronic-appearing changes including bibasilar fibroatelectatic change. Clinical correlation is recommended. Electronically Signed by Refugio Faustin MD 03/25/2019 07:32 A
== END 2019-03-25 07:38 | disposition home or self-care (01) ==
LOC: M ED 23:39
DX: G89.18 Other acute postprocedural pain (principal); R00.1 Bradycardia, unspecified; R07.89 Other chest pain; N18.6 End stage renal disease; E11.22 Type 2 diabetes mellitus with diabetic chronic kidney disease; E11.40 Type 2 diabetes mellitus with diabetic neuropathy, unspecified; I12.0 Hypertensive chronic kidney disease with stage 5 chronic kidney disease or end stage renal disease; I25.2 Old myocardial infarction; I25.10 Atherosclerotic heart disease of native coronary artery without angina pectoris; G40.909 Epilepsy, unspecified, not intractable, without status epilepticus; K21.9 Gastro-esophageal reflux disease without esophagitis; E78.5 Hyperlipidemia, unspecified; F32.9 Major depressive disorder, single episode, unspecified; J44.9 Chronic obstructive pulmonary disease, unspecified; M54.5 Low back pain; K59.04 Chronic idiopathic constipation; K31.84 Gastroparesis; M12.9 Arthropathy, unspecified; M81.0 Age-related osteoporosis without current pathological fracture; F41.9 Anxiety disorder, unspecified; G47.30 Sleep apnea, unspecified; Z88.1 Allergy status to other antibiotic agents; Z88.8 Allergy status to other drugs, medicaments and biological substances; Z79.899 Other long term (current) drug therapy; Z79.82 Long term (current) use of aspirin; Z79.4 Long term (current) use of insulin; Z96.1 Presence of intraocular lens; Z98.41 Cataract extraction status, right eye; Z98.42 Cataract extraction status, left eye; Z72.0 Tobacco use; Z99.2 Dependence on renal dialysis
CPT/HCPCS: 36415; 36558; 36600; 70450; 71045; 76937; 77001; 80047; 80048; 80076; 82140; 82550; 82553; 82803; 83605; 83930; 84443; 84484; 85025; 87040; 93005; 93041; 94760; 96360; 96361; 99285; C1750; C1769; C1894; G0480; J2250; J3010

== ENCOUNTER → 2019-03-29 | Outpatient (CLI) | payer MEDICARE, MEDICAID ==
[~2019-03-29] MED LIST changes: +AMIT24CA7 PO; +BUPIVACAINE HCL 0.5% 10 ML VIAL As Ordered ONE; +DULO30CA47 PO; +HYDR-3713 PO; +LIDOCAINE 2% MDV 20 ML VIAL As Ordered ONE; +MINO0.1C PO
[2019-03-29 12:06] VITALS: BP 190/88
--- NOTE | 2019-04-07 08:12 | REPIR ---
DATE OF PROCEDURE: 03/29/2019 PREOPERATIVE DIAGNOSIS: Left arm wound dehiscence. POSTOPERATIVE DIAGNOSIS: Left arm wound dehiscence. PROCEDURE: Left arm wound irrigation and closure of the incision. ATTENDING SURGEON: Dr. Nancy Velásquez ANESTHESIA: Local with 20 mL of 2% lidocaine mixed with 0.5% Marcaine. COMPLICATIONS: None. DRAINS: None. SPECIMENS: None. IMPLANTS: None. INDICATION: The patient is a 53 old male who underwent revision of his left brachiocephalic arteriovenous fistula with removal of aneurysmal tissue. The patient was in the office today and underwent removal of his betty with the wound opening after removal of the betty. The patient will undergo cleaning of the wound and possible closure with possible fistulogram. Risks, benefits and alternative options were discussed with the patient. DESCRIPTION OF PROCEDURE: The patient was taken to the angiography suite, placed supine on the angiography room table and then the left upper extremity was prepped and draped in a standard surgical fashion. There was no signs of infection and the tissue was clean and healing well. The wound was irrigated copiously and then local anesthesia was injected after which the wound was loosely approximated using betty. Dressings were applied. The patient tolerated the procedure well. All instrument, sponge and needle counts were correct at the end of the case. There were no complications. Dr. Velásquez was present for and directed the entire case. The patient was transferred to the recovery room and subsequent discharged in stable condition.
== END ==
LOC: M IRPRO 11:18
PROVIDERS: ATTEND Surgery Vascular Surgery
DX: T81.31XA Disruption of external operation (surgical) wound, not elsewhere classified, initial encounter (principal); N18.6 End stage renal disease; E11.22 Type 2 diabetes mellitus with diabetic chronic kidney disease; X58.XXXA Exposure to other specified factors, initial encounter; Y93.9 Activity, unspecified; Y92.9 Unspecified place or not applicable; Y99.9 Unspecified external cause status

== ENCOUNTER 2019-04-06 15:36 | Inpatient (IN) | payer MEDICARE, MEDICAID ==
[~2019-04-06] VITALS: Ht 167.6 cm; Wt 93.1 kg
[~2019-04-06 15:36] MED LIST changes: -AMIT24CA7 PO; -BUPIVACAINE HCL 0.5% 10 ML VIAL As Ordered ONE; -DULO30CA47 PO; -HYDR-3713 PO; -LIDOCAINE 2% MDV 20 ML VIAL As Ordered ONE; -MINO0.1C PO
--- NOTE | 2019-04-06 15:52 | CR.PDOC ---
General Date of Consultation: Apr 06, [address] Velásquez HPI: 53 year oldM with ESRD with history of left upper extremity AV fistula, status post revision of fistula 09/17/17, 01/24/18, Most recently the patient's AV fistula was revised 03/24/19 with PermCath insertion right chest at that time as per Dr. Velásquez. I do not have an operative report available for review at this time. The patient was subsequently evaluated in the office 03/29/19 at which time the patient's wound had opened after staple removal. The patient was taken for fistulogram and wound closure as per Dr. Velásquez 03/29/19. I do not have a copy of that report for review at this time. The patient returns to the office today for staple removal. The patient states for the past few days he has had diffuse left upper extremity swelling. He reports purulent drainage from the wound left upper extremity. Deborah have been intact. There is surrounding erythema noted. The patient denies fevers or chills. The patient has been receiving hemodialysis via PermCath right chest and the patient states this is functioning. The patient states he had dialysis today. Denies any weakness, fatigue, Headache, Chest Pain, Shortness of breath, cough, palpitations, abdominal pain, N/V/D or changes in bowel or bladder habits. PMHx: ESRD, hemodialysis Wednesday//Wednesday. GERD IDDM Dyslipidemia Hypertension Depression Anxiety Chronic pain COPD Seizure disorder Neuropathy Legal blindness PSHX: Tonsillectomy Cholecystectomy Dorsal column stimulator, currently nonfunctional Splenectomy Focal cord polyp removal AV fistula creation left upper extremity with revision 09/09, 02/07 AV fistula revision 03/24/19 PermCath placement right chest 03/24/19 SOCHX: Tobacco use: Former smoker ETOH: No alcohol in past 5 years Illicit Drugs: Denies ROS: As noted in HPI, otherwise 11pt ROS of systems reviewed and unremarkable. PE: GEN: 53 yo M, appears stated age. The patient is sitting comfortably in the office, No acute distress. Alert and oriented x 3. Pleasant, interactive. HEENT: Normocephalic, atraumatic. Moist mucous membranes. CHEST: Regular rate and rhythm, +S1, +S2 LUNGS: Clear to auscultation bilaterally. ABD: Round, soft, non-tender, non-distended. EXT: No lower extremity edema appreciated. SKIN: There is Deborah intact over surgical site left upper extremity. There is surrounding erythema around the wound. There is purulent brownish yellow drainage noted. Foul odor noted of the drainage. Diffuse left upper extremity swelling is noted. Pulses are palpable ulnar and radial, fingers are warm. Good capillary refill of fingers of the left hand. NEURO: Alert and oriented x 3. Cranial nerves III-XII are intact. No focal defi cits appreciated. A&P: 1. Infected left upper extremity AV fistula. Direct admission as arranged with [facility] hospitalist. Spoke with Dr. Brown who agrees to facilitate admission. Admission vital signs pending. Admission CBC/CMP pending. The patient's wound was noted to be draining purulent drainage. Wound culture is pending. IV antibiotics as per medical team. Check LUE US to r/o DVT. Plan as per Dr. Velásquez is for left upper extremity wound debridement 04/07/19. 2. ESRD. PermCath right chest with no drainage noted. The patient states this has been accessed and has been functioning well for dialysis. Hemodialysis as per nephrology. Vital Signs/I&O Admission vital signs pending. Laboratory Data Labs 24H Admission labs pending. Allergies Coded Allergies: erythromycin base (Verified Allergy, Intermediate, 03/21/19) baclofen (Verified Adverse Reaction, Intermediate, extreme fatigue, 03/21/19) Home Medications Scheduled Aspirin (Aspirin EC) 81 Mg Tab, 81 MG PO DAILY, (Reported) Atorvastatin Calcium (Lipitor) 80 Mg Tab, 80 MG PO QHS, (Reported) Cholecalciferol (Vitamin D3) (Vitamin D3) 1,000 Unit Tab, 1,000 UNIT PO QHS, (Reported) Dexlansoprazole (Dexilant) 30 Mg Cap, 30 MG PO DAILY, (Reported) Duloxetine HCl (Duloxetine HCl) 30 Mg Capsule.dr, 30 MG PO QHS, (Reported) Insulin Detemir (Levemir Flextouch) 100 Unit/Ml Inj, 14 UNIT SC 4XWK, (Reported) TAKES ON WEDNESDAY, WEDNESDAY, WEDNESDAY AND WEDNESDAY AT NIGHT Insulin Detemir (Levemir Flextouch) 100 Unit/1 Ml Insuln.pen, 10 UNIT SC 4XWK, (Reported) TAKES ON WEDNESDAY, WEDNESDAY, WEDNESDAY AND WEDNESDAY IN THE MORNING Insulin Detemir (Levemir Flextouch) 100 Unit/1 Ml Insuln.pen, 8 UNIT SC 3XW, (Reported) TAKES ON WEDNESDAY, WEDNESDAY AND WEDNESDAY IN THE MORNING Insulin Detemir (Levemir Flextouch) 100 Unit/1 Ml Insuln.pen, 12 UNIT SC 3XW, (Reported) TAKES ON WEDNESDAY, WEDNESDAY AND WEDNESDAY AT NIGHT Insulin Human Lispro (Novolog) 100 U/Ml Inj, 1 DOSE SC ACHS, (Reported) PER SLIDING SCALE: 1 UNIT PER 15 GRAMS OF CARBS; CARB COUNTING STARTING AT 1 UNIT PER 100-150 Levetiracetam (Keppra) 500 Mg Tab, 500 MG PO BID, (Reported) Lubiprostone (Amitiza) 24 Mcg Capsule, 24 MCG PO BID, (Reported) Metoprolol Succinate (Metoprolol Succinate) 25 Mg Tab, 12.5 MG PO QHS, (Reported) Patiromer Calcium Sorbitex (Veltassa) 8.4 Gm Powd.pack, 8.4 GM PO 1XWK, (Reported) SUNDAYS Pregabalin (Lyrica) 300 Mg Cap, 300 MG PO QHS, (Reported) Ranitidine Hcl (Zantac) 150 Mg Tab, 1 TAB PO DAILY, (Reported) Sertraline Hcl (Sertraline HCl) 50 Mg Tablet, 50 MG PO DAILY, (Reported) Sevelamer Carbonate (Renvela) 800 Mg Tab, 1,600 MG PO QPM, (Reported) TAKES WITH DINNER Scheduled PRN Hydrocodone/Acetaminophen (Hydrocodone-Acetamin 5-325 mg) 1 Each Tablet, 1 TAB PO Q4H PRN for PAIN, (Reported) Attending Note Attending Note VASCULAR SURGICAL ATTENDING NOTE: Dr. Nancy Velásquez M.D. ASSESSMENT: Patient is a 53-year-old male who underwent revision of his left brachiocephalic arteriovenous fistula with resection of aneurysmal cephalic vein. The patient was seen in follow-up in the deborah were removed with subsequent dehiscence of the incision. The wound was irrigated and loosely closed with deborah after the dehiscence but now the patient has cellulitis around the incision and is draining brown colored fluid. There is still a good thrill palpable in the fistula. The patient continues to dialyze through his right internal jugular vein tunneled central venous catheter. PLAN: The patient will undergo left arm wound debridement and evaluation in the operating room. The procedure was explained and described to the patient in detail including drawing of pictures demonstrating the procedure and pertinent anatomy. Risks, benefits and alternative treatment options were discussed with the patient. Benefits included but were not limited to removal of nonviable tissue to reduce infection, aid in healing and prevent loss of limb or life. Alternative treatment options included but were not limited to no intervention with continued conservative management. Risks included but were not limited to infection, bleeding, possible need for further open surgical intervention, increased wound size, increased wound pain, hematoma formation, scarring, bruising, possible need for transfusion of blood products, complication and/or allergic reaction from the prepping and draping materials, complication and/or allergic reaction to the anesthetic medications, increased size or worsening of the wound, cerebrovascular accident, myocardial infarction, pulmonary embolus, deep venous thrombosis, loss of limb, loss of life, poor satisfaction, poor results and poor outcome. Risks of not performing the procedure included but were not limited to infection, worsening wound size or depth, loss of limb and loss of life. All of the patient's questions were answered. Patient voices understanding and acceptance of these risks, benefits and alternative treatment options and consents to proceed with excisional debridement of the left arm wound. No promises or guarantees were made to the patient regarding the results or outcome of the procedure. Anushka Hanley was the attending vascular surgeon for this patient encounter. The patient was seen, examined, interviewed and evaluated independently by Dr. Pranay Velásquez M.D. was fully available during the consultation evaluation. All aspects of the patient interview, examination, medical decision making process, and medical care plan development were reviewed and approved by Dr. Pranay Velásquez M.D. Dr. Pranay Velásquez M.D. is aware and concurs with the plan as stated in the body of this note and will attest to such by his/her cosignature. Nu Jarrell Apr 06, 2019 15:52 Leon Velásquez MD Apr 07, 2019 13:19
[2019-04-06] MEDS ORDERED: MOM 30ML SUSPENSION UDC PO PRN (16:15)
[2019-04-06] MEDS ORDERED: ACETAMINOPHEN TAB 650MG DOSE (2X325MG) PO PRN (16:15)
[2019-04-06] MEDS ORDERED: MAALOX 30 ML SUSP *UDC PO PRN (16:15)
[2019-04-06] MEDS ORDERED: GLUCOSE 4 GM CHEW TABLET PO PRN (16:30)
[2019-04-06] MEDS ORDERED: DEXTROSE 50% 50 ML SYRINGE IV PRN (16:30)
[2019-04-06] MEDS ORDERED: GLUCAGON FOR INJ 1 MG VIAL (J1610) SC PRN (16:30)
[2019-04-06 16:39] LABS: BASO # 0.2 10^3/uL (0.0-0.2); BASO % 1.8 % (0.0-1.0); EOS # 0.3 10^3/uL (0.0-0.50); EOS % 3.4 % (0.0-3.0); HEMATOCRIT 38.1 % (42.0-52.0); HEMOGLOBIN 12.6 g/dl (13.5-17.5); LYMPH # 2.8 10^3/uL (1.5-4.5); LYMPH % 27.4 % (24.0-44.0); MEAN CORPUSCULAR HEMOGLOBIN 35.5 pg (27.0-33.0); MEAN CORPUSCULAR HGB CONC 33.1 g/dl (32.0-36.5); MEAN CORPUSCULAR VOLUME 107.3 fl (80.0-96.0); MONO # 1.2 10^3/uL (0.0-0.8); MONO % 11.9 % (0.0-5.0); NEUTROPHILS # 5.6 10^3/uL (1.8-7.7); NEUTROPHILS % 55.3 % (36.0-66.0); PLATELET COUNT, AUTOMATED 305 10^3/uL (150-450); RED BLOOD COUNT 3.55 10^6/uL (4.30-6.10); WHITE BLOOD COUNT 10.1 10^3/uL (4.0-10.0)
[2019-04-06 16:58] VITALS: BP 163/70
[2019-04-06 17:01] LABS: ALBUMIN 3.5 GM/DL (3.2-5.2); BILIRUBIN,TOTAL 0.5 MG/DL (0.2-1.0); CALCIUM LEVEL 9.3 MG/DL (8.5-10.1); CREATININE FOR GFR 5.55 MG/DL (0.70-1.30); GLOMERULAR FILTRATION RATE 11.5 (>56); POTASSIUM SERUM 4.9 MEQ/L (3.5-5.1); TOTAL PROTEIN 8.1 GM/DL (6.4-8.2)
--- NOTE | 2019-04-06 17:43 | REP ---
HISTORY: Preoperative evaluation. COMPARISON: A portable examination of 03/25/2019. The double lumen central venous catheter tip is unchanged, remaining in the superior vena cava. The cardiomediastinal silhouette and lung call are essentially unchanged when the technical differences between the examinations are taken into consideration, today's exam, PA and the prior exam AP. No acute patchy parenchymal opacities or pleural effusions have developed. There is no change in the osseous structures. IMPRESSION: Stable findings as described above. Electronically Signed by Etienne Michael DO 04/06/2019 06:04 P
[2019-04-06] MEDS ORDERED: BISACODYL 5 MG TAB PO PRN (17:45)
[2019-04-06] MEDS ORDERED: MORPHINE 4 MG/ML 1ML VIAL/SYRINGE (J2270) IV PRN (17:45)
[2019-04-06] MEDS ORDERED: BISACODYL 10 MG SUPP PR PRN (17:45)
--- NOTE | 2019-04-06 17:57 | HPEPDOC ---
General Date of Admission Apr 06, 2019 at 16:07 Date of Service: Apr 06, [address] Payne, Dr Velásquez; PCP - Tina Simmons Attending Physician: REGINALDO ROSENBERG DO Chief Complaint The patient is a 53-year-old male admitted with a reason for visit of Infected Av Fistula. Source: Patient Exam Limitations: No limitations Timing/Duration: Week(s) (since 03/24 ) Severity: Severe Associated Symptoms: Malaise History of Present Illness 53 year old ESRD , diabetic male direct admission from Dr Velásquez office with infected left AV fistula He recently had left AV fistula revised on 03/24/10 and permCath insertion on right chest wall for dialysis. He recieved dialysis today and then followed up at Dr Velásquez office for staple removal. He states he has had diffuse left upper extremity swelling for 3-4 days with purulent drainage and redness to left arm for 1 week. no fevers, no chills, Patient had hemodialysis today via the PermCath in his right chest. Patient states he refused Vascular US because of intense left arm pain. He states no CP, no SOB, no N, no V, does have constipation for 1-2 weeks Home Medications Scheduled Aspirin (Aspirin EC) 81 Mg Tab, 81 MG PO DAILY, (Reported) Atorvastatin Calcium (Lipitor) 80 Mg Tab, 80 MG PO DAILY, (Reported) Cholecalciferol (Vitamin D3) (Vitamin D3) 1,000 Unit Tab, 1,000 UNIT PO DAILY, (Reported) Dexlansoprazole (Dexilant) 30 Mg Cap, 30 MG PO DAILY, (Reported) Duloxetine Hcl (Cymbalta) 60 Mg Cap, 30 MG PO QHS, (Reported) Insulin Detemir (Levemir Flextouch) 100 Unit/Ml Inj, 8 UNIT SC QAM, (Reported) Insulin Detemir (Levemir Flextouch) 100 Unit/Ml Inj, 14 UNIT SC QHS, (Reported) Insulin Detemir (Levemir Flextouch) 100 Unit/1 Ml Insuln.pen, 12 UNIT SC QPM, (Reported) Insulin Detemir (Levemir Flextouch) 100 Unit/1 Ml Insuln.pen, 10 UNIT SC QAM, (Reported) Insulin Human Lispro (Novolog) 100 U/Ml Inj, 1 DOSE SC ACHS, (Reported) PER SLIDING SCALE Levetiracetam (Keppra) 500 Mg Tab, 500 MG PO BID, (Reported) Lubiprostone (Amitiza) 8 Mcg Cap, 24 MCG PO BID, (Reported) Metoprolol Succinate (Metoprolol Succinate) 25 Mg Tab, 12.5 MG PO DAILY, (Reported) Multivitamins (Thera M Plus Tablet) 1 Tab Tab, 1 TAB PO DAILY, (Reported) Patiromer Calcium Sorbitex (Veltassa) 8.4 Gm Powd.pack, 8.4 GM PO 1XWK, (Reported) Pregabalin (Lyrica) 300 Mg Cap, 300 MG PO QHS, (Reported) Ranitidine Hcl (Zantac) 150 Mg Tab, 1 TAB PO DAILY, (Reported) Sertraline Hcl (Sertraline HCl) 50 Mg Tablet, 50 MG PO DAILY, (Reported) Sevelamer Carbonate (Renvela) 800 Mg Tab, 1,600 MG PO QPM, (Reported) TAKES WITH DINNER. Scheduled PRN Ondansetron (Ondansetron Odt) 4 Mg Tab, 4 MG PO Q4H PRN for NAUSEA, (Reported) Allergies Coded Allergies: erythromycin base (Verified Allergy, Intermediate, 03/21/19) baclofen (Verified Adverse Reaction, Intermediate, extreme fatigue, 03/21/19) Past Medical History Medical History end-stage renal disease (ESRD) on dialysis Wednesday, , Wednesday legally blind, hypertension, hyperlipidemia, chronic obstructive pulmonary disease, Seizure disorder, gastritis, anxiety, diabetes, neuropathy, chronic pain PAST SURGICAL HISTORY: AV fistula with revision in 09/17/2017, , 03/24/19 Permcath insertion right chest wall. Tonsillectomy. Splenectomy. TENS unit in the back. Nerve stimulator in the back for chronic back pain. Vocal cord polyp removal SOCIAL HISTORY: The at bedside. Says he is a former smoker. No alcohol or illicit drug use. He also has a history of COPD. FAMILY HISTORY: Noncontributory. A-FIB/CHADSVASC A-FIB History Current/History of A-Fib/PAF?: No Review of Systems Other systems 10 systems reviewed and negative except as per HPI Physical Examination General Exam: Positive: Alert, Cooperative, No Acute Distress Eye Exam: Positive: PERRLA, EOMI, Other Eye Symptoms (legally blind) ENT Exam: Positive: Atraumatic, Mucous membr. moist/pink Neck Exam: Positive: Supple Chest Exam: Positive: Clear to auscultation, Normal air movement Heart Exam: Positive: Rate Normal, Regular Rhythm, Normal S1, Normal S2; Negative: Murmurs Abdomen Exam: Positive: Normal bowel sounds, Soft (NT ND) Extremity Exam: Positive: Normal pulses, Tenderness (left upper arm; thrill palpable in fistula, good radial pulse onleft; right arm normal . ), Swelling (left upper arm; thrill present; left antecubital with 1cm erythema surrounding approx 4.5cm surgical incision held together with 10 betty; no active pus discharge; serous fluid leakages around betty.); Negative: Clubbing, Cyanosis, Edema Skin Exam: Positive: Other skin issue (as above) Neuro Exam: Positive: Normal Speech, Normal Tone, Sensation Intact Psych Exam: Positive: Mental status NL, Mood NL, Memory Intact, Oriented x 3 Vital Signs BP 140/60, pulse 72, resp 20, afebrile Laboratory Data Labs 24H CBC,CMP,BC,wound culture pending CXR 2 view pending US left upper arm pending Assessment/Plan Cellulitis left forearm with possible infected AV fistula BC and wound culture obtained. ICE prn, elevated. Patient refused US due to severe pain; no signs of sepsis. start unasyn (renal dose). if no improvement consider adding vancomycin. morphine, percocet for pain control. 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 AC/HS accucheck ESRD on dialysis , Wednesday - Dr Payne consulted. right chest wall port used for dialysis; Essential HTN - continue home regimen COPD without exacerbation - continue home regimen Constipation - miralax, colace and prn dulcolax Seizure disorder- continue home regimen DVT prophylaxis: heparin SC CODE STATUS: FULL Plan / VTE VTE Prophylaxis Ordered?: Yes REGINALDO ROSENBERG DO Apr 06, 2019 16:30
[2019-04-06] MEDS: AMPICILLIN SOD/SULBACTAM SOD 3 GM in D5W MINI-BAG PLUS 100 ML IV SCH (18:25)
[2019-04-06] MEDS: HumaLOG INSULIN (NovoLOG) PER UNIT SC SCH ×2 (18:25→20:59)
[2019-04-06] MEDS: PERCOCET 5MG/325MG TAB PO PRN (18:42)
[2019-04-06] MEDS: METOPROLOL SUCC *XL* 12.5MG PER 1/2 TAB (TopROL *XL*) PO SCH (21:00)
[2019-04-06] MEDS: HEPARIN SOD (PORCINE) 5000 UNITS/ML VIAL SC SCH (21:00)
[2019-04-06] MEDS ORDERED: DULO30CA47 PO (21:32)
[2019-04-06 22:00] VITALS: BP 151/76
[2019-04-06] MEDS ORDERED: LEVE1INJ5 SC (22:15)
[2019-04-06] MEDS ORDERED: HYDR-3713 PO (22:15)
[2019-04-06] MEDS ORDERED: AMIT24CA7 PO (22:15)
[2019-04-07] MEDS ORDERED: NORCO, ANEXSIA 5/325MG TABLET (HYDROcodone/ACETAMINOPHEN) PO PRN
[2019-04-07] MEDS ORDERED: ENTER DRUG NAME HERE (PATIENT'S OWN MED) SC SCH ×3
[2019-04-07] MEDS: ATORVASTATIN 20 MG TAB PO SCH ×2 (00:46→21:27)
[2019-04-07] MEDS: DOCUSATE SODIUM 100 MG CAP PO SCH ×3 (00:47→21:27)
[2019-04-07] MEDS: levETIRAcetam 250MG TABLET (KEPPRA) PO SCH ×3 (00:47→21:26)
[2019-04-07] MEDS: PREGABALIN 100 MG CAP (LYRICA) PO SCH ×2 (00:47→21:26)
[2019-04-07] MEDS: MIRALAX *UNIT DOSE* 17GM PACKET PO SCH ×3 (00:47→21:26)
[2019-04-07] MEDS: DULoxetine 30 MG CAP (CYMBALTA) PO SCH ×2 (00:48→21:27)
[2019-04-07] MEDS: VITAMIN D 1,000 INTERNATIONAL UNITS TABLET PO SCH ×2 (00:48→21:27)
[2019-04-07] MEDS: PERCOCET 5MG/325MG TAB PO PRN ×3 (00:50→21:30)
[2019-04-07] MEDS: LEVEMIR (INSULIN DETEMIR) 1 UNITS/0.01ML SC SCH ×3 (00:58→21:29)
[2019-04-07 06:00] VITALS: BP 143/72
[2019-04-07] MEDS: HumaLOG INSULIN (NovoLOG) PER UNIT SC SCH ×4 (07:30→21:00)
[2019-04-07] MEDS ORDERED: ENTER DRUG NAME HERE (PATIENT'S OWN MED) PO SCH (09:00)
[2019-04-07] MEDS: HEPARIN SOD (PORCINE) 5000 UNITS/ML VIAL SC SCH ×2 (09:00→21:00)
[2019-04-07] MEDS ORDERED: MIDAZOLAM INJ 2 MG/2 ML VIAL (J2250) As Ordered ONE (09:34)
[2019-04-07] MEDS ORDERED: fentaNYL 100 MCG/2 ML INJECTION (J3010) As Ordered ONE ×2 (09:34→12:04)
[2019-04-07] MEDS ORDERED: PROPOFOL 500 MG/50 ML VIAL As Ordered ONE (09:35)
--- NOTE | 2019-04-07 09:47 | IPNPDOC ---
Date Seen The patient was seen on 04/07/19. Progress Note Vascular surgery. Dr. Velásquez HPI: 53 year oldM with ESRD with history of left upper extremity AV fistula, status post revision of fistula 09/17/17, 01/24/18, Most recently the patient's AV fistula was revised 03/24/19 with PermCath insertion right chest at that time as per Dr. Velásquez. I do not have an operative report available for review at this time. The patient was subsequently evaluated in the office 03/29/19 at which time the patient's wound had opened after staple removal. The patient was taken for fistulogram and wound closure as per Dr. Velásquez 03/29/19. I do not have a copy of that report for review at this time. The patient returns to the office 04/06/19 for staple removal. The patient re ported he has had diffuse left upper extremity swelling. He reports purulent drainage from the wound left upper extremity. Nathrop have been intact. There is surrounding erythema noted. Admission arranged for surgical debridement of wound. Vascular surgery is consulted. The pt is sitting on side of bed this AM and states still with drainage from LUE AV fistula. Arm is less red and swollen than yesterday, still with pain. The patient has been receiving hemodialysis via PermCath right chest and the patient states this is functioning. Denies any weakness, fatigue, Headache, Chest Pain, Shortness of breath, cough, palpitations, abdominal pain, N/V/D or changes in bowel or bladder habits. PMHx: ESRD, hemodialysis Wednesday//Wednesday. GERD IDDM Dyslipidemia Hypertension Depression Anxiety Chronic pain COPD Seizure disorder Neuropathy Legal blindness PSHX: Tonsillectomy Cholecystectomy Dorsal column stimulator, currently nonfunctional Splenectomy Focal cord polyp removal AV fistula creation left upper extremity with revision 09/09, 02/07 AV fistula revision 03/24/19 PermCath placement right chest 03/24/19 PE: GEN: 53 yo M, appears stated age. Alert and oriented x 3. Pleasant, interactive. HEENT: Normocephalic, atraumatic. Moist mucous membranes. CHEST: Regular rate and rhythm, +S1, +S2 LUNGS: Clear to auscultation bilaterally. ABD: Round, soft, non-tender, non-distended. EXT: No lower extremity edema appreciated. SKIN: There is Deborah intact over surgical site left upper extremity. There is surrounding erythema around the wound. There is purulent yellow drainage noted. diffuse left upper extremity swelling is noted but slightly less than yesterday, Pulses are palpable ulnar and radial, fingers are warm. Good capillary refill of fingers of the left hand. NEURO: Alert and oriented x 3. Cranial nerves III-XII are intact. No focal d eficits appreciated. A&P: 1. Infected left upper extremity AV fistula. Afebrile. WBC 10.1 The patient's wound was noted to be draining purulent drainage. Wound culture is pending. IV antibiotics as per medical team. Pt declined LUE US related to pain Plan as discussed this AM with Dr. Velásquez is for left upper extremity wound debridement 04/07/19. 2. ESRD. PermCath right chest with no drainage noted. The patient states this has been accessed and has been functioning well for dialysis. Hemodialysis as per nephrology. VS, I&O, 24H, Fishbone Vital Signs/I&O Vital Signs Date Time Temp Pulse Resp B/P (MAP) Pulse Ox O2 Delivery O2 Flow Rate FiO2 04/07/19 06:00 98.0 68 18 143/72 (95) 98 2.0 I&O- Last 24 Hours up to 6 AM 04/07/19 06:00 Intake Total 700 ml Balance 700 ml Laboratory Data 24H LABS Laboratory Tests 2 04/06/19 16:27: Immature Granulocyte % (Auto) 0.2, White Blood Count 10.1H, Red Blood Count 3.55L, Hemoglobin 12.6L, Hematocrit 38.1L, Mean Corpuscular Volume 107.3H, Mean Corpuscular Hemoglobin 35.5H, Mean Corpuscular Hemoglobin Concent 33.1, Red Cell Distribution Width 14.5, Platelet Count 305, Neutrophils (%) (Auto) 55.3, Lymphocytes (%) (Auto) 27.4, Monocytes (%) (Auto) 11.9H, Eosinophils (%) (Auto) 3.4H, Basophils (%) (Auto) 1.8H, Neutrophils # (Auto) 5.6, Lymphocytes # (Auto) 2.8, Monocytes # (Auto) 1.2H, Eosinophils # (Auto) 0.3, Basophils # (Auto) 0.2, Nucleated Red Blood Cells % (auto) 0.0, Anion Gap 9, Glomerular Filtration Rate 11.5L, Lactic Acid Level 1.2, Blood Urea Nitrogen 20H, Creatinine 5.55H, Sodium Level 136, Potassium Level 4.9, Chloride Level 98, Carbon Dioxide Level 29, Calcium Level 9.3, Aspartate Amino Transf (AST/SGOT) 28, Alanine Aminotransferase (ALT/SGPT) 29, Alkaline Phosphatase 226H, Total Bilirubin 0.5, Total Protein 8.1, Albumin 3.5, Albumin/Globulin Ratio 0.76L 04/06/19 20:02: Bedside Glucose (Misc Panel) 221H 04/07/19 05:57: Bedside Glucose (Misc Panel) 208H CBC/BMP Laboratory Tests 04/06/19 16:27 Red Blood Count 3.55 L, Mean Corpuscular Volume 107.3 H, Mean Corpuscular Hemoglobin 35.5 H, Mean Corpuscular Hemoglobin Concent 33.1, Red Cell Distribution Width 14.5, Neutrophils (%) (Auto) 55.3, Lymphocytes (%) (Auto) 27.4, Monocytes (%) (Auto) 11.9 H, Eosinophils (%) (Auto) 3.4 H, Basophils (%) (Auto) 1.8 H, Neutrophils # (Auto) 5.6, Lymphocytes # (Auto) 2.8, Monocytes # (Auto) 1.2 H, Eosinophils # (Auto) 0.3, Basophils # (Auto) 0.2, Calcium Level 9.3, Aspartate Amino Transf (AST/SGOT) 28, Alanine Aminotransferase (ALT/SGPT) 29, Alkaline Phosphatase 226 H, Total Bilirubin 0.5, Total Protein 8.1, Albumin 3.5 Microbiology Microbiology 04/06/19 Blood Culture, Received Pending 04/06/19 Gram Stain, Received Pending 04/06/19 Abscess Culture, Received Pending 04/06/19 Gram Stain, Received Pending 04/06/19 Wound Culture, Received Pending Attending Note Attending Note VASCULAR SURGICAL ATTENDING NOTE: Dr. Nancy Velásquez M.D. The patient was seen on 04/07/19 at 13:42. ASSESSMENT: Patient underwent debridement and placement of a VAC dressing on the infected left arm incision and wound from his left autogenous arteriovenous fistula revision. The fistula is still patent with a good thrill palpable. PLAN: Plan will be for VAC dressing change with a white sponge on the wound and a black sponge on top of the white sponge every Wednesday and Wednesday. Anushka Hanley. was the attending vascular surgeon for this patient encounter. The patient was seen, examined, interviewed and evaluated independently by Dr. Pranay Velásquez M.D. Dr. Pranay Velásquez M.D. was fully available during the consultation evaluation. All aspects of the patient interview, examination, medical decision making process, and medical care plan development were reviewed and approved by Dr. Pranay Velásquez M.D. Dr. Pranay Velásquez M.D. is aware and concurs with the plan as stated in the body of this note and will attest to such by his/her cosignature. Nu Jarrell Apr 07, 2019 09:47 Leon Velásquez MD Apr 07, 2019 13:44
[2019-04-07] MEDS: fentaNYL 100 MCG/2 ML INJECTION (J3010) IV PRN ×2 (12:05→12:10)
[2019-04-07] MEDS ORDERED: NS 1,000 ML IV SCH (12:15)
[2019-04-07] MEDS ORDERED: ONDANSETRON 4MG/2ML VIAL (J2405) IV PRN (12:15)
[2019-04-07] MEDS ORDERED: METOCLOPRAMIDE INJ 10MG/2ML VIAL (J2765) IV PRN (12:15)
[2019-04-07 12:56] VITALS: BP 173/77
[2019-04-07] MEDS: ASPIRIN 81 MG ENTERIC TAB PO SCH (13:12)
[2019-04-07] MEDS: raNITIdine SYRUP 150 MG/10 ML UDC PO SCH (13:12)
[2019-04-07] MEDS: SERTRALINE HCL 50 MG TAB PO SCH (13:12)
--- NOTE | 2019-04-07 13:33 | ROOPDOC ---
[facility] Report Of Operation Report of Operation DATE OF PROCEDURE: 04/07/2019 PREOPERATIVE DIAGNOSES: Left arm incisional dehiscence and wound infection. POSTOPERATIVE DIAGNOSES: Left arm incisional dehiscence and wound infection. WOUND DESCRIPTION: The wound was closed with betty and was draining brown fluid and at the completion of the debridement the wound measured 6 cm in length by 2 cm in width and 1 cm in depth. PROCEDURE: Excisional debridement of left upper arm incision and wound with removal of skin subcutaneous tissue and muscle. VAC dressing placement. SURGEON: Dr. Nancy Velásquez M.D. WHISKEY PROOF READER: None INDICATION: Patient is a 53-year-old male with diabetes mellitus and end-stage real disease who underwent revision of his aneurysmal left brachiocephalic autogenous arteriovenous fistula. Patient was doing well postoperatively and the betty were removed with resultant dehiscence of the incision. The wound was closed loosely with betty after irrigating the wound. The patient subsequently followed up with cellulitis in the arm as well as pain and drainage of brown fluid from the incision. Patient was evaluated and the recommendation was to undergo opening of the incision with removal of betty and debridement of the wound. The procedure was explained and described to the patient in detail including drawing of pictures demonstrating the procedure pertinent anatomy. Risks, benefits and alternative treatment options were discussed with the patient. Benefits included but were not limited to removal of nonviable tissue to reduce infection, aid in healing and prevent loss of limb or life. Alternative treatment options included but were not limited to no intervention with continued conservative management. Risks included but were not limited to infection, bleeding, renal failure requiring hemodialysis, possible need for further open surgical intervention, increased wound size, increased wound pain, hematoma formation, scarring, bruising, possible need for transfusion of blood products, complication and/or allergic reaction from the prepping and draping materials, complication and/or allergic reaction to the anesthetic medications, increased size or worsening of the wound, cerebrovascular accident, myocardial infarction, pulmonary embolus, deep venous thrombosis, loss of limb, loss of life, poor satisfaction, poor results and poor outcome. Risks of not performing the procedure included but were not limited to infection, worsening wound size or depth, loss of limb and loss of life. All of the patient's questions were answered. Patient voices understanding and acceptance of these risks, benefits and alternative treatment options and consents to proceed with excisional debridement of the left upper arm wound. No promises or guarantees were made to the patient regarding the results or outcome of the procedure. ANESTHESIA: Mac. ESTIMATED BLOOD LOSS: 10 mL. IV FLUIDS: 50 mL HEPARIN: None PROTAMINE: None COMPLICATIONS: None. DRAINS: None SPECIMENS: None IMPLANTS: None PROCEDURE: Patient was taken to the operating room, placed supine on the operating room table and the patient was prepped and draped in a standard surgical fashion. A surgical time out confirming the correct patient, procedure and laterality was then performed by myself and the team members within the operating room. The betty were removed from the incision. There was no pus or abscess identified. Excisional debridement was then performed with pickups and a scalpel with excision of all nonviable skin, subcutaneous tissue and muscle down to healthy bleeding tissue. The wound was then irrigated with saline solution. A VAC dressing was then applied using white sponge to cover the tissue and a black sponge placed on top of the white sponge. Dressings were then applied. All instruments sponge and needle counts were correct at the end of the case. There were no complications. Dr. Velásquez was present for and directed the entire case. Patient was transferred to the recovery room awake, alert, extubated and in stable condition. The results of the procedure were explained and described to the patient in the recovery room with all of his questions being answered. The results of the procedure were not explained and described to the patient's girlfriend in the surgical waiting room postoperatively as she was unable to be spoken with due to being outside smoking a cigarette. CONCLUSION: Patient underwent successful opening and debridement of the previous incision for his left autogenous brachiocephalic arteriovenous fistula revision. There was good healthy tissue after debridement and there was a good thrill remaining in the fistula at the completion of the debridement. A VAC dressing was applied to the wound. PLAN: Patient will undergo continued VAC dressing with changes Wednesday and Wednesday. Leon Velásquez MD Apr 07, 2019 13:33
[2019-04-07 14:00] VITALS: BP 150/65
[2019-04-07] MEDS: (RENVELA) SEVELAMER **CARBONate** 800 MG TAB PO SCH (17:41)
[2019-04-07] MEDS: AMPICILLIN SOD/SULBACTAM SOD 3 GM in D5W MINI-BAG PLUS 100 ML IV SCH (17:41)
--- NOTE | 2019-04-07 18:01 | IPNPDOC ---
Text Note Date of Service The patient was seen on 04/07/19. NOTE S: patient states had wound debrided and wound vac placed. States left upper arm still swollen and painful. no fever. O: Vitals as below General: mild to moderate distress, AAOx3 HRRR LCTA with bibas rales Ext: left arm edema with wound vac in place, minimal erythema surrounding incision site A/P: 1) Cellulitis left forearm with possible infected AV fistula BC pending; and wound culture with gram + cocci in pairs,chains and clusters; no signs of sepsis. Continue unasyn (renal dose). Debridement of left forearm fistula/wound 04/07/19 (note pending) 2) Diabetes on care home insulin with hyperglycemia - continue levemir and SSI. AC/HS accucheck 3) ESRD on dialysis , Wednesday - Dr Payne consulted. right chest wall port used for dialysis; 4) Essential HTN - continue home regimen; BP running alittle high due to pain component 5) COPD without exacerbation - continue home regimen 6) Constipation - miralax, colace and prn dulcolax 7) Seizure disorder- continue home regimen VS,Fishbone, I+O VS, Fishbone, I+O Vital Signs Date Time Temp Pulse Resp B/P (MAP) Pulse Ox O2 Delivery O2 Flow Rate FiO2 04/07/19 14:00 97.6 68 18 150/65 (93) 92 04/07/19 11:41 10 I&O- Last 24 Hours up to 6 AM 04/07/19 06:00 Intake Total 700 ml Balance 700 ml REGINALDO ROSENBERG DO Apr 07, 2019 18:01
[2019-04-07] MEDS: METOPROLOL SUCC *XL* 12.5MG PER 1/2 TAB (TopROL *XL*) PO SCH (21:28)
[2019-04-07 22:00] VITALS: BP 118/76
--- NOTE | 2019-04-08 | CR ---
DATE OF CONSULTATION: 04/07/2019 NEPHROLOGY CONSULTATION FOR: Naomi Brown DO REASON FOR CONSULTATION: To assist in the management of end-stage renal disease. HISTORY OF PRESENT ILLNESS: Mr. Jolley is a 53-year-old gentleman who was admitted yesterday because of infected arteriovenous (AV) fistula left arm. The patient was dialyzed prior to admission. Mr. Colton Jolley is a 53-year-old gentleman with known history of longstanding diabetes, hypertension, depression, end-stage renal disease and associated problems. He recently had problems with his left arm AV fistula and had surgery. He still has betty in the incision, and yesterday he was found to have purulent drainage from the incision site. He is currently being dialyzed via a Perma-Cath. The patient was seen by Dr. Velásquez yesterday and felt that the patient will need further surgery for infected fistula and was admitted by hospitalist service. The patient denies any fever or chills. PAST MEDICAL HISTORY: Significant for: 1. Longstanding history of type 2 diabetes. 2. Hypertension. 3. End-stage renal disease. 4. History of diabetic retinopathy, legally blind. 5. Hyperlipidemia. 6. Chronic obstructive pulmonary disease (COPD). 7. History of seizure disorder. 8. Anxiety. 9. History of gastritis and gastroesophageal reflux disease (GERD). 10. History of chronic back pain. PAST SURGICAL HISTORY: Significant for: 1. AV fistula creation and a revision of AV fistula. 2. Perma-Cath insertion right internal jugular vein. 3. History of tonsillectomy. 4. Splenectomy. 5. History of dorsal stimulator implant. 6. History of vocal cord polyp removal. PERSONAL AND SOCIAL HISTORY: The patient is a former smoker. Denies any alcohol or drug use. He lives with his . FAMILY HISTORY: Negative for end-stage renal disease. MEDICATIONS: His home medications include aspirin 81 mg daily, atorvastatin 80 mg daily, vitamin D 1000 units daily, Dexilant 30 mg daily, Cymbalta 60 mg half tablet daily, Levemir insulin 8 units in the morning, 14 units at bedtime. Humalog insulin per sliding scale, Keppra 500 mg twice a day, Amitiza 8 mcg three capsules daily, metoprolol 25 mg half a tablet daily, multivitamin one tablet daily, Veltassa 8.4 grams once a week, Lyrica 300 mg at bedtime, Zantac 150 mg daily, sertraline 50 mg daily, and Renvela 800 mg two tablets three times a day with meals. He also uses Zofran 4 mg as needed for nausea. ALLERGIES: He has allergy to ERYTHROMYCIN and BACLOFEN. REVIEW OF SYSTEMS: The patient denies any fever or chills. He was noticed to have purulent drainage from the surgical incision for his left arm AV fistula. He is somewhat hard of hearing. He denies any sore throat or nosebleed. Cardiovascular system is negative for dyspnea or chest pain. Respiratory system is significant for COPD. The patient denies any cough or hemoptysis. He does have pain in his right lower rib cage in the back. Gastrointestinal (GI) system is negative for nausea, vomiting or diarrhea. Genitourinary () system is negative for dysuria or hematuria. Endocrine system is significant for secondary hyperparathyroidism. Hematological system: Significant for anemia of chronic kidney disease. Psychosocial system: Significant for depression or anxiety. Neurological system: Significant for seizure disorder. PHYSICAL EXAMINATION: The patient is awake and alert and at his baseline mentation. He is sitting at the edge of bed. Temperature is 98.0 degrees Fahrenheit, heart rate 68 per minute and respiratory rate 18 per minute. Blood pressure 143/72 mmHg and oxygen saturation 98% on 2 liters of oxygen. Head is atraumatic. Neck is supple and without jugular venous distention (JVD) or thyroid enlargement. Perma-Cath in right internal jugular vein is present with exit on right upper chest without any signs of infection. Heart sounds are regular and lungs sound clear to auscultation. Abdomen: Soft and nontender and bowel sounds are normal. Extremities: Without any cyanosis or clubbing. Left arm AV fistula incision site with purulent drainage on the dressing. [place] are still present. Neurologically he is awake, alert and at his baseline mentation. LABORATORY DATA: His labs from yesterday show a WBC count of 10.1, hemoglobin 12.6 and hematocrit 38.1. Sodium 136, potassium 4.9, CO2 of 29, BUN 20 and creatinine 5.55. Glucose 155 and lactic acid level was 1.2. Albumin 3.5 and total protein 8.1. Wound culture is still pending. Gram stain did show moderate gram positive cocci in pairs, chains and clusters. PROBLEM #1: End-stage renal disease. The patient was dialyzed yesterday prior to admission. He will be scheduled for next dialysis tomorrow. At present his volume status is well compensated and electrolytes were within normal range. There is no emergent indication for dialysis today. PROBLEM #2: Hypertension. Blood pressure seems well controlled, and he should continue with his low-dose beta kady. He does have a history of low blood pressure during dialysis and does not require too many antihypertensives. PROBLEM #3: Anemia. Anemia is stable and would not need any urgent intervention. PROBLEM #4: Infected AV fistula left arm. The patient has been seen by Dr. Velásquez and is going to have surgical debridement and cleaning. He is currently on Unasyn pending cultures. The patient is afebrile, so I will not add any antibiotics at this point, waiting for cultures. Thank you for involving me in the care of Mr. Jolley. I will follow him along with you.
[2019-04-08] MEDS: PERCOCET 5MG/325MG TAB PO PRN ×3 (04:09→21:37)
[2019-04-08 06:00] VITALS: BP 137/75
[2019-04-08] MEDS: raNITIdine SYRUP 150 MG/10 ML UDC PO SCH (06:37)
[2019-04-08] MEDS: MIRALAX *UNIT DOSE* 17GM PACKET PO SCH ×2 (06:37→21:31)
[2019-04-08] MEDS: ASPIRIN 81 MG ENTERIC TAB PO SCH (06:38)
[2019-04-08] MEDS: DOCUSATE SODIUM 100 MG CAP PO SCH ×2 (06:38→21:30)
[2019-04-08] MEDS: SERTRALINE HCL 50 MG TAB PO SCH (06:38)
[2019-04-08] MEDS: levETIRAcetam 250MG TABLET (KEPPRA) PO SCH ×2 (06:38→21:31)
[2019-04-08 07:13] LABS: HEMATOCRIT 32.2 % (42.0-52.0); HEMOGLOBIN 10.8 g/dl (13.5-17.5); MEAN CORPUSCULAR HEMOGLOBIN 36.9 pg (27.0-33.0); MEAN CORPUSCULAR HGB CONC 33.5 g/dl (32.0-36.5); MEAN CORPUSCULAR VOLUME 109.9 fl (80.0-96.0); PLATELET COUNT, AUTOMATED 298 10^3/uL (150-450); RED BLOOD COUNT 2.93 10^6/uL (4.30-6.10); WHITE BLOOD COUNT 7.8 10^3/uL (4.0-10.0)
[2019-04-08] MEDS: HumaLOG INSULIN (NovoLOG) PER UNIT SC SCH ×4 (07:30→21:34)
[2019-04-08 07:49] LABS: ALBUMIN 2.7 GM/DL (3.2-5.2); BILIRUBIN,TOTAL 0.4 MG/DL (0.2-1.0); CALCIUM LEVEL 8.7 MG/DL (8.5-10.1); CREATININE FOR GFR 9.33 MG/DL (0.70-1.30); GLOMERULAR FILTRATION RATE 6.3 (>56); POTASSIUM SERUM 5.6 MEQ/L (3.5-5.1); TOTAL PROTEIN 6.8 GM/DL (6.4-8.2)
[2019-04-08] MEDS ORDERED: LEVEMIR (INSULIN DETEMIR) 1 UNITS/0.01ML SC SCH (09:00)
[2019-04-08] MEDS: HEPARIN SOD (PORCINE) 5000 UNITS/ML VIAL SC SCH ×2 (09:00→20:09)
[2019-04-08] MEDS ORDERED: HEPARIN 1,000 UNITS/ML 10ML VIAL (FOR RADIOLOGY& DIALYSIS ONLY) IV ONE (09:30)
[2019-04-08] MEDS ORDERED: HEPARIN 1,000 UNITS/ML 10ML VIAL (FOR RADIOLOGY& DIALYSIS ONLY) XX ONE (09:30)
[2019-04-08 14:00] VITALS: BP 115/55
[2019-04-08] MEDS: AMPICILLIN SOD/SULBACTAM SOD 3 GM in D5W MINI-BAG PLUS 100 ML IV SCH (17:39)
[2019-04-08] MEDS: (RENVELA) SEVELAMER **CARBONate** 800 MG TAB PO SCH (17:41)
--- NOTE | 2019-04-08 19:52 | IPNPDOC ---
Text Note Date of Service The patient was seen on 04/08/19. NOTE S: patient states he plans to leave tomorrow because tired of being in hospital (with or without wound vac). HE states less arm pain (throbbing). no fever. Patient recevied dialysis today via port O: Vitals as below General: sullen, sleeping but awakes with verbal stimuli; AAOx3 (girlfriend present) HRRR LCTA Ext: left fistula with no thrill but palpable pulse. wound vac intact. erythema surrounding area of wound vac A/P: 1) Cellulitis left forearm with infected AV fistula (staph aureus - resistent to clindamycin, emycin and PCN BC pending; and wound culture with gram + cocci in pairs,chains and clusters; no signs of sepsis. D/C unasyn and start doxycycline Debridement of left forearm fistula/wound 04/07/19 case management working on obtaining wound vac 2) Diabetes on [employer] terminal insulin with hyperglycemia - continue levemir and SSI. AC/HS accucheck 3) ESRD on dialysis , Wednesday - Dr Payne consulted. right chest wall port used for dialysis; 4) Essential HTN - continue home regimen; BP running alittle high due to pain component 5) COPD without exacerbation - continue home regimen 6) Constipation - miralax, colace and prn dulcolax 7) Seizure disorder- continue home regimen VS,Fishbone, I+O VS, Fishbone, I+O Laboratory Tests 04/08/19 06:17 Red Blood Count 2.93 L, Mean Corpuscular Volume 109.9 H, Mean Corpuscular Hemoglobin 36.9 H, Mean Corpuscular Hemoglobin Concent 33.5, Red Cell D istribution Width 14.0, Calcium Level 8.7, Aspartate Amino Transf (AST/SGOT) 44 H, Alanine Aminotransferase (ALT/SGPT) 35, Alkaline Phosphatase 179 H, Total Bilirubin 0.4, Total Protein 6.8, Albumin 2.7 #L Vital Signs Date Time Temp Pulse Resp B/P (MAP) Pulse Ox O2 Delivery O2 Flow Rate FiO2 04/08/19 14:00 97.6 61 18 115/55 (75) 94 04/07/19 11:41 10 I&O- Last 24 Hours up to 6 AM 04/08/19 06:00 Intake Total 1370 ml Output Total 10 ml Balance 1360 ml REGINALDO ROSENBERG DO Apr 08, 2019 19:52
[2019-04-08] MEDS: METOPROLOL SUCC *XL* 12.5MG PER 1/2 TAB (TopROL *XL*) PO SCH (21:00)
[2019-04-08] MEDS: DULoxetine 30 MG CAP (CYMBALTA) PO SCH (21:30)
[2019-04-08] MEDS: VITAMIN D 1,000 INTERNATIONAL UNITS TABLET PO SCH (21:30)
[2019-04-08] MEDS: ATORVASTATIN 20 MG TAB PO SCH (21:31)
[2019-04-08] MEDS: PREGABALIN 100 MG CAP (LYRICA) PO SCH (21:31)
[2019-04-08] MEDS: MINOCYCLINE 50 MG CAP PO SCH (21:31)
[2019-04-08] MEDS: LEVEMIR (INSULIN DETEMIR) 1 UNITS/0.01ML SC SCH (21:34)
[2019-04-08 22:00] VITALS: BP 117/56
[2019-04-09 06:00] VITALS: BP 120/56
[2019-04-09] MEDS: HumaLOG INSULIN (NovoLOG) PER UNIT SC SCH ×4 (07:30→21:34)
[2019-04-09] MEDS: PERCOCET 5MG/325MG TAB PO PRN ×3 (07:33→22:47)
[2019-04-09] MEDS: MINOCYCLINE 50 MG CAP PO SCH ×2 (07:33→21:32)
[2019-04-09] MEDS: levETIRAcetam 250MG TABLET (KEPPRA) PO SCH ×2 (07:34→21:32)
[2019-04-09] MEDS: DOCUSATE SODIUM 100 MG CAP PO SCH ×2 (07:34→21:31)
[2019-04-09] MEDS: ASPIRIN 81 MG ENTERIC TAB PO SCH (07:34)
[2019-04-09] MEDS: SERTRALINE HCL 50 MG TAB PO SCH (07:39)
[2019-04-09] MEDS: raNITIdine SYRUP 150 MG/10 ML UDC PO SCH (07:39)
[2019-04-09] MEDS: MIRALAX *UNIT DOSE* 17GM PACKET PO SCH ×2 (07:40→21:32)
[2019-04-09] MEDS: HEPARIN SOD (PORCINE) 5000 UNITS/ML VIAL SC SCH ×2 (09:00→21:00)
[2019-04-09] MEDS: LEVEMIR (INSULIN DETEMIR) 1 UNITS/0.01ML SC SCH ×2 (09:00→21:33)
--- NOTE | 2019-04-09 11:04 | IPN ---
DATE OF VISIT: 04/08/2019 Mr. Jolley is seen this morning during hemodialysis. Perma-Cath is being used for dialysis. He had left arm AV fistula surgery done yesterday for infection and after debridement he now has a wound Vac dressing on it. The patient denies any fever or chills. His blood cultures have been negative so far. Wound culture did grow Staph aureus and he has been on Unasyn. The patient denies any dyspnea, chest pain, fever, chills, nausea or vomiting. On physical examination, temperature 97.9 degrees Fahrenheit, heart rate 68 per minute and respiratory rate 18 per minute. Blood pressure 137/75 mmHg and oxygen saturation 98% on room air. Right internal jugular vein hemodialysis catheter is being used. His head is atraumatic. Neck is supple and without jugular venous distention (JVD) or thyroid enlargement. Heart sounds are regular and lungs clear to auscultation. Abdomen soft and nontender and bowel sounds are present. Extremities without any cyanosis or clubbing. Left arm AV fistula site now has a wound Vac dressing. Today's labs show WBC count 7.8, hemoglobin 10.8 and hematocrit 32.2. Platelets 298. Sodium 134, potassium 5.6, CO2 of 31, BUN 50 and creatinine 9.44. Calcium level is 8.7. PROBLEMS: 1. End-stage renal disease. The patient is being dialyzed and he is tolerating his dialysis treatment very well. Perma-Cath is being used for dialysis. 2. Infected left arm AV fistula. The patient had debridement and cleaning of his wound. Now he has a wound Vac dressing on it. He remains on Unasyn and is currently afebrile. 3. Hypertension. Blood pressure is currently well-controlled on current medications and no changes are being made today. 4. Hyperkalemia. He does have hyperkalemia related to end-stage renal disease and the patient is being dialyzed with 2.0 mEq potassium bath. His hyperkalemia will correct. 5. Anemia. His anemia is mild and stable and does not need any urgent intervention.
[2019-04-09] MEDS ORDERED: PATIROMER SORBITEX CALCIUM 8.4 GM POWDER PACKET (VELTASSA) PO SCH (12:00)
[2019-04-09 14:00] VITALS: BP 130/60
--- NOTE | 2019-04-09 16:59 | IPNPDOC ---
Text Note Date of Service The patient was seen on 04/09/19. NOTE S: patient states minimal arm pain, no fever. wants to go home as daughter is leaving for college in 3 days. had asymptomatic episode of hypoglycemi today - resolved with juice. O: Vitals as below General: pleasant NAD AAOx3 HRRR no murmur LCTA no W/R/R Ext: left arm fistula with wound vac present. +thrill above area of wound vac, no skin erythema. A/P: 1) Cellulitis left forearm with infected AV fistula (staph aureus - resistent to clindamycin, emycin and PCN BC pending; and wound culture with gram + cocci in pairs,chains and clusters; no signs of sepsis. D/C unasyn and start minocycline Debridement of left forearm fistula/wound 04/07/19 case management working on obtaining wound vac. patient states if wound vac not available for home/discharge tomorrow, he will leave without wound vac. 2) Diabetes on [employer] insulin with hyperglycemia and hypoglycemia- continue levemir and SSI. AC/HS accucheck 3) ESRD on dialysis ,, Wednesday - Dr Payne consulted. right chest wall port used for dialysis; 4) Essential HTN - continue home regimen; BP running alittle high due to pain component 5) COPD without exacerbation - continue home regimen 6) Constipation - miralax, colace and prn dulcolax 7) Seizure disorder- continue home regimen Disposition: anticipate d/c tomorrow - Wednesday04/10/19 VS,Fishbone, I+O VS, Fishbone, I+O Vital Signs Date Time Temp Pulse Resp B/P (MAP) Pulse Ox O2 Delivery O2 Flow Rate FiO2 04/09/19 07:33 18 04/09/19 06:00 98.1 52 120/56 (77) 95 04/07/19 11:41 10 I&O- Last 24 Hours up to 6 AM 04/09/19 06:00 Intake Total 2140 ml Output Total 3000 ml Balance -860 ml REGINALDO ROSENBERG DO Apr 09, 2019 08:37
[2019-04-09] MEDS: (RENVELA) SEVELAMER **CARBONate** 800 MG TAB PO SCH (17:53)
[2019-04-09 21:29] VITALS: BP 164/72
[2019-04-09 21:31] VITALS: BP 164/72
[2019-04-09] MEDS: ATORVASTATIN 20 MG TAB PO SCH (21:31)
[2019-04-09] MEDS: METOPROLOL SUCC *XL* 12.5MG PER 1/2 TAB (TopROL *XL*) PO SCH (21:31)
[2019-04-09] MEDS: PREGABALIN 100 MG CAP (LYRICA) PO SCH (21:31)
[2019-04-09] MEDS: VITAMIN D 1,000 INTERNATIONAL UNITS TABLET PO SCH (21:31)
[2019-04-09] MEDS: DULoxetine 30 MG CAP (CYMBALTA) PO SCH (21:32)
[2019-04-10] MEDS: PERCOCET 5MG/325MG TAB PO PRN ×2 (05:46→13:56)
[2019-04-10 06:00] VITALS: BP 158/72
[2019-04-10 07:05] LABS: HEMATOCRIT 33.9 % (42.0-52.0); HEMOGLOBIN 11.3 g/dl (13.5-17.5); MEAN CORPUSCULAR HEMOGLOBIN 36.7 pg (27.0-33.0); MEAN CORPUSCULAR HGB CONC 33.3 g/dl (32.0-36.5); MEAN CORPUSCULAR VOLUME 110.1 fl (80.0-96.0); PLATELET COUNT, AUTOMATED 328 10^3/uL (150-450); RED BLOOD COUNT 3.08 10^6/uL (4.30-6.10)
[2019-04-10 07:56] LABS: ALBUMIN 2.8 GM/DL (3.2-5.2); CALCIUM LEVEL 8.8 MG/DL (8.5-10.1); CREATININE FOR GFR 9.28 MG/DL (0.70-1.30); GLOMERULAR FILTRATION RATE 6.3 (>56); PHOSPHORUS LEVEL 4.6 MG/DL (2.5-4.9)
[2019-04-10] MEDS: ASPIRIN 81 MG ENTERIC TAB PO SCH (08:36)
[2019-04-10] MEDS: SERTRALINE HCL 50 MG TAB PO SCH (08:37)
[2019-04-10] MEDS: levETIRAcetam 250MG TABLET (KEPPRA) PO SCH (08:37)
[2019-04-10] MEDS: raNITIdine SYRUP 150 MG/10 ML UDC PO SCH (08:37)
[2019-04-10] MEDS: DOCUSATE SODIUM 100 MG CAP PO SCH (08:37)
[2019-04-10] MEDS: MIRALAX *UNIT DOSE* 17GM PACKET PO SCH (08:37)
[2019-04-10] MEDS: HEPARIN SOD (PORCINE) 5000 UNITS/ML VIAL SC SCH ×2 (08:37→09:00)
[2019-04-10] MEDS: MINOCYCLINE 50 MG CAP PO SCH (08:37)
[2019-04-10] MEDS: LEVEMIR (INSULIN DETEMIR) 1 UNITS/0.01ML SC SCH (08:38)
[2019-04-10] MEDS: HumaLOG INSULIN (NovoLOG) PER UNIT SC SCH ×3 (08:38→13:55)
[2019-04-10] MEDS ORDERED: SOD POLYSTYRENE SULFONATE SUSP 15 GM/60 ML UD PO ONE ×2 (10:00→15:00)
[2019-04-10] MEDS ORDERED: MINO0.1C PO (12:17)
--- NOTE | 2019-04-10 12:21 | DS.PDOC ---
Discharge Summary General Date of Admission Apr 06, 2019 at 16:07 Date of Discharge 04/10/19 Attending Physician: REGINALDO ROSENBERG DO Specialist/Consultants Involve: FITZ VAZQUEZ MD @ Specialist/Consultants Involve Dr Velásquez Discharge Summary PROCEDURES PERFORMED DURING STAY: S/P wound debridement as per Dr Velásquez 04/07/19 Dialysis 04/08/19 Wound Vac 04/08-04/10 ADMITTING DIAGNOSES: Cellulitis left forearm with possible infected AV fistula Diabetes on detention insulin with hyperglycemia - ESRD on dialysis Essential HTN COPD without exacerbation Constipation Seizure disorder DISCHARGE DIAGNOSES: Cellulitis left forearm with possible infected AV fistula Diabetes on roasterman insulin with hyperglycemia and hypoglycemia Hyperkalemia due to ESRD ESRD on dialysis Essential HTN COPD without exacerbation Constipation Seizure disorder COMPLICATIONS/CHIEF COMPLAINT: Infected Av Fistula. HISTORY OF PRESENT ILLNESS: 53 year old ESRD , diabetic male direct admission from Dr Velásquez office with infected left AV fistula He recently had left AV fistula revised on 03/24/10 and permCath insertion on right chest wall for dialysis. He recieved dialysis today and then followed up at Dr Velásquez office for staple removal. He states he has had diffuse left upper extremity swelling for 3-4 days with purulent drainage and redness to left arm for 1 week. no fevers, no chills, Patient had hemodialysis today via the PermCath in his right chest. Patient states he refused Vascular US because of intense left arm pain. He states no CP, no SOB, no N, no V, does have constipation for 1-2 weeks. See H&P for details HOSPITAL COURSE: Patient admitted, placed on IV unasyn. wound I&D performed and cultures showed Staph Aureus resistant to PCN. His IV antibiotics were changed to oral minocycline. He continued to improve and wound vac placed. Patient had dialysis on 04/08/19 and an episode of hypoglycemia on 04/09. He had hyperkalemia the morning of discharge, was treated with kayexalate with improvement. He is scheduled for dialysis tomorrow. He is being discharged in stable and improved condition WITHOUT the wound vac. He will have daily foam dressing changes as per Dr Velásquez orders and will follow up with Dr Velásquez in 1 week. Patient is NOT being discharged AMA. DISCHARGE MEDICATIONS: Please see below. ALLERGIES: Please see below. PHYSICAL EXAMINATION ON DISCHARGE: VITAL SIGNS: Please see below. General: pleasant, NAD AAOx3 HRRR LCTA Ext: left upper arm wound covered/bandaged - exam per Dr Velásquez notes LABORATORY DATA: Please see below. PROGNOSIS: Fair -depending on compliance ACTIVITY: as tolerated DIET: as tolerated DISCHARGE PLAN:Home with home health DISCHARGE INSTRUCTIONS: 1. [address] Velásquez 2. wound care per dr velásquez - FOAM DRESSING DAILY 3. tu thur sat dialysis 4. keep wound clean/dry/covered. 5. He will return to ED if purulent drainage or worsening erythema or fever. DISCHARGE CONDITION:stable TIME SPENT ON DISCHARGE: 35 minutes. Vital Signs/I&Os Vital Signs Date Time Temp Pulse Resp B/P (MAP) Pulse Ox O2 Delivery O2 Flow Rate FiO2 04/10/19 06:16 16 04/10/19 06:00 97.6 58 158/72 (100) 93 04/07/19 11:41 10 I&O- Last 24 Hours up to 6 AM 04/10/19 06:00 Intake Total 1360 ml Balance 1360 ml Laboratory Data Labs 24H Laboratory Tests 2 04/09/19 17:07: Bedside Glucose (Misc Panel) 480H 04/09/19 20:41: Bedside Glucose (Misc Panel) 376H 04/10/19 06:14: Nucleated Red Blood Cells % (auto) 0.2H, Blood Urea Nitrogen 53H, Creatinine 9.28*H, Sodium Level 132L, Potassium Level 7.0*H, Chloride Level 96L, Carbon Dioxide Level 26, Anion Gap 10, Glomerular Filtration Rate 6.3L, Calcium Level 8.8, Phosphorus Level 4.6, Albumin 2.8L CBC/BMP Laboratory Tests 04/10/19 06:14 Red Blood Count 3.08 L, Mean Corpuscular Volume 110.1 H, Mean Corpuscular Hemoglobin 36.7 H, Mean Corpuscular Hemoglobin Concent 33.3, Red Cell Distribution Width 13.8, Anion Gap 10 04/10/19 11:01 FSBS Laboratory Tests Test 04/09/19 17:07 04/09/19 20:41 Range/Units Bedside Glucose (Misc Panel) 480 376 70-105 MG/DL Microbiology Microbiology 04/06/19 Blood Culture - Preliminary, Resulted No Growth after 72 hours. All specime... 04/06/19 Gram Stain - Final, Complete 04/06/19 Wound Culture - Final, Complete Staphylococcus Aureus Discharge Medications Scheduled Aspirin (Aspirin EC) 81 Mg Tab, 81 MG PO DAILY, (Reported) Atorvastatin Calcium (Lipitor) 80 Mg Tab, 80 MG PO QHS, (Reported) Cholecalciferol (Vitamin D3) (Vitamin D3) 1,000 Unit Tab, 1,000 UNIT PO QHS, (Reported) Dexlansoprazole (Dexilant) 30 Mg Cap, 30 MG PO DAILY, (Reported) Duloxetine HCl (Duloxetine HCl) 30 Mg Capsule.dr, 30 MG PO QHS, (Reported) Insulin Detemir (Levemir Flextouch) 100 Unit/Ml Inj, 14 UNIT SC 4XWK, (Reported) TAKES ON WEDNESDAY, WEDNESDAY, WEDNESDAY AND WEDNESDAY AT NIGHT Insulin Detemir (Levemir Flextouch) 100 Unit/1 Ml Insuln.pen, 10 UNIT SC 4XWK, (Reported) TAKES ON WEDNESDAY, WEDNESDAY, WEDNESDAY AND WEDNESDAY IN THE MORNING Insulin Detemir (Levemir Flextouch) 100 Unit/1 Ml Insuln.pen, 8 UNIT SC 3XW, (Reported) TAKES ON WEDNESDAY, WEDNESDAY AND WEDNESDAY IN THE MORNING Insulin Detemir (Levemir Flextouch) 100 Unit/1 Ml Insuln.pen, 12 UNIT SC 3XW, (Reported) TAKES ON WEDNESDAY, WEDNESDAY AND WEDNESDAY AT NIGHT Insulin Human Lispro (Novolog) 100 U/Ml Inj, 1 DOSE SC ACHS, (Reported) PER SLIDING SCALE: 1 UNIT PER 15 GRAMS OF CARBS; CARB COUNTING STARTING AT 1 UNIT PER 100-150 Levetiracetam (Keppra) 500 Mg Tab, 500 MG PO BID, (Reported) Lubiprostone (Amitiza) 24 Mcg Capsule, 24 MCG PO BID, (Reported) Metoprolol Succinate (Metoprolol Succinate) 25 Mg Tab, 12.5 MG PO QHS, (Reported) Minocycline Hcl (Minocin) 50 Mg Capsule, 100 MG PO BID Patiromer Calcium Sorbitex (Veltassa) 8.4 Gm Powd.pack, 8.4 GM PO 1XWK, (Reported) SUNDAYS Pregabalin (Lyrica) 300 Mg Cap, 300 MG PO QHS, (Reported) Ranitidine Hcl (Zantac) 150 Mg Tab, 1 TAB PO DAILY, (Reported) Sertraline Hcl (Sertraline HCl) 50 Mg Tablet, 50 MG PO DAILY, (Reported) Sevelamer Carbonate (Renvela) 800 Mg Tab, 1,600 MG PO QPM, (Reported) TAKES WITH DINNER Scheduled PRN Hydrocodone/Acetaminophen (Hydrocodone-Acetamin 5-325 mg) 1 Each Tablet, 1 TAB PO Q4H PRN for PAIN, (Reported) Allergies Coded Allergies: erythromycin base (Verified Allergy, Intermediate, 03/21/19) baclofen (Verified Adverse Reaction, Intermediate, extreme fatigue, 03/21/19) REGINALDO ROSENBERG DO Apr 10, 2019 12:18
--- NOTE | 2019-04-10 12:38 | IPNPDOC ---
Date Seen The patient was seen on 04/10/19. Progress Note Vascular surgery. Dr. Velásquez HPI: 53 year oldM with ESRD with history of left upper extremity AV fistula, status post revision of fistula 09/17/17, 01/24/18, Most recently the patient's AV fistula was revised 03/24/19 with PermCath insertion right chest at that time as per Dr. Velásquez. I do not have an operative report available for review at this time. The patient was subsequently evaluated in the office 03/29/19 at which time the patient's wound had opened after staple removal. The patient was taken for fistulogram and wound closure as per Dr. Velásquez 03/29/19. I do not have a copy of that report for review at this time. The patient returns to the office 04/06/19 for staple removal. The patient re ported he has had diffuse left upper extremity swelling. He reports purulent drainage from the wound left upper extremity. [place] have been intact. There is surrounding erythema noted. Admission arranged for surgical debridement of wound. Vascular surgery is consulted. The pt is sitting on side of bed this AM and states he is leaving AMA. Wound vac in place LUE. The patient has been receiving hemodialysis via PermCath right chest and the patient states this is functioning. Denies any weakness, fatigue, Headache, Chest Pain, Shortness of breath, cough, palpitations, abdominal pain, N/V/D or changes in bowel or bladder habits. PMHx: ESRD, hemodialysis Wednesday//Wednesday. GERD IDDM Dyslipidemia Hypertension Depression Anxiety Chronic pain COPD Seizure disorder Neuropathy Legal blindness PSHX: Tonsillectomy Cholecystectomy Dorsal column stimulator, currently nonfunctional Splenectomy Focal cord polyp removal AV fistula creation left upper extremity with revision 09/09, 02/07 AV fistula revision 03/24/19 PermCath placement right chest 03/24/19 PE: GEN: 53 yo M, appears stated age. Alert and oriented x 3. Pleasant, interactive. HEENT: Normocephalic, atraumatic. Moist mucous membranes. CHEST: Regular rate and rhythm, +S1, +S2 LUNGS: Clear to auscultation bilaterally. ABD: Round, soft, non-tender, non-distended. EXT: No lower extremity edema appreciated. SKIN:Wound vac intact LUE. There is less surrounding erythema around the wound. Pulses are palpable ulnar and radial, fingers are warm. Good capillary refill of fingers of the left hand. NEURO: Alert and oriented x 3. Cranial nerves III-XII are intact. No focal deficits appreciated. A&P: 1. Infected left upper extremity AV fistula. S/P wound debridement as per Dr Velásquez 04/07/19. Wound vac in place. Afebrile. WBC 9.0 antibiotics as per medical team. Plan as discussed this AM with Dr. Velásquez is to continue with wound vac as outpt. Pt states he is going to sign out AMA today but I have tried to encourage him to wait until we can facilitate wound vac as outpt. 2. ESRD. PermCath right chest with no drainage noted. The patient states this has been accessed and has been functioning well for dialysis. Hemodialysis as per nephrology. VS, I&O, 24H, Fishbone Vital Signs/I&O Vital Signs Date Time Temp Pulse Resp B/P (MAP) Pulse Ox O2 Delivery O2 Flow Rate FiO2 04/10/19 06:16 16 04/10/19 06:00 97.6 58 158/72 (100) 93 04/07/19 11:41 10 I&O- Last 24 Hours up to 6 AM 04/10/19 06:00 Intake Total 1360 ml Balance 1360 ml Laboratory Data 24H LABS Laboratory Tests 2 04/09/19 17:07: Bedside Glucose (Misc Panel) 480H 04/09/19 20:41: Bedside Glucose (Misc Panel) 376H 04/10/19 06:14: Nucleated Red Blood Cells % (auto) 0.2H, Blood Urea Nitrogen 53H, Creatinine 9.28*H, Sodium Level 132L, Potassium Level 7.0*H, Chloride Level 96L, Carbon Dioxide Level 26, Anion Gap 10, Glomerular Filtration Rate 6.3L, Calcium Level 8.8, Phosphorus Level 4.6, Albumin 2.8L CBC/BMP Laboratory Tests 04/10/19 06:14 Red Blood Count 3.08 L, Mean Corpuscular Volume 110.1 H, Mean Corpuscular Hemoglobin 36.7 H, Mean Corpuscular Hemoglobin Concent 33.3, Red Cell Dist ribution Width 13.8, Anion Gap 10 04/10/19 11:01 Microbiology Microbiology 04/06/19 Blood Culture - Preliminary, Resulted No Growth after 72 hours. All specime... 04/06/19 Gram Stain - Final, Complete 04/06/19 Wound Culture - Final, Complete Staphylococcus Aureus Nu Jarrell Apr 10, 2019 12:38
--- NOTE | 2019-04-10 21:10 | IPN ---
DATE: 04/09/2019 Mr. Jolley is seen this afternoon on his bedside. He is sitting at the edge of the bed. He has a wound VAC dressing on his left arm wound. He denies any fever, chills, nausea, vomiting, dyspnea or chest pain. He had dialysis yesterday which he tolerated very well. PHYSICAL EXAMINATION: Temperature 98.1 degrees Fahrenheit, heart rate 52 per minute and respiratory rate 16 per minute. Blood pressure 120/56 mmHg and oxygen saturation 95% on room air. His head is atraumatic. Neck is supple and JVD is not abnormally elevated. Right internal jugular vein catheter is intact and exit site on right upper chest is clean. Heart sounds are regular and lungs sound clear to auscultation bilaterally. Abdomen soft and nontender. Bowel sounds are normal. Extremities have no cyanosis or clubbing. Left arm AV fistula is patent and the wound in his left antecubital fossa is covered with wound VAC dressing. Neurologically he is awake, alert and oriented times three. The patient did not have any labs today. PROBLEMS: 1. End-stage renal disease. The patient was dialyzed yesterday and he tolerated his dialysis treatment very well. His volume status is well-compensated. 2. Hyperkalemia. His potassium level was 5.6 yesterday and he was dialyzed with 2.0 mEq potassium bath. We will check his electrolytes again tomorrow morning. 3. Anemia. His anemia is stable and no urgent intervention is indicated. 4. Infected left arm AV fistula wound. The patient had surgery recently on his AV fistula and the wound got infected. His blood cultures have been negative and most likely the wound was only limited to the skin. He has a wound VAC dressing and has been on antibiotics, but his Unasyn has been now stopped. I will leave it up to Dr. Velásquez to decide if he needs any more antibiotics. If he needs vancomycin that can be given in dialysis after each dialysis treatment. He is currently on oral minocycline 100 mg twice a day.
== END 2019-04-10 14:06 | disposition left against medical advice (07) | DRG 981 ==
LOC: M MSPAV 16:07
PROVIDERS: ADMIT Family Medicine; ATTEND Family Medicine
PROC: 0KB80ZZ Excision of Left Upper Arm Muscle, Open Approach (ICD-10-PCS; principal; 2019-04-07 13:40)
DX: T82.7XXA Infection and inflammatory reaction due to other cardiac and vascular devices, implants and grafts, initial encounter (principal); N18.6 End stage renal disease; L03.114 Cellulitis of left upper limb; I12.0 Hypertensive chronic kidney disease with stage 5 chronic kidney disease or end stage renal disease; T81.31XA Disruption of external operation (surgical) wound, not elsewhere classified, initial encounter; J44.9 Chronic obstructive pulmonary disease, unspecified; K59.00 Constipation, unspecified; G40.909 Epilepsy, unspecified, not intractable, without status epilepticus; E11.65 Type 2 diabetes mellitus with hyperglycemia; E11.649 Type 2 diabetes mellitus with hypoglycemia without coma; E11.40 Type 2 diabetes mellitus with diabetic neuropathy, unspecified; B95.62 Methicillin resistant Staphylococcus aureus infection as the cause of diseases classified elsewhere; E87.5 Hyperkalemia; Z79.4 Long term (current) use of insulin; Z79.899 Other long term (current) drug therapy; Z88.1 Allergy status to other antibiotic agents; Z79.82 Long term (current) use of aspirin; E78.5 Hyperlipidemia, unspecified; Z87.81 Personal history of (healed) traumatic fracture; F41.9 Anxiety disorder, unspecified; Z87.891 Personal history of nicotine dependence; H54.8 Legal blindness, as defined in USA; K21.9 Gastro-esophageal reflux disease without esophagitis; E11.319 Type 2 diabetes mellitus with unspecified diabetic retinopathy without macular edema

== ENCOUNTER → 2019-06-30 | Outpatient (CLI) | payer MEDICARE, MEDICAID ==
[~2019-06-30] MED LIST changes: +AMIT24CA7 PO; +DULO30CA47 PO; +HYDR-3713 PO; +ISOVUE-300 61% 50ML VIAL (Q9967) As Ordered ONE; +LIDOCAINE 1% MDV 20ML VIAL As Ordered ONE; +MIDAZOLAM INJ 2 MG/2 ML VIAL (J2250) As Ordered ONE; +MINO0.1C PO; +PERCOCET 5MG/325MG TAB As Ordered ONE; +fentaNYL 100 MCG/2 ML INJECTION (J3010) As Ordered ONE
[2019-06-30 13:15] VITALS: BP 199/92
--- NOTE | 2019-06-30 15:38 | ROOPDOC ---
[facility] Report Of Operation Report of Operation DATE OF PROCEDURE: 06/30/19 PREPROCEDURE DIAGNOSES: End-stage renal disease on hemodialysis status post multiple revisions of a left upper extremity AV fistula with Dr. Velásquez POSTPROCEDURE DIAGNOSES: Same PROCEDURE: 1. Ultrasound-guided retrograde and anterograde access left brachiocephalic fistula 2. Angioplasty cephalic vein across AV fistula with 6 x 100 and 9 x 40 [place] balloons 3. Angioplasty more proximal cephalic vein with 10 x 80 [place] balloon 4. Completion venograms SURGEON: Stanley Chow MD ANESTHESIA: Local anesthesia 2 mL lidocaine. Moderate intravenous conscious sedation was administered by Dr. Chow. The patient was independently monitored by registered nurse assigned to the department of radiology with automated blood pressure, EKG, and pulse oximetry. The patient record is permanently housed in the hospital information system. The following is the brief sedation record: Start time 11:19, stop time 12:20, Versed 1 mg IV, fentanyl 50 g IV. Contrast: 32 mL Isovue INDICATION FOR PROCEDURE: Mr. Jolley is a very pleasant 53-year-old gentleman with end-stage renal disease currently on hemodialysis who has been using his PermCath for dialysis status post revision of his left upper extremity AV fistula with Dr. Velásquez and previous procedures. He has multiple scars over the left upper extremity and it is a bit difficult to tell what has been done, but we will try to figure this out during the procedure. The dialysis unit would like to start using the fistula again, and we will ensure that there is adequate flow and we will marked the fistula for them on the skin to make axis easier. Risks benefits and alternatives were explained to the patient he is agreeable to proceed. Informed consent was obtained. INTERPRETATION: 1. This was a challenging fistulogram. I was not sure preop what procedures the patient had had done on the left upper extremity, and it took be a moment to figure this out intra-procedure as well. My best guess is that the patient had a brachiocephalic AV fistula, because there are still many branches proximal to the AV anastomosis. Branches would not be present if this was the basilic transposition. However, there is an incision on the proximal upper arm that I thought may be from a transposition, but I'm thinking now that the patient possibly had an interposition graft from the cephalic vein to the axillary vein, and when I examined this with ultrasound, it seems this is the case. I also init jose david felt the patient may have a stenosis in the cephalic vein proximal to the AV anastomosis, but now I am thinking this might have been a banding procedure as the patient informed me that he had steal syndrome to the left hand, and he has an incision that could be consistent with an open banding procedure. 2. Antegrade venogram reveals widely patent inflow through the aneurysmal segments of the fistula as well as proximal to this in the upper arm through to the axillary and the central veins. There is a focal stenosis at the graft axillary anastomosis, which responded well to angioplasty. Less than 10% residual stenosis was noted after angioplasty with a 10 x 80 balloon. 3. Retrograde venogram reveals widely patent inflow from the brachial artery to the cephalic vein, focal stenosis that I believe to be banding just distal to this, and 1 other focal stenosis just before the aneurysmal segments arise. Less than 10% residual stenosis was noted after angioplasty with a 6 x 100 and 9 x 40 balloon. 4. No extravasation noted after angioplasty of the inflow or the outflow. 5. The central veins are widely patent. REPORT OF PROCEDURE: The patient was brought to the angiographic suite in stable condition. His left upper extremity was prepped and draped in a sterile fashion. A timeout was performed. Ultrasound was used to guide access in and antegrade fashion near the AV anastomosis. It was a little bit tortuous at the AV anastomosis so we went slightly more proximal up the arm and access in an area without tortuosity. Local anesthesia was semester to skin and subcutaneous tissue and a microneedle was used to access the vein and a wire was passed through this access under fluoroscopic guidance. A micro-sheath was placed and through this a Glidewire was advanced into the central system under fluoroscopic guidance in the micro-sheath was removed. We then placed a 6 [place] sheath and flushed the sheath with saline. A fistulogram from this antegrade access was performed, please see interpretation above. Over the wire we advanced a 10 x 80 [place] balloon and angioplasty the focal area of stenosis near the axillary vein. Three-minute inflations was performed and following this there was widely patent outflow with less than 10% residual stenosis. There appeared to be stenosis of the cephalic vein proximal to the AV anastomosis, therefore we felt we needed a retrograde access also. First, a suture was placed at our initial access site and the sheath was removed. Pressure was held for 2 minutes for good hemostasis and sterile dressings were applied. Next, ultrasound was used to gain retrograde access from the cephalic vein over the bicep after anesthetizing with local anesthesia. A microneedle was used to access the vein and a wire was passed through this access under fluoroscopic guidance and a micro-sheath was placed. Glidewire was advanced through this access through the AV anastomosis into the brachial vein and the sheath was exchanged for a 6 [place] sheath. Following this, we noted on fistulogram that there were extensive number branches in this area of cephalic vein near the AV anastomosis, and a focal area of stenosis 5 cm from the anastomosis and 1 cm from the anastomosis. If her selected a 6 x 100 balloon and angioplasty across the anastomosis and improved inflow. We then selected a 9 x 40 balloon for angioplasty of the other 2 stenoses, but the area nearest to the AV anastomosis was not able to be angioplasty, and I felt this may have been a banding procedure to help with steal syndrome and did not try to do additional angioplasty. The other area was easily angioplastied and had less than 10% residual stenosis. No extravasation was noted with any of the angioplasty procedures, and the patient had an excellent thrill postprocedure. We then placed a suture at the retrograde sheath site and removed the sheath. Pressure was held for 2 minutes for good hemostasis and sterile dressings were applied. We then utilized ultrasound to map the AV access on the arm with a marking pen. The patient was then taken back to recovery in stable condition. ESTIMATED BLOOD LOSS: Approximately 2 mL. COMPLICATIONS: None. PLAN: Okay to use the fistula for dialysis. We marked the fistula on the skin to help with access. We will see how he does with dialysis access, and we will be available to discontinue his PermCath if dialysis with his fistula is successful. STANLEY CHOW MD Jun 30, 2019 15:38
== END ==
LOC: M IRPRO 10:24
PROVIDERS: ATTEND Surgery Vascular Surgery
DX: T82.898A Other specified complication of vascular prosthetic devices, implants and grafts, initial encounter (principal); N18.6 End stage renal disease; X58.XXXA Exposure to other specified factors, initial encounter; Y93.9 Activity, unspecified; Y92.9 Unspecified place or not applicable; Y99.9 Unspecified external cause status
CPT/HCPCS: 36902; 99152; 99153; C1725; C1769; C1887; C1894; J2250; J3010; Q9967

== ENCOUNTER 2019-09-28 10:59 | Emergency (ER) | payer MEDICARE, MEDICAID ==
[~2019-09-28] VITALS: Ht 167.6 cm; Wt 93.0 kg
[~2019-09-28 10:59] MED LIST changes: -ISOVUE-300 61% 50ML VIAL (Q9967) As Ordered ONE; -LIDOCAINE 1% MDV 20ML VIAL As Ordered ONE; -MIDAZOLAM INJ 2 MG/2 ML VIAL (J2250) As Ordered ONE; -PERCOCET 5MG/325MG TAB As Ordered ONE; -fentaNYL 100 MCG/2 ML INJECTION (J3010) As Ordered ONE
[2019-09-28] MEDS ORDERED: EZET10TA21 PO (11:17)
[2019-09-28] MEDS ORDERED: ONDA4TAB6 PO (11:17)
[2019-09-28] MEDS ORDERED: MULTCAP PO (11:17)
[2019-09-28 11:45] LABS: BASO # 0.1 10^3/uL (0.0-0.2); BASO % 1.2 % (0.0-1.0); EOS % 0.4 % (0.0-3.0); HEMATOCRIT 38.5 % (42.0-52.0); HEMOGLOBIN 12.4 g/dl (13.5-17.5); LYMPH # 1.4 10^3/uL (1.5-5.0); LYMPH % 13.9 % (24.0-44.0); MEAN CORPUSCULAR HGB CONC 32.2 g/dl (32.0-36.5); MEAN CORPUSCULAR VOLUME 108.8 fl (80.0-96.0); MONO # 1.2 10^3/uL (0.0-0.8); MONO % 11.9 % (0.0-5.0); NEUTROPHILS # 7.4 10^3/uL (1.5-8.5); NEUTROPHILS % 72.3 % (36.0-66.0); PLATELET COUNT, AUTOMATED 224 10^3/uL (150-450); RED BLOOD COUNT 3.54 10^6/uL (4.30-6.10); WHITE BLOOD COUNT 10.3 10^3/uL (4.0-10.0)
--- NOTE | 2019-09-28 11:46 | REP ---
Portable chest x-ray: Single view. History: Dyspnea and cough. Comparison chest x-ray: April 06, 2019. Findings: There is a granulomatous calcification in the right suprahilar region. A dorsal column stimulator lead is seen in the thoracic spine. Mild cardiomegaly is observed. Pleural angles are sharp. Interstitial markings are slightly prominent in the bases. No focal infiltrate is appreciated. Oxygen tubing and monitoring electrodes are seen. There is an old healed rib fracture on the right. Impression: Somewhat prominent interstitial markings in the bases bilaterally. Mildly prominent heart. Electronically Signed by Ron Baptiste MD 09/28/2019 11:37 A
[2019-09-28 11:59] LABS: INR 1.08; PROTHROMBIN TIME 13.7 SECONDS (11.8-14.0)
[2019-09-28 12:11] LABS: ALBUMIN 3.2 GM/DL (3.2-5.2); ALT/SGPT 39 U/L (12-78); BILIRUBIN,DIRECT 0.1 MG/DL (0.0-0.2); BILIRUBIN,TOTAL 0.5 MG/DL (0.2-1.0); BLOOD UREA NITROGEN 16 MG/DL (7-18); CALCIUM LEVEL 7.6 MG/DL (8.5-10.1); CARBON DIOXIDE LEVEL 32 MEQ/L (21-32); CHLORIDE LEVEL 100 MEQ/L (98-107); CK-MB VALUE MASS < 1.0 NG/ML (<3.6); CPK CREATINE PHOSPHOKINASE 109 U/L (39-308); CREATININE FOR GFR 4.92 MG/DL (0.70-1.30); GLOMERULAR FILTRATION RATE 13.2 (>56); GLUCOSE, FASTING 143 MG/DL (70-100); INFLUENZA A AMPLIFICATION POSITIVE (NEGATIVE); INFLUENZA B AMPLIFICATION NEGATIVE (NEGATIVE); MB/CK RELATIVE INDEX 0.92 (< OR =4); POTASSIUM SERUM 4.2 MEQ/L (3.5-5.1); SODIUM LEVEL 140 MEQ/L (136-145); TROPONIN I < 0.02 NG/ML (< 0.10)
[2019-09-28] MEDS ORDERED: ACETAMINOPHEN TAB 650MG DOSE (2X325MG) PO ONE (13:00)
[2019-09-28] MEDS ORDERED: OSELTAMIVIR PHOSPHATE 75 MG CAP (TAMIFLU) PO ONE (13:00)
[2019-09-28] MEDS ORDERED: NON-325T5 PO (13:10)
[2019-09-28] MEDS ORDERED: IPRATROPIUM 0.5MG/ALBUTEROL 2.5MG INH SOL UD 3ML (DUONEB)(J7620) NEB ONE (13:15)
[2019-09-28] MEDS ORDERED: ACETAMINOPHEN TAB 650MG DOSE (2X325MG) PO PRN (13:30)
[2019-09-28] MEDS ORDERED: GLUCOSE 4 GM CHEW TABLET PO PRN (13:45)
[2019-09-28] MEDS ORDERED: GLUCAGON FOR INJ 1 MG VIAL (J1610) SC PRN (13:45)
[2019-09-28] MEDS ORDERED: DEXTROSE 50% 50 ML SYRINGE IV PRN (13:45)
--- NOTE | 2019-09-28 13:54 | HPEPDOC ---
General Date of Admission Sep 28, 2019 at 11:00 Date of Service: Sep 28, 2019 Chief Complaint The patient is a 53-year-old male admitted with a reason for visit of Influenza A. Source: Patient Exam Limitations: No limitations Timing/Duration: Day(s) (possibly 2 days) Severity: Severe Associated Symptoms: Fever, Chills, Other (, body aches) History of Present Illness This is a 53 years old diabetic male with past medical history of end-stage renal disease on hemodialysis on Wednesday with and Saturdays, legally blind, hypertension, hyperlipidemia, COPD, seizure disorder, gastritis, anxiety, diabetes mellitus, neuropathy, chronic pain, was sent from hemodialysis unit with chief complaints of high-grade fever and chills and body aches since last about 2 days. Patient offers no complaints of chest pain, shortness of breath, nausea, vomiting, diarrhea, etc. Home Medications Scheduled Aspirin (Aspirin EC) 81 Mg Tab, 81 MG PO DAILY, (Reported) Atorvastatin Calcium (Lipitor) 80 Mg Tab, 80 MG PO QHS, (Reported) Cholecalciferol (Vitamin D3) (Vitamin D3) 1,000 Unit Tab, 1,000 UNIT PO QHS, (Reported) Dexlansoprazole (Dexilant) 30 Mg Cap, 30 MG PO DAILY, (Reported) Duloxetine HCl (Duloxetine HCl) 30 Mg Capsule.dr, 30 MG PO QHS, (Reported) Insulin Detemir (Levemir Flextouch) 100 Unit/1 Ml Insuln.pen, 12 UNIT SC 3XW, (Reported) TAKES ON WEDNESDAY, WEDNESDAY AND WEDNESDAY AT NIGHT Insulin Human Lispro (Novolog) 100 U/Ml Inj, 1 DOSE SC ACHS, (Reported) PER SLIDING SCALE: 1 UNIT PER 15 GRAMS OF CARBS; CARB COUNTING STARTING AT 1 UNIT PER 100-150 Levetiracetam (Keppra) 500 Mg Tab, 500 MG PO BID, (Reported) Lubiprostone (Amitiza) 24 Mcg Capsule, 24 MCG PO BID, (Reported) Metoprolol Succinate (Metoprolol Succinate) 25 Mg Tab, 12.5 MG PO QHS, (Reported) Multivitamin (Multivitamins) 1 Each Capsule, 1 CAP PO DAILY, (Reported) Patiromer Calcium Sorbitex (Veltassa) 8.4 Gm Powd.pack, 8.4 GM PO 1XWK, (Reported) SUNDAYS Pregabalin (Lyrica) 300 Mg Cap, 300 MG PO QHS, (Reported) Sertraline Hcl (Sertraline HCl) 50 Mg Tablet, 50 MG PO DAILY, (Reported) Sevelamer Carbonate (Renvela) 800 Mg Tab, 1,600 MG PO QPM, (Reported) TAKES WITH DINNER Scheduled PRN Hydrocodone/Acetaminophen (Hydrocodone-Acetamin 5-325 mg) 1 Each Tablet, 1 TAB PO Q4H PRN for PAIN, (Reported) Ondansetron (Ondansetron Odt) 4 Mg Tab.rapdis, 4 MG PO Q6-8HP PRN for nausea/vomiting, (Reported) Miscellaneous Medications Acetaminophen (Acetaminophen) 325 Mg Tablet, 650 MG PO, (Reported) Ezetimibe (Ezetimibe) 10 Mg Tablet, (Reported) Allergies Coded Allergies: erythromycin base (Verified Allergy, Intermediate, 03/21/19) baclofen (Verified Adverse Reaction, Intermediate, extreme fatigue, ) Past Medical History Medical History End-stage renal disease on dialysis, legally blind, hypertension, hyperlipidemia, chronic COPD, seizure disorder, gastritis, anxiety, diabetes mellitus, neuropathy and chronic pain Surgical History AV fistula with revision permacath insertion right chest wall, tonsillectomy, splenectomy, TENS unit in the back normal stimulator in the back and vocal called polyp removal Family History Significant Family History: No pertinent family hx Social History * Smoker: former Smoker Alcohol: Denies Drugs: denies A-FIB/CHADSVASC A-FIB History Current/History of A-Fib/PAF?: No Review of Systems Constitutional: Reports: Chills, Fever, Weakness, Other (, body aches) Eyes: Denies: Pain, Vision change, Conjunctivae inflammation, Eyelid inflammation, Redness, Other ENT: Denies: Head Aches, Ear Pain, Dysphagia, Sinus Congestion, Post Nasal Drip, Sore Throat, Epistaxis, Other Symptoms Skin: Denies: Rash, Lesions, Breakdown Pulmonary: Denies: Dyspnea, Cough, Pleuritic Chest Pain, Other Symptoms Cardiovascular: Denies: Chest Pain, Palpitations, Orthopnea, Paroxysmal Noc. Dyspnea, Edema, Lt Headedness, Other Symptoms Gastrointestinal: Denies: Nausea, Vomiting, Abdominal Pain, Diarrhea, Constipation, Melena, Hematochezia, Other Symptoms Genitourinary: Denies: Dysuria, Frequency, Incontinence, Hematuria, Retention, Other Symptoms Hematologic: Denies: Bruising, Bleeding Excessively, Petecchia, Purpura, Enlarged Lymph Nodes, Other Hematologic Endocrine: Denies: Polydipsia, Polyphagia, Polyuria, Heat Intolerance, Cold Intolerance, Other Endocrine Sx Musculoskeletal: Denies: Neck Pain, Back Pain, Shoulder Pain, Arm Pain, Hand Pain, Leg Pain, Foot Pain, Joint Pain, Muscle Pain, Spasms, Other Symptoms Neurological: Denies: Weakness, Numbness, Incoordination, Change in speech, Confusion, Seizures, Other Symptoms Psych: Denies: Mood Normal, Anxiety, Depression, Memory Issues, Thoughts of Self Harm, Anger, Thoughts of Harming Other, Other Psych Physical Examination General Exam: Positive: Alert, Cooperative Eye Exam: Positive: PERRLA, Conjunctiva & lids normal ENT Exam: Positive: Atraumatic, Mucous membr. moist/pink Neck Exam: Positive: Supple Chest Exam: Positive: Clear to auscultation, Normal air movement Heart Exam: Positive: Rate Normal, Normal S1, Normal S2 Abdomen Exam: Positive: Normal bowel sounds, Soft, Tenderness Extremity Exam: Positive: Normal pulses Skin Exam: Positive: Nl turgor and temperature Neuro Exam: Positive: Strength at 5/5 X4 ext, Cranial Nerves 3-12 NL Psych Exam: Positive: Mental status NL, Mood NL, Oriented x 3 Vital Signs Vital Signs Date Time Temp Pulse Resp B/P (MAP) Pulse Ox O2 Delivery O2 Flow Rate FiO2 09/28/19 11:15 100.2 80 20 129/62 (84) 92 Room Air Laboratory Data Labs 24H Laboratory Tests 2 09/28/19 11:31: Immature Granulocyte % (Auto) 0.3, Neutrophils (%) (Auto) 72.3H, Lymphocytes (%) (Auto) 13.9L, Monocytes (%) (Auto) 11.9H, Eosinophils (%) (Auto) 0.4, Basophils (%) (Auto) 1.2H, Neutrophils # (Auto) 7.4, Lymphocytes # (Auto) 1.4L, Monocytes # (Auto) 1.2H, Eosinophils # (Auto) 0.0, Basophils # (Auto) 0.1, Nucleated Red Blood Cells % (auto) 0.0, Prothrombin Time 13.7, Prothromb Time International Ratio 1.08, Anion Gap 8, Glomerular Filtration Rate 13.2L, Lactic Acid Level 1.2, Calcium Level 7.6L, Total Bilirubin 0.5, Direct Bilirubin 0.1, Aspartate Amino Transf (AST/SGOT) 34, Alanine Aminotransferase (ALT/SGPT) 39, Alkaline Phosphatase 98, Total Creatine Kinase 109, Creatine Kinase MB < 1.0, Creatine Kinase MB Relative Index 0.92, Troponin I < 0.02, Total Protein 7.0, Albumin 3.2, Albumin/Globulin Ratio 0.84L, Influenza Type A (RT-PCR) POSITIVEH, Influenza Type B (RT-PCR) NEGATIVE CBC/BMP Laboratory Tests 09/28/19 11:31 Microbiology Microbiology 09/28/19 Blood Culture, Received Pending 09/28/19 Blood Culture, Received Pending Problems (1) Influenza A Status: Acute Problem Text: Patient's temperatures 100.2, heart rate of 80, blood pressure 129 2, pulse ox 92%, chest x-ray shows prominent interstitial markings bilateral bases. White count 10.3, hemoglobin 12.4, electrolytes are normal except BUN of 16 and creatinine 4.92, lactic acid is 1.2, and influenza A is positive. Discuss with Dr. Payne over the phone. Will admit patient for observation and for influenza treatment Admit to [facility] Droplet isolation Saline lock Tamiflu 30 mg by mouth 1 dose now and one after each dialysis 5 doses , Tylenol 650 mg by mouth every 4 hours when necessary Continue all home meds Hemodialysis schedule as per nephrology DVT prophylaxis with heparin Activity as tolerated Diet is carb carbohydrate consistent diet (2) ESRD (end stage renal disease) on dialysis Status: Acute Problem Text: Patient receives hemodialysis on Tuesdays, and Saturdays Nephrology consult has been requested to arrange for dialysis while patient is in hospital (3) HTN (hypertension) Status: Chronic Problem Text: Continue home meds (4) COPD (chronic obstructive pulmonary disease) Status: Chronic Problem Text: Continue home meds (5) Hyperlipemia Status: Chronic Problem Text: Continue home meds (6) Diabetes mellitus Status: Chronic Problem Text: Fingerstick blood sugar daily see in nature with coverage Hold the Lantus till Patient is eating his regular amount of food he is been unable to eat much secondary to fever, body aches and flulike symptoms. Plan / VTE VTE Prophylaxis Ordered?: Yes CHRISTINA LOPEZ MD Sep 28, 2019 13:53
[2019-09-28] MEDS ORDERED: OSELTAMIVIR PHOSPHATE 30MG CAPSULE PO ONE (14:00)
[2019-09-28] MEDS ORDERED: VITA100054 PO (14:14)
[2019-09-28] MEDS ORDERED: CALC600T36 PO (14:14)
[2019-09-28] MEDS ORDERED: NORC1TAB5 PO (14:14)
[2019-09-28] MEDS ORDERED: SERT-138 PO (14:14)
[2019-09-28] MEDS ORDERED: ONDANSETRON 4 MG ORAL DISINTEGRATING TAB (Q0162 PER 1MG) PO PRN (14:30)
[2019-09-28] MEDS ORDERED: CALCIUM CARBONATE 500 MG CHEW U/D PO PRN (14:30)
[2019-09-28 15:00] VITALS: BP 157/71
--- NOTE | 2019-09-28 15:26 | ECGEPIP ---
[facility] - ED Test Date: 2019-09-28 Pat Name: JUAREZ MURPHY Department: Room: - Gender: Male Rn Disease Management: MACK : [id number] Requested By: Roxy Osborne Order Number: [id number] Reading MD: Otis Braxton Measurements Intervals [place] Rate: 79 P: 53 SD: 137 QRS: 23 QRSD: 91 T: 47 QT: 383 QTc: 440 Interpretive Statements SINUS RHYTHM POSSIBLE LEFT ATRIAL ENLARGEMENT Similar to tracing done 03-24-19 Electronically Signed on 09-28-2019 15:25:51 EST by Otis Braxton
[2019-09-28] MEDS: [UNRECOGNIZED DRUG - REMARK] XX SCH (16:00)
[2019-09-28] MEDS: (RENVELA) SEVELAMER **CARBONate** 800 MG TAB PO SCH (17:24)
[2019-09-28] MEDS: SERTRALINE 100 MG TAB PO SCH (17:24)
[2019-09-28] MEDS: ASPIRIN 81 MG ENTERIC TAB PO SCH (17:24)
[2019-09-28] MEDS: PANTOPRAZOLE 20 MG TAB PO SCH (17:24)
[2019-09-28] MEDS: HumaLOG INSULIN (NovoLOG) PER UNIT SC SCH ×2 (17:25→21:00)
[2019-09-28] MEDS ORDERED: OSELTAMIVIR PHOSPHATE 30MG CAPSULE PO SCH (18:00)
[2019-09-28] MEDS: HEPARIN SOD (PORCINE) 5000 UNITS/ML VIAL (J1644 PER 1000UNITS) SC SCH (21:00)
[2019-09-28] MEDS: PERCOCET 5MG/325MG TAB PO PRN (21:12)
[2019-09-28] MEDS: METOPROLOL SUCC *XL* 12.5MG PER 1/2 TAB (TopROL *XL*) PO SCH (21:13)
[2019-09-28] MEDS: PREGABALIN 100 MG CAP (LYRICA) PO SCH (21:14)
[2019-09-28] MEDS: ATORVASTATIN 20 MG TAB PO SCH (21:14)
[2019-09-28] MEDS: levETIRAcetam 250MG TABLET (KEPPRA) PO SCH (21:14)
[2019-09-28] MEDS: DULoxetine 30 MG CAP (CYMBALTA) PO SCH (21:14)
[2019-09-28] MEDS: EZETIMIBE 10 MG TAB (ZETIA) PO SCH (21:14)
[2019-09-28] MEDS: VITAMIN D 1,000 INTERNATIONAL UNITS TABLET PO SCH (21:14)
[2019-09-28 22:00] VITALS: BP 145/89
[2019-09-29 06:00] VITALS: BP 149/93
[2019-09-29] MEDS: HEPARIN SOD (PORCINE) 5000 UNITS/ML VIAL (J1644 PER 1000UNITS) SC SCH ×2 (07:36→20:36)
[2019-09-29] MEDS: (RENVELA) SEVELAMER **CARBONate** 800 MG TAB PO SCH ×3 (08:15→18:01)
[2019-09-29] MEDS: levETIRAcetam 250MG TABLET (KEPPRA) PO SCH ×2 (08:16→20:43)
[2019-09-29] MEDS: SERTRALINE 100 MG TAB PO SCH (08:16)
[2019-09-29] MEDS: HumaLOG INSULIN (NovoLOG) PER UNIT SC SCH ×4 (08:16→20:59)
[2019-09-29] MEDS: ASPIRIN 81 MG ENTERIC TAB PO SCH (08:16)
[2019-09-29] MEDS: OYSTER SHELL CALCIUM 500 MG TAB PO SCH (08:16)
[2019-09-29] MEDS: PANTOPRAZOLE 20 MG TAB PO SCH (08:20)
--- NOTE | 2019-09-29 10:16 | IPNPDOC ---
Subjective Date Seen The patient was seen on 09/29/19. Subjective Chief Complaint/HPI pt complaining of cough and had a low-grade fever. Otherwise no other complaints General: Denies: ROS Unobtainable, Chills, Night Sweats, Fatigue, Malaise, Normal Appetite, Other Symptoms Constitutional: Denies: Chills, Fever, Malaise, Night Sweats, Weakness, Fatigue, Weight Loss, Lethargy, Other Eyes: Denies: Pain, Vision change, Conjunctivae inflammation, Eyelid inflammation, Redness, Other Pulmonary: Reports: Cough Gastrointestinal: Denies: Nausea, Vomiting, Abdominal Pain, Diarrhea, Constipation, Melena, Hematochezia, Other Symptoms Genitourinary: Denies: Dysuria, Frequency, Incontinence, Hematuria, Retention, Other Symptoms Hematologic: Denies: Bruising, Bleeding Excessively, Petecchia, Purpura, Enlarged Lymph Nodes, Other Hematologic Musculoskeletal: Denies: Neck Pain, Back Pain, Shoulder Pain, Arm Pain, Hand Pain, Leg Pain, Foot Pain, Joint Pain, Muscle Pain, Spasms, Other Symptoms Neurological: Denies: Weakness, Numbness, Incoordination, Change in speech, Confusion, Seizures, Other Symptoms Objective Physical Examination ENT Exam: Positive: Atraumatic, Mucous membr. moist/pink Neck Exam: Positive: Supple Chest Exam: Positive: Clear to auscultation, Normal air movement Heart Exam: Positive: Rate Normal, Normal S1, Normal S2 Abdomen Exam: Positive: Normal bowel sounds, Soft, Tenderness Extremity Exam: Positive: Normal pulses Skin Exam: Positive: Nl turgor and temperature Neuro Exam: Positive: Strength at 5/5 X4 ext, Cranial Nerves 3-12 NL Assessment /Plan Problems (1) Influenza A Status: Acute Problem Text: Patient still has some cough and low-grade fever Continue Tamiflu 30 mg by mouth after each dialysis, as per pharmacy's recommendation Continue all home meds Symptomatic care (2) HTN (hypertension) Status: Chronic Problem Text: Continue home meds (3) Hyperlipemia Status: Chronic Problem Text: Continue home meds (4) Diabetes mellitus Status: Chronic Problem Text: Fingerstick blood sugar every before meals and at bedtime with coverage Will restart long-acting insulin once his appetite is improved (5) COPD (chronic obstructive pulmonary disease) Status: Chronic Problem Text: Continue home meds (6) ESRD (end stage renal disease) on dialysis Status: Acute Problem Text: End-stage renal disease on dialysis Tuesdays, and Saturdays Nephrology will see him today Plan/VTE VTE Prophylaxis Ordered?: Yes VS, I&O, 24H, Fishbone Vital Signs/I&O Vital Signs Date Time Temp Pulse Resp B/P (MAP) Pulse Ox O2 Delivery O2 Flow Rate FiO2 09/29/19 06:00 99.8 81 21 149/93 (111) 98 Room Air I&O- Last 24 Hours up to 6 AM 09/29/19 06:00 Intake Total 910 ml Output Total 425 ml Balance 485 ml Laboratory Data 24H LABS Laboratory Tests 2 09/28/19 11:31: Immature Granulocyte % (Auto) 0.3, Neutrophils (%) (Auto) 72.3H, Lymphocytes (%) (Auto) 13.9L, Monocytes (%) (Auto) 11.9H, Eosinophils (%) (Auto) 0.4, Basophils (%) (Auto) 1.2H, Neutrophils # (Auto) 7.4, Lymphocytes # (Auto) 1.4L, Monocytes # (Auto) 1.2H, Eosinophils # (Auto) 0.0, Basophils # (Auto) 0.1, Nucleated Red Blood Cells % (auto) 0.0, Prothrombin Time 13.7, Prothromb Time International Ratio 1.08, Anion Gap 8, Glomerular Filtration Rate 13.2L, Lactic Acid Level 1.2, Calcium Level 7.6L, Total Bilirubin 0.5, Direct Bilirubin 0.1, Aspartate Amino Transf (AST/SGOT) 34, Alanine Aminotransferase (ALT/SGPT) 39, Alkaline Phosphatase 98, Total Creatine Kinase 109, Creatine Kinase MB < 1.0, Creatine Kinase MB Relative Index 0.92, Troponin I < 0.02, Total Protein 7.0, Albumin 3.2, Albumin/Globulin Ratio 0.84L, Influenza Type A (RT-PCR) POSITIVEH, Influenza Type B (RT-PCR) NEGATIVE 09/28/19 16:55: Bedside Glucose (Misc Panel) 159H 09/28/19 19:43: Bedside Glucose (Misc Panel) 215H 09/29/19 06:01: Bedside Glucose (Misc Panel) 235H CBC/BMP Laboratory Tests 09/28/19 11:31 Microbiology Microbiology 09/28/19 Blood Culture, Received Pending 09/28/19 Blood Culture, Received Pending CHRISTINA LOPEZ MD Sep 29, 2019 10:16
[2019-09-29 14:00] VITALS: BP 150/65
[2019-09-29] MEDS: [UNRECOGNIZED DRUG - REMARK] XX SCH (14:37)
--- NOTE | 2019-09-29 17:05 | CR ---
DATE OF CONSULTATION: 09/29/2019 REASON FOR CONSULTATION: Assist in the management of end-stage renal disease. HISTORY OF PRESENT ILLNESS: Mr. Jolley is a 53-year-old gentleman with multiple chronic medical problems including diabetes, hypertension, end-stage renal disease and depression. He presented to dialysis unit on September 28 with temperature of 101.8. He was dialyzed and then sent to the emergency room for evaluation where he tested positive for influenza A. He was admitted yesterday and a nephrology consultation was requested. The patient is seen this morning. He did complete his dialysis treatment yesterday prior to admission. PAST MEDICAL AND SURGICAL HISTORY: Significant for: 1. Longstanding diabetes. 2. Hypertension. 3. End-stage renal disease. 4. Hyperlipidemia. 5. COPD. 6. Seizure disorder number history of gastroesophageal reflux disease number history of peripheral neuropathy. 7. Chronic back pain. Past surgical history is significant for AV fistula creation, Perma-Cath placement and removal, tonsillectomy, he also had a stimulator implanted. MEDICATIONS: His home medications include aspirin 81 mg daily, atorvastatin 80 mg daily, vitamin D 1000 units daily, Dexilant 30 mg daily, Duloxetine 30 mg daily, Levemir insulin 12 units in the evening and NovoLog insulin per sliding scale, Keppra 500 mg twice a day, Amitiza 24 mg twice a day as needed for constipation, metoprolol 25 mg half a tablet daily, multivitamin 1 tablet daily, Lyrica 300 mg at bedtime, sertraline 50 mg daily and Renvela 800 mg 2 tablets twice a day with meals. He also takes hydrocodone and acetaminophen 5/325 mg as needed for pain and Zofran 4 mg as needed for nausea. ALLERGIES: She has allergy to the azithromycin and baclofen. PERSONAL AND SOCIAL HISTORY: The patient is . He is a former smoker and denies any alcohol or drug use. FAMILY HISTORY: Negative for end-stage renal disease. REVIEW OF SYSTEMS: The patient had fever 101.8 degrees Fahrenheit yesterday and doing better today. Ears, nose and throat are unremarkable. Cardiovascular system negative for dyspnea or chest pain. He denies any leg edema. Respiratory system is significant for mild cough. Denies any hemoptysis or pleuritic type of chest pain. GI system is negative for nausea, vomiting or diarrhea. system is negative for dysuria or hematuria. Endocrine system is significant for type 2 diabetes and secondary hyperparathyroidism. Hematological system is significant for anemia of chronic kidney disease. Psychosocial system is significant for depression and anxiety. NEUROLOGIC EXAMINATION: Significant for seizures. The patient denies any prior stroke. Skin is negative for rash or ulcers. PHYSICAL EXAMINATION: The patient is resting comfortably in his bed right now. Temperature is 99.8 degrees Fahrenheit today and heart rate 80 per minute. Respiratory rate 20 per minute and blood pressure is 149/93 mmHg. Oxygen saturation is 98% on room air. Head is atraumatic. Neck: Supple and without JVD or thyroid enlargement. Heart: Sounds are regular and lungs clear to auscultation. Abdomen: Soft and nontender and bowel sounds are normal. Extremities: Without any cyanosis or clubbing. Neurologically he is at his baseline mentation without a focal deficit. LABS: Labs done yesterday showed WBC count 10.3, hemoglobin 12.4 and hematocrit 38.5. Sodium 140, potassium 4.2, CO2 32, BUN 16 and creatinine 4.92. Glucose 143 and lactic acid 1.2. He has tested positive for influenza A in the emergency room. PROBLEMS: 1. End-stage renal disease. The patient was dialyzed on September 28 prior to admission. He did complete his dialysis treatment and his volume status is well-compensated. No emergent need for dialysis today. We will schedule his next dialysis for Wednesday. 2. Hypertension. Blood pressure is very well controlled and his chronic medications should be continued. 3. Flu. The patient did test positive for influenza A. I discussed the dose of Tamiflu with the admitting physician yesterday. He should be given only 30 mg after each dialysis. All other chronic medications should continue. Thank you for allowing me to participate in the care of Mr. Jolley. I will follow him along with you.
[2019-09-29] MEDS: EZETIMIBE 10 MG TAB (ZETIA) PO SCH (20:43)
[2019-09-29] MEDS: DULoxetine 30 MG CAP (CYMBALTA) PO SCH (20:43)
[2019-09-29] MEDS: ATORVASTATIN 20 MG TAB PO SCH (20:43)
[2019-09-29 20:44] VITALS: BP 132/63
[2019-09-29] MEDS: PREGABALIN 100 MG CAP (LYRICA) PO SCH (20:44)
[2019-09-29] MEDS: METOPROLOL SUCC *XL* 12.5MG PER 1/2 TAB (TopROL *XL*) PO SCH (20:44)
[2019-09-29] MEDS: VITAMIN D 1,000 INTERNATIONAL UNITS TABLET PO SCH (20:44)
[2019-09-29 22:00] VITALS: BP 130/58
[2019-09-29] MEDS: PERCOCET 5MG/325MG TAB PO PRN (22:27)
[2019-09-30] MEDS: levETIRAcetam 250MG TABLET (KEPPRA) PO SCH (05:59)
[2019-09-30] MEDS: ASPIRIN 81 MG ENTERIC TAB PO SCH (05:59)
[2019-09-30 06:00] VITALS: BP 163/72
[2019-09-30] MEDS: OYSTER SHELL CALCIUM 500 MG TAB PO SCH (06:00)
[2019-09-30] MEDS: PANTOPRAZOLE 20 MG TAB PO SCH (06:00)
[2019-09-30] MEDS: SERTRALINE 100 MG TAB PO SCH (06:00)
[2019-09-30 07:06] LABS: BASO # 0.1 10^3/uL (0.0-0.2); EOS # 0.2 10^3/uL (0.0-0.5); EOS % 1.6 % (0.0-3.0); HEMATOCRIT 36.1 % (42.0-52.0); HEMOGLOBIN 11.8 g/dl (13.5-17.5); LYMPH # 3.7 10^3/uL (1.5-5.0); LYMPH % 30.1 % (24.0-44.0); MEAN CORPUSCULAR HEMOGLOBIN 35.4 pg (27.0-33.0); MEAN CORPUSCULAR HGB CONC 32.7 g/dl (32.0-36.5); MEAN CORPUSCULAR VOLUME 108.4 fl (80.0-96.0); MONO # 1.6 10^3/uL (0.0-0.8); MONO % 13.1 % (0.0-5.0); NEUTROPHILS # 6.6 10^3/uL (1.5-8.5); PLATELET COUNT, AUTOMATED 222 10^3/uL (150-450); RED BLOOD COUNT 3.33 10^6/uL (4.30-6.10); WHITE BLOOD COUNT 12.2 10^3/uL (4.0-10.0)
[2019-09-30] MEDS: HEPARIN SOD (PORCINE) 5000 UNITS/ML VIAL (J1644 PER 1000UNITS) SC SCH (07:26)
[2019-09-30] MEDS: HumaLOG INSULIN (NovoLOG) PER UNIT SC SCH ×3 (07:30→13:15)
[2019-09-30] MEDS: (RENVELA) SEVELAMER **CARBONate** 800 MG TAB PO SCH ×2 (07:57→12:30)
[2019-09-30 08:02] LABS: ALBUMIN 2.8 GM/DL (3.2-5.2); BILIRUBIN,TOTAL 0.5 MG/DL (0.2-1.0); CALCIUM LEVEL 6.6 MG/DL (8.5-10.1); POTASSIUM SERUM 6.2 MEQ/L (3.5-5.1); TOTAL PROTEIN 6.9 GM/DL (6.4-8.2)
[2019-09-30 08:03] LABS: CREATININE FOR GFR 10.5 MG/DL (0.70-1.30); GLOMERULAR FILTRATION RATE 5.5 (>56)
[2019-09-30] MEDS ORDERED: MAALOX 30 ML SUSP *UDC PO PRN (08:45)
[2019-09-30] MEDS ORDERED: OSEL30CA PO (10:11)
[2019-09-30] MEDS ORDERED: HEPARIN 1,000 UNITS/ML 10ML VIAL (FOR RADIOLOGY& DIALYSIS ONLY)(J1644-10) IV ONE (11:15)
--- NOTE | 2019-09-30 11:38 | DS.PDOC ---
Discharge Summary General Date of Admission Sep 28, 2019 at 11:00 Date of Discharge 09/30/19 Discharge Summary PROCEDURES PERFORMED DURING STAY: None. ADMITTING DIAGNOSES: 1. Influenza A. DISCHARGE DIAGNOSES: 1. Influenza A, end-stage renal disease on hemodialysis, hypertension, hyperlipidemia, COPD, seizure disorder, gastritis, anxiety disorder, diabetes mellitus, diabetic neuropathy and chronic pain syndrome. COMPLICATIONS/CHIEF COMPLAINT: Influenza A. HISTORY OF PRESENT ILLNESS: This is a 53 years old diabetic male with past medical history of end-stage renal disease on hemodialysis on Wednesday with and Saturdays, legally blind, hypertension, hyperlipidemia, COPD, seizure disorder, gastritis, anxiety, diabetes mellitus, neuropathy, chronic pain, was sent from hemodialysis unit with chief complaints of high-grade fever and chills and body aches since last about 2 days. Patient offers no complaints of chest pain, shortness of breath, nausea, vomiting, diarrhea, etc.. HOSPITAL COURSE: Patient was admitted with the diagnosis of influenza A. Patient was started on symptomatic care with Tylenol and after discussing with nephrology and pharmacy. He was started on Tamiflu 30 mg by mouth after each dialysis. Patient's hemodialysis were continued. Today he is getting his second dialysis and we will get the second dose of his Tamiflu. But patient is already clinically stable, asymptomatic, afebrile. No more respiratory complaints of body aches and he will be discharged home and follow with Dr. Payne as an outpatient. Patient is now hemodialysis as scheduled on Wednesday and he will take 3 more doses of Tamiflu for which she has been provided with prescription. Patient has been advised to continue all his home medications and follow with Dr. Payne as per schedule. DISCHARGE MEDICATIONS: Please see below. ALLERGIES: Please see below. PHYSICAL EXAMINATION ON DISCHARGE: VITAL SIGNS: Please see below. GENERAL: Within normal limits HEENT: Debra extraocular muscles intact NECK: Supple CARDIOVASCULAR EXAMINATION: S1, S2, regular RESPIRATORY EXAMINATION: Clear to A&P ABDOMINAL EXAMINATION: , Soft, nontender. Pulses present EXTREMITIES: No clubbing, cyanosis, edema SKIN: Normal NEUROLOGICAL EXAMINATION: . No focal motor sensory deficit PSYCHIATRIC EXAMINATION: Normal LABORATORY DATA: Please see below. IMAGING: Chest x-ray:Somewhat prominent interstitial markings in the bases bilaterally. Mildly prominent heart. PROGNOSIS: Good ACTIVITY: As tolerated. DIET: As tolerated DISCHARGE PLAN: As tolerated DISPOSITION: . Home DISCHARGE INSTRUCTIONS: 1. As per discharge instructions. ITEMS TO FOLLOWUP ON ON OUTPATIENT: 1. Follow with Dr. Payne as an outpatient. DISCHARGE CONDITION: Stable. TIME SPENT ON DISCHARGE: 35 minutes. Vital Signs/I&Os Vital Signs Date Time Temp Pulse Resp B/P (MAP) Pulse Ox O2 Delivery O2 Flow Rate FiO2 09/30/19 06:00 96.9 53 16 163/72 (102) 95 Room Air I&O- Last 24 Hours up to 6 AM 09/30/19 06:00 Intake Total 1080 ml Output Total 0 ml Balance 1080 ml Laboratory Data Labs 24H Laboratory Tests 2 09/29/19 12:02: Bedside Glucose (Misc Panel) 455H 09/29/19 17:09: Bedside Glucose (Misc Panel) 403H 09/29/19 20:54: Bedside Glucose (Misc Panel) 415H 09/30/19 06:24: Immature Granulocyte % (Auto) 0.2, Neutrophils (%) (Auto) 54.0, Lymphocytes (%) (Auto) 30.1, Monocytes (%) (Auto) 13.1H, Eosinophils (%) (Auto) 1.6, Basophils (%) (Auto) 1.0, Neutrophils # (Auto) 6.6, Lymphocytes # (Auto) 3.7, Monocytes # (Auto) 1.6H, Eosinophils # (Auto) 0.2, Basophils # (Auto) 0.1, Nucleated Red Blood Cells % (auto) 0.0, Anion Gap 12, Glomerular Filtration Rate 5.5L, Calcium Level 6.6L, Total Bilirubin 0.5, Aspartate Amino Transf (AST/SGOT) 38H, Alanine Aminotransferase (ALT/SGPT) 33, Alkaline Phosphatase 100, Total Protein 6.9, Albumin 2.8L, Albumin/Globulin Ratio 0.68L CBC/BMP Laboratory Tests 09/30/19 06:24 FSBS Laboratory Tests Test 09/29/19 12:02 09/29/19 17:09 09/29/19 20:54 Range/Units Bedside Glucose (Misc Panel) 455 403 415 70-105 MG/DL Microbiology Microbiology 09/28/19 Blood Culture - Preliminary, Resulted No growth after 24 hours . All specim... 09/28/19 Blood Culture - Preliminary, Resulted No growth after 24 hours . All specim... Discharge Medications Scheduled Aspirin (Aspirin EC) 81 Mg Tab, 81 MG PO DAILY, (Reported) Atorvastatin Calcium (Lipitor) 80 Mg Tab, 80 MG PO QHS, (Reported) Calcium Carbonate (Calcium) 600 Mg Tablet, 600 MG PO DAILY, (Reported) Cholecalciferol (Vitamin D3) (Vitamin D3) 1,000 Unit Capsule, 1,000 UNIT PO QHS, (Reported) Dexlansoprazole (Dexilant) 30 Mg Cap, 30 MG PO DAILY, (Reported) Duloxetine HCl (Duloxetine HCl) 30 Mg Capsule.dr, 30 MG PO QHS, (Reported) Ezetimibe (Ezetimibe) 10 Mg Tablet, 10 MG PO QHS, (Reported) Insulin Detemir (Levemir Flextouch) 100 Unit/1 Ml Insuln.pen, 10 UNIT SC BID, (Reported) Insulin Human Lispro (Novolog) 100 U/Ml Inj, 1 DOSE SC ACHS, (Reported) PER SLIDING SCALE: 1 UNIT PER 15 GRAMS OF CARBS; CARB COUNTING STARTING AT 1 UNIT PER 100-150 Levetiracetam (Keppra) 500 Mg Tab, 500 MG PO BID, (Reported) Lubiprostone (Amitiza) 24 Mcg Capsule, 24 MCG PO BID, (Reported) Metoprolol Succinate (Metoprolol Succinate) 25 Mg Tab, 12.5 MG PO QHS, (Reported) Multivitamin (Multivitamins) 1 Each Capsule, 1 CAP PO DAILY, (Reported) Oseltamivir Phosphate (Oseltamivir Phosphate) 30 Mg Capsule, 30 MG PO HD Take one capsule orally after each dialysis Patiromer Calcium Sorbitex (Veltassa) 8.4 Gm Powd.pack, 8.4 GM PO 1XWK, (Reported) SUNDAYS Pregabalin (Lyrica) 300 Mg Cap, 300 MG PO QHS, (Reported) Sertraline HCl (Sertraline HCl) 100 Mg Tablet, 100 MG PO DAILY, (Reported) Sevelamer Carbonate (Renvela) 800 Mg Tab, 1,600 MG PO WM, (Reported) Scheduled PRN Acetaminophen (Acetaminophen) 325 Mg Tablet, 650 MG PO QID PRN for PAIN / FEVER, (Reported) Hydrocodone/Acetaminophen ([place] 10-325 Tablet) 1 Each Tablet, 1 TAB PO Q6H PRN for PAIN, (Reported) Ondansetron (Ondansetron Odt) 4 Mg Tab.rapdis, 4 MG PO Q6H PRN for NAUSEA OR VOMITING, (Reported) Allergies Coded Allergies: erythromycin base (Verified Allergy, Intermediate, 03/21/19) baclofen (Verified Adverse Reaction, Intermediate, extreme fatigue, 03/21/19) famotidine (Verified Adverse Reaction, Intermediate, GYNECOMASTIA, 09/28/19) CHRISTINA LOPEZ MD Sep 30, 2019 11:38
[2019-09-30] MEDS ORDERED: OSELTAMIVIR PHOSPHATE 30MG CAPSULE PO ONE (13:15)
[2019-09-30] MEDS ORDERED: OSELTAMIVIR PHOSPHATE 30MG CAPSULE PO SCH (18:00)
--- NOTE | 2019-10-01 07:30 | IPN ---
DATE: 09/30/2019 SUBJECTIVE: The patient was seen and examined at the bedside today morning. He is afebrile, hemodynamically stable. He reports his shortness of breath is getting better. He denies any active complaints. OBJECTIVE: Vital signs: Temperature is 96.9 degrees Fahrenheit, blood pressure 163/72, pulse is 63, respiratory rate of 16, saturating 95% on room air. Intake and output: There is no urine output recorded. Weight in the bed scale is 93 kg. PHYSICAL EXAMINATION: General: The patient is awake, alert, oriented times three, laying in bed getting hemodialysis done. Head and neck exam: Extraocular muscles intact. Pupils equally round and reactive to light. Mucous membranes are moist. Neck is supple. There is no jugular venous distention (JVD). Cardiovascular: S1, S2, regular rate. No edema of the bilateral lower extremities. Respiratory: Chest is clear to auscultation bilaterally. Bilateral equal air entry. No rales or rhonchi. Abdomen: Soft, obese, positive bowel sounds. Nontender. Musculoskeletal: No clubbing or cyanosis. Pulses are 2+. 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 Power is 5/5 in all extremities. LAB REVIEW: CBC showed a WBC of 12.2, hemoglobin 11.8, platelets are 222. BMP showed sodium 131, potassium 6.2, chloride 95, bicarbonate 24, BUN 65, creatinine is 10.5, calcium 6.6, albumin is 2.8. Microbiology: Blood cultures are negative so far. CURRENT INPATIENT MEDICATIONS: The patient's medications were all reviewed by me. The patient is getting Tamiflu with each dialysis. No other change in the medications today as compared with yesterday. ASSESSMENT/PLAN 1. End-stage renal disease. The patient is dialysis dependent. Today he is being dialyzed according to his regular schedule. Three liters of fluid will be removed as tolerated by his blood pressure. 2. Acute influenza A infection. The patient is currently getting Tamiflu, total of three doses will be given with each dialysis and the dose is 30 mg. 3. Hyperkalemia. Potassium was 6.2 today. He is being dialyzed with a 1K bath. Potassium level is expected to improve after that. 4. Anemia in end-stage renal disease, hemoglobin is 11.8 which is optimal. No need of Aranesp administration. DISPOSITION: The patient is optimized from a nephrology standpoint. He will be discharged after dialysis. His symptoms are better.
== END 2019-09-30 13:37 | disposition home or self-care (01) ==
LOC: M ED 10:59 → EDBD 10:59 → M ED INP 11:00 → ENRESERV 14:03 → M MSPAV 16:54
PROVIDERS: ADMIT Internal Medicine; ATTEND Internal Medicine
DX: J09.X9 Influenza due to identified novel influenza A virus with other manifestations (principal); R94.31 Abnormal electrocardiogram [ECG] [EKG]; I12.0 Hypertensive chronic kidney disease with stage 5 chronic kidney disease or end stage renal disease; N18.6 End stage renal disease; J44.9 Chronic obstructive pulmonary disease, unspecified; E11.9 Type 2 diabetes mellitus without complications; G40.909 Epilepsy, unspecified, not intractable, without status epilepticus; E78.5 Hyperlipidemia, unspecified; H54.8 Legal blindness, as defined in USA; F41.9 Anxiety disorder, unspecified; G62.9 Polyneuropathy, unspecified; G89.29 Other chronic pain; Z79.82 Long term (current) use of aspirin; Z79.899 Other long term (current) drug therapy; Z99.2 Dependence on renal dialysis; Z87.891 Personal history of nicotine dependence; Z88.8 Allergy status to other drugs, medicaments and biological substances; Z88.1 Allergy status to other antibiotic agents; Z98.890 Other specified postprocedural states
CPT/HCPCS: 36415; 71045; 80048; 80053; 80076; 82550; 82553; 83605; 84484; 85025; 85610; 87040; 87502; 93005; 93041; 94760; 96372; 99285; G0257; G0378

== ENCOUNTER → 2019-10-17 | Outpatient (CLI) | payer MEDICARE, MEDICAID ==
[~2019-10-17] MED LIST changes: +CALC600T36 PO; +EZET10TA21 PO; +ISOVUE-300 61% 50ML VIAL (Q9967) As Ordered ONE; +LIDOCAINE 1% MDV 20ML VIAL As Ordered ONE; +MULTCAP PO; +NON-325T5 PO; +NORC1TAB5 PO; +OSEL30CA PO; +SERT-138 PO; +VITA100054 PO; +fentaNYL 100 MCG/2 ML INJECTION (J3010) As Ordered ONE
--- NOTE | 2019-10-17 15:58 | ROOPDOC ---
[facility] Report Of Operation Report of Operation DATE OF PROCEDURE: 10/17/19 PREPROCEDURE DIAGNOSES: End-stage renal disease with poorly functioning AV fistula and pulsatility POSTPROCEDURE DIAGNOSES: Same PROCEDURE: 1. Ultrasound examination AV anastomosis and ultrasound-guided access left cephalic vein 2. Left upper extremity fistulogram and central venogram 3. Angioplasty proximal interposition AV graft to axillary vein anastomosis with 8 x 40 Cantrall balloon 4. Angioplasty subclavian vein with 12 x 40 atlas balloon 5. Completion venogram SURGEON: Stanley Chow MD ANESTHESIA: Local anesthesia with 2 mL lidocaine. The patient did not receive full sedation. He did receive 75 g of fentanyl IV analgesia administered by Dr. Chow. Despite not receiving full sedation, he was monitored by registered nurse is in the department of radiology using automated blood pressure, EKG, and pulse oximetry. He tolerated the procedure well with no complications. CONTRAST: When he 5 mL Isovue-300 INDICATION FOR PROCEDURE: This is a very pleasant 53-year-old patient with end- stage renal disease currently dialyzing with a left upper extremity brachiocephalic AV fistula that has an interposition graft from the cephalic vein in the upper arm to the axillary vein with outflow through the central venous system. He has had increased venous pressures, pulsatility, and long bleeding times after cannulation for dialysis. Risks benefits and alternatives to a fistulogram and intervention were explained to the patient he is agreeable to proceed. Informed consent was obtained. INTERPRETATION: 1. Under ultrasound we examine the AV anastomosis and found it was widely patent with no stenoses and the cephalic vein near the AV anastomosis is somewhat aneurysmal and widely patent. With fistulogram we see the remaining cephalic vein is mildly aneurysmal over the bicep and has a widely patent anastomosis with what appears to be a 7 mm or 8 mm Hosmer-Saji graft with the proximal anastomosis at the axillary vein. The axillary vein anastomosis is somewhat stenotic, but then the axillary vein proximal to this is widely patent and runs off into the subclavian vein which has a tight stenosis at the thoracic outlet and then the central veins are widely patent. 2. After angioplasty of the graft axillary vein anastomosis with an 8 x 40 Cantrall, there is widely patent flow with less than 20% residual stenosis and and improve thrill in the fistula. No extravasation or dissection noted. 3. After angioplasty of the subclavian vein with a 12 x 40 atlas balloon, there was less than 20% residual stenosis with a improvement inflow to the central system. No extravasation or dissection noted. REPORT OF OPERATION: The patient was brought to the angiographic suite in stable condition and placed supine on the fluoroscopic table. His left upper extremity was prepped and draped in a sterile fashion. A timeout was performed. Local anesthesia was administered to skin and subcutaneous tissue over the cephalic vein. Ultrasound was used to examine the AV anastomosis which was found to be widely patent. Images were saved. We then used ultrasound to guide access to the cephalic vein and a microneedle was used for access and a wire was passed through this access and the needle was removed and a micro-sheath was placed. Through this access was passed to Glidewire into the central system under fluoroscopic guidance we then exchanged sheath for 6 [place] sheath and flushed the sheath with saline. A fistulogram and central venogram were performed. Please interpretation above. We then exchanged the sheath for a 7 [place] sheath and flushed the sheath with saline. An 8 x 40 Cantrall balloon was used to angioplasty the interposition graft to axillary vein anastomosis for three- minute inflated with a significant improvement in flow. We then advanced a 12 x 40 atlas balloon across the subclavian vein stenosis at the thoracic outlet and a three-minute inflations was performed. Following this, there was still some residual stenosis in a second three-minute inflations was performed. There was a marked improvement in the thrill in the flow after the second angioplasty. No extravasation R embolization or dissections were noted with angioplasties. A glyrzj-dm-kyytw Prolene suture was placed at that sheath site in the sheath was removed. Pressure was held for 3 minutes for good hemostasis sterile dressings were applied and the patient was taken to recovery in stable condition. He tolerated the procedure very well. ESTIMATED BLOOD LOSS: Approximately 2 mL. COMPLICATIONS: None. PLAN: It is okay to use the AV fistula for dialysis. We'll see the patient back in a couple months to see how he is doing or sooner if he has any other issues. It is okay for him to resume his home diet and medications postprocedure today. STANLEY CHOW MD Oct 17, 2019 15:58
[2019-10-17 16:32] VITALS: BP 164/78
== END ==
LOC: M IRPRO 13:27
PROVIDERS: ATTEND Surgery Vascular Surgery
DX: T82.590A Other mechanical complication of surgically created arteriovenous fistula, initial encounter (principal); N18.6 End stage renal disease; X58.XXXA Exposure to other specified factors, initial encounter; Y93.9 Activity, unspecified; Y92.9 Unspecified place or not applicable; Y99.8 Other external cause status; Z88.1 Allergy status to other antibiotic agents; Z99.2 Dependence on renal dialysis
CPT/HCPCS: 36902; C1725; C1769; C1894; J1644; J3010; Q9967

== ENCOUNTER 2019-12-13 23:13 | Emergency (ER) | payer MEDICARE, MEDICAID ==
[~2019-12-13] VITALS: Ht 167.6 cm; Wt 85.5 kg
[~2019-12-13 23:13] MED LIST changes: -ISOVUE-300 61% 50ML VIAL (Q9967) As Ordered ONE; -LIDOCAINE 1% MDV 20ML VIAL As Ordered ONE; -fentaNYL 100 MCG/2 ML INJECTION (J3010) As Ordered ONE
[2019-12-13] MEDS ORDERED: AMIT24CA7 PO (23:23)
[2019-12-14 00:11] LABS: BASO # 0.1 10^3/uL (0.0-0.2); BASO % 1.4 % (0.0-1.0); EOS # 0.4 10^3/uL (0.0-0.5); EOS % 4.2 % (0.0-3.0); HEMATOCRIT 38.8 % (42.0-52.0); HEMOGLOBIN 13.6 g/dl (13.5-17.5); LYMPH # 3.2 10^3/uL (1.5-5.0); LYMPH % 32.7 % (24.0-44.0); MEAN CORPUSCULAR HEMOGLOBIN 36.5 pg (27.0-33.0); MEAN CORPUSCULAR HGB CONC 35.1 g/dl (32.0-36.5); MONO # 1.2 10^3/uL (0.0-0.8); MONO % 12.8 % (0.0-5.0); NEUTROPHILS # 4.7 10^3/uL (1.5-8.5); NEUTROPHILS % 48.1 % (36.0-66.0); PLATELET COUNT, AUTOMATED 253 10^3/uL (150-450); RED BLOOD COUNT 3.73 10^6/uL (4.30-6.10); WHITE BLOOD COUNT 9.7 10^3/uL (4.0-10.0)
[2019-12-14 00:21] LABS: INR 1.06; PROTHROMBIN TIME 13.5 SECONDS (11.8-14.0)
[2019-12-14 00:43] LABS: VENOUS O2 SATURATION 88.6 % (60.0-80.0); VENOUS PARTIAL PRESSURE CO2 52.2 mmHg (38.0-50.0); VENOUS PARTIAL PRESSURE O2 57.2 mmHg (30.0-50.0); VENOUS PH 7.406 UNITS (7.330-7.430); VENOUS STANDARD HCO3 29.6 MEQ/L; VENOUS TOTAL CO2 33.7 MEQ/L (24.0-28.0)
--- NOTE | 2019-12-14 01:24 | ECGEPIP ---
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
[2019-12-14 01:35] LABS: ALBUMIN 3.6 GM/DL (3.2-5.2); ALT/SGPT 34 U/L (12-78); BILIRUBIN,DIRECT < 0.4 MG/DL (0.0-0.2); BILIRUBIN,TOTAL 0.6 MG/DL (0.2-1.0); BLOOD UREA NITROGEN 43 MG/DL (7-18); CALCIUM LEVEL 9.8 MG/DL (8.5-10.1); CARBON DIOXIDE LEVEL 31 MEQ/L (21-32); CHLORIDE LEVEL 96 MEQ/L (98-107); CK-MB VALUE MASS 2.6 NG/ML (<3.6); CPK CREATINE PHOSPHOKINASE 168 U/L (39-308); CREATININE FOR GFR 9.74 MG/DL (0.70-1.30); GLUCOSE, FASTING 109 MG/DL (70-100); MB/CK RELATIVE INDEX 1.55 (< OR =4); SODIUM LEVEL 135 MEQ/L (136-145); TOTAL PROTEIN 7.2 GM/DL (6.4-8.2); TROPONIN I < 0.02 NG/ML (< 0.10)
[2019-12-14 01:36] LABS: ETHYL ALCOHOL (ETHANOL) < 0.003 % (0.000-0.010)
[2019-12-14 01:46] VITALS: BP 143/65
--- NOTE | 2019-12-14 03:25 | REP ---
Clinical: Weakness. Comparison: 09/28/2019. Findings: Mediastinum and cardiac silhouette are within normal limits and stable. Lung call demonstrate chronic interstitial changes. Calcified granuloma in the right upper lung zone is unchanged. No focal consolidation or obvious effusion. No pneumothorax. Skeletal structures intact. Impression: Stable chronic changes. No acute consolidation or effusion identified. Electronically Signed by Refugio Faustin MD 12/14/2019 03:16 A
== END 2019-12-14 01:48 | disposition left against medical advice (07) ==
LOC: M ED 23:13
DX: R55 Syncope and collapse (principal); E11.9 Type 2 diabetes mellitus without complications; J44.9 Chronic obstructive pulmonary disease, unspecified; N18.6 End stage renal disease; G40.909 Epilepsy, unspecified, not intractable, without status epilepticus; Z88.1 Allergy status to other antibiotic agents; Z88.8 Allergy status to other drugs, medicaments and biological substances; Z79.899 Other long term (current) drug therapy; Z79.82 Long term (current) use of aspirin; Z79.4 Long term (current) use of insulin
CPT/HCPCS: 71045; 80048; 80076; 82140; 82550; 82553; 82803; 83605; 84443; 84484; 85025; 85610; 87040; 93005; 93041; 99284; G0480

== ENCOUNTER → 2020-01-05 | Outpatient (CLI) | payer MEDICARE, MEDICAID ==
[~2020-01-05] MED LIST changes: +ISOVUE-300 61% 50ML VIAL As Ordered ONE; +LIDOCAINE 1% MDV 20ML VIAL As Ordered ONE; +MIDAZOLAM INJ 2MG/2ML VIAL (J2250 PER 1MG) As Ordered ONE; +fentaNYL 100 MCG/2 ML INJECTION (J3010) As Ordered ONE
--- NOTE | 2020-01-05 17:50 | ROOPDOC ---
[facility] Report Of Operation Report of Operation DATE OF PROCEDURE: 01/05/20 PREPROCEDURE DIAGNOSES: End-stage renal disease with increased swelling left upper extremity and increased pulsatility left upper extremity fistula POSTPROCEDURE DIAGNOSES: Same PROCEDURE: 1. Ultrasound-guided access left upper extremity AV fistula 2. Left upper extremity fistulogram and central venogram 3. Angioplasty left basilic vein with 8 x 40 A[place]o balloon 4. Angioplasty left axillary vein and subclavian vein with 12 x 40 Aledo balloon 5. Completion venogram SURGEON: Stanley Chow MD ANESTHESIA: Local anesthesia 2 mL lidocaine. Moderate intravenous conscious sedation was administered by Dr. Chow. The patient was independently m onitored by a registered nurse assigned to the Department of radiology using automated blood pressure, EKG, and pulse oximetry. The details sedation record is permanently stored in the hospital information system. The following is a brief sedation record: Start time 17:15, stopped 17:34, Versed 1 mg IV, fentanyl 50 g IV. CONTRAST: 20 mL Isovue 300 INDICATION FOR PROCEDURE: Mr. Jolley is a very pleasant 54-year-old gentleman with end-stage renal disease currently dialyzing with the left upper extremity b rachiobasilic AV fistula. He has had increased swelling in his left upper extremity, and increased pulsatility is fistula. Risks benefits alternatives to fistulogram potential intervention recs point to the patient and he was agreeable to proceed. Informed consent was obtained. INTERPRETATION: 1. Ultrasound was used to examine the AV anastomosis which is widely patent. There is no inflow stenosis. 2. 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 There is also a 30% stenosis in the axillary vein, and a 70% stenosis in the subclavian vein at the thoracic outlet. The rest of the central veins are widely patent. 3. After angioplasty of the basilic vein with an 8 x 40 Aledo balloon, there was less than 10% residual stenosis in no extravasation or embolization noted. 4. After angioplasty of the axillary vein and subclavian vein with a 12 x 40 Aledo balloon, there was less than 10% stenosis in the axillary vein and about 20% residual stenosis in the subclavian vein. Repeat angioplasty of the subclavian vein for three-minute inflations 2 resulted in no change with final residual stenosis of about 20% in the subclavian vein. However, this is a marked improvement in there is no flow limitation. There is an excellent thrill and the fistula. No extravasation or embolization are noted. REPORT OF OPERATION: The patient was brought to the angiographic suite in stable condition. His left upper extremity was prepped and draped in a sterile fashion. A timeout was performed. Local anesthesia was administered to the skin and subcutaneous tissue over the left basilic vein near the AV anastomosis. Ultr asound was used to examine the AV anastomosis which was found to be widely patent with no flow limitations. A microneedle was used to access the basilic vein near the AV anastomosis under ultrasound guidance. A wire was passed through this access under fluoroscopic guidance the needle was exchanged for a 4 [place] glide sheath over the wire using the Seldinger technique. The inner c annula and wire were removed and the sheath was flushed with saline. A Glidewire was passed through this access into the central system under fluoroscopic guidance. A fistulogram and central venogram were performed. Please interpretation above. An 8 x 40 Aledo balloon was advanced to the proximal basilic vein near the axillary vein, and a four-minute inflation was performed. His widely patent flow after angioplasty. We then exchanged the balloon for 12 x 40 Aledo balloon and a three-minute inflations was performed across the axillary vein, with excellent flow following this. No significant residual stenosis was noted. We then advanced the balloon across the subclavian stenosis at the thoracic outlet. This was a very tight stenosis. Several three-minute i nflations were performed with venograms in between. Although there was a marked improvement inflow overall, there is still about 20% residual stenosis that we could not improve upon after repeated angioplasty. However, there is a marked improvement inflow through the fistula, a great thrill in the fistula, and this should help significantly with the patient's outflow. This concluded the procedure. Local anesthesia was administered around the sheath site and a plgejy-un-wqjtk Prolene suture was used to secure once the sheath was removed. This provided hemostasis. Pressure was held for 2 minutes and sterile dressings were applied. The patient was then taken recovery in stable condition. He tolerated the procedure and the sedation well. ESTIMATED BLOOD LOSS: Approximately 2 mL. COMPLICATIONS: None. PLAN: The patient can resume his home diet medications. It is okay to use the fistula for dialysis. We like for him to let us know how he is doing in a week and if the swelling in his arm has resolved. We appreciate the opportunity to participate in the care of this patient. STANLEY CHOW MD January 05, 2020 17:50
[2020-01-05 18:00] VITALS: BP 185/87
== END ==
LOC: M IRPRO 14:46
PROVIDERS: ATTEND Surgery Vascular Surgery
DX: T82.590A Other mechanical complication of surgically created arteriovenous fistula, initial encounter (principal); N18.6 End stage renal disease; X58.XXXA Exposure to other specified factors, initial encounter
CPT/HCPCS: 36902; 36907; 99156; C1725; C1769; C1894; J1644; J2250; J3010; Q9967

== ENCOUNTER → 2020-05-17 | Outpatient (CLI) | payer MEDICARE, MEDICAID ==
[~2020-05-17] MED LIST changes: +AMLO1TAB24 PO; -AMLO5TAB6 PO
--- NOTE | 2020-05-17 15:31 | ROOPDOC ---
[facility] Report Of Operation Report of Operation DATE OF PROCEDURE: 05/17/20 PREPROCEDURE DIAGNOSES: End-stage renal disease with increased swelling left upper extremity and suspected central veins stenosis POSTPROCEDURE DIAGNOSES: Same PROCEDURE: 1. Ultrasound-guided access left cephalic vein 2. Left upper extremity fistulogram and central venogram 3. Angioplasty proximal aspect of left cephalic to axillary bypass, left axillary vein, and left subclavian vein with 8 x 20 cutting balloon 4. Angioplasty left subclavian vein at the thoracic outlet with a 12 x 40 Orland balloon and 12 x 40 atlas balloon 5. Completion venogram SURGEON: Stanley Chow MD ANESTHESIA: Local anesthesia 3 mL lidocaine. Moderate intravenous conscious sedation was administered by Dr. Chow. The patient was independently monitored by registered nurse under the department of radiology using automated blood pressure, EKG, and pulse oximetry. The detailed sedation record is probably stored in the hospital information system. The following is a brief sedation record: Start time 14:23, stop time 14:48, Versed 1.5 mg IV, fentanyl 75 g IV. CONTRAST: 24 mL Isovue-300 INDICATION FOR PROCEDURE: This is very pleasant 34-year-old gentleman with end-stage renal disease currently dialyzing with left upper extremity brachiocephalic AV fistula that has a jump graft from the proximal cephalic vein down to the axillary vein and has had increased swelling in his arm. Risks benefits and alternatives to a fistulogram and possible intervention were explained to the patient and he is agreeable to proceed. Informed consent was obtained. INTERPRETATION: 1. The AV anastomosis is widely patent on ultrasound. 2. The left cephalic vein is widely patent an aneurysmal and areas of frequent use in the upper arm, and the jump graft from the cephalic vein near the shoulder down to the axillary vein is widely patent. There is a mild stenosis at the anastomosis, proximally 20%. There is also a mild 20% stenosis in the axillary vein midportion, and then a 90% stenosis at the subclavian vein at the thoracic outlet. 3. After angioplasty of the left subclavian vein, axillary vein, and the cephalic graft axillary anastomosis, widely patent inflow was noted except still 50% residual stenosis was noted at the subclavian vein. 4. After angioplasty left subclavian vein with a 12 x 40 Orland balloon, there was still significant residual stenosis and we needed a more high-pressure balloon to open this area. A total by 40 atlas balloon was selected and a high pressure inflations was performed with widely patent inflow following this, less than 20% residual stenosis, no flow limitations, and an excellent thrill and the fistula. No extravasation was noted. REPORT OF OPERATION: The patient was brought to the angiographic suite in stable condition. His left upper extremity was prepped and draped in a sterile fashion. A timeout was performed. Local anesthesia was administered to the skin and subcutaneous tissue over the left cephalic vein. Ultrasound was used to examine AV anastomosis and it was noted to be widely patent. A microneedle was used to access vein under ultrasound guidance. A wire was passed through this access needle was removed and a 4 [place] sheath was placed and flushed with saline. A fistulogram and central venogram were performed. Please interpretation above. Glidewire was advanced to the sheath and the sheath was removed and a 7 [place] sheath was placed and flushed with saline. Glidewire was advanced into the central system ago by cath was placed over the wire and the wire was exchanged for an 018 wire. An 8 x 20 cutting balloon was advanced over the wire and used to angioplasty the left subclavian vein, the axillary vein, and the cephalic vein graft axillary anastomosis. Following this there was improvement in flow, but still residual stenosis at the subclavian vein. This balloon was exchanged for a total by 40 Orland balloon and high-pressure angioplasty was performed, but we cannot improve the stenosis. There was still residual stenosis that was flow-limiting, and therefore the balloon was exchanged for a 12 x 40 atlas balloon and high-pressure inflation was performed with significant improvement inflow through the thoracic outlet. There is no longer significant stenosis, no extravasation was noted and an excellent thrill was noted in the fistula. This concluded the procedure. The balloon and wire were removed. Local anesthesia was ministered around the sheath and a noisiu-dc-zwydr Prolene suture was secured as the sheath was removed. Sterile dressings were applied and hemostasis was achieved with few minutes of gentle pressure. The patient was then taken to recovery in stable condition. He tolerated the procedure and sedation well. ESTIMATED BLOOD LOSS: Approximately 2 mL. COMPLICATIONS: None. PLAN: Okay to use AV fistula for dialysis. We will check back with the patient in about 3 months to see how he is doing and if he has any recurrent stenosis. Okay to resume home diet medications. We appreciate the opportunity to produce p atent care of this patient. STANLEY CHOW MD May 17, 2020 15:31
[2020-05-17 15:35] VITALS: BP 178/83
== END ==
LOC: M IRPRO 13:05
PROVIDERS: ATTEND Surgery Vascular Surgery
DX: T82.590A Other mechanical complication of surgically created arteriovenous fistula, initial encounter (principal); N18.6 End stage renal disease; X58.XXXA Exposure to other specified factors, initial encounter; I12.9 Hypertensive chronic kidney disease with stage 1 through stage 4 chronic kidney disease, or unspecified chronic kidney disease; Z79.4 Long term (current) use of insulin; Z79.82 Long term (current) use of aspirin; Z79.899 Other long term (current) drug therapy; Z88.1 Allergy status to other antibiotic agents; Z88.8 Allergy status to other drugs, medicaments and biological substances; Z99.2 Dependence on renal dialysis
CPT/HCPCS: 36902; 36907; 99152; 99153; C1725; C1769; C1894; J1644; J2250; J3010; Q9967

== ENCOUNTER → 2020-08-06 | Outpatient (CLI) | payer MEDICARE, MEDICAID ==
[~2020-08-06] MED LIST changes: +ACET-838 PO; -ISOVUE-300 61% 50ML VIAL As Ordered ONE; +ISOVUE-370 76% 100ML VIAL As Ordered ONE; -LIDOCAINE 1% MDV 20ML VIAL As Ordered ONE; -MIDAZOLAM INJ 2MG/2ML VIAL (J2250 PER 1MG) As Ordered ONE; -NON-325T5 PO; -fentaNYL 100 MCG/2 ML INJECTION (J3010) As Ordered ONE
--- NOTE | 2020-08-06 15:17 | REP ---
INDICATION: NEOPLASM OF UNCERTAIN BEHAVIOR OF TRACHEA,BRONCHUS, LUNG. COMPARISON: Chest CT dated 05/24/2018. TECHNIQUE: Chest CT with IV contrast. FINDINGS: There are 2 calcified granulomas posteriorly in the right upper lobe as previously. There are calcified granulomas in th right paratracheal nodes and a tiny calcification in a subcarinal node. There are calcified granulomas in left hilar nodes. These are unchanged. The above findings are compatible with old healed granulomatous disease. There are no new lung nodules or masses. There is dependent atelectasis in the posterior lung call. There are occasional small subpleural blebs outlined by the dependent atelectasis. This is unchanged. There is no mediastinal, hilar or axillary lymph node enlargement. The thoracic aorta is unremarkable. The cardiac size is enlarged, unchanged. There is no pericardial effusion. There is atheromatous calcification in the coronary arteries. Upper abdomen: There are surgical clips in the gallbladder fossa. This is unchanged. The visualized hepatic parenchyma and pancreas are unremarkable. The spleen is surgically absent There is no adrenal nodule. IMPRESSION: There is no lung nodule, mass, infiltrate or effusion. There is dependent atelectasis in the lower lung call. The dependent atelectasis out line small subpleural bulla. There is no mediastinal, hilar or axillary lymph node enlargement. There are calcified granulomas and paratracheal, subcarinal and hilar nodes. There are calcified granulomas posteriorly in the right upper lobe. These are unchanged. Cholecystectomy and splenectomy. Cardiomegaly. Calcified atheroma in the coronary arteries. <Electronically signed by Misael Monahan > 08/06/20 [id number]
--- NOTE | 2020-08-07 08:21 | REP ---
INDICATION: PERIPHERAL VASCULAR DISEASE. COMPARISON: Comparison CT abdomen pelvis with IV contrast October 23, 2017.. TECHNIQUE: 100 mL of intravenous Isovue 370 is administered. Helical scanning is acquired. 3 mm axial images re-formatted. Coronal and sagittal MPR images are generated. Curved MPR vascular images are generated bilaterally. 3D surface rendered images are generated and viewed in a rotational format. FINDINGS: Preliminary digital veneer taper radiograph demonstrates a dorsal column stimulator device in the thoracic spine. There is an intramedullary melvin in the right tibia. The gallbladder and the spleen are surgically absent. There are small cortical renal cysts bilaterally. The visualized descending thoracic aorta is normal in caliber with some calcific plaquing. The celiac and superior mesenteric artery origins are unremarkable. The infrarenal abdominal aorta shows moderate circumferential mixed plaquing without aneurysm or high-grade stenosis. The inferior mesenteric artery origin is patent. There are calcifications in the renal arteries bilaterally but no high-grade renal artery stenosis is appreciated on either side. Renal arteries are singular. There is moderate nearly circumferential calcific plaquing of the common iliac arteries bilaterally, approximately 85% stenosis of the left common iliac artery and 60% stenosis of the right common iliac artery. There is calcific plaquing at the origin of the internal iliacs bilaterally particularly on the left. Left internal iliac artery shows a branch occlusion. The external iliac arteries are of good caliber and patent. There is calcific plaquing in the common femoral arteries bilaterally with approximately 50% narrowing on the right. Multifocal calcific plaquing is seen in the superficial femoral artery on the right with multiple mild stenoses. The profundal is unremarkable with mild calcific plaquing. In the adductor canal, there is 60-70% stenosis due to calcific plaquing in the superficial femoral artery. Popliteal artery on the right is of good caliber. There is distal popliteal artery calcification at the level of the tibioperoneal trunk. Three vessel calf runoff is seen into the distal calf on the right. The left proximal superficial femoral and proximal profundal artery are patent. There is calcification of the proximal profundal. Mild calcific plaquing is seen in the SFA but no high-grade stenosis or occlusion. At the level of the adductor canal there is calcification and 50% stenosis. Popliteal arteries of good caliber on the left and no significant finding is seen at the trifurcation. Fairly good caliber 3 vessel calf runoff is observed in the left calf to the ankle. IMPRESSION: Diffuse atherosclerotic and calcific plaquing. The dominant abnormalities are in the common iliac arteries bilaterally with bilateral stenoses here, left greater than right. <Electronically signed by Carrillo Baptiste > 08/07/20 [id number]
== END ==
LOC: M RAD 13:22
PROVIDERS: ATTEND Internal Medicine Nephrology
DX: I73.9 Peripheral vascular disease, unspecified (principal); D38.1 Neoplasm of uncertain behavior of trachea, bronchus and lung; I51.7 Cardiomegaly; R91.8 Other nonspecific abnormal finding of lung field
CPT/HCPCS: 71260; 75635; Q9967

== ENCOUNTER → 2020-09-20 | Outpatient (CLI) | payer MEDICARE, MEDICAID ==
[~2020-09-20] MED LIST changes: -ESCI20TA PO; +ESCI20TA16 PO; +ISOVUE-300 61% 50ML VIAL As Ordered ONE; -ISOVUE-370 76% 100ML VIAL As Ordered ONE; +LIDOCAINE 1% MDV 20ML VIAL As Ordered ONE; +MIDAZOLAM INJ 2MG/2ML VIAL (J2250 PER 1MG) As Ordered ONE; +fentaNYL 100 MCG/2 ML INJECTION (J3010) As Ordered ONE
--- NOTE | 2020-09-20 14:17 | ROOPDOC ---
[facility] Report Of Operation Report of Operation DATE OF PROCEDURE: 09/20/20 PREPROCEDURE DIAGNOSES: End-stage renal disease with increased venous pressure and arm swelling left upper extremity POSTPROCEDURE DIAGNOSES: Same PROCEDURE: 1. Ultrasound-guided access left cephalic vein 2. Left upper extremity fistulogram and central venogram 3. Angioplasty left subclavian vein with 12 x 40 [place] balloon 4. Angioplasty left interposition graft to axillary vein with 8 x 40 [place] balloon 5. Completion venogram SURGEON: Stanley Chow MD ANESTHESIA: Local anesthesia 3 mL lidocaine. Moderate intravenous conscious sedation with supervised by Dr. Chow. The patient was independently monitored by a registered nurse assigned to the Department of radiology using automated blood pressure, EKG, and pulse oximetry. The detailed sedation record is permanently stored in the hospital information system. The following is a brief sedation record: Start time 13:32, stop time 13:54, Versed 1 mg IV, fentanyl 50 g IV. CONTRAST: 23 mL Isovue-300 INDICATION FOR PROCEDURE: This is a very pleasant 54-year-old gentleman with end-stage renal disease, a left brachial cephalic AV fistula with an interposition graft from the cephalic vein proximally to the axillary vein, now with increased arm swelling and pulsatility in the fistula. Risks benefits and alternatives to a fistulogram and potential intervention were explained to the patient needs agreeable to proceed. Informed consent was obtained. INTERPRETATION: 1. The AV anastomosis is widely patent on ultrasound with color Doppler flow. Images were saved. 2. The cephalic vein is widely patent, mildly aneurysmal in the areas of frequent access. The interposition graft from the cephalic vein to the axillary vein is widely patent and there is a 20-30% stenosis at the junction anastomosis with the axillary vein. The axillary vein has a few valves, and it is difficult to see if they are flow-limiting, but there is good flow proximally into the subclavian vein where there is a 70% stenosis at the thoracic outlet. The central veins are widely patent with rapid flow back to the superior vena cava. 3. After angioplasty of the left subclavian vein at the thoracic outlet for multiple inflations, there is widely patent flow with less than 20% residual stenosis in no extravasation. 4. After angioplasty of the graft left axillary vein anastomosis with an 8 x 40 [place] balloon for multiple inflations, there is widely patent flow with no significant residual stenosis and no extravasation. 5. After angioplasty of the left axillary vein at the area of valves with an 8 x 40 [place] balloon, there is widely patent flow with no flow limitation and no extravasation. This completed the procedure and there was an excellent thrill in the fistula. REPORT OF OPERATION: The patient was brought to the angiographic suite in stable condition. His left upper extremity was prepped and draped in a sterile fashion. A timeout was performed. Local anesthesia was administered to skin and subcutaneous tissue over the cephalic vein. A microneedle was used to access the vein under ultrasound guidance. A wire was passed through this access and the needle was removed. A 4 [place]i sheath was placed and flushed with saline. Sedation was administered without complication. A fistulogram and central venogram were performed, please see interpretation above. A Glidewire was advanced into the central system and across the tight stenosis in the left subclavian under fluoroscopic guidance. The sheath was exchanged for some [place]i sheath and flushed with saline. We then advanced a 12 x 40 [place] balloon across the stenosis at the thoracic outlet and a few serial dilations were performed with the balloon for three-minute inflations. Following this, there was widely patent flow through the subclavian vein, with less than 20% residual stenosis in no extravasation. We then exchanged balloon for an 8 x 40 [place] balloon and a three-minute inflations was done across the proximal anastomosis of the graft with the axillary vein, with no extravasation and widely patent flow following angioplasty with no residual stenosis noted. We then angioplasty across the more proximal axillary vein at the area of 2 large valves, and following this there is widely patent flow with an excellent thrill in the fistula and no extravasation. No residual stenosis noted. This concluded the procedure. We placed additional local anesthesia at the sheath site in a [id number] Prolene suture was placed and secured as the sheath was removed. Sterile dressings were applied and pressure was held and good hemostasis was noted. The patient was then taken to recovery in stable condition. He tolerated the sedation in the procedure well. He had an excellent thrill and is fistula at case close. ESTIMATED BLOOD LOSS: Approximately 4 mL. COMPLICATIONS: None. PLAN: It is okay to use the AV fistula for dialysis. It is okay to resume home diet and medications. We appreciate the opportunity to participate in the care of this patient. CEDERSTRAND,STANLEY L. MD Sep 20, 2020 14:17
[2020-09-20 14:45] VITALS: BP 188/78
== END ==
LOC: M IRPRO 10:52
PROVIDERS: ATTEND Surgery Vascular Surgery
DX: T82.590A Other mechanical complication of surgically created arteriovenous fistula, initial encounter (principal); N18.6 End stage renal disease; I12.0 Hypertensive chronic kidney disease with stage 5 chronic kidney disease or end stage renal disease; E11.22 Type 2 diabetes mellitus with diabetic chronic kidney disease; E11.40 Type 2 diabetes mellitus with diabetic neuropathy, unspecified; E78.00 Pure hypercholesterolemia, unspecified; F32.9 Major depressive disorder, single episode, unspecified; F41.9 Anxiety disorder, unspecified; G89.29 Other chronic pain; J44.9 Chronic obstructive pulmonary disease, unspecified; X58.XXXA Exposure to other specified factors, initial encounter; Z79.899 Other long term (current) drug therapy; Z87.891 Personal history of nicotine dependence; Z88.1 Allergy status to other antibiotic agents; Z88.8 Allergy status to other drugs, medicaments and biological substances; Z99.2 Dependence on renal dialysis
CPT/HCPCS: 36902; 99152; 99153; C1725; C1769; C1894; J1644; J2250; J3010; Q9967

== ENCOUNTER → 2020-11-08 | Outpatient (CLI) | payer MEDICARE, MEDICAID ==
[~2020-11-08] MED LIST changes: +COLA100C5 PO; +ISOS1TAB36 PO; -ISOS60TA2 PO; -MIDAZOLAM INJ 2MG/2ML VIAL (J2250 PER 1MG) As Ordered ONE; +MIRA3350 PO; -fentaNYL 100 MCG/2 ML INJECTION (J3010) As Ordered ONE
[2020-11-08 13:55] VITALS: BP 194/108
--- NOTE | 2020-11-08 14:19 | ROOPDOC ---
[facility] Report Of Operation Report of Operation DATE OF PROCEDURE: 11/08/20 PREPROCEDURE DIAGNOSES: End-stage renal disease with increased pulsatility left brachial basilic fistula and swelling left upper extremity POSTPROCEDURE DIAGNOSES: Same PROCEDURE: 1. Ultrasound-guided access left basilic vein 2. Left upper extremity fistulogram and central venogram 3. Angioplasty left basilic vein with a by 20 cutting balloon and 8 x 200 [place] balloon 4. Completion venogram SURGEON: Stanley Chow MD ANESTHESIA: Local anesthesia 3 mL lidocaine. The patient preferred not to use sedation or analgesia for the procedure. INDICATION FOR PROCEDURE: This is a very pleasant 54-year-old patient with end- stage renal disease who has had increased swelling in his left upper extremity and increased pulsatility in his left brachiobasilic AV fistula. Risks benefits and alternatives to a fistulogram potential intervention were explained to the patient needs agreeable to proceed. Informed consent was obtained. INTERPRETATION: 1. Ultrasound reveals the AV anastomosis is widely patent, please see images. 2. Left upper extremity fistulogram reveals a widely patent basilic vein with a focal narrowing of 80%, then aneurysmal, then focal narrowing of 60% and the rest of the basilic vein measures about 7 mm, and has what appears to be a widely patent junction with the axillary vein. There are considerable collateral veins that retrograde fill off of the basilic vein proximally and the axillary vein. 3. After angioplasty with a cutting balloon and the [place] balloon, there is improve flow through the entire system, and improved thrill, minimal residual stenosis noted between the aneurysmal segments- not flow-limiting, and no extravasation. REPORT OF OPERATION: The patient was brought to the angiographic suite in stable condition. His left upper extremity was prepped and draped in a sterile fashion. A timeout was performed. Ultrasound was used to examine the AV anastomosis and it was noted to be widely patent. Please see ultrasound images. Ultrasound was then used to guide access with a microneedle after anesthetizing with local anesthesia. The wire was passed through this access needle was removed and a 4 Kazakh sheath was placed and flushed with saline. A fistulogram and central venogram were performed, please interpretation above. We then passed Glidewire and the central system under fluoroscopic guidance and exchanged sheath for 7 [place] sheath. We then exchange the wire for 018 Glidewire advantage and and sleepy 20 cutting balloon across the areas of stenoses and did serial inflations. Following this there was improve flow but still residual stenoses, no extravasation. We exchange the balloon over the wire for her in November 22 100 [place] balloon and did long three-minute inflations across the entire segment multiple times. Following this, there is definitely an improvement in the thrill, no pulsatility in the fistula, no significant residual stenoses except during the 2 aneurysms were there is still a stenosis that does not appear flow- limiting. We then placed a [id number] Prolene suture at the sheath exit site and removed the sheath and secured the suture. Good hemostasis was noted and sterile dressings were applied. The patient was taken to recovery in stable condition. He tolerated the procedure well without sedation. ESTIMATED BLOOD LOSS: Approximately 2 mL. COMPLICATIONS: none. PLAN: It is okay to use the fistula for dialysis. It is okay to resume home diet and medications. We appreciate the opportunity to participate in the care of this patient. STANLEY CHOW MD Nov 08, 2020 14:19
== END ==
LOC: M IRPRO 12:01
PROVIDERS: ATTEND Surgery Vascular Surgery
DX: T82.590A Other mechanical complication of surgically created arteriovenous fistula, initial encounter (principal); N18.6 End stage renal disease; X58.XXXA Exposure to other specified factors, initial encounter
CPT/HCPCS: 36902; C1725; C1729; C1769; C1894; J1644; Q9967

== ENCOUNTER → 2021-04-09 | Outpatient (CLI) | payer MEDICAID, MEDICARE ==
[~2021-04-09] MED LIST changes: +**hydrALAZINE** 10 MG TAB PO ONE; -ACET-838 PO; +ACET32TAB PO; +MIDAZOLAM INJ 2MG/2ML VIAL (J2250 PER 1MG) As Ordered ONE; +fentaNYL 100 MCG/2 ML INJECTION (J3010) As Ordered ONE
[2021-04-09 10:40] VITALS: BP 178/68
[2021-04-09 10:55] VITALS: BP 167/65
--- NOTE | 2021-04-10 09:33 | RO ---
OPERATIVE NOTE DATE OF OPERATION: 04/09/2021 TIME PERFORMED: 09:54 a.m. PREOPERATIVE DIAGNOSIS: Left upper extremity AV fistula with arm swelling. POSTOPERATIVE DIAGNOSIS: Left upper extremity AV fistula with arm swelling. PROCEDURE: Elective arm fistulogram, angioplasty of subclavian vein with 10 x 40 mm [place] balloon as well as cephalic vein in the arm with 10 x 40 mm [place] balloon. COMPLICATIONS: None. SPECIMEN: None. MEDICATIONS GIVEN: 1% Lidocaine only, total of 2 mL. SURGEON: Grey Morris MD CIVIL DESIGNER: No qualified surgical technician was available. ANESTHESIA: Local only without any moderate sedation. PROCEDURE INDICATIONS: Colton Jolley has a left upper arm brachiocephalic fistula which has been causing arm swelling for quite some time. He saw me clinically, elected to performed fistulogram. The patient agreed to move forward. DESCRIPTION OF PROCEDURE: The patient was taken to the interventional suite, the left upper arm was prepped and draped in standard sterile fashion. The fistula was accessed in antegrade fashion using micropuncture needle and sheath. Fistulogram was performed. This revealed a patent brachial artery to cephalic vein AV anastomosis. There was immediate retrograde flow noted through the basilic venous system and into the axillary system likely downstream stenosis. The cephalic vein was quite enlarged at the area of the needle access site and measures probably in the order of 12 mm in some areas. There was band-like constriction immediately noted just distal to where the needle puncture catheter was inserted which could be a kink or could be a previous banding site that the patient had done. The fissure then courses across the arm and appears to be either an AV graft or autogenous vein that has been turned down and transposed to the axillary vein. From here the axillary vein is widely patent and courses up to the shoulder at which point in the joint the jugular vein joins the brachiocephalic. I did see that the subclavian just before the brachiocephalic begins has an area of about 70-80% stenosis noted and in this area the veins measure around 10 mm and narrow down to about 4 mm in diameter. There is reflux up the collateral venous branches. At this point I felt that he would benefit from angioplasty of this lesion as well as the band-like constriction in the arm. I felt that 10 mm balloon would treat both lesions simultaneously. I exchange micropuncture sheath and needle over a Glidewire for 6-Ukrainian sheath. Guidewire was at the right atrium, no arrhythmias were noted. The 10 x 40 mm [place] was used to angioplasty both lesions successfully. After about 1 minute of angioplasty time repeat fistulogram showed less than 30% residual stenosis and improved thrill was noted to fistula. The patient tolerated the procedure without significant pain. At this point I placed hemostatic pressure and suture, held manual pressure, obtained hemostasis and transferred the patient to the recovery room in stable condition. Of note, his blood pressure was a bit high so we did treat him with oral Labetalol in the recovery room. He will follow up with us in 3-6 months for repeat fistulogram. [facility]
== END ==
LOC: M IRPRO 08:56
PROVIDERS: ATTEND Surgery Vascular Surgery
DX: T82.590A Other mechanical complication of surgically created arteriovenous fistula, initial encounter (principal); N18.6 End stage renal disease; X58.XXXA Exposure to other specified factors, initial encounter
CPT/HCPCS: 36902; C1725; C1769; C1894; J1644; J3010; Q9967

== ENCOUNTER → 2023-01-28 | Outpatient (CLI) | payer MEDICARE, MEDICAID ==
[~2023-01-28] MED LIST changes: -**hydrALAZINE** 10 MG TAB PO ONE; -CYMB60CA3 PO; +CYMB60CA4 PO; +FLUT50SP17; -FLUTISP; +INSU100I6 SC; -ISOVUE-300 61% 50ML VIAL As Ordered ONE; -LEVE1INJ5 SC; -LIDOCAINE 1% MDV 20ML VIAL As Ordered ONE; -MIDAZOLAM INJ 2MG/2ML VIAL (J2250 PER 1MG) As Ordered ONE; -fentaNYL 100 MCG/2 ML INJECTION (J3010) As Ordered ONE
[2023-01-28 11:04] LABS: CREATININE FOR GFR 6.12 MG/DL (0.70-1.30); GLOMERULAR FILTRATION RATE 10.1 (>56)
== END ==
LOC: M LAB 09:45
PROVIDERS: ATTEND Otolaryngology
DX: H93.A3 Pulsatile tinnitus, bilateral (principal)

== ENCOUNTER → 2023-02-09 | Outpatient (CLI) | payer MEDICARE ==
[~2023-02-09] MED LIST changes: +ISOVUE-370 76% 100ML VIAL As Ordered ONE
== END ==
LOC: M RAD 08:57
PROVIDERS: ATTEND Otolaryngology
DX: H93.A3 Pulsatile tinnitus, bilateral (principal)
CPT/HCPCS: 70496; 70498; Q9967

== ENCOUNTER → 2023-03-02 | Outpatient (CLI) | payer MEDICARE, MEDICAID ==
[~2023-03-02] MED LIST changes: -ISOVUE-370 76% 100ML VIAL As Ordered ONE
== END ==
LOC: M RAD 10:20
PROVIDERS: ATTEND Nurse Practitioner Family
DX: M79.604 Pain in right leg (principal); R59.0 Localized enlarged lymph nodes

== ENCOUNTER → 2024-06-12 | Outpatient (CLI) | payer MEDICARE, MEDICAID ==
[~2024-06-12] MED LIST changes: -FLUT50SP17; +FLUTISP; -HYDR25TA PO; +HYDR25TA88 PO; +ONDA-282 PO; -ONDA4TAB6 PO
== END ==
LOC: M CARPUL 09:16
PROVIDERS: ATTEND Internal Medicine Nephrology
DX: I95.9 Hypotension, unspecified (principal); R06.02 Shortness of breath